=== PATIENT | male | born 1940 | race Caucasian/White ===

== ENCOUNTER 2019-09-19 11:30 | Inpatient (IN) ==
[2019-09-19] MEDS ORDERED: SODIUM CHLORIDE 0.9% 500 ML IV SCH (12:15)
[2019-09-19] MEDS ORDERED: KETOROLAC TROMETHAMINE 15 MG/ML VIAL IV ONE (12:15)
--- NOTE | 2019-09-19 12:21 | Emergency Department Note ---
History of Present Illness General Chief complaint: Leg Injury/Pain Stated complaint: R LEG PAIN-HARD TO WALK/SWELLING-BAD HEADACHE Time Seen by Provider: 09/19/19 11:57 Source: patient Mode of arrival: ambulatory Limitations: no limitations History of Present Illness Maximum Pain Intensity: 7 This is a 79-year-old male who presents to the ED with a chief complaint of generalized weakness as well as a frontal headache. The patient states that he has had progressive generalized weakness for at least a month. He also reports that he has no strength in his voice for at least 4 to 5 months. He states that he developed a headache that was sudden onset and constant in nature starting yesterday afternoon. The patient reports that is about an 8 out of 10. He states that overall he does not feel good. He has no energy. He was seen by his PCP for these symptoms and ultimately a blood pressure medication change was performed and he was taken off of Lipitor and placed on a different statin. The states that he has steadily been getting worse over the past months. Increasing weakness. He seems to be always cold, according to the . Yesterday he had some nausea no appetite but today he states that has resolved. He is currently on Augmentin for some phlegm in his throat. He started that on Friday. The states that the phlegm is not new. Home Medications Home Medications Medication Instructions Recorded Confirmed Type losartan 50 mg PO QAM 09/13/18 01/04/19 History omeprazole 20 mg PO BID 09/13/18 01/04/19 History tamsulosin 0.4 mg PO QAM 09/13/18 01/04/19 History trazodone 75 mg PO HS PRN 09/13/18 01/04/19 History Metamucil Smooth 1 dose PO BID 01/04/19 01/04/19 History aspirin [Ecotrin Low Strength] 81 mg PO DAILY 01/04/19 01/04/19 History atorvastatin 40 mg PO DAILY 01/04/19 01/04/19 History docusate sodium [Colace] 100 mg PO BID 01/04/19 01/04/19 History doxazosin 1 mg PO HS 01/04/19 01/04/19 History loratadine 10 mg PO DAILY 01/04/19 01/04/19 History ondansetron HCl [Zofran] 4 mg PO Q8H PRN 01/04/19 01/04/19 History sennosides [senna] 8.6 mg PO BID 01/04/19 01/04/19 History Allergies Allergy/AdvReac Type Severity Reaction Status Date / Time clarithromycin Allergy Mild rash Verified 01/04/19 23:34 metoclopramide AdvReac Intermediate NIGHTMARES Verified 01/04/19 23:34 prochlorperazine AdvReac Intermediate HYPER Verified 01/04/19 23:34 UNABLE TO TOLERATE SIDE EFFEDTS Past Med/Surg History Medical History Anxiety (Chronic) BPH (benign prostatic hyperplasia) (Chronic) CKD (chronic kidney disease), stage III (Chronic) Depression Diverticulitis GERD (gastroesophageal reflux disease) (Chronic) HTN (hypertension) (Chronic) IBS (irritable bowel syndrome) (Chronic) Prostate cancer (Chronic) "s/p radiation" Sinus bradycardia (Chronic) Vasovagal syncope (Chronic) Surgical History History of bowel resection History of partial colectomy (Chronic) Hx of tonsillectomy (Chronic) Family History Other Family history non-contributory Social History Preferred Language: Italian Feels Safe at Home: Yes Smoking Status: Former smoker Review of Systems A total of 10 systems reviewed and were otherwise negative Physical Exam Vital Signs Vital Signs - 24 hr 09/19/19 11:32 Temperature 36.5 C Temperature Source Oral Pulse Rate 72 Respiratory Rate 19 Blood Pressure 154/83 H Blood Pressure Mean 106 Pulse Oximetry 98 Sepsis Recent Fever Within 48 Hours No Sepsis Action Taken by Nursing No Action Required VITAL SIGNS: were reviewed as above. GENERAL:Non-toxic in appearance. SKIN: Warm dry and pink. HEAD: Normocephalic and atraumatic. OROPHARYNX: Is clear and moist NECK: Supple without lymphadenopathy or meningismus. LUNGS: Are clear. HEART: Regular rate and rhythm. ABDOMEN: Soft and nontender. EXTREMITIES: Warm and well perfused. NEUROLOGICALLY: Awake alert and oriented without focal deficit. Cranial nerves 2-12 are intact. There is no pronator drift. Cerebellar testing is within normal limits. There is no nystagmus. There is no facial droop. Speech is clear. Vision is grossly normal. MUSCULOSKELETAL: Good muscle tone. No evidence of trauma. Strength is symmetric. ALL NURSING NOTES WERE REVIEWED. Course Administered Medications Discontinued Medications Sodium Chloride (Nss) 500 mls @ 999 mls/hr IV .Q31M SELAM Stop: 09/19/19 12:45 Last Admin: 09/19/19 12:55 Dose: 999 mls/hr Documented by: [id number] Ketorolac Tromethamine (Toradol) 15 mg IV NOW ONE Stop: 09/19/19 12:16 Last Admin: 09/19/19 13:00 Dose: 15 mg Documented by: [id number] Medical Decision Making Differential Diagnosis Differential includes acute coronary syndrome, myocardial infarction, CVA, TIA, anemia, infection, pneumonia, UTI, pyelonephritis, poor nutrition, dehydration, electrolyte disturbance,hypoglycemia. Medical Records Attestation: I reviewed the patient's medical records. Home Medications Current Medication List: was personally reviewed by me Laboratory Data Attestation: I reviewed the patient's lab results. Result diagrams: 09/19/19 12:49 09/19/19 12:49 Lab Results 09/19/19 09/19/19 Range/Units 12:49 12:49 WBC 5.36 (4.8-10.8) K/uL RBC 4.87 (4.7-6.1) M/uL Hgb 15.3 (14.0-18.0) g/dL Hct 43.9 (42-52) % MCV 90.1 (80-100) fL MCH 31.4 (25-34) pg MCHC 34.9 (32-36) g/dL RDW Std Deviation 41.6 (36.4-46.3) fL RDW Coeff of Regine 12.7 (11.5-14.5) % Plt Count 142 (130-400) K/uL MPV 11.2 H (7.4-10.4) fL Immature Gran % (Auto) 0.2 % Neut % (Auto) 73.1 % Lymph % (Auto) 14.6 % Kingman % (Auto) 9.1 % Eos % (Auto) 2.6 % Baso % (Auto) 0.4 % Neut # (Auto) 3.92 (1.4-6.5) K/uL Lymph # (Auto) 0.78 L (1.2-3.4) K/uL Kingman # (Auto) 0.49 (0.11-0.59) K/uL Eos # (Auto) 0.14 (0-0.5) K/uL Baso # (Auto) 0.02 (0-0.2) K/uL Immature Gran # (Auto) 0.01 (0.00-0.02) K/uL Sodium 133 L (136-145) mmol/L Potassium 4.1 (3.5-5.1) mmol/L Chloride 95 L (98-107) mmol/L Carbon Dioxide 31 (21-32) mmol/L Anion Gap 7.0 (3-11) BUN 15 (7-18) mg/dl Creatinine 1.42 H (0.6-1.4) mg/dl Est Cr Clr Drug Dosing 39.4 ml/min Est GFR ( Amer) 54.1 Est GFR (Non-Af Amer) 46.6 BUN/Creatinine Ratio 10.3 (10-20) Glucose 119 H (70-99) mg/dl Calcium 8.8 (8.5-10.1) mg/dl Magnesium 2.3 (1.8-2.4) mg/dl Total Bilirubin 0.5 (0.2-1) mg/dl AST 33 (15-37) U/L ALT 31 (12-78) U/L Alkaline Phosphatase 94 (45-117) U/L Total Creatine Kinase 216 (39-308) U/L Troponin I < 0.015 (0-0.045) ng/ml Total Protein 7.2 (6.4-8.2) gm/dl Albumin 3.8 (3.4-5.0) gm/dl Globulin 3.4 (2.5-4.0) gm/dl Albumin/Globulin Ratio 1.1 (0.9-2) TSH 1.660 (0.300-4.500) uIu/ml Imaging Data Radiologist's Impression: XR chest 1V portable CLINICAL HISTORY: weakness COMPARISON STUDY: 11/24/2018 FINDINGS: The cardiac and mediastinal contours are normal. There is no evidence of focal pulmonary consolidation. There is no evidence of failure. No pleural effusions are visualized.[There are subsegmental atelectatic changes at the left lung base. IMPRESSION: Subsegmental atelectatic changes at the left lung base. Otherwise negative AP portable chest CT head/brain wo con CLINICAL HISTORY: frontal headache COMPARISON STUDY: 11/24/2018 TECHNIQUE: Axial CT of the brain is performed from the vertex to the skull base. IV contrast was not administered for this examination. A dose lowering technique was utilized adhering to the principles of ALARA. CT DOSE: 537.48 mGy.cm FINDINGS: There is a 3.5 cm hypodensity involving the left inferomedial cerebellar hemisphere suspicious for a subacute PICA infarct. There is no midline shift. There is no evidence of acute hemorrhage. There are extensive white matter hypodensities likely on a small vessel basis. There are scattered old lacunar infarcts. There is no evidence of pathologic ventricular dilatation. There is no evidence of acute sinusitis IMPRESSION: 1. Interval development of a 3.5 cm hypodensity involving the left cerebellar hemisphere suspicious for a subacute PICA infarct ECG Data Attestation: I personally reviewed and interpreted this ECG as follows: Indication: + weakness Rate (beats per minute): 65 Rhythm: + normal sinus ECG Intervals/blocks: + Normal QT-c ECG ST segments: no ST elevation ECG Findings: no PVCs Blood Pressure Blood Pressure Findings: Elevated blood pressure Blood Pressure Disposition: Referred to patients primary care provider MDM Narrative The patient presents with generalized weakness and a headache. Details listed above. The weakness seems to be more subacute/chronic in nature. The headache started yesterday. The patient's vital signs are unremarkable. Blood pressure was slightly elevated. Exam and neuro exam was unremarkable. A CT scan of the brain reveals a 3.5 cm left cerebellar hypodensity concerning for a subacute PICA infarct. CBC and chemistry panel was unremarkable. TSH is normal. Troponin is negative. Chest x-ray did not show acute disease. The patient was told the results. Because of the abnormality on CT scan and the patient's generalized weakness, he will be seen by the hospitalist for further inpatient evaluation and care. Impression & Plan Weakness, Acute CVA (cerebrovascular accident) Discharge Plan Visit Data Chief Complaint: Leg Injury/Pain Stated Complaint: R LEG PAIN-HARD TO WALK/SWELLING-BAD HEADACHE ED Provider: Hany Dunn Discharge Problem: Weakness, Acute CVA (cerebrovascular accident) Patient Disposition: Being Evaluated by Hospitalist Forms Stand Alone Forms: [facility] Prescriptions Prescriptions: No Action trazodone 50 mg Tablet 75 mg PO HS PRN (Reason: Sleep) RF: 0 tamsulosin 0.4 mg Capsule 0.4 mg PO QAM RF: 0 losartan 25 mg Tablet 50 mg PO QAM RF: 0 omeprazole 20 mg Capsule,Delayed Release(Dr/Ec) 20 mg PO BID RF: 0 atorvastatin 40 mg Tablet 40 mg PO DAILY RF: 0 docusate sodium [Colace] 100 mg Capsule 100 mg PO BID RF: 0 doxazosin 1 mg Tablet 1 mg PO HS RF: 0 aspirin [Ecotrin Low Strength] 81 mg Tablet,Delayed Release (Dr/Ec) 81 mg PO DAILY RF: 0 loratadine 10 mg Capsule 10 mg PO DAILY RF: 0 Metamucil Smooth 1 dose PO BID RF: 0 ondansetron HCl [Zofran] 4 mg Tablet 4 mg PO Q8H PRN (Reason: nausea/vomiting) RF: 0 sennosides [senna] 8.6 mg Tablet 8.6 mg PO BID RF: 0 Referrals Referrals: Jinny Johnson MD [Primary Care Provider] -
--- NOTE | 2019-09-19 12:43 | XRay Report ---
XR chest 1V portable CLINICAL HISTORY: weakness COMPARISON STUDY: 11/24/2018 FINDINGS: The cardiac and mediastinal contours are normal. There is no evidence of focal pulmonary co nsolidation. There is no evidence of failure. No pleural effusions are visualized.[There are subsegme ntal atelectatic changes at the left lung base. IMPRESSION: Subsegmental atelectatic changes at the left lung base. Otherwise negative AP portable ch est ACT 112: Negative or not required by law. Electronically signed by: Justin Arias M.D. 09/19/2019 12:41 PM
[2019-09-19 13:05] LABS: Basophils # (auto) 0.02 K/uL (0-0.2); Basophils % (auto) 0.4 %; Eosinophils # (auto) 0.14 K/uL (0-0.5); Eosinophils % (auto) 2.6 %; Hematocrit (blood only) 43.9 % (42-52); Hemoglobin 15.3 g/dL (14.0-18.0); Immature Granulocytes # (auto) 0.01 K/uL (0.00-0.02); Immature Granulocytes % (auto) 0.2 %; Lymphocytes # (auto) 0.78 K/uL (1.2-3.4); Lymphocytes % (auto) 14.6 %; Mean Corpuscular Hemoglobin 31.4 pg (25-34); Mean Corpuscular Hgb Conc 34.9 g/dL (32-36); Mean Corpuscular Volume 90.1 fL (80-100); Mean Platelet Volume 11.2 fL (7.4-10.4); Monocytes # (auto) 0.49 K/uL (0.11-0.59); Monocytes % (auto) 9.1 %; Neutrophils # (auto) 3.92 K/uL (1.4-6.5); Neutrophils % (auto) 73.1 %; Platelet Count 142 K/uL (130-400); RDW Coefficient of Variation 12.7 % (11.5-14.5); RDW Standard Deviation 41.6 fL (36.4-46.3); Red Blood Count 4.87 M/uL (4.7-6.1); White Blood Count 5.36 K/uL (4.8-10.8)
--- NOTE | 2019-09-19 13:23 | CT Scan Report ---
CT head/brain wo con CLINICAL HISTORY: frontal headache COMPARISON STUDY: 11/24/2018 TECHNIQUE: Axial CT of the brain is performed from the vertex to the skull base. IV contrast was not administered for this examination. A dose lowering technique was utilized adhering to the principles of ALARA. CT DOSE: 537.48 mGy.cm FINDINGS: There is a 3.5 cm hypodensity involving the left inferomedial cerebellar hemisphere suspicious for a subacute PICA infarct. There is no midline shift. There is no evidence of acute hemorrhage. There are extensive white matter hypodensities likely on a small vessel basis. There are scattered ol d lacunar infarcts. There is no evidence of pathologic ventricular dilatation. There is no evidence of acute sinusitis IMPRESSION: 1. Interval development of a 3.5 cm hypodensity involving the left cerebellar hemisphere suspicious f or a subacute PICA infarct ACT 112: Negative or not required by law. Electronically signed by: Justin Arias M.D. 09/19/2019 1:21 PM
[2019-09-19 13:24] LABS: Alanine Aminotransferase 31 U/L (12-78); Albumin Level 3.8 gm/dl (3.4-5.0); Aspartate Aminotransferase 33 U/L (15-37); BUN Creatinine Ratio 10.3 (10-20); Blood Urea Nitrogen 15 mg/dl (7-18); Calcium 8.8 mg/dl (8.5-10.1); Carbon Dioxide 31 mmol/L (21-32); Chloride 95 mmol/L (98-107); Creatinine Clr Calc Pharmacy 39.4 ml/min; Est GFR (African American) 54.1; Est GFR (Non-African American) 46.6; Glucose 119 mg/dl (70-99); Magnesium 2.3 mg/dl (1.8-2.4); Potassium 4.1 mmol/L (3.5-5.1); Sodium 133 mmol/L (136-145)
[2019-09-19 13:34] LABS: Albumin Globulin Ratio 1.1 (0.9-2); Alkaline Phosphatase 94 U/L (45-117); Bilirubin,Total 0.5 mg/dl (0.2-1); Creatine Kinase 216 U/L (39-308); Globulin 3.4 gm/dl (2.5-4.0); Total Protein 7.2 gm/dl (6.4-8.2); Troponin I < 0.015 ng/ml (0-0.045)
--- NOTE | 2019-09-19 14:59 | History & Physical Report ---
Date of Service September 19, 2019 Assessment & Plan (1) Acute CVA (cerebrovascular accident): (2) Weakness: Pt is 79 y/o M with PMH CVA with residual right sided weakness, HTN, CKD III, prostate CA s/p radiation presented to ER with c/o progressive bilateral lower extremity weakness over the past month with increased R leg weakness over past couple of days and frontal CHAMBERS x 2 days. Denies any falls. In ER pt afebrile, PA: 72, RR: 19, BP 154/83, 98% on room air. No significant electrolyte abnormality, normal troponin, no leukocytosis, no significant anemia CT HEAD: Interval development of a 3.5 cm hypodensity involving the left cerebellar hemisphere suspicious for a subacute PICA infarct -In ER was given Toradol 15 mg IV -Patient had aspirin this morning -Tele to monitor for arrhythmias --lipid panel and A1c in AM -MRI brain -U/S carotids -echo with bubble study -aspiration precautions -PT/OT consult -Patient previously intolerant to statin -Continue aspirin, will add Plavix per neurology recommendations -Neurology consult, discussed with Dr Whitten recommends starting Plavix (3) HTN (hypertension): -Continue losartan, chlorthalidone (4) CKD (chronic kidney disease), stage III: Cr: 1.4. Baseline 1.3 -Monitor renal functions -Avoid nephrotoxic agents when possible (5) GERD (gastroesophageal reflux disease): -Continue PPI (6) Depression: (7) Insomnia: -Patient no longer taking medications as well or not effective (8) Prostate cancer: History of prostate CA s/p radiation -Continue tamsulosin DVT Prophylaxis -Lovenox SQ Full Code as per discussion with pt Follows with Dr Gallagher for routine care Pt was seen and care coordinated with Dr Barrera. See addendum History of Present Illness Chief Complaint: Weakness Primary Care Provider: Jinny Johnson MD Pt is 79 y/o M with PMH CVA with residual right sided weakness, HTN, CKD III, prostate CA s/p radiation presented to ER with c/o progressive weakness. Reports has noticed increased bilateral leg weakness over the past month. States noticed increased R leg weakness past several days. Reports residual difficulty with writing with right hand and denies any increased upper extremity symptoms. Denies any falls. C/O dull frontal CHAMBERS x 2 days. Patient states 1 week ago noticed some swelling primarily to right lower leg that lasted a few days and self resolved was seen by PCP with no residual swelling. Denies any recurrent swelling, denies any erythema, skin discolorations or pain. Pt was previously on Lipitor then changed to Crestor due to leg cramps. Pt stopped taking due to reported leg cramps. 09/14/2019 atorvastatin re-prescribed and pt stopped taking a couple days ago secondary to leg cramps. Has chronic cough and chronic "phlegm in throat". PCPs office started patient on Augmentin on 09/14/2019 for 10-day course. Patient does not think any improvement in cough or phlegm symptoms. Denies fever/chills, diaphoresis, V/D/C, dizziness, syncope, vision changes, neck pain, CP, SOB, orthopnea, palpitations, hemoptysis, sore throat, choking, otalgia, rhinorrhea, abdominal pain, paresthesias, rashes, urinary symptoms. History MRI brain 11/24/18 - Acute infarction of the posterior limb of the left internal capsule. Chronic left thalamus lacunar infarct CTA Head and neck 11/2018 without significant stenosis. Today in ER work-up included CT head with results of Interval development of a 3.5 cm hypodensity involving the left cerebellar hemisphere suspicious for a subacute PICA infarct Patient being admitted to hospital for further work-up and evaluation Allergies Allergy/AdvReac Type Severity Reaction Status Date / Time clarithromycin Allergy Mild rash Verified 01/04/19 23:34 metoclopramide AdvReac Intermediate NIGHTMARES Verified 01/04/19 23:34 prochlorperazine AdvReac Intermediate HYPER Verified 01/04/19 23:34 UNABLE TO TOLERATE SIDE EFFEDTS Home Medications Home Medications Medication Instructions Recorded Confirmed Type omeprazole 20 mg PO QAM 09/13/18 09/19/19 History tamsulosin 0.4 mg PO QAM 09/13/18 09/19/19 History aspirin [Ecotrin Low Strength] 81 mg PO QAM 01/04/19 09/19/19 History acetaminophen [Tylenol Extra 500 mg PO Q6H PRN 09/19/19 09/19/19 History Strength] amoxicillin-pot clavulanate 1 tab PO Q12 09/19/19 09/19/19 History atorvastatin 40 mg PO QAM 09/19/19 09/19/19 History chlorthalidone 25 mg PO QAM 09/19/19 09/19/19 History fluticasone propionate 2 spray INTRANASAL QAM 09/19/19 09/19/19 History losartan 100 mg PO QAM 09/19/19 09/19/19 History montelukast [Singulair] 10 mg PO QAM 09/19/19 09/19/19 History psyllium husk [Metamucil] 1 tsp PO BID 09/19/19 09/19/19 History sertraline 50 mg PO QAM 09/19/19 09/19/19 History Past Med/Surg History Medical History Anxiety (Chronic) BPH (benign prostatic hyperplasia) (Chronic) CKD (chronic kidney disease), stage III (Chronic) Depression Diverticulitis GERD (gastroesophageal reflux disease) (Chronic) HTN (hypertension) (Chronic) IBS (irritable bowel syndrome) (Chronic) Insomnia Prostate cancer (Chronic) "s/p radiation" Sinus bradycardia (Chronic) Vasovagal syncope (Chronic) Surgical History History of bowel resection History of partial colectomy (Chronic) Hx of tonsillectomy (Chronic) Family History Brother Diabetes Daughter Asthma Social History Preferred Language: Emirati Feels Safe at Home: Yes Smoking Status: Former smoker Hx Alcohol Use: No Hx Substance Use: No Review of Systems Review of Systems: All systems reviewed & are unremarkable except as noted in HPI & below Physical Exam Physical Exam: General: no distress, WDWN Head: normocephalic, atraumatic Eyes: PERRL, EOM's intact, conjunctiva non-injected, anicteric ENT: Very hard of hearing, normal inspection external ears, nose, mucous membranes moist Neck: supple, trachea midline Lungs: clear, no respiratory distress, no wheezing/rhonchi/rales CV: RRR, no murmur, no pretibial edema Abd: normal BS, soft, non-tender Ext: no cyanosis, no calf tenderness Neuro: A&O x 3, normal affect; No nystagmus, Facial sensation is intact and symmetric, The face is strong and symmetric, no dysarthria, Shoulder shrug intact, Tongue is midline, normal movement, no fasciculations, strength upper and lower bilateral extremities appears equal and strong Skin: warm, dry Results & Data Results & Data ([facility]) Vital Signs (Past 12 Hours) Vital Signs Temp Pulse Resp BP Pulse Ox 09/19/19 14:00 59 L 18 157/74 H 97 09/19/19 13:30 57 L 18 153/80 H 97 09/19/19 13:01 61 21 147/95 H 96 09/19/19 12:30 63 17 176/100 H 95 09/19/19 12:00 66 20 148/85 H 96 09/19/19 11:52 66 21 146/81 H 96 09/19/19 11:32 36.5 C 72 19 154/83 H 98 Laboratory Results Short CBC 09/19/19 Range/Units 12:49 WBC 5.36 (4.8-10.8) K/uL Hgb 15.3 (14.0-18.0) g/dL Hct 43.9 (42-52) % Plt Count 142 (130-400) K/uL BMP 09/19/19 12:49 Sodium 133 L Potassium 4.1 Chloride 95 L Carbon Dioxide 31 BUN 15 Creatinine 1.42 H Glucose 119 H Calcium 8.8 Cardiac Enzymes 09/19/19 Range/Units 12:49 Total Creatine Kinase 216 (39-308) U/L Troponin I < 0.015 (0-0.045) ng/ml Liver Function 09/19/19 Range/Units 12:49 Total Bilirubin 0.5 (0.2-1) mg/dl AST 33 (15-37) U/L ALT 31 (12-78) U/L Alkaline Phosphatase 94 (45-117) U/L Albumin 3.8 (3.4-5.0) gm/dl Diagnostic Findings CXR: IMPRESSION: Subsegmental atelectatic changes at the left lung base. CT HEAD: IMPRESSION: 1. Interval development of a 3.5 cm hypodensity involving the left cerebellar hemisphere suspicious for a subacute PICA infarct Code Status & VTE Plan VTE Prophylaxis Plan VTE Prophylaxis will be ordered: Yes Supervising Physician Co-Signing Physician Notes Patient was seen and examined by me, care coordinated with Mita Mckeon PA-C. Please see her note above for further details. Mr. 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 Was then transferred to [place] for further care. He now presents with frontal headache for past 2 days, and progressive weakness for past 1 month. Patient was followed by neurology, via telemedicine in [place] (note from July 01, 2019 reviewed), and he was continued on aspirin and Lipitor. However due to myalgias Lipitor was changed to Crestor by his PCP. Patient was then seen by his PCP in July and at that time it seems like Crestor was stopped as well due to leg muscle cramps. Patient was seen again by PCP in September, and atorvastatin (Lipitor) 40 mg daily was re-prescribed, on September 13. Per patient's , who is present at the bedside, patient did quite well after his last stroke and after physical therapy, he was able to walk by himself. He does not have much of weakness in his right upper extremity. He is able to use utensils however has difficulty writing. However more recently he has been having more difficulty walking due to right leg weakness. He denies any dizziness or lightheadedness. He also denies any change in vision. He denies any difficulty speaking, slurred speech, or difficulty swallowing. He also denies any fevers, chills, chest pain, shortness of breath, palpitati ons, any recent sickness or sick contacts. Per neurology note, patient has been having ongoing right lower extremity weakness with some increased tone, and patient has not been active since completing physical therapy. He tried to walk using cane. It was recommended by neurology, to continue aspirin 81 mg daily, blood pressure medication adjustment for goal of less than 130/80, statin for goal LDL less than 70 and regular screening for diabetes. Patient was encouraged to have a low-fat, low carbohydrate and low sodium/Mediterranean or DASH diet, regular exercise routine. Seems as patient was started most recently on chlorthalidone for blood pressure control by PCP. Patient confirms taking it. Today in the emergency room, CT head shows interval development of a 3.5 cm hypodensity involving the left cerebellar hemisphere suspicious for a subacute PICA infarct. Cr mildly elevated at 1.45, baseline about 1.3. Patient is currently sitting up in bed, in no acute distress. His is present at the bedside and also provides history. Patient is alert and oriented and answers questions appropriately. He is somewhat difficult of hearing however his speech is fluent, there is no facial asymmetry, EOMI, PERRL, normocephalic, atraumatic. Lungs are clear to auscultation bilaterally, no wheezing, rhonchi or crackles noted. Heart sounds are regular, no obvious murmurs noted. Abdomen is soft, nontender, nondistended, positive bowel sounds. Patient is able to move his upper and lower extremities, and has good strength on both sides however subjectively states that his right lower extremity is more weak if he was trying to get up from bed and walk. I did not have patient stand up and walk during my exam, gait was not assessed. No sensory loss was noted. We will admit patient to telemetry, will continue aspirin, statin, and will discuss with neurology further recommendations. Will start Plavix. Patient will need PT OT evaluation prior to discharge. Neurology outpatient follow-up after discharge. Italia Barrera MD
[2019-09-19] MEDS ORDERED: PHARMACIST DISCHARGE MED REC CONSULT PRN (15:56)
[2019-09-19] MEDS ORDERED: POLYETHYLENE (MIRALAX) 17 GM PACK PO PRN (15:56)
--- NOTE | 2019-09-19 16:02 | Hospitalist Progress Note ---
Date of Service September 19, 2019 Assessment & Plan Admission and Anticipated Discharge Date Admission Date: September 19, 2019 Subjective Patient was seen and examined by me, care coordinated with Mita Mckeon PA-C. Please see her note above for further details. Mr. 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 Was then transferred to [place] for further care. He now presents with frontal headache for past 2 days, and progressive weakness for past 1 month. Patient was followed by neurology, via telemedicine in [place] (note from July 01, 2019 reviewed), and he was continued on aspirin and Lipitor. However due to myalgias Lipitor was changed to Crestor by his PCP. Patient was then seen by his PCP in July and at that time it seems like Crestor was stopped as well due to leg muscle cramps. Patient was seen again by PCP in September, and atorvastatin (Lipitor) 40 mg daily was re-prescribed, on September 13. Per patient's , who is present at the bedside, patient did quite well after his last stroke and after physical therapy, he was able to walk by himself. He does not have much of weakness in his right upper extremity. He is able to use utensils however has difficulty writing. However more recently he has been having more difficulty walking due to right leg weakness. He denies any dizziness or lightheadedness. He also denies any change in vision. He denies any difficulty speaking, slurred speech, or difficulty swallowing. He also denies any fevers, chills, chest pain, shortness of breath, palpitations, any recent sickness or sick contacts. Per neurology note, patient has been having ongoing right lower extremity weakness with some increased tone, and patient has not been active since completing physical therapy. He tried to walk using cane. It was recommended by neurology, to continue aspirin 81 mg daily, blood pressure medication adjustment for goal of less than 130/80, statin for goal LDL less than 70 and regular screening for diabetes. Patient was encouraged to have a low-fat, low carbohydrate and low sodium/Mediterranean or DASH diet, regular exercise routine. Seems as patient was started most recently on chlorthalidone for blood pressure control by PCP. Patient confirms taking it. Today in the emergency room, CT head shows interval development of a 3.5 cm hypodensity involving the left cerebellar hemisphere suspicious for a subacute PICA infarct. Cr mildly elevated at 1.45, baseline about 1.3. Patient is currently sitting up in bed, in no acute distress. His is present at the bedside and also provides history. Patient is alert and oriented and answers questions appropriately. He is somewhat difficult of hearing however his speech is fluent, there is no facial asymmetry, EOMI, PERRL, normocephalic, atraumatic. Lungs are clear to auscultation bilaterally, no wheezing, rhonchi or crackles noted. Heart sounds are regular, no obvious murmurs noted. Abdomen is soft, nontender, nondistended, positive bowel sounds. Patient is able to move his upper and lower extremities, and has good strength on both sides however subjectively states that his right lower extremity is more weak if he was trying to get up from bed and walk. I did not have patient stand up and walk during my exam, gait was not assessed. No sensory loss was noted. We will admit patient to telemetry, will continue aspirin, statin, and will discuss with neurology further recommendations. Will start Plavix. Patient will need PT OT evaluation prior to discharge. Neurology outpatient follow-up after discharge. Italia Barrera MD Results & Data Results & Data ([facility]) Vital Signs (Past 12 Hours) Vital Signs Temp Pulse Resp BP Pulse Ox 09/19/19 15:05 60 18 175/88 H 99 09/19/19 14:30 59 L 20 166/85 H 99 09/19/19 14:00 59 L 18 157/74 H 97 09/19/19 13:30 57 L 18 153/80 H 97 09/19/19 13:01 61 21 147/95 H 96 09/19/19 12:30 63 17 176/100 H 95 09/19/19 12:00 66 20 148/85 H 96 09/19/19 11:52 66 21 146/81 H 96 09/19/19 11:32 36.5 C 72 19 154/83 H 98
[2019-09-19] MEDS ORDERED: GADOBUTROL 65ML VIAL IV PRN (17:13)
[2019-09-19] MEDS: CLOPIDOGREL BISULFATE 75 MG TAB PO SCH (17:43)
[2019-09-19] MEDS: ENOXAPARIN INJ 30 MG/0.3 ML SYR SQ SCH (17:44)
--- NOTE | 2019-09-19 17:51 | Magnetic Resonance Report ---
MRI OF THE BRAIN WITHOUT AND WITH IV CONTRAST CLINICAL HISTORY: stroke like symptoms COMPARISON STUDY: CT scan dated 09/19/2019 TECHNIQUE: MRI of the brain was performed from the vertex to the skull base utilizing various T1 and T2 weighted sequences. Following the IV administration of 7.5 mL of Gadavist contrast, additional enh anced images were obtained. FINDINGS: Sagittal T1, axial diffusion, proton density and T2 weighted axial, coronal FLAIR, and pre and post a xial T1-weighted images were acquired. These were supplemented with post gadolinium coronal T1 weight ed images. No intra or extra-axial mass lesions are visualized. There is a 5 cm focus of restricted water diffusion within the left cerebellar hemisphere. This is co nsistent with a subacute infarct in the PICA distribution. There is no evidence of ventricular dilatation. Proton density T2-weighted and FLAIR images reveal bilateral extensive foci of increased T2 signal wi thin the white matter, likely on a small vessel basis. There is a focus of increased T2 and FLAIR sig nal within the left cerebellar hemisphere consistent with a subacute infarct. There are no abnormal flow voids. There is no evidence of pathologic enhancement. IMPRESSION: 1. Large subacute left cerebellar infarct in a PICA distribution. ACT 112: Negative or not required by law. Electronically signed by: Justin Arias M.D. 09/19/2019 5:49 PM
[2019-09-19] MEDS: AMOXICILLIN/CLAVULANATE 875 MG TAB PO SCH (20:47)
[2019-09-19 22:24] LABS: Appearance Urine Clear (Clear); Bilirubin Urine Negative (Negative); Blood Urine Negative (Negative); Color Urine Yellow; Glucose Urine UA Negative (Negative); Ketones Urine Negative (Negative); Leukocyte Esterase Urine Negative (Negative); Nitrite Urine Negative (Negative); Protein Urine Negative (Negative); Specific Gravity Urine 1.026 (1.000-1.030); Urobilinogen Urine Negative (Negative); pH Urine 7.5 (4.5-7.5)
[2019-09-20] MEDS: ACETAMINOPHEN 325 MG TAB PO PRN ×2 (01:15→08:50)
--- NOTE | 2019-09-20 07:15 | Ultrasound Report ---
BILATERAL CAROTID DOPPLER STUDY HISTORY: Left cerebellar infarct. COMPARISON: Neck CTA 11/24/2018. TECHNIQUE: Real-time, grayscale, and color Doppler sonography of the carotid arteries was performed. Imaging reviewed in the transverse and longitudinal planes. All measurements were calculated based on NASCET criteria. FINDINGS: Antegrade flow is seen in the bilateral vertebral arteries. The brachial pressures are hemodynamically similar. The peak systolic velocity within the right ICA is 127 cm/s distally. This may be due to the tortuous vessel. No stenosis identified on the provided images.. The right systolic ratio is 1.2. The peak systolic velocity within the left ICA is 100 cm/s. The left systolic ratio is 0.9. IMPRESSION: No hemodynamically significant stenosis seen within the carotid arteries. ACT 112: Negative or not required by law. Electronically signed by: Chidi Salguero M.D. 09/20/2019 7:14 AM
[2019-09-20 07:29] LABS: Basophils # (auto) 0.03 K/uL (0-0.2); Basophils % (auto) 0.5 %; Eosinophils # (auto) 0.29 K/uL (0-0.5); Eosinophils % (auto) 4.6 %; Hematocrit (blood only) 39.6 % (42-52); Hemoglobin 14.1 g/dL (14.0-18.0); Immature Granulocytes # (auto) 0.02 K/uL (0.00-0.02); Immature Granulocytes % (auto) 0.3 %; Lymphocytes % (auto) 23.8 %; Mean Corpuscular Hemoglobin 30.7 pg (25-34); Mean Corpuscular Hgb Conc 35.6 g/dL (32-36); Mean Corpuscular Volume 86.1 fL (80-100); Mean Platelet Volume 10.7 fL (7.4-10.4); Monocytes # (auto) 0.71 K/uL (0.11-0.59); Monocytes % (auto) 11.3 %; Neutrophils # (auto) 3.75 K/uL (1.4-6.5); Neutrophils % (auto) 59.5 %; Platelet Count 126 K/uL (130-400); RDW Coefficient of Variation 12.5 % (11.5-14.5); RDW Standard Deviation 39.5 fL (36.4-46.3)
[2019-09-20 08:02] LABS: Calcium 8.7 mg/dl (8.5-10.1); Creatinine Clr Calc Pharmacy 46.3 ml/min; Est GFR (African American) 65.6; Est GFR (Non-African American) 56.6
[2019-09-20] MEDS: FLUTICASONE PROPIONATE NA SPR 16 GM BTL NAE SCH (08:49)
[2019-09-20] MEDS: CLOPIDOGREL BISULFATE 75 MG TAB PO SCH (08:49)
[2019-09-20] MEDS: ASPIRIN 81 MG ECTAB PO SCH (08:49)
[2019-09-20] MEDS: MONTELUKAST SODIUM 10 MG TABLET PO SCH (08:50)
[2019-09-20] MEDS: AMOXICILLIN/CLAVULANATE 875 MG TAB PO SCH ×2 (08:50→20:34)
[2019-09-20] MEDS ORDERED: CHLORTHALIDONE 25 MG TAB PO SCH (09:00)
[2019-09-20] MEDS ORDERED: PANTOprazole 40 MG TAB PO SCH (09:00)
[2019-09-20] MEDS ORDERED: TAMSULOSIN HCL 0.4 MG CAP PO SCH (09:00)
[2019-09-20] MEDS ORDERED: LOSARTAN POTASSIUM 50 MG TAB PO SCH (09:00)
[2019-09-20 10:21] LABS: Estimated Average Glucose 111 mg/dl; Hemoglobin A1C 5.5 % (4.5-5.6)
[2019-09-20] MEDS ORDERED: OXYCODONE HCL IR 5 MG TAB (IMMEDIATE RELEASE) PO STA (11:38)
[2019-09-20] MEDS ORDERED: OPTIRAY 320 125ml IV PRN (12:41)
--- NOTE | 2019-09-20 12:55 | CT Scan Report ---
CT angio neck with con HISTORY: left PICA CVA, eval for left vertebral occlussion TECHNIQUE: Multiaxial CT angiography of the neck was performed IV contrast: 120 cc nonionic All rosalie urements were calculated based on NASCET criteria. Maximum intensity projection images were also obt ained. A dose lowering technique was utilized adhering to the principles of ALARA. COMPARISON STUDY: 11/24/2018 FINDINGS: The aortic arch and proximal great vessels are widely patent. There is no significant sten osis, occlusion, or dissection identified within the bilateral common carotid, internal carotid, or v ertebral arteries. 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 Small caliber right vertebral artery. IMPRESSION: 1. No significant stenosis of the carotid systems. 2. 30% stenosis of the basilar artery. 3. Small caliber right vertebral artery unchanged from the prior exam. ACT 112: Negative or not required by law. The above report was generated using voice recognition software. It may contain grammatical, syntax or spelling errors. Electronically signed by: Eliu Gore M.D. 09/20/2019 12:54 PM
--- NOTE | 2019-09-20 12:59 | CT Scan Report ---
CT angio head w con HISTORY: left PICA ischemic stroke TECHNIQUE: Multiaxial CT angiography of the head was performed IV contrast: None. Maximum intensit y projection images were also obtained. A dose lowering technique was utilized adhering to the [facility] [place]. COMPARISON: 11/24/2018 FINDINGS: There is no mass, hematoma, midline shift, or acute infarct. The bulk of the intracranial v asculature is unremarkable. There is minimal scattered atherosclerotic plaque formation throughout al l major arterial distributions. 60% stenosis basilar artery unchanged. High-grade stenosis left P1 segment also unchanged. No new or interval process. IMPRESSION: 1. 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 2. High-grade stenosis left P1 segment unchanged from the prior exam. 3. Mild scattered atherosclerotic change throughout the remaining intracranial vasculature with no ad ditional significant stenotic process. ACT 112: Negative or not required by law. The above report was generated using voice recognition software. It may contain grammatical, syntax or spelling errors. Electronically signed by: Eliu Gore M.D. 09/20/2019 12:57 PM
[2019-09-20] MEDS ORDERED: OXYCODONE HCL IR 5 MG TAB (IMMEDIATE RELEASE) PO PRN (13:42)
--- NOTE | 2019-09-20 14:11 | Electrocardiogram Report ---
Test Reason : Blood Pressure : / mmHG Vent. Rate : 065 BPM Atrial Rate : 065 BPM P-R Int : 200 ms QRS Dur : 084 ms QT Int : 414 ms P-R-T Axes : 046 -06 058 degrees QTc Int : 430 ms Normal sinus rhythm possible Inferior infarct , age undetermined Abnormal ECG When compared with ECG of 04-JAN-2019 22:11, No significant change was found Confirmed by Arie Fernandez ([id number]) on 09/20/2019 2:10:56 PM Referred By: REFERRED SELF Confirmed By:Tolu Fernandez
--- NOTE | 2019-09-20 16:31 | Hospitalist Progress Note ---
Date of Service September 20, 2019 Assessment & Plan (1) Acute CVA (cerebrovascular accident): CT HEAD: Interval development of a 3.5 cm hypodensity involving the left cerebellar hemisphere suspicious for a subacute PICA infarct MRI of brain confirms: 3.5 cm acute versus subacute left cerebellar stroke along the PICA distribution Carotid artery shows no significant carotid stenosis Echo shows no evidence of atrial septal defect, normal LV function normal LV structure CTA of head and neck shows: 1. 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 2. High-grade stenosis left P1 segment unchanged from the prior exam. 3. Mild scattered atherosclerotic change throughout the remaining intracranial vasculature with no additional significant stenotic process. Patient was started on dual antiplatelet aspirin and Plavix, Will be started on high intensity statin therapy Keep permissive hypertension to keep cerebral perfusion Neurology consulted (2) Weakness: Due to acute CVA Pt is 79 y/o M with PMH CVA with residual right sided weakness, HTN, CKD III, prostate CA s/p radiation presented to ER with c/o progressive bilateral lower extremity weakness over the past month with increased R leg weakness over past couple of days and frontal CHAMBERS x 2 days. Denies any falls. Ordered for PT OT (3) HTN (hypertension): -Hold losartan chlorthalidone for permissive hypertension (4) CKD (chronic kidney disease), stage III: Cr: 1.4. Baseline 1.3 -Monitor renal functions -Avoid nephrotoxic agents when possible (5) GERD (gastroesophageal reflux disease): -Continue PPI (6) Depression: (7) Insomnia: -Patient no longer taking medications as well or not effective (8) Prostate cancer: History of prostate CA s/p radiation -Continue tamsulosin DVT Prophylaxis -Lovenox SQ Full Code as per discussion with pt Follows with Dr Gallagher for routine care Admission and Anticipated Discharge Date Admission Date: September 19, 2019 Subjective Patient complains of frontal headache 10 out of 10, With radiation down to right neck, no fever chills, no neck stiffness No dysarthria or dysphasia, tolerating solid diet well Able to get out of bed, walk to the bathroom with minimum assistance No complaint of cough shortness of breath palpitation dizzy spell or dyspnea on exertion Review of Systems Review of Systems: All systems reviewed & are unremarkable except as noted in HPI & below Neurologic: + headache(s) Physical Exam Constitutional: WD/WN, vitals as above no acute distress Eyes: PERRL, conjunctivae normal, anicteric sclerae ENMT: external ear and nose normal, oropharynx normal Neck: trachea midline, no thyromegaly Respiratory: normal respiratory effort, lungs clear to auscultation Cardiovascular: RRR, no murmur, no edema Gastrointestinal (Abdomen): normal bowel sounds, soft, nontender, no hepatosplenomegaly Musculoskeletal: no cyanosis or clubbing, extremities motor strength 5/5 Skin: no rashes, warm and dry Neurologic: PERRL, EOMI, accommodation nl, no face palsy, no dysarthria Headache Psychiatric: A+Ox3, euthymic affect Results & Data Results & Data ([facility]) Vital Signs (Past 12 Hours) Vital Signs Temp Pulse Pulse Resp BP Pulse Ox 09/20/19 15:32 36.4 C L 67 18 131/79 95 09/20/19 15:00 73 09/20/19 11:37 36.4 C L 61 20 161/82 H 96 09/20/19 07:51 54 L 09/20/19 07:25 36.5 C 57 L 20 167/79 H 95
[2019-09-20] MEDS ORDERED: ATORVASTATIN 40 MG TAB PO ONE (17:04)
--- NOTE | 2019-09-20 17:08 | Hospitalist Progress Note ---
Date of Service September 20, 2019 Assessment & Plan Admission and Anticipated Discharge Date Admission Date: September 19, 2019 Subjective Hyponatremia Secondary to diuretics use Chlorthalidone discontinued Ordered for NSS at 100 mL/h 1 L only Follow BMP in a.m. Sylvia Pop MD Results & Data Results & Data ([facility]) Vital Signs (Past 12 Hours) Vital Signs Temp Pulse Pulse Resp BP Pulse Ox 09/20/19 15:32 36.4 C L 67 18 131/79 95 09/20/19 15:00 73 09/20/19 11:37 36.4 C L 61 20 161/82 H 96 09/20/19 07:51 54 L 09/20/19 07:25 36.5 C 57 L 20 167/79 H 95
--- NOTE | 2019-09-20 17:10 | Consultation Report ---
DATE OF CONSULTATION: 09/20/2019 Consultation was requested by Dr. Johnson and Dr. Pop. CHIEF COMPLAINT: Right leg weakness and gait difficulty. HISTORY OF PRESENT ILLNESS: This is a 79-year-old male who presented to the ED yesterday for complaint of leg weakness since Friday as well as some gait difficulty. He has a history of a prior cerebrovascular accident in 11/2018 with residual right leg weakness. He is on aspirin 81 mg daily. He does not smoke and he denies alcohol. Today, he reports feeling okay and hoping to go home soon. In regards to his symptoms, he states he started noticing symptoms on Friday or possibly Friday. Denies any speech changes. He denies any pain currently. He presented to the ED yesterday and had a CT head, noncontrast, which showed a hypodensity in the left cerebellum concerning for subacute to acute ischemic stroke and was admitted for further evaluation. Neurology was consulted upon admission for further recommendations. ALLERGIES: THE PATIENT IS ALLERGIC TO CLARITHROMYCIN DUE TO A RASH, METOCLOPRAMIDE FOR NIGHTMARES AND PROCHLORPERAZINE DUE TO AN UNSPECIFIED REACTION. HOME MEDICATIONS: He takes aspirin 81 mg daily. He takes atorvastatin 40 mg daily. He takes losartan 100 mg daily. He takes sertraline 50 mg daily. He takes chlorthalidone 25 mg daily. PAST MEDICAL HISTORY: History of cerebrovascular accident, chronic kidney disease, anxiety, hypertension. SURGICAL HISTORY: History of a bowel resection, history of partial colectomy, history of tonsillectomy. FAMILY HISTORY: His brother has diabetes and his daughter has asthma. SOCIAL HISTORY: He is a nonsmoker, although he was a former smoker. He denies alcohol. He has no polysubstance abuse history. REVIEW OF SYSTEMS: All 15-point review of systems was negative except as noted above in the HPI. PHYSICAL EXAMINATION: GENERAL APPEARANCE: He appears in no distress. He is resting comfortably in bed. He appears stated age. HEENT: Normocephalic, atraumatic. His eyes were midline. His conjunctiva appeared not injected. Ear, nose and throat exam the patient is grossly hard of hearing, had to speak loudly throughout the exam and had to often repeat myself. Otherwise, his external auditory canals appeared open. His mucous membranes were moist. NECK: Supple and his trachea was midline. LUNGS: He had no cough or wheeze. CARDIOVASCULAR SYSTEM: His pulses were intact. ABDOMEN: Nontender. EXTREMITIES: There was no edema in the lower extremities. NEUROLOGIC: He was awake, alert and oriented to person, place and time. He was oriented to month and year. His speech was clear. His eyes were midline. His extraocular muscles were intact. His face was symmetric. His tongue was midline. He was following commands. His comprehension was intact. Sensation was intact to light touch. He was grossly hard of hearing and I often had to speak very loudly or repetitively. He had no tremor. He had no ataxia with [id number] testing, although was bradykinetic at times. Muscle strength was 5/5 with no appreciable weakness in the upper or lower extremities. His toes were downgoing and there was no obvious ankle clonus. RESULTS OR DIAGNOSTIC TESTING: Transthoracic echocardiogram ejection fraction was 60%. There was no evidence of an atrial septal defect. No cardiac thrombus was identified. Mild left ventricular hypertrophy was noted. CTA of the head and neck, there was no significant stenosis of the carotid arteries. There was 60% stenosis of the mid basilar artery. With high-grade stenosis of the left P1 segment of the posterior cerebral artery. MRI brain with and without contrast showed a large subacute left cerebellar ischemic stroke in the distribution of the posterior inferior cerebellar artery. LABORATORY STUDIES: Hemoglobin was 14.1. His WBC was 6.3. His platelet count was 126. His INR was 1.1. His sodium was 129, his chloride was 96. His potassium was 4.0. His carbon dioxide was 25. His BUN was 17. His creatinine was 1.21. His hemoglobin A1c was 5.5. His magnesium was 2.3. LFTs were normal. LDL cholesterol was 39. His TSH was 1.66. Urinalysis was normal. ASSESSMENT AND PLAN: A 79-year-old male with a history of prior ischemic stroke, status post TPA in 11/2018 with residual right sided weakness, on aspirin 81 mg daily as well as a history of hypertension and chronic kidney disease admitted with a large subacute ischemic stroke in the left cerebellum in the distribution of the left posterior inferior cerebellar artery, likely secondary to chronic microvascular ischemic disease, which was noted on the CTA which showed basilar stenosis. The subacute large left cerebellar stroke likely contributing significantly to his gait difficulties. Recommend starting and continuing dual antiplatelet therapy with aspirin 81 mg daily and Plavix 75 mg daily. Would recommend increasing Lipitor to 80 mg daily. In regards to his blood pressure, recommend a systolic blood pressure less than 140 mmHg and the diastolic blood pressure less than [address] head noncontrast tomorrow morning, which I will order. Otherwise, recommend PT, OT for physical rehabilitation needs. Continue telemetry while the patient is admitted in the inpatient. Would recommend the patient have a cardiac event monitor as an outpatient to evaluate for paroxysmal atrial fibrillation. The patient will need a Neurology followup in 8 weeks post-discharge. I did provide my business card and contact information to the patient this afternoon. Thank you for the consultation.
[2019-09-20] MEDS ORDERED: SODIUM CHLORIDE 0.9% 1000ML 1,000 ML IV SCH (17:15)
[2019-09-20] MEDS: ENOXAPARIN INJ 30 MG/0.3 ML SYR SQ SCH (17:42)
[2019-09-21] MEDS: ACETAMINOPHEN 325 MG TAB PO PRN (04:14)
[2019-09-21 07:33] LABS: BUN Creatinine Ratio 13.9 (10-20); Calcium 8.4 mg/dl (8.5-10.1); Creatinine Clr Calc Pharmacy 45.9 ml/min
--- NOTE | 2019-09-21 08:09 | CT Scan Report ---
CT head/brain wo con CT DOSE: 1081.42 mGycm HISTORY: Stroke follow up left cerebellar ischemic stroke TECHNIQUE: Multiaxial CT images of the head were performed without the use of intravenous contrast. A dose lowering technique was utilized adhering to the principles of ALARA. Comparison: 09/20/2019 Findings: The paranasal sinuses and mastoid air cells are clear. Calvarium and skull base are unremar kable. Large left inferior cerebellar infarct. This is unchanged from the prior MRI study of 09/19/2019. No evidence for hemorrhagic conversion. Findings of age-related atrophy and chronic small vessel change persist and are unchanged. Impression: 1. Pre-existing left cerebellar infarct considered unchanged. 2. No evidence for hemorrhagic conversion. 3. No mass effect 4. Age-related atrophy and chronic small vessel change considered stable. ACT 112: Negative or not required by law. The above report was generated using voice recognition software. It may contain grammatical, syntax or spelling errors. Electronically signed by: Eliu Gore M.D. 09/21/2019 8:08 AM
[2019-09-21] MEDS: ASPIRIN 81 MG ECTAB PO SCH (08:57)
[2019-09-21] MEDS: AMOXICILLIN/CLAVULANATE 875 MG TAB PO SCH (08:57)
[2019-09-21] MEDS: CLOPIDOGREL BISULFATE 75 MG TAB PO SCH (08:57)
[2019-09-21] MEDS: MONTELUKAST SODIUM 10 MG TABLET PO SCH (08:57)
[2019-09-21] MEDS: FLUTICASONE PROPIONATE NA SPR 16 GM BTL NAE SCH (08:58)
[2019-09-21] MEDS ORDERED: ATORVASTATIN 40 MG TAB PO SCH (09:00)
[2019-09-21] MEDS ORDERED: LOSARTAN POTASSIUM 50 MG TAB PO ONE (12:43)
[2019-09-21] MEDS ORDERED: STROKE PATIENT DISCHARGE STA (12:54)
--- NOTE | 2019-09-21 13:08 | Hospitalist Progress Note ---
Date of Service September 21, 2019 Assessment & Plan (1) Acute CVA (cerebrovascular accident): Acute left PICA stroke CT HEAD: Interval development of a 3.5 cm hypodensity involving the left cerebellar hemisphere suspicious for a subacute PICA infarct MRI of brain confirms: 3.5 cm acute versus subacute left cerebellar stroke along the PICA distribution Carotid artery shows no significant carotid stenosis Echo shows no evidence of atrial septal defect, normal LV function normal LV structure CTA of head and neck shows: 1. 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 2. High-grade stenosis left P1 segment unchanged from the prior exam. 3. Mild scattered atherosclerotic change throughout the remaining intracranial vasculature with no additional significant stenotic process. Patient was started on dual antiplatelet aspirin and Plavix, On Lipitor 40 mg daily, LDL 39(appropriate level as goal LDL less than 70) Patient could not tolerate higher dose of Lipitor in the past secondary to significant myalgia Appreciate input from neurology Patient will continue with aspirin and Plavix Follow-up with neurology in 8 weeks, appointment already scheduled Will need outpatient cardiac monitoring/ZIO Patch to assess for cardiac arrhythmia Patient had acute stroke on 11/27/2018, required tPA, later life flighted to [facility] Acute bronchitis [facility]2019 for cough, sputum production Was prescribed Augmentin for 10 days, last day of therapy 09/24/2019 Patient does not have any cough, no shortness of breath, no sputum production no fever chills Augmentin continued during hospital stay Patient is instructed to antibiotic treatment till 09/14/2019 (2) Weakness: Due to acute CVA Pt is 79 y/o M with PMH CVA with residual right sided weakness, HTN, CKD III, prostate CA s/p radiation presented to ER with c/o progressive bilateral lower extremity weakness over the past month with increased R leg weakness over past couple of days and frontal CHAMBERS x 2 days. Denies any falls. Ordered for PT OT/patient input, patient's functional status to approximate baseline, stable to be discharged home (3) HTN (hypertension): Continue losartan We will DC chlorthalidone, for persistent hyponatremia Acute hyponatremia: Sodium 129 Possible secondary to diuretics/chlorthalidone vs possible SIADH given acute CVA Given IV fluid challenge, with no improvement of sodium level Discontinue chlorthalidone Outpatient BMP check with next hospital visit May need nephrology evaluation and fluid restriction if sodium level remains persistently low after diuretics discontinued (4) CKD (chronic kidney disease), stage III: No function at baseline (5) GERD (gastroesophageal reflux disease): Omeprazole discontinued for drug interaction with Plavix Patient can utilize H2 jose alfredo for acid reflux symptoms, follow-up with family physician for recommendation (6) Depression: On SSRI (7) Insomnia: -Patient no longer taking medications as well or not effective (8) Prostate cancer: History of prostate CA s/p radiation -Continue tamsulosin DVT Prophylaxis -Lovenox SQ Full Code Stable to be discharged home today Admission and Anticipated Discharge Date Admission Date: September 19, 2019 Subjective Patient seen at bedside, reports headache is much improved today, No visual complaint, able to get out of bed and walk independently No cough no shortness of breath no fever or chills Appreciate input from PT OT and speech therapy, patient is almost at to his baseline functional status Stable to be discharged home today present at bedside, discharge instruction explained to patient and in detail Review of Systems Review of Systems: All systems reviewed & are unremarkable except as noted in HPI & below Neurologic: no headache(s) Physical Exam Constitutional: WD/WN, vitals as above no acute distress Eyes: PERRL, conjunctivae normal, anicteric sclerae ENMT: external ear and nose normal, oropharynx normal Neck: trachea midline, no thyromegaly Respiratory: normal respiratory effort, lungs clear to auscultation Cardiovascular: RRR, no murmur, no edema Gastrointestinal (Abdomen): normal bowel sounds, soft, nontender, no hepatosplenomegaly Musculoskeletal: no cyanosis or clubbing, extremities motor strength 5/5 Skin: no rashes, warm and dry Neurologic: PERRL, EOMI, accommodation nl, no face palsy, no dysarthria Psychiatric: A+Ox3, euthymic affect Results & Data Results & Data ([facility]) Vital Signs (Past 12 Hours) Vital Signs Temp Pulse Pulse Resp BP Pulse Ox 09/21/19 11:13 36.5 C 59 L 18 152/80 H 97 09/21/19 07:32 64 09/21/19 07:31 36.5 C 57 L 18 152/77 H 96 09/21/19 04:29 36.5 C 60 18 173/70 H 94
--- NOTE | 2019-09-21 13:10 | Discharge Summary ---
Date of Service September 21, 2019 Admission HPI Per Admitting Provider Pt is 79 y/o M with PMH CVA with residual right sided weakness, HTN, CKD III, prostate CA s/p radiation presented to ER with c/o progressive weakness. Reports has noticed increased bilateral leg weakness over the past month. States noticed increased R leg weakness past several days. Reports residual difficulty with writing with right hand and denies any increased upper extremity symptoms. Denies any falls. C/O dull frontal CHAMBERS x 2 days. Patient states 1 week ago noticed some swelling primarily to right lower leg that lasted a few days and self resolved was seen by PCP with no residual swelling. Denies any recurrent swelling, denies any erythema, skin discolorations or pain. Pt was previously on Lipitor then changed to Crestor due to leg cramps. Pt stopped taking due to reported leg cramps. 09/14/2019 atorvastatin re-prescribed and pt stopped taking a couple days ago secondary to leg cramps. Has chronic cough and chronic "phlegm in throat". PCPs office started patient on Augmentin on 09/14/2019 for 10-day course. Patient does not think any improvement in cough or phlegm symptoms. Denies fever/chills, diaphoresis, V/D/C, dizziness, syncope, vision changes, neck pain, CP, SOB, orthopnea, palpitations, hemoptysis, sore throat, choking, otalgia, rhinorrhea, abdominal pain, paresthesias, rashes, urinary symptoms. History MRI brain 11/24/18 - Acute infarction of the posterior limb of the left internal capsule. Chronic left thalamus lacunar infarct CTA Head and neck 11/2018 without significant stenosis. Today in ER work-up included CT head with results of Interval development of a 3.5 cm hypodensity involving the left cerebellar hemisphere suspicious for a subacute PICA infarct Patient being admitted to hospital for further work-up and evaluation Principal Diagnosis ACUTE STROKE LOW SODIUM Discharge Exam Constitutional WD/WN, vitals as above no acute distress Eyes PERRL, conjunctivae normal, anicteric sclerae ENMT external ear and nose normal, oropharynx normal Neck trachea midline, no thyromegaly Respiratory normal respiratory effort, lungs clear to auscultation Cardiovascular RRR, no murmur, no edema Gastrointestinal (Abdomen) normal bowel sounds, soft, nontender, no hepatosplenomegaly Musculoskeletal no cyanosis or clubbing, extremities motor strength 5/5 Skin no rashes, warm and dry Neurologic PERRL, EOMI, accommodation nl, no face palsy, no dysarthria Psychiatric A+Ox3, euthymic affect Discharge Data Allergies Allergy/AdvReac Type Severity Reaction Status Date / Time clarithromycin Allergy Mild rash Verified 01/04/19 23:34 metoclopramide AdvReac Intermediate NIGHTMARES Verified 01/04/19 23:34 prochlorperazine AdvReac Intermediate HYPER Verified 01/04/19 23:34 UNABLE TO TOLERATE SIDE EFFEDTS Consultations 09/19/19 14:05 ED Decision to Admit Stat 09/19/19 15:56 Consult Case Management - Discharge Planning Routine Consult Neurology Routine Ordered Studies 09/19/19 12:13 CT head/brain wo con Stat 09/19/19 15:56 MR brain wo/w con Routine US carotid doppler BI Routine 09/20/19 12:40 CT angio head w con Routine CT angio neck with con Urgent 09/21/19 08:00 CT head/brain wo con Routine Hospital Course (1) Acute CVA (cerebrovascular accident): Acute left PICA stroke CT HEAD: Interval development of a 3.5 cm hypodensity involving the left cerebellar hemisphere suspicious for a subacute PICA infarct MRI of brain confirms: 3.5 cm acute versus subacute left cerebellar stroke along the PICA distribution Carotid artery shows no significant carotid stenosis Echo shows no evidence of atrial septal defect, normal LV function normal LV structure CTA of head and neck shows: 1. 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 2. High-grade stenosis left P1 segment unchanged from the prior exam. 3. Mild scattered atherosclerotic change throughout the remaining intracranial vasculature with no additional significant stenotic process. Patient was started on dual antiplatelet aspirin and Plavix, On Lipitor 40 mg daily, LDL 39(appropriate level as goal LDL less than 70) Patient could not tolerate higher dose of Lipitor in the past secondary to significant myalgia Appreciate input from neurology Patient will continue with aspirin and Plavix Follow-up with neurology in 8 weeks, appointment already scheduled Will need outpatient cardiac monitoring/ZIO Patch to assess for cardiac arrhythmia Patient had acute stroke on 11/27/2018, required tPA, later life flighted to [facility] Acute bronchitis [facility]2019 for cough, sputum production Was prescribed Augmentin for 10 days, last day of therapy 09/24/2019 Patient does not have any cough, no shortness of breath, no sputum production no fever chills Augmentin continued during hospital stay Patient is instructed to antibiotic treatment till 09/14/2019 (2) Weakness: Due to acute CVA Pt is 79 y/o M with PMH CVA with residual right sided weakness, HTN, CKD III, prostate CA s/p radiation presented to ER with c/o progressive bilateral lower extremity weakness over the past month with increased R leg weakness over past couple of days and frontal CHAMBERS x 2 days. Denies any falls. Ordered for PT OT/patient input, patient's functional status to approximate base line, stable to be discharged home (3) HTN (hypertension): Continue losartan We will DC chlorthalidone, for persistent hyponatremia Acute hyponatremia: Sodium 129 Possible secondary to diuretics/chlorthalidone vs possible SIADH given acute CVA Given IV fluid challenge, with no improvement of sodium level Discontinue chlorthalidone Outpatient BMP check with next hospital visit May need nephrology evaluation and fluid restriction if sodium level remains persistently low after diuretics discontinued (4) CKD (chronic kidney disease), stage III: No function at baseline (5) GERD (gastroesophageal reflux disease): Omeprazole discontinued for drug interaction with Plavix Patient can utilize H2 jose alfredo for acid reflux symptoms, follow-up with family physician for recommendation (6) Depression: On SSRI (7) Insomnia: -Patient no longer taking medications as well or not effective (8) Prostate cancer: History of prostate CA s/p radiation -Continue tamsulosin DVT Prophylaxis -Lovenox SQ Full Code Stable to be discharged home today Total Time Total Time Spent Total Time Spent (In Minutes): 40 mins Discharge Plan Discharge Items Patient Disposition: Home - Self-Care Reason For Visit: WEAKNESS Discharge Diagnosis: ACUTE STROKE LOW SODIUM Activity: Resume your previous activity Non-emergency contact: Primary Care Provider Call non-emergency contact if: you have any medication questions Follow-up/Referrals: Jose A Whitten DO [Physician] - 11/17/19 9:20 am Umer Gallagher MD [Outside Practitioners] - 09/24/19 11:20 am (09/24/2019 11:20 AM Provider Devora Gallagher MD Department Internal Medicine [facility] ) Diet: Heart Healthy Ambulatory Orders: Basic Metabolic Panel (Routine) Timeframe: [id number] Location: Determined by Patient Ordered By: Sylvia Cassidy Attending Provider Instructions: Will need cardiac monitoring/Zio patch(cardiac nurse practitioner) to assess cardiac arrhythmia which could be a possible reason for recurrent stroke Please coordinate with your family physician and [facility] cardiology to schedule appointment for cardiac nurse practitioner DO NOT TAKE CHLORTHALIDONE -LOW BLOOD SODIUM LEVEL DO NOT TAKE OMEPRAZOLE -INTERACTS WITH PLAVIX , INCREASES RISK OF FUTURE STROKE DISCUSS WITH YOU FAMILY PHYSICIAN OTHER MEDICATION : RANITIDINE OR FAMOTIDINE FOR ACID REFLUX ( DOES NOT INTERACT WITH PLAVIX ) Risk Factors for Stroke: You can reduce your chances of stroke by working with your medical provider to adopt a healthy lifestyle. Some specific ways to lower your chance of stroke are: * If you are a smoker, now is the time to stop smoking cigarettes * If you are diabetic, improve the control of your blood sugars * Avoid excessive amounts of alcohol * Control high blood pressure * Lose weight if you are overweight * Be sure to lead an active lifestyle * Eat a healthy diet low in salt, cholesterol and fat You should know about other risk factors for stroke that you are unable to control. These include: * Age 55 years or older * Male gender * Certain racial groups: , or / * Family History of Stroke, Mini stroke or Heart Attack * Sickle Cell Disease Follow Up: It is important for you to keep your follow up appointments with your medical provider. Who to Call and When: Medical Emergencies: Call 911 immediately if you experience any of the following warning signs and symptoms of Stroke: * Sudden numbness or weakness of the face, arm or leg, especially on one side of the body * Sudden confusion, trouble speaking or understanding * Sudden trouble seeing in one or both eyes * Sudden trouble walking, dizziness, loss of balance or coordination * Sudden severe headache with no cause Do not delay calling 911 if you experience any warning signs or symptoms of a stroke. Delay in seeking medical attention may affect what treatments can be given to you. . Pending Studies at Discharge: Yes Studies:: CARDIAC MONITORING /ZIO PATCH LAB : BASIC METABOLIC PANEL ON 09/24/19 Stand-Alone Forms: My [employer], Smoking Cessation Medications and DC Order Prescriptions: New clopidogrel 75 mg Tablet 75 mg PO QAM 30 Days Qty: 30 RF: 3 Continued tamsulosin 0.4 mg Capsule 0.4 mg PO QAM RF: 0 aspirin [Ecotrin Low Strength] 81 mg Tablet,Delayed Release (Dr/Ec) 81 mg PO QAM RF: 0 acetaminophen [Tylenol Extra Strength] 500 mg Tablet 500 mg PO Q6H PRN (Reason: Pain) RF: 0 montelukast [Singulair] 10 mg Tablet 10 mg PO QAM RF: 0 losartan 100 mg tablet 100 mg PO QAM RF: 0 fluticasone propionate 50 mcg/actuation spray,suspension 2 spray INTRANASAL QAM RF: 0 sertraline 50 mg tablet 50 mg PO QAM RF: 0 amoxicillin-pot clavulanate 875-125 mg tablet 1 tab PO Q12 RF: 0 Metamucil 3.4 gram/5.4 gram Powder 1 tsp PO BID RF: 0 atorvastatin 40 mg tablet 40 mg PO QAM Qty: 0 RF: 0 Discontinued omeprazole 20 mg Capsule,Delayed Release(Dr/Ec) 20 mg PO QAM RF: 0 chlorthalidone 25 mg tablet 25 mg PO QAM RF: 0 Discharge Orders: Discharge Order (Routine); Ordered 09/21/19 Ordered By: Sylvia Pop Admission Data Admit Date/Time: 09/19/19 14:33 Attending Provider: Sylvia Pop Admit Provider: Kolby Barrera Primary Care Provider: Jinny Johnson Other Providers: Sylvia Pop ; Jose A Whitten ; Kolby Barrera
--- NOTE | 2019-09-21 14:08 | Pharmacy Report ---
Pharmacist Stroke Counseling - Date of Service September 21, 2019 - Scope: Pharmacy has been consulted to provide medication discharge counseling for this patient admitted with ischemic stroke as per the Pharmacist Discharge Counseling for Stroke Patients Protocol. - Medications on Discharge: Home Medications Medication Instructions Recorded Confirmed tamsulosin 0.4 mg PO QAM 09/13/18 09/19/19 aspirin [Ecotrin Low Strength] 81 mg PO QAM 01/04/19 09/19/19 Metamucil 1 tsp PO BID 09/19/19 09/19/19 acetaminophen [Tylenol Extra 500 mg PO Q6H PRN 09/19/19 09/19/19 Strength] amoxicillin-pot clavulanate 1 tab PO Q12 09/19/19 09/19/19 fluticasone propionate 2 spray INTRANASAL QAM 09/19/19 09/19/19 losartan 100 mg PO QAM 09/19/19 09/19/19 montelukast [Singulair] 10 mg PO QAM 09/19/19 09/19/19 sertraline 50 mg PO QAM 09/19/19 09/19/19 New Rx's Medication Instructions Recorded atorvastatin 40 mg PO QAM #0 tab 09/21/19 clopidogrel 75 mg PO QAM 30 Days #30 tab 09/21/19 - Action: The above medications, specifically ones for stroke treatment/prophylaxis, have been reviewed in detail with the patient and/or patient territory account representative(s) prior to discharge. This includes indication, common adverse reactions, drug interactions, and medication administration. Medication counseling has been employed using the teach-back method to ensure understanding. - Outcome: The patient and/or patient territory account representative(s) have demonstrated understanding of the medications. Additional comments: Spoke over the phone with patient's today. Reviewed new medications to prevent stroke including Plavix and Atorvastatin. Discussed why they are being used and common side effects in great detail. Reviewed how to use the medicatio ns, what to do if doses are missed, common drug interactions, common side effects, what to watch out for while using the medications, and how to store the medications. Pt verbalized understanding and restated the arceo points of each medication. Pt has experienced muscle pain with atorvastatin in the past. Will discuss with PCP if muscle pain occurs again - could consider dose reduction vs changing to alternate statin. Outpatient me of Omeprazole is being stopped d/t interaction with clopidogrel. Patient's stated that he has terrible reflux and belching - would like another PPI to use for outpatient. D/W hospitalist - will start protonix. Lastly, discussed stopped medications of chlorthalidone and omeprazole. Thank you for allowing pharmacy to be involved in the care of this patient. Please call [phone] with any additional questions
== END 2019-09-21 14:05 | disposition home or self-care (01) | DRG 65 ==
LOC: ED 11:30 → 2N 14:33 → SUATTDRO 14:33 → 2N 15:24

== ENCOUNTER 2019-09-26 18:28 | Inpatient (IN) ==
[2019-09-26] MEDS ORDERED: SODIUM CHLORIDE 0.9% 500 ML IV SCH (19:00)
--- NOTE | 2019-09-26 19:01 | Emergency Department Note ---
Impression & Plan Acute hyponatremia, Vasovagal syncope, Weakness ED Provider Note NAME: TEJAS ARVIZU AGE: 79 SEX: M : 1940 ARRIVES VIA: Ambulance INFORMANT: Patient ED PROVIDER(S): Blayne Sheehan DO CHIEF COMPLAINT: Syncope HPI: Patient is a 79-year-old male who presents the ER for nausea. He notes that he has had nausea for the past 24 hours. He was recently admitted and discharged for a stroke. Patient notes that he had no belly pain. He became very nauseated and was going to the bathroom to throw up. At that time he became very weak and felt diaphoretic. He then passed out and fell onto his bottom. He did not hit his head. His was right there. She notes that this lasted for under a minute. He woke up he knew where he was and who she was. There was no shaking. He denied any chest pain or shortness of breath prior to or following this incident. Denies any other exacerbating or remitting factors. No focal weakness. ROS: See above HPI for pertinent positives & negatives. A total of 10 systems reviewed and were otherwise negative. PAST MEDICAL HISTORY:See Below PAST SURGICAL HISTORY:See Below FAMILY HISTORY:See Below SOCIAL HISTORY:See Below HOME MEDICATIONS:See Below ALLERGIES:See Below VITALS:See Below PHYSICAL EXAMINATION: GENERAL: Sitting up in bed, alert, well appearing, well nourished, no distress, non-toxic HEAD: NC/AT EYE EXAM: normal conjunctiva. PERRL and EOM's grossly intact. OROPHARYNX: no exudate, no erythema, lips, buccal mucosa, and tongue normal and mucous membranes are moist NECK: supple, no nuchal rigidity, no adenopathy, non-tender LUNGS: Clear to auscultation. Normal chest wall mechanics HEART: no murmurs, S1 normal and S2 normal ABDOMEN: abdomen soft, non-tender, normo-active bowel sounds, no masses, no rebound or guarding. BACK: Back is symmetrical on inspection and there is no deformity, no midline tenderness, no CVA tenderness. SKIN: no rashes and no bruising UPPER EXTREMITIES: upper extremities are grossly normal. LOWER EXTREMITIES: No pitting edema. NEURO EXAM: Normal sensorium, cranial nerves II-XII grossly intact, normal speech, no gross weakness of arms, no gross weakness of legs. MEDICAL DECISION MAKING: Patient is a 79-year-old male who presents the ER following a syncopal episode. He notes he became very nauseated and passed out. When he woke up he vomited. He did not hit his head when he fell. He is completely neurologically intact. IV was established blood work was obtained. Labs show no significant leukocytosis or anemia. INR was unremarkable. BMP with a sodium of 122 down from a baseline of about 130. Calcium was slightly low. LFTs bilirubin was unremarkable. Troponin was negative. EKG was nondiagnostic. CT head as well as CT abdomen pelvis showed no acute pathology. Chest x-ray was unremarkable. Patient was updated bedside. He was given IV fluids. Discussed with the hospitalist admitted for further work-up. Triage Nursing notes reviewed. Prior medical records reviewed Vital Signs: reviewed and remarkable for no significant abnormalities Differential diagnosis: Differential diagnosis includes etiologies such as sepsis, UTI, pneumonia, metabolic, electrolyte abnormalities, cardiac sources, intracerebral event, toxicologic, neurological, as well as others were entertained. ER treatment provided: See below Diagnostics interpreted by me: ECG: Sinus rhythm rate of 50 Left axis DWI in the high lateral leads No PVCs T wave flattening in the lateral leads Inferior Q waves Cardiac Monitoring: An order was placed for continuous cardiac monitoring. The monitor shows a rate of 61 with sinus rhythm. Laboratory studies: As stated above and show below. Imaging studies: CT abdomen pelvis shows nonobstructing 5 mm stone in the right interpolar kidney but otherwise negative study. CT head was unchanged in appearance of the large left cerebellar hemisphere infarct. Left basal ganglia and thalamic lacunar infarcts Consultation(s): D/w Hospitalist for admission ED COURSE: Procedures: none Critical Care: None Past Med/Surg History Social History Preferred Language: Kyrgyz Communication Ability: Effective Promotions Coordinator Required: No Beliefs That Will Affect Care: None Current Living Situation: Spouse Feels Safe at Home: Yes Smoking Status: Never smoker Hx Alcohol Use: No Hx Substance Use: No Allergies Allergies Allergy/AdvReac Type Severity Reaction Status Date / Time clarithromycin Allergy Mild rash Verified 09/26/19 20:45 metoclopramide AdvReac Intermediate NIGHTMARES Verified 09/26/19 20:45 prochlorperazine AdvReac Intermediate HYPER Verified 09/26/19 20:45 UNABLE TO TOLERATE SIDE EFFEDTS pantoprazole [From Protonix] AdvReac Mild GI upset Verified 09/26/19 21:58 Home Meds Home Medications Medication Instructions Recorded Confirmed tamsulosin 0.4 mg PO QAM 09/13/18 09/26/19 aspirin [Ecotrin Low Strength] 81 mg PO QAM 01/04/19 09/26/19 Metamucil 1 tsp PO BID 09/19/19 09/26/19 acetaminophen [Tylenol Extra 500 mg PO Q6H PRN 09/19/19 09/26/19 Strength] amoxicillin-pot clavulanate 1 tab PO Q12 09/19/19 09/26/19 fluticasone propionate 2 spray INTRANASAL QAM 09/19/19 09/26/19 losartan 100 mg PO QAM 09/19/19 09/26/19 montelukast [Singulair] 10 mg PO QAM 09/19/19 09/26/19 sertraline 50 mg PO QAM 09/19/19 09/26/19 Previous Rx's Medication Instructions Recorded atorvastatin 40 mg PO QAM #0 tab 09/21/19 clopidogrel 75 mg PO QAM 30 Days #30 tab 09/21/19 pantoprazole [Protonix] 40 mg PO DAILY 30 Days #30 tab 09/21/19 Results & Data (ED) Vital Signs Vital Signs - 24 hr 09/26/19 18:49 09/26/19 18:50 09/26/19 19:01 Temperature 36.4 C L Temperature Source Oral Pulse Rate - Lying Pulse Rate - Sitting Pulse Rate - Standing Pulse Rate 58 L 58 L 53 L Pulse Rate from SpO2 Sensor 52 L Respiratory Rate 20 20 17 Respiratory Effort / Characteristics Non-Labored Spontaneous Respiratory Depth Normal Respiratory Pattern Regular Blood Pressure - Lying Blood Pressure - Sitting Blood Pressure- Standing Blood Pressure 164/71 H 109/69 Blood Pressure Mean 102 84 Pulse Oximetry 96 96 94 Oxygen Delivery Method Room Air Room Air Room Air Sepsis Recent Fever Within 48 Hours No Sepsis New/Unexplained Change in Mental Status No Sepsis Action Taken by Nursing No Action Required 09/26/19 19:32 09/26/19 20:11 09/26/19 20:30 Temperature Temperature Source Pulse Rate - Lying 55 L Pulse Rate - Sitting 71 Pulse Rate - Standing 60 Pulse Rate 60 58 L Pulse Rate from SpO2 Sensor 60 57 L Respiratory Rate 16 20 Respiratory Effort / Characteristics Respiratory Depth Respiratory Pattern Blood Pressure - Lying 145/64 H Blood Pressure - Sitting 150/78 H Blood Pressure- Standing 149/70 H Blood Pressure 148/72 H 163/86 H Blood Pressure Mean 104 128 Pulse Oximetry 96 96 Oxygen Delivery Method Room Air Sepsis Recent Fever Within 48 Hours Sepsis New/Unexplained Change in Mental Status Sepsis Action Taken by Nursing 09/26/19 21:00 Temperature Temperature Source Pulse Rate - Lying Pulse Rate - Sitting Pulse Rate - Standing Pulse Rate 58 L Pulse Rate from SpO2 Sensor Respiratory Rate 19 Respiratory Effort / Characteristics Respiratory Depth Respiratory Pattern Blood Pressure - Lying Blood Pressure - Sitting Blood Pressure- Standing Blood Pressure 162/85 H Blood Pressure Mean 110 Pulse Oximetry Oxygen Delivery Method Sepsis Recent Fever Within 48 Hours Sepsis New/Unexplained Change in Mental Status Sepsis Action Taken by Nursing Laboratory Data Result diagrams: 09/26/19 19:14 09/26/19 19:14 Lab Results 09/26/19 09/26/19 09/26/19 Range/Units 19:14 19:14 19:14 WBC 5.34 (4.8-10.8) K/uL RBC 4.55 L (4.7-6.1) M/uL Hgb 14.1 (14.0-18.0) g/dL Hct 38.2 L (42-52) % MCV 84.0 (80-100) fL MCH 31.0 (25-34) pg MCHC 36.9 H (32-36) g/dL RDW Std Deviation 38.0 (36.4-46.3) fL RDW Coeff of Regine 12.4 (11.5-14.5) % Plt Count 151 (130-400) K/uL MPV 10.0 (7.4-10.4) fL Immature Gran % (Auto) 0.2 % Neut % (Auto) 78.0 % Lymph % (Auto) 12.9 % [place] % (Auto) 7.9 % Eos % (Auto) 0.6 % Baso % (Auto) 0.4 % Neut # (Auto) 4.17 (1.4-6.5) K/uL Lymph # (Auto) 0.69 L (1.2-3.4) K/uL [place] # (Auto) 0.42 (0.11-0.59) K/uL Eos # (Auto) 0.03 (0-0.5) K/uL Baso # (Auto) 0.02 (0-0.2) K/uL Immature Gran # (Auto) 0.01 (0.00-0.02) K/uL PT 11.1 (9.0-12.0) Seconds INR 1.1 (0.9-1.1) APTT 25.0 (21.0-31.0) Seconds PTT Ratio 0.9 Sodium 122 L (136-145) mmol/L Potassium 3.9 (3.5-5.1) mmol/L Chloride 86 L (98-107) mmol/L Carbon Dioxide 27 (21-32) mmol/L Anion Gap 9.0 (3-11) BUN 19 H (7-18) mg/dl Creatinine 1.32 (0.6-1.4) mg/dl Est Cr Clr Drug Dosing 43.9 ml/min Est GFR ( Amer) 59.0 Est GFR (Non-Af Amer) 50.9 BUN/Creatinine Ratio 14.8 (10-20) Glucose 137 H (70-99) mg/dl Osmolality (280-300) mOsm/kg Calcium 8.1 L (8.5-10.1) mg/dl Magnesium 1.9 (1.8-2.4) mg/dl Total Bilirubin 0.8 (0.2-1) mg/dl AST 55 H (15-37) U/L ALT 60 (12-78) U/L Alkaline Phosphatase 83 (45-117) U/L Troponin I < 0.015 (0-0.045) ng/ml Total Protein 6.8 (6.4-8.2) gm/dl Albumin 3.7 (3.4-5.0) gm/dl Globulin 3.1 (2.5-4.0) gm/dl Albumin/Globulin Ratio 1.2 (0.9-2) // Range/Units 19:16 WBC (4.8-10.8) K/uL RBC (4.7-6.1) M/uL Hgb (14.0-18.0) g/dL Hct (42-52) % MCV (80-100) fL MCH (25-34) pg MCHC (32-36) g/dL RDW Std Deviation (36.4-46.3) fL RDW Coeff of Regine (11.5-14.5) % Plt Count (130-400) K/uL MPV (7.4-10.4) fL Immature Gran % (Auto) % Neut % (Auto) % Lymph % (Auto) % [place] % (Auto) % Eos % (Auto) % Baso % (Auto) % Neut # (Auto) (1.4-6.5) K/uL Lymph # (Auto) (1.2-3.4) K/uL [place] # (Auto) (0.11-0.59) K/uL Eos # (Auto) (0-0.5) K/uL Baso # (Auto) (0-0.2) K/uL Immature Gran # (Auto) (0.00-0.02) K/uL PT (9.0-12.0) Seconds INR (0.9-1.1) APTT (21.0-31.0) Seconds PTT Ratio Sodium (136-145) mmol/L Potassium (3.5-5.1) mmol/L Chloride (98-107) mmol/L Carbon Dioxide (21-32) mmol/L Anion Gap (3-11) BUN (7-18) mg/dl Creatinine (0.6-1.4) mg/dl Est Cr Clr Drug Dosing ml/min Est GFR ( Amer) Est GFR (Non-Af Amer) BUN/Creatinine Ratio (10-20) Glucose (70-99) mg/dl Osmolality 253 L (280-300) mOsm/kg Calcium (8.5-10.1) mg/dl Magnesium (1.8-2.4) mg/dl Total Bilirubin (0.2-1) mg/dl AST (15-37) U/L ALT (12-78) U/L Alkaline Phosphatase (45-117) U/L Troponin I (0-0.045) ng/ml Total Protein (6.4-8.2) gm/dl Albumin (3.4-5.0) gm/dl Globulin (2.5-4.0) gm/dl Albumin/Globulin Ratio (0.9-2) Administered Medications Discontinued Medications Famotidine (Pepcid 20mg Iv Push) Confirm Administered Dose 20 mg IV .STK-MED ONE Stop: 09/26/19 22:05 Last Admin: 09/26/19 22:05 Dose: 20 mg Documented by: [id number] Sodium Chloride (Nss) 500 mls @ 999 mls/hr IV .Q31M SELAM Stop: 09/26/19 19:30 Last Infusion: 09/26/19 19:47 Dose: 0 mls/hr Documented by: [id number] Admin: 09/26/19 19:13 Dose: 999 mls/hr Documented by: [id number] Calcium Gluconate 1,000 mg/ (Sodium Chloride) 60 mls @ 240 mls/hr IV NOW ONE Stop: 09/26/19 20:59 Last Infusion: 09/26/19 22:01 Dose: 0 mls/hr Documented by: [id number] Admin: 09/26/19 21:14 Dose: 240 mls/hr Documented by: [id number] Famotidine 20 mg/ Syringe 5 mls @ 2.5 mls/min IV NOW STA Stop: 09/26/19 21:22 Last Admin: 09/26/19 22:06 Dose: Not Given Documented by: [id number] Discharge Plan Visit Data Chief Complaint: Syncope ED Provider: Blayne Sheehan Discharge Problem: Acute hyponatremia, Vasovagal syncope, Weakness Patient Disposition: Admitted As Inpatient Discharge Instructions Interventions: ED Discharge Assessment Last Done: 09/26/19 22:18
[2019-09-26 19:23] LABS: Basophils # (auto) 0.02 K/uL (0-0.2); Basophils % (auto) 0.4 %; Eosinophils # (auto) 0.03 K/uL (0-0.5); Eosinophils % (auto) 0.6 %; Hematocrit (blood only) 38.2 % (42-52); Hemoglobin 14.1 g/dL (14.0-18.0); Immature Granulocytes # (auto) 0.01 K/uL (0.00-0.02); Immature Granulocytes % (auto) 0.2 %; Lymphocytes # (auto) 0.69 K/uL (1.2-3.4); Lymphocytes % (auto) 12.9 %; Mean Corpuscular Hgb Conc 36.9 g/dL (32-36); Monocytes # (auto) 0.42 K/uL (0.11-0.59); Monocytes % (auto) 7.9 %; Neutrophils # (auto) 4.17 K/uL (1.4-6.5); Platelet Count 151 K/uL (130-400); RDW Coefficient of Variation 12.4 % (11.5-14.5); Red Blood Count 4.55 M/uL (4.7-6.1); White Blood Count 5.34 K/uL (4.8-10.8)
[2019-09-26 19:33] LABS: INR 1.1 (0.9-1.1); Partial Thromboplastin Ratio 0.9; Prothrombin Time 11.1 Seconds (9.0-12.0)
[2019-09-26 19:41] LABS: Alanine Aminotransferase 60 U/L (12-78); Albumin Level 3.7 gm/dl (3.4-5.0); Aspartate Aminotransferase 55 U/L (15-37); BUN Creatinine Ratio 14.8 (10-20); Blood Urea Nitrogen 19 mg/dl (7-18); Calcium 8.1 mg/dl (8.5-10.1); Carbon Dioxide 27 mmol/L (21-32); Chloride 86 mmol/L (98-107); Creatinine Clr Calc Pharmacy 43.9 ml/min; Est GFR (Non-African American) 50.9; Glucose 137 mg/dl (70-99); Potassium 3.9 mmol/L (3.5-5.1); Sodium 122 mmol/L (136-145)
[2019-09-26 19:46] LABS: Albumin Globulin Ratio 1.2 (0.9-2); Alkaline Phosphatase 83 U/L (45-117); Bilirubin,Total 0.8 mg/dl (0.2-1); Globulin 3.1 gm/dl (2.5-4.0); Total Protein 6.8 gm/dl (6.4-8.2); Troponin I < 0.015 ng/ml (0-0.045)
--- NOTE | 2019-09-26 19:50 | XRay Report ---
XR chest 1V portable HISTORY: syncope COMPARISON: Chest 09/19/2019. FINDINGS: The lungs are clear. Cardiac silhouette is normal in size. No pleural effusions. No pneumot horax. IMPRESSION: No acute process. ACT 112: Negative or not required by law. Electronically signed by: Chidi Salguero M.D. 09/26/2019 7:48 PM
[2019-09-26 20:40] LABS: Magnesium 1.9 mg/dl (1.8-2.4)
[2019-09-26] MEDS ORDERED: CALCIUM GLUCONATE 10% 1,000 MG in SODIUM CHLORIDE 0.9% 50 ML IV ONE (20:45)
--- NOTE | 2019-09-26 21:03 | History & Physical Report ---
Date of Service September 26, 2019 Assessment & Plan (1) Acute hyponatremia: Acute on chronic Poor p.o. intake secondary to acute gastroenteritis rule out C. difficile given recent confinement, ? Protonix intolerance, hx GERD Syncopal event secondary to poor p.o. intake, possible orthostasis Intermittent right leg jerking ? Focal seizure hx recurrent CVA hypertension, slightly elevated history of prostate cancer sp surgery/radiation chronic bradycardia past tobacco abuse Medical telemetry Careful correction of sodium Hold SSRI until serum sodium at baseline. Check stool for C. difficile Add Protonix to ADR list for now Pharmacy recommends Prevacid trial. If Prevacid not tolerated patient may revert to prior Prilosec OTC Rx. Check orthostatic vitals EEG, Neurology consult RE involuntary RLE jerking motion Continue losartan, initiate Amlodipine if still uncontrolled DVT prophylaxis per Lovenox subcu Full code Patient's requesting updates for providers. Ms. Ember Henao thru [phone]. Text document was generated using [facility] voice recognition software. It may contain grammatical or spelling errors. Kindly contact undersigned for clarification of any documentation item in question. History of Present Illness Chief Complaint: Syncope, fall Primary Care Provider: Jinny Johnson MD History obtained from patient, family, and records. History from patient somewhat limited secondary to hearing impairment. Medical history significant for recurrent CVA, hypertension, history of prostate cancer sp surgery, radiation, chronic bradycardia, chronic hyponatremia, past tobacco abuse Recent confinement last week for acute CVA. Patient presented with increased R leg weakness and headache symptoms. Brain MRI showed a large subacute left cerebellar infarct in a PICA distribution. TTE showed LVH, normal LV systolic function EF 60%. Diastolic dysfunction. Aortic valve sclerosis. Mild aortic regurgitation. No atrial septal defect. Plavix added to patient's aspirin for secondary stroke prevention. During confinement, patient experienced uncontrolled reflux/GI upset from Protonix substitute to home Prilosec as per account. Protonix prescription given in place of patient's Prilosec on discharge given potential interaction between Plavix and Prilosec as per Pharmacy recommendations. Last few days, patient noted GI upset with diarrhea symptoms nonbloody. No fever, no chills. No chest pain, no S OB. Achy right headache symptoms similar to admission. noted increased jerking on the right lower extremity which they claim patient has had since late last year after stroke episode. No back pain complaints. Poor appetite. Patient unhappy with Protonix medication as per . Patient felt sweaty when he got up from the toilet this afternoon. Passed out for few seconds. found patient and laid him on the floor. Patient subsequently woke up and had an emesis episode. Patient brought to the ER for evaluation. MEDICAL HISTORY: As above. SURGERIES: He has had urologic procedures. colon resection and appendectomy, appendectomy, tonsillectomy FAMILY HISTORY: Diabetes. PERSONAL SOCIAL HISTORY: Remote tobacco use. No chronic intake of alcoholic beverages. Retired automobile business. Allergies Allergy/AdvReac Type Severity Reaction Status Date / Time clarithromycin Allergy Mild rash Verified 09/26/19 20:45 metoclopramide AdvReac Intermediate NIGHTMARES Verified 09/26/19 20:45 prochlorperazine AdvReac Intermediate HYPER Verified 09/26/19 20:45 UNABLE TO TOLERATE SIDE EFFEDTS pantoprazole [From Protonix] AdvReac Mild GI upset Verified 09/26/19 21:58 Home Medications Home Medications Medication Instructions Recorded Confirmed Type tamsulosin 0.4 mg PO QAM 09/13/18 09/26/19 History aspirin [Ecotrin Low Strength] 81 mg PO QAM 01/04/19 09/26/19 History Metamucil 1 tsp PO BID 09/19/19 09/26/19 History acetaminophen [Tylenol Extra 500 mg PO Q6H PRN 09/19/19 09/26/19 History Strength] amoxicillin-pot clavulanate 1 tab PO Q12 09/19/19 09/26/19 History fluticasone propionate 2 spray INTRANASAL QAM 09/19/19 09/26/19 History losartan 100 mg PO QAM 09/19/19 09/26/19 History montelukast [Singulair] 10 mg PO QAM 09/19/19 09/26/19 History sertraline 50 mg PO QAM 09/19/19 09/26/19 History atorvastatin 40 mg PO QAM #0 tab 09/21/19 09/26/19 Rx clopidogrel 75 mg PO QAM 30 Days #30 tab 09/21/19 09/26/19 Rx pantoprazole [Protonix] 40 mg PO DAILY 30 Days #30 tab 09/21/19 09/26/19 Rx Past Med/Surg History Social History Preferred Language: Grenadian Communication Ability: Effective Information Security Systems Instructor Required: No Beliefs That Will Affect Care: None Current Living Situation: Spouse Feels Safe at Home: Yes Safety Concerns: Feels Safe At This Time Smoking Status: Former smoker Hx Alcohol Use: No Hx Substance Use: No Review of Systems Review of Systems: As per HPI, all 10 systems reviewed, all other ROS negative Physical Exam Physical Exam: GENERAL: Slightly uncomfortable, slightly anxious, slightly hard of hearing, no respiratory distress SKIN: Normal color, warm HEENT: [place] palpebral conjunctivae, no ptosis, dry buccal mucosa NECK : Supple, no tenderness CHEST : CTA, no tenderness HEART : Bradycardic , no obvious murmurs ABDOMEN: Some distention, nontender EXTREMITIES : No LE swelling/tenderness, no other conspicuous deformities noted NEUROLOGIC : Coherent, no facial asymmetry, slightly hard of hearing, MMTS BUE, BLE 4/5, gait and stance not assessed Results & Data Results & Data ([facility]) Vital Signs (Past 12 Hours) Vital Signs Temp Pulse Resp BP Pulse Ox 09/26/19 20:11 60 16 148/72 H 96 09/26/19 19:01 53 L 17 109/69 94 09/26/19 18:50 36.4 C L 58 L 20 164/71 H 96 09/26/19 18:49 58 L 20 96 Laboratory Results Laboratory Results WBC 5.34 K/uL (4.8-10.8) 09/26/19 19:14 RBC 4.55 M/uL (4.7-6.1) L 09/26/19 19:14 Hgb 14.1 g/dL (14.0-18.0) 09/26/19 19:14 Hct 38.2 % (42-52) L 09/26/19 19:14 MCV 84.0 fL (80-100) 09/26/19 19:14 MCH 31.0 pg (25-34) 09/26/19 19:14 MCHC 36.9 g/dL (32-36) H 09/26/19 19:14 RDW Std Deviation 38.0 fL (36.4-46.3) 09/26/19 19:14 RDW Coeff of Regine 12.4 % (11.5-14.5) 09/26/19 19:14 Plt Count 151 K/uL (130-400) 09/26/19 19:14 MPV 10.0 fL (7.4-10.4) 09/26/19 19:14 Immature Gran % (Auto) 0.2 % 09/26/19 19:14 Neut % (Auto) 78.0 % 09/26/19 19:14 Lymph % (Auto) 12.9 % 09/26/19 19:14 [place] % (Auto) 7.9 % 09/26/19 19:14 Eos % (Auto) 0.6 % 09/26/19 19:14 Baso % (Auto) 0.4 % 09/26/19 19:14 Neut # (Auto) 4.17 K/uL (1.4-6.5) 09/26/19 19:14 Lymph # (Auto) 0.69 K/uL (1.2-3.4) L 09/26/19 19:14 [place] # (Auto) 0.42 K/uL (0.11-0.59) 09/26/19 19:14 Eos # (Auto) 0.03 K/uL (0-0.5) 09/26/19 19:14 Baso # (Auto) 0.02 K/uL (0-0.2) 09/26/19 19:14 Immature Gran # (Auto) 0.01 K/uL (0.00-0.02) 09/26/19 19:14 PT 11.1 Seconds (9.0-12.0) 09/26/19 19:14 INR 1.1 (0.9-1.1) 09/26/19 19:14 APTT 25.0 Seconds (21.0-31.0) 09/26/19 19:14 PTT Ratio 0.9 09/26/19 19:14 Sodium 122 mmol/L (136-145) L 09/26/19 19:14 Potassium 3.9 mmol/L (3.5-5.1) 09/26/19 19:14 Chloride 86 mmol/L (98-107) L 09/26/19 19:14 Carbon Dioxide 27 mmol/L (21-32) 09/26/19 19:14 Anion Gap 9.0 (3-11) 09/26/19 19:14 BUN 19 mg/dl (7-18) H 09/26/19 19:14 Creatinine 1.32 mg/dl (0.6-1.4) 09/26/19 19:14 Est Cr Clr Drug Dosing 43.9 ml/min 09/26/19 19:14 Est GFR ( Amer) 59.0 09/26/19 19:14 Est GFR (Non-Af Amer) 50.9 09/26/19 19:14 BUN/Creatinine Ratio 14.8 (10-20) 09/26/19 19:14 Glucose 137 mg/dl (70-99) H 09/26/19 19:14 Osmolality 253 mOsm/kg (280-300) L 09/26/19 19:16 Calcium 8.1 mg/dl (8.5-10.1) L 09/26/19 19:14 Magnesium 1.9 mg/dl (1.8-2.4) 09/26/19 19:14 Total Bilirubin 0.8 mg/dl (0.2-1) 09/26/19 19:14 AST 55 U/L (15-37) H 09/26/19 19:14 ALT 60 U/L (12-78) 09/26/19 19:14 Alkaline Phosphatase 83 U/L (45-117) 09/26/19 19:14 Troponin I < 0.015 ng/ml (0-0.045) 09/26/19 19:14 Total Protein 6.8 gm/dl (6.4-8.2) 09/26/19 19:14 Albumin 3.7 gm/dl (3.4-5.0) 09/26/19 19:14 Globulin 3.1 gm/dl (2.5-4.0) 09/26/19 19:14 Albumin/Globulin Ratio 1.2 (0.9-2) 09/26/19 19:[address] head initial read: Unchanged appearance of large left cerebellar hemisphere infarct. Chronic small vessel ischemic changes. Left basal ganglia and left thalamic lacunar infarct. CT abdomen pelvis initial read: Nonobstructing 5 to 6 mm stone right interpolar kidney. Colonic diverticulosis. Small hiatal hernia. Postsurgical changes sigmoid colon. Degenerative changes L5-S1. Chest x-ray : No acute process. EKG as per my interpretation : Rate 50, sinus bradycardia, 1 AVB, LAD, LAFB, T wave abnormalities lateral leads, inferior infarct, low voltage
[2019-09-26] MEDS ORDERED: FAMOTIDINE 20 MG in SYRINGE 3 ML IV STA (21:21)
[2019-09-26] MEDS ORDERED: FAMOTIDINE 20MG/5ML IV PUSH IV ONE (22:04)
[2019-09-26] MEDS ORDERED: ACETAMINOPHEN 325 MG TAB PO PRN (22:32)
[2019-09-26] MEDS ORDERED: ONDANSETRON INJ 2 MG/ML 2 ML VIAL IV PRN (22:32)
[2019-09-26] MEDS ORDERED: AMLODIPINE BESYLATE 5 MG TAB PO ONE (22:56)
[2019-09-26] MEDS ORDERED: LORazepam 0.5 MG TAB PO STA (22:57)
[2019-09-26 23:02] LABS: Appearance Urine Clear (Clear); Bilirubin Urine Negative (Negative); Blood Urine Negative (Negative); Color Urine Yellow; Glucose Urine UA Negative (Negative); Ketones Urine Negative (Negative); Leukocyte Esterase Urine Negative (Negative); Nitrite Urine Negative (Negative); Protein Urine Negative (Negative); Specific Gravity Urine 1.023 (1.000-1.030); Urobilinogen Urine Negative (Negative); pH Urine 6.5 (4.5-7.5)
[2019-09-27] MEDS: LOSARTAN POTASSIUM 50 MG TAB PO SCH (05:33)
[2019-09-27 05:51] LABS: Basophils # (auto) 0.02 K/uL (0-0.2); Basophils % (auto) 0.2 %; Eosinophils # (auto) 0.06 K/uL (0-0.5); Eosinophils % (auto) 0.6 %; Hematocrit (blood only) 37.4 % (42-52); Hemoglobin 13.7 g/dL (14.0-18.0); Immature Granulocytes # (auto) 0.02 K/uL (0.00-0.02); Immature Granulocytes % (auto) 0.2 %; Lymphocytes # (auto) 1.42 K/uL (1.2-3.4); Lymphocytes % (auto) 14.7 %; Mean Corpuscular Hemoglobin 30.6 pg (25-34); Mean Corpuscular Hgb Conc 36.6 g/dL (32-36); Mean Corpuscular Volume 83.7 fL (80-100); Mean Platelet Volume 10.1 fL (7.4-10.4); Monocytes # (auto) 1.07 K/uL (0.11-0.59); Monocytes % (auto) 11.1 %; Neutrophils # (auto) 7.04 K/uL (1.4-6.5); Neutrophils % (auto) 73.2 %; Platelet Count 160 K/uL (130-400); RDW Coefficient of Variation 12.4 % (11.5-14.5); RDW Standard Deviation 37.8 fL (36.4-46.3); Red Blood Count 4.47 M/uL (4.7-6.1); White Blood Count 9.63 K/uL (4.8-10.8)
[2019-09-27 06:23] LABS: BUN Creatinine Ratio 12.8 (10-20); Calcium 8.4 mg/dl (8.5-10.1); Creatinine Clr Calc Pharmacy 49.1 ml/min; Est GFR (African American) 67.6; Est GFR (Non-African American) 58.3; Potassium 4.2 mmol/L (3.5-5.1)
[2019-09-27] MEDS ORDERED: SODIUM CHLORIDE 0.9% 500 ML IV ONE (06:26)
--- NOTE | 2019-09-27 07:49 | CT Scan Report ---
CT OF THE HEAD WITHOUT CONTRAST CLINICAL HISTORY: syncope COMPARISON STUDY: Head CT September 21, 2019. CT DOSE: 638.56 mGycm TECHNIQUE: Helical axial images of the head were obtained without IV contrast. Automated exposure con trol was utilized for the study. A dose lowering technique was utilized adhering to the principles o f ALARA. FINDINGS: No acute intracranial hemorrhage, midline shift or mass effect is present. Ventricular syst em is stable. Basilar cisterns are patent. There are no extra axial collections. White matter hypoden sity suggests small vessel disease. These are unchanged. A 4.8 cm infarct within the inferior left ce rebellar hemisphere within the PICA distribution is unchanged since prior examination. A few addition al lacunar infarcts are noted. There are no findings to suggest acute dural sinus thrombosis or acute territorial infarct. There is no calvarial fracture. Small air-fluid level within the left sphenoid sinus is noted. IMPRESSION: 1. No acute intracranial findings. 2. No change in appearance of a subacute infarct within the left cerebellar hemisphere. ACT 112: Negative or not required by law. Electronically signed by: Jake Anderson M.D. 09/27/2019 7:48 AM
[2019-09-27] MEDS: FLUTICASONE PROPIONATE NA SPR 16 GM BTL SCH (08:11)
[2019-09-27] MEDS: MONTELUKAST SODIUM 10 MG TABLET PO SCH (08:11)
[2019-09-27] MEDS: TAMSULOSIN HCL 0.4 MG CAP PO SCH (08:11)
[2019-09-27] MEDS: LANSOPRAZOLE 15 MG SOLTAB PO SCH (08:11)
[2019-09-27] MEDS: CLOPIDOGREL BISULFATE 75 MG TAB PO SCH (08:12)
[2019-09-27] MEDS: ATORVASTATIN 40 MG TAB PO SCH (08:13)
[2019-09-27] MEDS: ASPIRIN 81 MG ECTAB PO SCH (08:13)
--- NOTE | 2019-09-27 08:28 | CT Scan Report ---
ABDOMEN AND PELVIS CT WITH IV CONTRAST CT DOSE: 885.29 mGycm HISTORY: Acute nausea with syncope nausea and syncope TECHNIQUE: Multiaxial CT images of the abdomen and pelvis were performed following the IV administrat ion of 93 cc of Optiray 320, A dose lowering technique was utilized adhering to the principles of AL VIVEK. COMPARISON STUDY: CT abdomen and pelvis 01/04/2019 FINDINGS: Minimal linear subsegmental bibasilar atelectasis. No pneumatosis or pneumoperitoneum. The imaged inf erior cardiac chambers are unremarkable. The spleen, pancreas, adrenal glands and gallbladder are unr emarkable. The liver is also within normal limits. Patency of the hepatic and portal veins. Cortical scarring and parenchymal thinning involves the inferior pole left kidney. Renal cysts the le ft measure up to 10 mm. 6 mm nonobstructing calculus of the interpolar right kidney. No ureteral calc kaushal or obstructive uropathy. 11 mm diverticulum involves the anterior urinary bladder. Brachytherapy seeds are noted within the prostate. Small fat filled left inguinal hernia. Moderate mixed plaque of the abdominal aorta without aneurysm. No adenopathy. Probable nonenlarged lymph node measuring 6 mm i s noted anterior to the duodenum on image 182 series 3. Nonspecific mild distal esophageal wall thickening. Nonspecific trace free pelvic fluid. There is pro minence with increased enhancement of the rugal folds of the stomach. No bowel obstruction. Postopera tive changes are suggestive of prior partial small bowel resection. Prior partial sigmoidectomy with colocolonic anastomosis. Colonic diverticulosis without acute diverticulitis. Scattered large and sma ll bowel air-fluid levels. The appendix appears surgically absent. Bones appear intact. Degenerative changes of the spine, pelvis and hips. IMPRESSION: 1. No bowel obstruction or bowel wall thickening. 2. Prominence of the rugal folds of the stomach may reflect gastritis in the appropriate clinical set ting. 3. Colonic diverticulosis without acute diverticulitis. 4. Mild nonspecific distal esophageal wall thickening. 5. Trace free pelvic fluid. 6. Nonobstructing right nephrolithiasis. 7. Chronic findings as above. ACT 112: Negative or not required by law. The above report was generated using voice recognition software. It may contain grammatical, syntax o r spelling errors. Electronically signed by: Sushil Andrade M.D. 09/27/2019 8:27 AM
--- NOTE | 2019-09-27 08:29 | Hospitalist Progress Note ---
Date of Service September 27, 2019 Assessment & Plan (1) Acute hyponatremia: Acute on chronic Poor p.o. intake secondary to acute gastroenteritis rule out C. difficile given recent confinement, ? Protonix intolerance, hx GERD Careful correction of sodium Hold SSRI until serum sodium at baseline. Check stool for C. difficile Add Protonix to ADR list for now Pharmacy recommends Prevacid trial. If Prevacid not tolerated patient may revert to prior Prilosec OTC Rx. Syncopal event secondary to poor p.o. intake, possible orthostasis Check orthostatic vitals chronic bradycardia Medical telemetry Intermittent right leg jerking ? Focal seizure hx recurrent CVA EEG, Neurology consult RE involuntary RLE jerking motion hypertension, slightly elevated Continue losartan, initiate Amlodipine if still uncontrolled history of prostate cancer sp surgery/radiation past tobacco abuse DVT prophylaxis per Lovenox subcu Full code Patient's Ms. Ember Henao, can be contacted at . Admission and Anticipated Discharge Date Admission Date: September 26, 2019 Subjective Patient is lying in bed, in no acute distress. Patient's at the bedside. Denies any fevers, chills, chest pain, shortness of breath, no pain, nausea vomiting. Denies any headache. Currently no jerking movements however reports that he has tremendous jerking in his lower extremities. This is since his stroke in November. EEG results pending. Neurology consulted. Review of Systems Review of Systems: All systems reviewed & are unremarkable except as noted in HPI & below Constitutional: no fever and no chills Respiratory: no cough and no dyspnea Cardiovascular: no chest pain and no palpitations Gastrointestinal: no abdominal pain, no nausea and no vomiting Physical Exam Physical Exam: GENERAL: Elderly male, lying in bed, slightly hard of hearing, no respiratory distress SKIN: Normal color, warm HEENT: [place] palpebral conjunctivae, no ptosis NECK : Supple, no tenderness CHEST : CTA, no tenderness HEART : Bradycardic , no obvious murmurs ABDOMEN: Normal bowel sounds, soft, some distention, nontender EXTREMITIES : No LE swelling/tenderness, moves extremities spontaneously NEUROLOGIC : Alert and oriented x3,, no facial asymmetry, slightly hard of hearing, speech fluent, MMTS BUE, BLE 4/5, gait and stance not assessed Results & Data Results & Data ([facility]) Vital Signs (Past 12 Hours) Vital Signs Temp Pulse Pulse Resp BP BP BP 09/27/19 07:16 36.6 C 59 L 18 128/66 09/27/19 07:03 57 L 09/27/19 05:32 68 156/78 H 09/27/19 03:00 36.4 C L 62 18 160/71 H 09/27/19 02:02 61 09/26/19 23:30 37 C 56 L 18 158/74 H 09/26/19 22:33 36.8 C 59 L 16 207/84 H 09/26/19 22:08 61 19 172/83 H 09/26/19 21:00 58 L 19 162/85 H 09/26/19 20:30 58 L 20 163/86 H Pulse Ox 09/27/19 07:16 97 09/27/19 07:03 09/27/19 05:32 09/27/19 03:00 97 09/27/19 02:02 09/26/19 23:30 96 09/26/19 22:33 99 09/26/19 22:08 96 09/26/19 21:00 09/26/19 20:30 96 Laboratory Results 09/27/19 09/27/19 09/27/19 Range/Units 05:24 05:24 01:00 WBC 9.63 (4.8-10.8) K/uL RBC 4.47 L (4.7-6.1) M/uL Hgb 13.7 L (14.0-18.0) g/dL Hct 37.4 L (42-52) % MCV 83.7 (80-100) fL MCH 30.6 (25-34) pg MCHC 36.6 H (32-36) g/dL RDW Std Deviation 37.8 (36.4-46.3) fL RDW Coeff of Regine 12.4 (11.5-14.5) % Plt Count 160 (130-400) K/uL MPV 10.1 (7.4-10.4) fL Immature Gran % (Auto) 0.2 % Neut % (Auto) 73.2 % Lymph % (Auto) 14.7 % Murray % (Auto) 11.1 % Eos % (Auto) 0.6 % Baso % (Auto) 0.2 % Neut # (Auto) 7.04 H (1.4-6.5) K/uL Lymph # (Auto) 1.42 (1.2-3.4) K/uL Murray # (Auto) 1.07 H (0.11-0.59) K/uL Eos # (Auto) 0.06 (0-0.5) K/uL Baso # (Auto) 0.02 (0-0.2) K/uL Immature Gran # (Auto) 0.02 (0.00-0.02) K/uL PT (9.0-12.0) Seconds INR (0.9-1.1) APTT (21.0-31.0) Seconds PTT Ratio Sodium 125 L (136-145) mmol/L Potassium 4.2 (3.5-5.1) mmol/L Chloride 89 L (98-107) mmol/L Carbon Dioxide 30 (21-32) mmol/L Anion Gap 6.0 (3-11) BUN 15 (7-18) mg/dl Creatinine 1.18 (0.6-1.4) mg/dl Est Cr Clr Drug Dosing 49.1 ml/min Est GFR ( Amer) 67.6 Est GFR (Non-Af Amer) 58.3 BUN/Creatinine Ratio 12.8 (10-20) Glucose 92 (70-99) mg/dl Osmolality (280-300) mOsm/kg Calcium 8.4 L (8.5-10.1) mg/dl Magnesium (1.8-2.4) mg/dl Total Bilirubin (0.2-1) mg/dl AST (15-37) U/L ALT (12-78) U/L Alkaline Phosphatase (45-117) U/L Troponin I (0-0.045) ng/ml Total Protein (6.4-8.2) gm/dl Albumin (3.4-5.0) gm/dl Globulin (2.5-4.0) gm/dl Albumin/Globulin Ratio (0.9-2) Urine Color Urine Appearance (Clear) Urine pH (4.5-7.5) Ur Specific [place] (1.000-1.030) Urine Protein (Negative) Urine Glucose (UA) (Negative) Urine Ketones (Negative) Urine Blood (Negative) Urine Nitrite (Negative) Urine Bilirubin (Negative) Urine Urobilinogen (Negative) Ur Leukocyte Esterase (Negative) Urine Osmolality 193 L (500-800) mOsm/kg 09/27/19 09/26/19 09/26/19 Range/Units 00:20 22:45 19:16 WBC (4.8-10.8) K/uL RBC (4.7-6.1) M/uL Hgb (14.0-18.0) g/dL Hct (42-52) % MCV (80-100) fL MCH (25-34) pg MCHC (32-36) g/dL RDW Std Deviation (36.4-46.3) fL RDW Coeff of Regine (11.5-14.5) % Plt Count (130-400) K/uL MPV (7.4-10.4) fL Immature Gran % (Auto) % Neut % (Auto) % Lymph % (Auto) % Murray % (Auto) % Eos % (Auto) % Baso % (Auto) % Neut # (Auto) (1.4-6.5) K/uL Lymph # (Auto) (1.2-3.4) K/uL [place] # (Auto) (0.11-0.59) K/uL Eos # (Auto) (0-0.5) K/uL Baso # (Auto) (0-0.2) K/uL Immature Gran # (Auto) (0.00-0.02) K/uL PT (9.0-12.0) Seconds INR (0.9-1.1) APTT (21.0-31.0) Seconds PTT Ratio Sodium 124 L (136-145) mmol/L Potassium (3.5-5.1) mmol/L Chloride (98-107) mmol/L Carbon Dioxide (21-32) mmol/L Anion Gap (3-11) BUN (7-18) mg/dl Creatinine (0.6-1.4) mg/dl Est Cr Clr Drug Dosing ml/min Est GFR ( Amer) Est GFR (Non-Af Amer) BUN/Creatinine Ratio (10-20) Glucose (70-99) mg/dl Osmolality 253 L (280-300) mOsm/kg Calcium (8.5-10.1) mg/dl Magnesium (1.8-2.4) mg/dl Total Bilirubin (0.2-1) mg/dl AST (15-37) U/L ALT (12-78) U/L Alkaline Phosphatase (45-117) U/L Troponin I (0-0.045) ng/ml Total Protein (6.4-8.2) gm/dl Albumin (3.4-5.0) gm/dl Globulin (2.5-4.0) gm/dl Albumin/Globulin Ratio (0.9-2) Urine Color Yellow Urine Appearance Clear (Clear) Urine pH 6.5 (4.5-7.5) Ur Specific [place] 1.023 (1.000-1.030) Urine Protein Negative (Negative) Urine Glucose (UA) Negative (Negative) Urine Ketones Negative (Negative) Urine Blood Negative (Negative) Urine Nitrite Negative (Negative) Urine Bilirubin Negative (Negative) Urine Urobilinogen Negative (Negative) Ur Leukocyte Esterase Negative (Negative) Urine Osmolality (500-800) mOsm/kg 09/26/19 09/26/19 09/26/19 Range/Units 19:14 19:14 19:14 WBC 5.34 (4.8-10.8) K/uL RBC 4.55 L (4.7-6.1) M/uL Hgb 14.1 (14.0-18.0) g/dL Hct 38.2 L (42-52) % MCV 84.0 (80-100) fL MCH 31.0 (25-34) pg MCHC 36.9 H (32-36) g/dL RDW Std Deviation 38.0 (36.4-46.3) fL RDW Coeff of Regine 12.4 (11.5-14.5) % Plt Count 151 (130-400) K/uL MPV 10.0 (7.4-10.4) fL Immature Gran % (Auto) 0.2 % Neut % (Auto) 78.0 % Lymph % (Auto) 12.9 % Murray % (Auto) 7.9 % Eos % (Auto) 0.6 % Baso % (Auto) 0.4 % Neut # (Auto) 4.17 (1.4-6.5) K/uL Lymph # (Auto) 0.69 L (1.2-3.4) K/uL Murray # (Auto) 0.42 (0.11-0.59) K/uL Eos # (Auto) 0.03 (0-0.5) K/uL Baso # (Auto) 0.02 (0-0.2) K/uL Immature Gran # (Auto) 0.01 (0.00-0.02) K/uL PT 11.1 (9.0-12.0) Seconds INR 1.1 (0.9-1.1) APTT 25.0 (21.0-31.0) Seconds PTT Ratio 0.9 Sodium 122 L (136-145) mmol/L Potassium 3.9 (3.5-5.1) mmol/L Chloride 86 L (98-107) mmol/L Carbon Dioxide 27 (21-32) mmol/L Anion Gap 9.0 (3-11) BUN 19 H (7-18) mg/dl Creatinine 1.32 (0.6-1.4) mg/dl Est Cr Clr Drug Dosing 43.9 ml/min Est GFR ( Amer) 59.0 Est GFR (Non-Af Amer) 50.9 BUN/Creatinine Ratio 14.8 (10-20) Glucose 137 H (70-99) mg/dl Osmolality (280-300) mOsm/kg Calcium 8.1 L (8.5-10.1) mg/dl Magnesium 1.9 (1.8-2.4) mg/dl Total Bilirubin 0.8 (0.2-1) mg/dl AST 55 H (15-37) U/L ALT 60 (12-78) U/L Alkaline Phosphatase 83 (45-117) U/L Troponin I < 0.015 (0-0.045) ng/ml Total Protein 6.8 (6.4-8.2) gm/dl Albumin 3.7 (3.4-5.0) gm/dl Globulin 3.1 (2.5-4.0) gm/dl Albumin/Globulin Ratio 1.2 (0.9-2) Urine Color Urine Appearance (Clear) Urine pH (4.5-7.5) Ur Specific [place] (1.000-1.030) Urine Protein (Negative) Urine Glucose (UA) (Negative) Urine Ketones (Negative) Urine Blood (Negative) Urine Nitrite (Negative) Urine Bilirubin (Negative) Urine Urobilinogen (Negative) Ur Leukocyte Esterase (Negative) Urine Osmolality (500-800) mOsm/kg Medications Administered Current Inpatient Medications Acetaminophen (Tylenol) 650 mg PO Q4H PRN PRN Reason: Pain or Fever Stop: 10/26/19 22:31 Amlodipine Besylate (Norvasc) 2.5 mg PO [facility] Stop: 10/27/19 20:59 Aspirin (Ecotrin Ectab) 81 mg PO [facility] Stop: 10/27/19 08:59 Last Admin: 09/27/19 08:13 Dose: 81 mg Documented by: Atorvastatin Calcium (Lipitor) 40 mg PO [facility] Stop: 10/27/19 08:59 Last Admin: 09/27/19 08:13 Dose: 40 mg Documented by: Clopidogrel Bisulfate (Plavix) 75 mg PO [facility] Stop: 10/27/19 08:59 Last Admin: 09/27/19 08:12 Dose: 75 mg Documented by: Enoxaparin Sodium (Lovenox) 30 mg SQ [facility] Stop: 10/27/19 08:59 Last Admin: 09/27/19 08:11 Dose: 30 mg Documented by: Fluticasone Propionate (Flonase) 2 sprays NA [facility] Stop: 10/27/19 08:59 Last Admin: 09/27/19 08:11 Dose: 2 sprays Documented by: Sodium Chloride (Nss) 500 mls @ 50 mls/hr IV .Q10H ONE Stop: 09/27/19 16:25 Last Admin: 09/27/19 08:11 Dose: 50 mls/hr Documented by: Lansoprazole (Prevacid) 15 mg PO [facility] Stop: 10/27/19 08:59 Last Admin: 09/27/19 08:11 Dose: 15 mg Documented by: Losartan Potassium (Cozaar) 100 mg PO [facility] Stop: 10/27/19 04:59 Last Admin: 09/27/19 05:33 Dose: 100 mg Documented by: Montelukast Sodium (Singulair) 10 mg PO [facility] Stop: 10/27/19 08:59 Last Admin: 09/27/19 08:11 Dose: 10 mg Documented by: Ondansetron HCl (Zofran) 4 mg IV Q6H PRN PRN Reason: nv Stop: 10/26/19 22:31 Tamsulosin HCl (Flomax) 0.4 mg PO [facility] Stop: 10/27/19 08:59 Last Admin: 09/27/19 08:11 Dose: 0.4 mg Documented by:
[2019-09-27] MEDS ORDERED: LOSARTAN POTASSIUM 50 MG TAB PO SCH (09:00)
[2019-09-27] MEDS ORDERED: ENOXAPARIN INJ 30 MG/0.3 ML SYR SQ SCH (09:00)
--- NOTE | 2019-09-27 12:45 | Electroencephalogram ---
EEG Procedure Note Date of Service September 27, 2019 Start / End Times Start Time: 09:59 End Time: 10:[address] Koby Pepper History A 79-year-old male admitted with encephalopathy. He has a known history of a recent subacute left cerebellar ischemic stroke. EEG performed for evaluation of epileptiform activity. Home Medication List Home Medications Medication Instructions Recorded Confirmed Type tamsulosin 0.4 mg PO QAM 09/13/18 09/26/19 History aspirin [Ecotrin Low Strength] 81 mg PO QAM 01/04/19 09/26/19 History Metamucil 1 tsp PO BID 09/19/19 09/26/19 History acetaminophen [Tylenol Extra 500 mg PO Q6H PRN 09/19/19 09/26/19 History Strength] amoxicillin-pot clavulanate 1 tab PO Q12 09/19/19 09/26/19 History fluticasone propionate 2 spray INTRANASAL QAM 09/19/19 09/26/19 History losartan 100 mg PO QAM 09/19/19 09/26/19 History montelukast [Singulair] 10 mg PO QAM 09/19/19 09/26/19 History sertraline 50 mg PO QAM 09/19/19 09/26/19 History atorvastatin 40 mg PO QAM #0 tab 09/21/19 09/26/19 Rx clopidogrel 75 mg PO QAM 30 Days #30 tab 09/21/19 09/26/19 Rx pantoprazole [Protonix] 40 mg PO DAILY 30 Days #30 tab 09/21/19 09/26/19 Rx Inpatient Medication List Aspirin (Ecotrin Ectab) 81 mg PO QAM [facility] Stop: 10/27/19 08:59 Last Admin: 09/27/19 08:13 Dose: 81 mg Documented by: [id number] Atorvastatin Calcium (Lipitor) 40 mg PO QAM [facility] Stop: 10/27/19 08:59 Last Admin: 09/27/19 08:13 Dose: 40 mg Documented by: [id number] Clopidogrel Bisulfate (Plavix) 75 mg PO QAM [facility] Stop: 10/27/19 08:59 Last Admin: 09/27/19 08:12 Dose: 75 mg Documented by: [id number] Enoxaparin Sodium (Lovenox) 30 mg SQ QAM [facility] Stop: 10/27/19 08:59 Last Admin: 09/27/19 08:11 Dose: 30 mg Documented by: [id number] Fluticasone Propionate (Flonase) 2 sprays NA [facility] Stop: 10/27/19 08:59 Last Admin: 09/27/19 08:11 Dose: 2 sprays Documented by: [id number] Sodium Chloride (Nss) 500 mls @ 50 mls/hr IV .Q10H ONE Stop: 09/27/19 16:25 Last Admin: 09/27/19 08:11 Dose: 50 mls/hr Documented by: [id number] Lansoprazole (Prevacid) 15 mg PO [facility] Stop: 10/27/19 08:59 Last Admin: 09/27/19 08:11 Dose: 15 mg Documented by: [id number] Losartan Potassium (Cozaar) 100 mg PO [facility] Stop: 10/27/19 04:59 Last Admin: 09/27/19 05:33 Dose: 100 mg Documented by: [id number] Montelukast Sodium (Singulair) 10 mg PO [facility] Stop: 10/27/19 08:59 Last Admin: 09/27/19 08:11 Dose: 10 mg Documented by: [id number] Tamsulosin HCl (Flomax) 0.4 mg PO [facility] Stop: 10/27/19 08:59 Last Admin: 09/27/19 08:11 Dose: 0.4 mg Documented by: [id number] Discontinued Medications Amlodipine Besylate (Norvasc) 2.5 mg PO NOW ONE Stop: 09/26/19 22:57 Last Admin: 09/26/19 23:35 Dose: 2.5 mg Documented by: [id number] Famotidine (Pepcid 20mg Iv Push) Confirm Administered Dose 20 mg IV .STK-MED ONE Stop: 09/26/19 22:05 Last Admin: 09/26/19 22:05 Dose: 20 mg Documented by: [id number] Sodium Chloride (Nss) 500 mls @ 999 mls/hr IV .Q31M [facility] Stop: 09/26/19 19:30 Last Infusion: 09/26/19 19:47 Dose: 0 mls/hr Documented by: [id number] Admin: 09/26/19 19:13 Dose: 999 mls/hr Documented by: [id number] Calcium Gluconate 1,000 mg/ (Sodium Chloride) 60 mls @ 240 mls/hr IV NOW ONE Stop: 09/26/19 20:59 Last Infusion: 09/26/19 22:01 Dose: 0 mls/hr Documented by: [id number] Admin: 09/26/19 21:14 Dose: 240 mls/hr Documented by: [id number] Famotidine 20 mg/ Syringe 5 mls @ 2.5 mls/min IV NOW STA Stop: 09/26/19 21:22 Last Admin: 09/26/19 22:06 Dose: Not Given Documented by: [id number] Lorazepam (Ativan) 0.25 mg PO NOW STA Stop: 09/26/19 22:58 Last Admin: 09/26/19 23:33 Dose: 0.25 mg Documented by: [id number] Description This is a 21 electrode EEG with a single channel dedicated to limited EKG. The electrodes were placed in accordance with the International 10-20 system. REPORT: At the onset of the EEG the patient is in altered mental state. The background is symmetric. The posterior dominant rhythm is not well seen in this recording. The background predominantly consisted of 3-5 Hz theta delta activity with superimposed beta activity which is likely artifactual or myogenic. There is some intermittent myogenic artifact associated with the patient head turning. Photic stimulation does not induce any additional abnormalities. No stage 2 sleep transients were recorded. IMPRESSION: This is an abnormal routine EEG in a patient with altered mentation due to [id number] generalized slowing suggestive of a nonspecific encephalopathy. No electrographic seizures or epileptiform discharges are recorded.
[2019-09-27] MEDS: SODIUM CHLORIDE 0.9% 1000ML 1,000 ML IV SCH (14:45)
--- NOTE | 2019-09-27 15:02 | Electrocardiogram Report ---
Test Reason : Blood Pressure : / mmHG Vent. Rate : 050 BPM Atrial Rate : 050 BPM P-R Int : 214 ms QRS Dur : 094 ms QT Int : 464 ms P-R-T Axes : 000 -23 137 degrees QTc Int : 423 ms Sinus bradycardia with 1st degree A-V block Low voltage QRS T wave abnormality, consider lateral ischemia Abnormal ECG When compared with ECG of 19-SEP-2019 11:50, Inverted T waves have replaced nonspecific T wave abnormality in Lateral leads Confirmed by James Moreland ([id number]) on 09/27/2019 3:01:59 PM Referred By: REFERRED SELF Confirmed By:James Moreland
--- NOTE | 2019-09-27 19:11 | Consultation Report ---
DATE: 09/27/2019 HISTORY OF PRESENT ILLNESS: I am seeing the patient for evaluation of jerking of the right lower extremity. The patient was admitted for nausea, vomiting and a syncopal episode. He was in our facility last week for a large left cerebellar infarction in a PICA distribution. His workup at that time showed no atrial septal defect. Plavix was added to aspirin for secondary stroke prevention. The patient had had GI upset with diarrhea for several days prior to admission. The patient has had jerking in his right lower extremity since a stroke which he indicated was in 11/2018. The jerking occurs primarily while lying down. There may be a restless feeling in both legs. The jerking will last a few seconds, but can repeat for up to an hour. It is unclear if standing will improve this. The patient indicates he was previously on gabapentin and perhaps that was somewhat helpful. The patient was brought in because he became sweaty after getting up from going to the toilet, had a brief loss of consciousness without any seizure activity, no tongue biting. The patient woke up and had an emesis, brought to the ER. He indicates he had had a headache last week, but it has resolved. PAST MEDICAL HISTORY: Notable for recurrent stroke, hypertension, prostate cancer status post surgery and radiation, chronic bradycardia, hyponatremia, past tobacco abuse. PAST SURGICAL HISTORY: Urologic procedures, colon resection, appendectomy, tonsillectomy. FAMILY HISTORY: Diabetes, unknown if restless legs. SOCIAL HISTORY: Remote tobacco use. No alcoholic beverages. ALLERGIES: CLARITHROMYCIN, REGLAN, PROCHLORPERAZINE, PANTOPRAZOLE. HOME MEDICATIONS: Tamsulosin, aspirin, Metamucil, Tylenol, Augmentin, fluticasone, losartan, Singulair, sertraline, atorvastatin, Plavix, REVIEW OF SYSTEMS: Per primary hospitalist all 10 systems reviewed and negative. White count 5.34, H and H 14/38, platelet count 151. Sodium was 122 on admission and last week was 129, chloride 86, BUN and creatinine 19/137. Osmolarity 253, calcium 8.1, AST 55. Urinalysis negative. Urine osmolarity 193. Head CT, no acute intracranial findings. No change in appearance of subacute infarction within the left cerebellar hemisphere. There is no hydrocephalus. PHYSICAL EXAMINATION: GENERAL: The patient is awake and alert. His mentation is slow. He is oriented to person and place. NECK: There are no carotid bruits. HEART: No heart murmurs. VITAL SIGNS: 106/63, 62. Respirations 19, 36.7, O2 sat 97%. NEUROLOGIC: Pupils are equal, round and reactive to light. There is normal motility. No nystagmus. No ptosis is noted. There is a flattening of the left nasolabial fold. Motor examination, there may be marginal weakness in the right upper extremity; however there is no drift and there were normal rapid alternating movements. Lower extremity strength appeared full. Tone was difficult to assess as the patient had difficulty with relaxing possibly increased on the right. Reflexes are mildly diffusely brisk. No clonus. Toes are downgoing. No sensory loss to light touch. Nauqyq-[id number] and cncw-ob-nsvo actually looked normal bilaterally. No abnormality of movement is noted. No myoclonus or tremor. IMPRESSION: The patient reports jerking of the right lower extremity since a stroke in November. He reports this is primarily while lying down. His current EEG is normal. Differential includes spasm and spasticity related to upper motor neuron lesion. Restless legs worse from the side of the stroke or seizure. EEG being normal argues against this, I would recommend starting a low dose gabapentin 100 mg at bedtime and increasing gradually to see if it is effective. Consider checking a ferritin level if that has not recently been checked. I see no signs of increased intracranial pressure. We will follow with you. MTDD
[2019-09-27] MEDS: AMLODIPINE BESYLATE 5 MG TAB PO SCH (22:03)
[2019-09-28 00:46] LABS: BUN Creatinine Ratio 12.7 (10-20); Calcium 7.7 mg/dl (8.5-10.1); Creatinine Clr Calc Pharmacy 51.7 ml/min; Est GFR (Non-African American) 62.1; Potassium 3.9 mmol/L (3.5-5.1)
[2019-09-28] MEDS: SODIUM CHLORIDE 0.9% 1000ML 1,000 ML IV SCH ×2 (01:36→12:43)
[2019-09-28 08:07] LABS: BUN Creatinine Ratio 12.1 (10-20); Calcium 7.9 mg/dl (8.5-10.1); Creatinine Clr Calc Pharmacy 55.7 ml/min; Est GFR (African American) 78.8; Potassium 3.8 mmol/L (3.5-5.1)
[2019-09-28] MEDS: LOSARTAN POTASSIUM 50 MG TAB PO SCH (08:35)
[2019-09-28] MEDS: FLUTICASONE PROPIONATE NA SPR 16 GM BTL SCH (08:35)
[2019-09-28] MEDS: ENOXAPARIN INJ 40 MG/0.4 ML SYR SQ SCH (08:35)
[2019-09-28] MEDS: ASPIRIN 81 MG ECTAB PO SCH (08:35)
[2019-09-28] MEDS: TAMSULOSIN HCL 0.4 MG CAP PO SCH (08:35)
[2019-09-28] MEDS: ATORVASTATIN 40 MG TAB PO SCH (08:36)
[2019-09-28] MEDS: CLOPIDOGREL BISULFATE 75 MG TAB PO SCH (08:36)
[2019-09-28] MEDS: MONTELUKAST SODIUM 10 MG TABLET PO SCH (08:36)
[2019-09-28] MEDS: LANSOPRAZOLE 15 MG SOLTAB PO SCH (08:36)
--- NOTE | 2019-09-28 17:09 | Progress Notes ---
DATE: 09/28/2019 SUBJECTIVE: I am seeing the patient in followup of movement of the right lower extremity which occurred at the time of a stroke by report in 11/2018. The patient has not had any recurrent movement. His EEG is normal. The patient has no current complaints, no headache. No new weakness, numbness. PHYSICAL EXAMINATION: GENERAL: He is awake and alert. NEUROLOGIC: He is mildly bradyphrenic. Speech is marginally dysarthric. There is a minor flattening of the left nasolabial fold. Motor in the uppers was symmetric. There was no drift and equal rapid alternating movements. [id number] and kwmq-[id number] are normal. No abnormality of movement is noted. There may be mildly increased tone in the right lower. 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 He speaks of some minor restlessness of his legs. This could represent restless legs. Additionally, it could represent spasticity. The EEG being normal argues against it being seizure. If it recurs, I would try some gabapentin in the evening, increasing gradually as previously described. If movement persisted and etiology was unclear then ambulatory EEG might be reasonable. The patient is status post a left PICA infarction. I see no concerning signs of increased intracranial pressure at present. We will sign off. Please have the patient see Dr. Whitten in followup. GUSTAVO
[2019-09-28] MEDS: GABAPENTIN 100 MG CAP PO SCH (21:15)
[2019-09-28] MEDS: AMLODIPINE BESYLATE 5 MG TAB PO SCH (21:16)
[2019-09-29 08:04] LABS: BUN Creatinine Ratio 9.8 (10-20); Calcium 8.2 mg/dl (8.5-10.1); Creatinine Clr Calc Pharmacy 56.8 ml/min; Est GFR (African American) 80.6; Est GFR (Non-African American) 69.6; Potassium 4.2 mmol/L (3.5-5.1)
[2019-09-29 08:08] LABS: Ferritin 207.9 ng/ml (8-388); Phosphorus 3.1 mg/dl (2.5-4.9)
[2019-09-29] MEDS: LOSARTAN POTASSIUM 50 MG TAB PO SCH (08:17)
[2019-09-29] MEDS: LANSOPRAZOLE 15 MG SOLTAB PO SCH (08:18)
[2019-09-29] MEDS: FLUTICASONE PROPIONATE NA SPR 16 GM BTL SCH (08:18)
[2019-09-29] MEDS: CLOPIDOGREL BISULFATE 75 MG TAB PO SCH (08:18)
[2019-09-29] MEDS: ATORVASTATIN 40 MG TAB PO SCH (08:18)
[2019-09-29] MEDS: TAMSULOSIN HCL 0.4 MG CAP PO SCH (08:18)
[2019-09-29] MEDS: ASPIRIN 81 MG ECTAB PO SCH (08:18)
[2019-09-29] MEDS: MONTELUKAST SODIUM 10 MG TABLET PO SCH (08:18)
[2019-09-29] MEDS: ENOXAPARIN INJ 40 MG/0.4 ML SYR SQ SCH (08:18)
--- NOTE | 2019-09-29 09:38 | Hospitalist Progress Note ---
Date of Service September 28, 2019 Assessment & Plan (1) Acute hyponatremia: Acute on chronic Poor p.o. intake secondary to acute gastroenteritis rule out C. difficile given recent confinement, ? Protonix intolerance, hx GERD vs cerebral salt wasting syndrome (given recent CVA) Careful correction of sodium Pt receiving IV NS, check sodium q6 hrs Hold SSRI until serum sodium at baseline. Check stool for C. difficile Add Protonix to ADR list for now Pharmacy recommends Prevacid trial. If Prevacid not tolerated patient may revert to prior Prilosec OTC Rx. Syncopal event secondary to poor p.o. intake, possible orthostasis Check orthostatic vitals chronic bradycardia Medical telemetry Intermittent right leg jerking ? Focal seizure hx recurrent CVA EEG - negative, Neurology consult RE involuntary RLE jerking motion Recommend to start gabapentin and eval for RLS, order ferritin hypertension, slightly elevated Continue losartan, initiate Amlodipine if still uncontrolled history of prostate cancer sp surgery/radiation past tobacco abuse DVT prophylaxis per Lovenox subcu Full code Patient's Ms. Ember Henao, can be contacted at . Admission and Anticipated Discharge Date Admission Date: September 26, 2019 Subjective Patient is lying in bed, in no acute distress. Denies any fevers, chills, chest pain, shortness of breath, no pain, nausea vomiting. Denies any headache. Currently no jerking movements however reports that he has had tremendous jerking in his lower extremities since November/ since his stroke. EEG - negative. Pt's updated over the phone. Neurology recommends to start gabapentin and check ferritin to eval RLS. Review of Systems Review of Systems: All systems reviewed & are unremarkable except as noted in HPI & below Physical Exam Physical Exam: GENERAL: Elderly male, lying in bed, slightly hard of hearing, no respiratory distress SKIN: Normal color, warm HEENT: [place] palpebral conjunctivae, no ptosis NECK : Supple, no tenderness CHEST : CTA, no tenderness HEART : Bradycardic , no obvious murmurs ABDOMEN: Normal bowel sounds, soft, some distention, nontender EXTREMITIES : No LE swelling/tenderness, moves extremities spontaneously NEUROLOGIC : Alert and oriented x3,, no facial asymmetry, slightly hard of hearing, speech fluent, MMTS BUE, BLE 4/5, gait and stance not assessed Results & Data Results & Data ([facility]) Vital Signs (Past 12 Hours) Vital Signs Temp Pulse Pulse Resp BP BP Pulse Ox 09/29/19 07:11 55 L 09/29/19 07:05 36.9 C 70 16 162/70 H 96 09/29/19 04:38 36.8 C 58 L 18 153/77 H 96 09/29/19 00:02 61 09/28/19 23:57 37.0 C 56 L 18 164/76 H 98
--- NOTE | 2019-09-29 14:53 | Hospitalist Progress Note ---
Date of Service September 29, 2019 Assessment & Plan (1) Acute hyponatremia: Acute on chronic Poor p.o. intake secondary to acute gastroenteritis rule out C. difficile given recent confinement, ? Protonix intolerance, hx GERD vs cerebral salt wasting syndrome (given recent CVA) Careful correction of sodium Initially received intravenous normal saline Hold SSRI until serum sodium at baseline. Check stool for C. difficile-never checked Sodium level is 128 today-seems reasonable and stable We will advise a little more salt in diet Recheck sodium and if an improvement site, will be discharged Has been on Prevacid and tolerating well Syncopal event secondary to poor p.o. intake, possible orthostasis Check orthostatic vitals-unremarkable chronic bradycardia Medical telemetry-heart rate remains around 60 Intermittent right leg jerking ? Focal seizure hx recurrent CVA-without any focal localizing signs EEG - negative, Neurology consult RE involuntary RLE jerking motion Ferritin level is normal Gabapentin has been started in the evening Hypertension, slightly elevated Continue losartan, initiate Amlodipine if still uncontrolled Blood pressure is controlled now History of prostate cancer sp surgery/radiation Past tobacco abuse DVT prophylaxis per Lovenox subcu Full code Patient's Ms. Ember Henao, can be contacted at . Admission and Anticipated Discharge Date Admission Date: September 26, 2019 Subjective 09/29/2019 The patient was seen and examined in medical telemetry unit He has been feeling a lot better today and wants to go home Complains to have generalized weakness but does not have any focal neurological deficit Review of Systems Review of Systems: All systems reviewed and are unremarkable except as noted below Musculoskeletal: No acute arthritis Neurologic: + generalized weakness Physical Exam Physical Exam: Lying in bed comfortably Constitutional: well developed and well nourished; no acute distress and not ill appearing Eyes: PERRL, conjunctivae normal, anicteric sclerae ENMT: external ear and nose normal, oropharynx normal Neck: trachea midline, no thyromegaly Respiratory: normal respiratory effort; no respiratory distress Auscultation: lungs clear to auscultation bilaterally Cardiovascular: Rate/Rhythm: regular rate and regular rhythm Heart Sounds: no murmur Gastrointestinal (Abdomen): Inspection/Auscultation: abdomen normal to inspection and normal bowel sounds Percussion/Palpation: abdomen soft; abdomen nontender Musculoskeletal: No acute arthritis involving any joints Neurologic: moves all extremities; no focal motor deficits Generally weak but otherwise alert, awake and oriented x3 Results & Data Results & Data ([facility]) Vital Signs (Past 12 Hours) Vital Signs Temp Pulse Pulse Resp BP BP Pulse Ox 09/29/19 11:15 36.7 C 60 16 134/71 94 09/29/19 07:11 55 L 09/29/19 07:05 36.9 C 70 16 162/70 H 96 09/29/19 04:38 36.8 C 58 L 18 153/77 H 96 Laboratory Results BMP 09/28/19 09/29/19 19:24 07:01 Sodium 128 L 128 L Potassium 4.2 Chloride 97 L Carbon Dioxide 26 BUN 10 Creatinine 1.02 Glucose 87 Calcium 8.2 L Medications Administered Current Inpatient Medications Acetaminophen (Tylenol) 650 mg PO Q4H PRN PRN Reason: Pain or Fever Stop: 10/26/19 22:31 Amlodipine Besylate (Norvasc) 2.5 mg PO [facility] Stop: 10/27/19 20:59 Last Admin: 09/28/19 21:16 Dose: 2.5 mg Documented by: Aspirin (Ecotrin Ectab) 81 mg PO [facility] Stop: 10/27/19 08:59 Last Admin: 09/29/19 08:18 Dose: 81 mg Documented by: Atorvastatin Calcium (Lipitor) 40 mg PO [facility] Stop: 10/27/19 08:59 Last Admin: 09/29/19 08:18 Dose: 40 mg Documented by: Clopidogrel Bisulfate (Plavix) 75 mg PO [facility] Stop: 10/27/19 08:59 Last Admin: 09/29/19 08:18 Dose: 75 mg Documented by: Enoxaparin Sodium (Lovenox) 40 mg SQ [facility] Stop: 10/28/19 08:59 Last Admin: 09/29/19 08:18 Dose: 40 mg Documented by: Fluticasone Propionate (Flonase) 2 sprays NA [facility] Stop: 10/27/19 08:59 Last Admin: 09/29/19 08:18 Dose: 2 sprays Documented by: Gabapentin (Neurontin) 100 mg PO [facility] Stop: 10/28/19 20:59 Last Admin: 09/28/19 21:15 Dose: 100 mg Documented by: Sodium Chloride (Nss 1000ml) 1,000 mls @ 125 mls/hr IV .Q8H [facility] Stop: 10/27/19 14:44 Last Infusion: 09/28/19 16:13 Dose: Infused Documented by: Lansoprazole (Prevacid) 15 mg PO QAM [facility] Stop: 10/27/19 08:59 Last Admin: 09/29/19 08:18 Dose: 15 mg Documented by: Losartan [facility]) [facility]: 10/27/19 04:59 Last Admin: 09/29/19 08:17 Dose: 100 mg Documented by: Montelukast Sodium (Singulair) [facility] Stop: 10/27/19 08:59 Last Admin: 09/29/19 08:18 Dose: 10 mg Documented by: Ondansetron HCl (Zofran) 4 mg IV Q6H PRN PRN Reason: nv Stop: 10/26/19 22:31 Psyllium Hydrophilic Mucilloid (Metamucil) 1 pkt PO [facility] Stop: 10/29/19 20:59 Sennosides (Senokot) 8.6 mg PO HS [facility] Stop: 10/29/19 20:59 Sodium Chloride (Sodium Chloride) 1 gm PO BID [facility] Stop: 10/29/19 20:59 Tamsulosin HCl (Flomax) [facility] Stop: 10/27/19 08:59 Last Admin: 09/29/19 08:18 Dose: 0.4 mg Documented by:
[2019-09-29] MEDS: SODIUM CHLORIDE 1 GM TABLET PO SCH (20:24)
[2019-09-29] MEDS: AMLODIPINE BESYLATE 5 MG TAB PO SCH (20:24)
[2019-09-29] MEDS: GABAPENTIN 100 MG CAP PO SCH (20:25)
[2019-09-29] MEDS ORDERED: SENNA 8.6 MG TAB PO SCH (21:00)
[2019-09-29] MEDS ORDERED: PSYLLIUM 58.6% POWDER PACKET PO SCH (21:00)
[2019-09-30] MEDS ORDERED: HydrALAZINE HCL 20 MG/ML VIAL IV ONE (04:34)
[2019-09-30] MEDS: SODIUM CHLORIDE 1 GM TABLET PO SCH (08:27)
[2019-09-30] MEDS: ATORVASTATIN 40 MG TAB PO SCH (08:27)
[2019-09-30] MEDS: LOSARTAN POTASSIUM 50 MG TAB PO SCH (08:27)
[2019-09-30] MEDS: CLOPIDOGREL BISULFATE 75 MG TAB PO SCH (08:28)
[2019-09-30] MEDS: ASPIRIN 81 MG ECTAB PO SCH (08:28)
[2019-09-30] MEDS: TAMSULOSIN HCL 0.4 MG CAP PO SCH (08:28)
[2019-09-30] MEDS: LANSOPRAZOLE 15 MG SOLTAB PO SCH (08:28)
[2019-09-30] MEDS: ENOXAPARIN INJ 40 MG/0.4 ML SYR SQ SCH (08:29)
[2019-09-30] MEDS: FLUTICASONE PROPIONATE NA SPR 16 GM BTL SCH (08:30)
[2019-09-30] MEDS: MONTELUKAST SODIUM 10 MG TABLET PO SCH (08:31)
[2019-09-30 08:48] LABS: BUN Creatinine Ratio 10.7 (10-20); Calcium 8.8 mg/dl (8.5-10.1); Est GFR (African American) 82.6; Est GFR (Non-African American) 71.3; Potassium 3.9 mmol/L (3.5-5.1)
[2019-09-30] MEDS ORDERED: bisacodyL 10 MG SUPP PR STA (10:30)
--- NOTE | 2019-09-30 11:54 | Hospitalist Progress Note ---
Date of Service September 30, 2019 Assessment & Plan (1) Acute hyponatremia: Acute on chronic Poor p.o. intake secondary to acute gastroenteritis rule out C. difficile given recent confinement, ? Protonix intolerance, hx GERD vs cerebral salt wasting syndrome (given recent CVA) Careful correction of sodium Initially received intravenous normal saline Hold SSRI until serum sodium at baseline. Check stool for C. difficile-never checked Sodium level is 128 today-seems reasonable and stable We will advise a little more salt in diet Recheck sodium and if an improvement site, will be discharged Has been on Prevacid and tolerating well Sodium level is 129 as of 09/30/2019 He was advised to have extra salt in diet and reduced fluid intake to 1200 mL's a day Syncopal event secondary to poor p.o. intake, possible orthostasis Check orthostatic vitals-unremarkable chronic bradycardia Medical telemetry-heart rate remains around 60 Has been ambulating without any difficulties Intermittent right leg jerking ? Focal seizure hx recurrent CVA-without any focal localizing signs EEG - negative, Neurology consult RE involuntary RLE jerking motion Ferritin level is normal Gabapentin has been started in the evening Denies any more leg jerking Hypertension, slightly elevated Continue losartan, initiate Amlodipine if still uncontrolled Blood pressure is controlled now History of prostate cancer sp surgery/radiation Past tobacco abuse DVT prophylaxis per Lovenox subcu Full code Patient's Ms. Ember Henao, can be contacted at . Admission and Anticipated Discharge Date Admission Date: September 26, 2019 Subjective 09/29/2019 The patient was seen and examined in medical telemetry unit He has been feeling a lot better today and wants to go home Complains to have generalized weakness but does not have any focal neurological deficit 09/30/2019 The patient was seen and examined in medical telemetry unit He has been doing much better and he denies any symptoms He has not moved his bowel since yesterday but denies any abdominal pain and/or distention He wants to be discharged Review of Systems Review of Systems: All systems reviewed and are unremarkable except as noted below Musculoskeletal: No acute arthritis Neurologic: + generalized weakness Physical Exam Physical Exam: Lying in bed comfortably Constitutional: well developed and well nourished; no acute distress and not ill appearing Eyes: PERRL, conjunctivae normal, anicteric sclerae ENMT: external ear and nose normal, oropharynx normal Neck: trachea midline, no thyromegaly Respiratory: normal respiratory effort; no respiratory distress Auscultation: lungs clear to auscultation bilaterally Cardiovascular: Rate/Rhythm: regular rate and regular rhythm Heart Sounds: no murmur Gastrointestinal (Abdomen): Inspection/Auscultation: abdomen normal to inspection and normal bowel sounds; abdomen not distended Percussion/Palpation: abdomen soft; abdomen nontender Musculoskeletal: No acute arthritis involving any joints Neurologic: moves all extremities; no focal motor deficits Generally weak but no focal neuro deficit. Psychiatric: Affect: + anxious affect Insight: good insight Results & Data Results & Data ([facility]) Vital Signs (Past 12 Hours) Vital Signs Temp Pulse Pulse Resp BP BP Pulse Ox 09/30/19 07:40 59 L 09/30/19 07:05 36.6 C 60 18 148/79 H 98 09/30/19 05:48 163/76 H 09/30/19 04:08 36.7 C 63 20 183/90 H 94 Laboratory Results [facility] 09/30/19 07:56 Sodium 129 L Potassium 3.9 Chloride 98 Carbon Dioxide 23 BUN 11 Creatinine 1.00 Glucose 94 Calcium 8.8 Medications Administered Current Inpatient Medications Acetaminophen (Tylenol) 650 mg PO Q4H PRN PRN Reason: Pain or Fever Stop: 10/26/19 22:31 Amlodipine Besylate (Norvasc) 2.5 mg PO [facility] Stop: 10/27/19 20:59 Last Admin: 09/29/19 20:24 Dose: 2.5 mg Documented by: Aspirin (Ecotrin Ectab) 81 mg PO [facility] Stop: 10/27/19 08:59 Last Admin: 09/30/19 08:28 Dose: 81 mg Documented by: Atorvastatin Calcium (Lipitor) 40 mg PO [facility] Stop: 10/27/19 08:59 Last Admin: 09/30/19 08:27 Dose: 40 mg Documented by: Clopidogrel Bisulfate (Plavix) 75 mg PO [facility] Stop: 10/27/19 08:59 Last Admin: 09/30/19 08:28 Dose: 75 mg Documented by: Enoxaparin Sodium (Lovenox) 40 mg SQ [facility] Stop: 10/28/19 08:59 Last Admin: 09/30/19 08:29 Dose: 40 mg Documented by: Fluticasone Propionate (Flonase) 2 sprays NA [facility] Stop: 10/27/19 08:59 Last Admin: 09/30/19 08:30 Dose: 2 sprays Documented by: Gabapentin (Neurontin) 100 mg PO [facility] Stop: 10/28/19 20:59 Last Admin: 09/29/19 20:25 Dose: 100 mg Documented by: Sodium Chloride (Nss 1000ml) 1,000 mls @ 125 mls/hr IV .Q8H [facility] Stop: 10/27/19 14:44 Last Infusion: 09/28/19 16:13 Dose: Infused Documented by: Lansoprazole (Prevacid) 15 mg PO [facility] Stop: 10/27/19 08:59 Last Admin: 09/30/19 08:28 Dose: 15 mg Documented by: Losartan Potassium (Cozaar) 100 mg PO [facility] Stop: 10/27/19 04:59 Last Admin: 09/30/19 08:27 Dose: 100 mg Documented by: Montelukast Sodium (Singulair) 10 mg PO [facility] Stop: 10/27/19 08:59 Last Admin: 09/30/19 08:31 Dose: Not Given Documented by: Ondansetron HCl (Zofran) 4 mg IV Q6H PRN PRN Reason: nv Stop: 10/26/19 22:31 Psyllium Hydrophilic Mucilloid (Metamucil) 1 pkt PO [facility] Stop: 10/29/19 20:59 Last Admin: 09/29/19 20:24 Dose: 1 pkt Documented by: Sennosides (Senokot) 8.6 mg PO [facility] Stop: 10/29/19 20:59 Last Admin: 09/29/19 20:25 Dose: 8.6 mg Documented by: Sodium Chloride (Sodium Chloride) 1 gm PO BID [facility] Stop: 10/29/19 20:59 Last Admin: 09/30/19 08:27 Dose: 1 gm Documented by: Tamsulosin HCl (Flomax) 0.4 mg PO [facility] Stop: 10/27/19 08:59 Last Admin: 09/30/19 08:28 Dose: 0.4 mg Documented by:
--- NOTE | 2019-10-01 07:44 | Discharge Summary ---
Date of Service October 01, 2019 Admission HPI Per Admitting Provider History obtained from patient, family, and records. History from patient somewhat limited secondary to hearing impairment. Medical history significant for recurrent CVA, hypertension, history of prostate cancer sp surgery, radiation, chronic bradycardia, chronic hyponatremia, past tobacco abuse Recent confinement last week for acute CVA. Patient presented with increased R leg weakness and headache symptoms. Brain MRI showed a large subacute left cerebellar infarct in a PICA distribution. TTE showed LVH, normal LV systolic function EF 60%. Diastolic dysfunction. Aortic valve sclerosis. Mild aortic regurgitation. No atrial septal defect. Plavix added to patient's aspirin for secondary stroke prevention. During confinement, patient experienced uncontrolled reflux/GI upset from Protonix substitute to home Prilosec as per account. Protonix prescription given in place of patient's Prilosec on discharge given potential interaction between Plavix and Prilosec as per Pharmacy recommendations. Last few days, patient noted GI upset with diarrhea symptoms nonbloody. No fever, no chills. No chest pain, no S OB. Achy right headache symptoms similar to admission. noted increased jerking on the right lower extremity which they claim patient has had since late last year after stroke episode. No back pain complaints. Poor appetite. Patient unhappy with Protonix medication as per . Patient felt sweaty when he got up from the toilet this afternoon. Passed out for few seconds. found patient and laid him on the floor. Patient subsequently woke up and had an emesis episode. Patient brought to the ER for evaluation. MEDICAL HISTORY: As above. SURGERIES: He has had urologic procedures. colon resection and appendectomy, appendectomy, tonsillectomy FAMILY HISTORY: Diabetes. PERSONAL SOCIAL HISTORY: Remote tobacco use. No chronic intake of alcoholic beverages. Retired automobile business. Admission Exam Per Admitting Provider Physical Exam: GENERAL: Slightly uncomfortable, slightly anxious, slightly hard of hearing, no respiratory distress SKIN: Normal color, warm HEENT: [place] palpebral conjunctivae, no ptosis, dry buccal mucosa NECK : Supple, no tenderness CHEST : CTA, no tenderness HEART : Bradycardic , no obvious murmurs ABDOMEN: Some distention, nontender EXTREMITIES : No LE swelling/tenderness, no other conspicuous deformities noted NEUROLOGIC : Coherent, no facial asymmetry, slightly hard of hearing, MMTS BUE, BLE 4/5, gait and stance not assessed Principal Diagnosis Acute on chronic hyponatremia, syncopal episode, recurrent CVA without any focal localizing signs, hypertension, history of prostate cancer Discharge Exam Constitutional well developed and well nourished; no acute distress and not ill appearing Eyes PERRL, conjunctivae normal, anicteric sclerae ENMT external ear and nose normal, oropharynx normal Neck trachea midline, no thyromegaly Respiratory normal respiratory effort; no respiratory distress Auscultation: lungs clear to auscultation bilaterally Cardiovascular Rate/Rhythm: regular rate and regular rhythm Heart Sounds: no murmur Gastrointestinal (Abdomen) Inspection/Auscultation: abdomen normal to inspection and normal bowel sounds; abdomen not distended Percussion/Palpation: abdomen soft; abdomen nontender Neurologic moves all extremities; no focal motor deficits Psychiatric Affect: + anxious affect Insight: good insight Discharge Data Allergies Allergy/AdvReac Type Severity Reaction Status Date / Time clarithromycin Allergy Mild rash Verified 09/26/19 20:45 metoclopramide AdvReac Intermediate NIGHTMARES Verified 09/26/19 20:45 prochlorperazine AdvReac Intermediate HYPER Verified 09/26/19 20:45 UNABLE TO TOLERATE SIDE EFFEDTS pantoprazole [From Protonix] AdvReac Mild GI upset Verified 09/26/19 21:58 Consultations 09/26/19 20:20 ED Decision to Admit Stat 09/26/19 22:32 Consult Neurology Routine Ordered Studies 09/26/19 18:46 CT head/brain wo con Stat 09/26/19 19:01 CT abd pelvis IV con only Stat Hospital Course (1) Acute hyponatremia: Acute on chronic Poor p.o. intake secondary to acute gastroenteritis rule out C. difficile given recent confinement, ? Protonix intolerance, hx GERD vs cerebral salt wasting syndrome (given recent CVA) Careful correction of sodium Initially received intravenous normal saline Hold SSRI until serum sodium at baseline. Check stool for C. difficile-never checked Sodium level is 128 today-seems reasonable and stable We will advise a little more salt in diet Recheck sodium and if an improvement site, will be discharged Has been on Prevacid and tolerating well Sodium level is 129 as of 09/30/2019 He was advised to have extra salt in diet and reduced fluid intake to 1200 mL's a day Syncopal event secondary to poor p.o. intake, possible orthostasis Check orthostatic vitals-unremarkable chronic bradycardia Medical telemetry-heart rate remains around 60 Has been ambulating without any difficulties Intermittent right leg jerking ? Focal seizure hx recurrent CVA-without any focal localizing signs EEG - negative, Neurology consult RE involuntary RLE jerking motion Ferritin level is normal Gabapentin has been started in the evening Denies any more leg jerking Hypertension, slightly elevated Continue losartan, initiate Amlodipine if still uncontrolled Blood pressure is controlled now History of prostate cancer sp surgery/radiation Past tobacco abuse DVT prophylaxis per Lovenox subcu Full code Patient's Ms. Ember Henao, can be contacted at . Total Time Total Time Spent Total Time Spent (In Minutes): 35 minutes Total Time Includes: Examination of the Patient, Discharge Planning, Medication Reconciliation and Communication With Other Providers Discharge Plan Discharge Items Patient Disposition: Home - Home Health Services Reason For Visit: HYPONATREMIA Discharge Diagnosis: Acute on chronic hyponatremia, syncopal episode, recurrent CVA without any focal localizing signs, hypertension, history of prostate cancer Condition on Discharge: Fair Activity: Resume your previous activity Non-emergency contact: Primary Care Provider Call non-emergency contact if: you have any medication questions and your symptoms worsen Follow-up/Referrals: Jinny Johnson MD [Primary Care Provider] - 10/04/19 11:20 am (Your appointment is with Dr. Gallagher.) Diet: Heart Healthy and Lactose Intolerant Fluids: 1200ml (5 cups) Addtl Attending Provider Instructions: Please take precaution to avoid falls Try a little bit extra salt in diet Pending Studies at Discharge: No Stand-Alone Forms: My [facility] [employer], Smoking Cessation Medications and DC Order Prescriptions: New sennosides [Senokot] 8.6 mg Tablet 8.6 mg PO HS 30 Days Qty: 30 RF: 0 amlodipine [Norvasc] 5 mg Tablet 2.5 mg PO HS 30 Days Qty: 15 RF: 0 gabapentin 100 mg Capsule 100 mg PO HS 30 Days Qty: 30 RF: 0 lansoprazole [Prevacid SoluTab] 15 mg Tablet,Disintegrat, Delay Rel 15 mg PO QAM 30 Days Qty: 30 RF: 0 Continued tamsulosin 0.4 mg Capsule 0.4 mg PO QAM RF: 0 aspirin [Ecotrin Low Strength] 81 mg Tablet,Delayed Release (Dr/Ec) 81 mg PO QAM RF: 0 acetaminophen [Tylenol Extra Strength] 500 mg Tablet 500 mg PO Q6H PRN (Reason: Pain) RF: 0 montelukast [Singulair] 10 mg Tablet 10 mg PO QAM RF: 0 losartan 100 mg tablet 100 mg PO QAM RF: 0 fluticasone propionate 50 mcg/actuation spray,suspension 2 spray INTRANASAL QAM RF: 0 Metamucil 3.4 gram/5.4 gram Powder 1 tsp PO BID RF: 0 clopidogrel 75 mg Tablet 75 mg PO QAM 30 Days Qty: 30 RF: 3 atorvastatin 40 mg tablet 40 mg PO QAM Qty: 0 RF: 0 Discontinued sertraline 50 mg tablet 50 mg PO QAM RF: 0 amoxicillin-pot clavulanate 875-125 mg tablet 1 tab PO Q12 RF: 0 pantoprazole [Protonix] 40 mg tablet,delayed release (DR/EC) 40 mg PO DAILY 30 Days Qty: 30 RF: 3 Discharge Orders: Discharge Order (Routine); Ordered 09/30/19 Ordered By: Jaime Clark Admission Data Admit Date/Time: 09/26/19 21:05 Attending Provider: Jaime Clark Admit Provider: Koby Pepper Primary Care Provider: Jinny Johnson Other Providers: Koby Pepper ; Ana Mc ; Olivier Rolon ; Ana Llanos ; Jose A Whitten ; [facility] ; Kolby Barrera Other Interventions: Discharge Summary Assessment (RN) Last Done: 09/30/19 14:24 DC Date/Time DO NOT enter until pt leaves facility: 09/30/19 14:45
== END 2019-09-30 14:45 | disposition home health service (06) | DRG 641 ==
LOC: ED 18:28 → SUATTDRO 21:05 → 2N 21:05

== ENCOUNTER 2021-05-24 16:42 | Inpatient (IN) ==
--- NOTE | 2021-05-24 17:06 | Emergency Department Note ---
Impression & Plan Acute leg pain, Weakness, Hyponatremia ED Provider Note NAME: TEJAS ARVIZU AGE: 81 SEX: M : 1940 ARRIVES VIA: Walk-In INFORMANT: [Patient][, ] ED PROVIDER(S): [Case Lovett MD] Chief Complaint: Weakness, fall, right hip pain HPI: Patient was seen recently due to concern for contusion of his hip with associated muscle spasm. The patient was having some right hip pain. Patient was recently discharged earlier today and this returned realizing that he thought he would benefit from rehab. Patient did have blood work completed along with a CT of the abdomen pelvis. The patient had no acute findings. The patient does not have any evidence of fracture based on his CT of the right hip and femur. There was some stranding thought to be secondary to the pre-existing contusion. Patient did not have any evidence of DVT. Patient did have blood work completed patient had blood work earlier today which showed a normal white count H&H and platelet count. The patient's kidney function is unremarkable. The patient does have some chronic hyponatremia with a sodium of 128. Urinalysis without obvious infection. Patient has complaint of worsening fatigue and weakness. Patient denies any known Lyme's or tick bites. ROS: See HPI for pertinent positives and negatives. A total of 10 systems were reviewed and otherwise negative. Past medical history: See below Surgical history: See below Social history: See below Physical Exam: GENERAL: [Well appearing, well nourished,] NAD, [wearing glasses,][wearing a mask,] non-toxic. EYE EXAM: Normal conjunctiva. PERRL, no anisocoria and EOM's grossly intact w/o pain. [OROPHARYNX: Moist mucus membranes. Grossly normal dentition. [No exudate, posterior pharynx is clear, no tonsillar/uvular deviation or swelling. No cervical adenopathy, no submental, submandibular, or sublingual swelling.]] NECK: Supple, no nuchal rigidity, no adenopathy, non-tender. No signs of meningismus. [FROM of the neck with good chin to chest and neck extension. No stridor.] LUNGS: Clear to auscultation. Normal chest wall mechanics. HEART: NSR, no MRG. ABDOMEN: Abdomen soft, non-tender, normo-active bowel sounds, no masses, no rebound or guarding. BACK: No CVA TTP. SKIN: Bruising over the right hip and thigh. UPPER EXTREMITIES: Upper extremities are grossly normal. LOWER EXTREMITIES: Grossly normal, no edema. NEURO EXAM: A&O x3, cranial nerves II-XII grossly intact, normal speech, moves all 4 extremities on command w/o issue. Differential diagnoses: Infection, dehydration, metabolic abnormality, hypo/hyperglycemia, electrolyte disturbance, anemia, hypoxia, cardiac sources, intracerebral event, toxicologic, neurologic, as well as other pathologies. Course: Patient was seen and evaluated the bedside. Full history physical exam was performed. Imaging Studies: See Below [Cardiac monitoring: An order was placed for continuous cardiac monitoring. The monitor shows a rate of 82 with sinus rhythm.] MDM: Patient was seen due to concern for persistent right leg pain and was seen earlier today with reassuring blood work and imaging also including CT of the abdomen pelvis, right femur CT as well as negative DVT ultrasound. I did Si[place] the on-call hospitalist Ela Dave PA-C and the patient was admitted by Dr. Cabrera. Patient did have a repeat Covid test completed and the patient's blood work earlier today was fairly unremarkable. Past Med/Surg History Medical History (Updated 05/24/21 @ 23:56 by Case Lovett MD) Anxiety BPH (benign prostatic hyperplasia) CKD (chronic kidney disease), stage III Depression Diverticulitis GERD (gastroesophageal reflux disease) HTN (hypertension) IBS (irritable bowel syndrome) Insomnia Prostate cancer "s/p radiation" Sinus bradycardia Vasovagal syncope Surgical History History of bowel resection History of partial colectomy Hx of tonsillectomy Family History Brother Diabetes Daughter Asthma Social History Smoking Status: Former smoker Tobacco Type: Smokeless Tobacco (Dip or Chew) Second Hand Exposure: No; Do You Dip or Chew Tobacco: Yes; Hx Alcohol Use: No Hx Substance Use: No Preferred Language: Pashto Communication Ability: Effective Communication Ability Comment: [facility] Operations Officer Required: No Beliefs That Will Affect Care: None marital status: Current Living Situation: Spouse Other Information That Helps Us Care for You: No Feels Safe at Home: Yes Safety Concerns: Feels Safe At This Time Assistive Devices: Cane, Denture - Upper, Denture - Lower, Glasses, Hearing Aid - Bilateral and Walker Allergies Allergies Allergy/AdvReac Type Severity Reaction Status Date / Time clarithromycin Allergy Intermediate rash Verified 05/24/21 17:54 lisinopril Allergy Unknown Unknown Verified 05/24/21 17:54 metoclopramide AdvReac Intermediate NIGHTMARES Verified 05/24/21 17:54 pantoprazole [From Protonix] AdvReac Intermediate GI upset Verified 05/24/21 17:54 prochlorperazine AdvReac Intermediate HYPER Verified 05/24/21 17:54 UNABLE TO TOLERATE SIDE EFFEDTS Home Meds Home Medications Medication Instructions Recorded Confirmed tamsulosin 0.4 mg capsule (Flomax) 0.4 mg PO QAM 09/13/18 05/24/21 aspirin 81 mg tablet,delayed 81 mg PO QAM 01/04/19 05/24/21 release (Ecotrin Low Strength) fluticasone propionate 50 2 spray INTRANASAL QAM 09/19/19 05/24/21 mcg/actuation nasal spray,suspension (Flonase Allergy Relief) losartan 100 mg tablet (Cozaar) 100 mg PO QAM 09/19/19 05/24/21 omeprazole 20 mg capsule,delayed 20 mg PO BID 08/06/20 05/24/21 release rosuvastatin 20 mg tablet (Crestor) 20 mg PO DAILY 08/06/20 05/24/21 metoprolol succinate 25 mg 12.5 mg PO QAM 08/19/20 05/24/21 tablet,extended release 24 hr (Toprol XL) clopidogrel 75 mg tablet (Plavix) 75 mg PO QAM 10/20/20 05/24/21 ondansetron HCl 4 mg tablet 8 mg PO Q8 PRN 01/26/21 05/24/21 furosemide 20 mg tablet 20 mg PO DAILY PRN 02/06/21 05/24/21 pantoprazole 40 mg tablet,delayed 40 mg PO DAILYBB 02/06/21 05/24/21 release sennosides 8.6 mg tablet (senna) 8.6 mg PO BID 02/06/21 05/24/21 psyllium 1 tbsp PO DAILY 03/30/21 05/24/21 trazodone 50 mg tablet 50 mg PO HS 03/30/21 05/24/21 escitalopram oxalate 20 mg tablet 20 mg PO QAM 05/17/21 05/24/21 hydroxyzine HCl 50 mg tablet 50 mg PO TID PRN 05/17/21 05/24/21 Previous Rx's Medication Instructions Recorded oxycodone-acetaminophen 5 mg-325 1 tab PO Q8H PRN #14 tab 05/24/21 mg tablet (Percocet) Results & Data (ED) Vital Signs Vital Signs - 24 hr 05/24/21 16:49 05/24/21 17:47 Temperature 36.6 C Temperature Source Temporal Artery Scan Pulse Rate 85 89 Respiratory Rate 16 21 Blood Pressure 160/90 H Blood Pressure Mean 113 Blood Pressure Position Sitting Pulse Oximetry 92 98 Oxygen Delivery Method Room Air Room Air Sepsis Recent Fever Within 48 Hours No Sepsis New/Unexplained Change in Mental Status No Sepsis Action Taken by Nursing No Action Required Home Medications Current Medication List: was personally reviewed by me Laboratory Data Attestation: I reviewed the patient's lab results. The patient's blood work from earlier today showed a white count of 8 with a hemoglobin of 15 and normal platelet count of 170. The patient does have some acute on chronic hyponatremia 128. Kidney function unremarkable with a creatinine 1.2 and BUN of 20. Urinalysis did not show any evidence of obvious infection. There was blood in the urine. No bacteria. Administered Medications Acetaminophen (Acetaminophen 500 Mg Tab) 1,000 mg PO Q8H SELAM Stop: 06/23/21 18:44 Last Admin: 05/24/21 23:33 Dose: 1,000 mg Documented by: [id number] Admin: 05/24/21 18:51 Dose: 1,000 mg Documented by: [id number] Sodium Chloride (Nss) 500 mls @ 80 mls/hr IV .Q6H15M SELAM Stop: 05/25/21 01:14 Last Admin: 05/24/21 19:25 Dose: 80 mls/hr Documented by: [id number] Pantoprazole Sodium (Pantoprazole 40 Mg Tab) 40 mg PO BID SELAM Stop: 06/23/21 22:34 Last Admin: 05/24/21 23:16 Dose: Not Given Documented by: [id number] Sennosides (Senna 8.6 Mg Tab) 8.6 mg PO BID SELAM Stop: 06/23/21 22:34 Last Admin: 05/24/21 23:16 Dose: 8.6 mg Documented by: [id number] Trazodone HCl (Trazodone Hcl 50 Mg Tab) 50 mg PO HS SELAM Stop: 06/23/21 22:34 Last Admin: 05/24/21 23:16 Dose: 50 mg Documented by: [id number] Discontinued Medications Clonidine HCl (Clonidine Hcl 0.1 Mg Tab) 0.1 mg PO NOW ONE Stop: 05/24/21 23:07 Last Admin: 05/24/21 23:30 Dose: 0.1 mg Documented by: [id number] Morphine Sulfate (Morphine Sulfate 2 Mg/Ml Carp) 2 mg IV NOW STA Stop: 05/24/21 17:48 Last Admin: 05/24/21 22:00 Dose: Not Given Documented by: [id number] Discharge Plan Visit Data Chief Complaint: Weakness Stated Complaint: NEEDS MEDICAL CLEARANCE FOR REHAB ED Provider: Case Lovett Discharge Problem: Acute leg pain, Weakness, Hyponatremia Patient Disposition: Admitted As Inpatient Discharge Instructions Interventions: ED Discharge Assessment Last Done: 05/24/21 22:00
--- NOTE | 2021-05-24 17:41 | History & Physical Report ---
Date of Service May 24, 2021 Assessment & Plan (1) Fall: (2) Contusion of hip: Plan: - Admit to med surg - PT/OT consults - Imaging reviewed - CT of the hip: No evidence of acute fracture or dislocation. Mild lateral right hip stranding may represent posttraumatic stranding, however no discrete hematoma is seen. - Abd/pelvis reviewed from today which did not show any acute abnormalities. - CM to assist with discharge planning to rehab versus SNF - Fall precautions - Use tylenol 1000 mg Q8H for pain control, oxycodone for breakthrough pain. Had been using percocet at home - possible this could have potentiated falls in the past week? - Bowel regimen ordered (3) Hyponatremia: Plan: - Sodium to be 128 upon labs done earlier this morning, will place on NSS at 80 mL/h for gentle hydration, appears that Nov 2020 his range was 138-140 - Possibly dehydration but will check urine studies to r/o SIADH prior to administration of fluids - Lexapro can cause hyponatremia and was recently started as outpatient by pcp, may need to adjust antidepressant if this is the cause. - Trend with a.m. labs - UA appears negative - Hold Lasix, takes as needed for swelling but hasn't needed it recently (4) HTN (hypertension): Plan: -Continue metoprolol succinate 25 mg daily, losartan 100 mg daily (5) GERD (gastroesophageal reflux disease): Plan: -Continue pantoprazole (6) BPH (benign prostatic hyperplasia): Plan: -History of prostate radiation seeds in place, continue Flomax (7) Anxiety: (8) Depression: Plan: -Continue Lexapro, and trazodone for sleep - Lexapro can cause hyponatremia as a side effect - recently was started on 05/07 by PCP - may need to alter the (9) History of CVA (cerebrovascular accident): Plan: -May continue Plavix, rosuvastatin, baby aspirin - Hx of 4 separate CVAs, most recent was a little over 1 year ago. Pt reports r esidual R sided leg weakness since then which is contributing to falls. DVT PPx: - teds, scds, lovenox subq CODE: Full code Dispo: From home, likely to remain in the hospital x 1-2 days, dc anticipated to inpatient rehab facility History of Present Illness Chief Complaint: weakness Primary Care Provider: NO PCP This is an 81 yo M with PMhx of HTN, hx of CVA, GERD, BPH, CKD II who presents with worsening weakness. Patient was seen in the ER earlier today and due to his preference and family preference they insisted upon taking him home versus going to rehab. Within the few hours that he was home, he fell getting out of the car again, and wasn't able to get in the house. He returned to the ER with wishes to pursue PT/OT at an inpatient facility. Issues with weakness and balance started approximately a week ago whenever he sustained a fall. He reports falling 3 times within the past week. Denies any loss of consciousness, passing out, lightheadedness or dizziness preceding these events. He states that his mechanical and that he feels weak in his right leg, which gives out on him, after having a stroke approximately 1 year ago. He uses a walker or cane at baseline. He lives at home with his in a single-story home. There are 3 steps to get up into his house which he struggles with despite the railing. Has taken all his morning medications as indicated. Patient has been using Percocets at home to alleviate the pain in the past week which work well. He reports his pain is currently a 2/10 and is agreeable to taking Tylenol [id number]. He has had some issues with constipation and uses Metamucil at home, last BM was last night. Allergies Allergy/AdvReac Type Severity Reaction Status Date / Time clarithromycin Allergy Intermediate rash Verified 05/24/21 17:54 lisinopril Allergy Unknown Unknown Verified 05/24/21 17:54 metoclopramide AdvReac Intermediate NIGHTMARES Verified 05/24/21 17:54 pantoprazole [From Protonix] AdvReac Intermediate GI upset Verified 05/24/21 17:54 prochlorperazine AdvReac Intermediate HYPER Verified 05/24/21 17:54 UNABLE TO TOLERATE SIDE EFFEDTS Home Medications Medication Instructions Recorded Confirmed Type tamsulosin 0.4 mg capsule (Flomax) 0.4 mg PO QAM 09/13/18 05/24/21 History aspirin 81 mg tablet,delayed 81 mg PO QAM 01/04/19 05/24/21 History release (Ecotrin Low Strength) fluticasone propionate 50 2 spray INTRANASAL QAM 09/19/19 05/24/21 History mcg/actuation nasal spray,suspension (Flonase Allergy Relief) losartan 100 mg tablet (Cozaar) 100 mg PO QAM 09/19/19 05/24/21 History omeprazole 20 mg capsule,delayed 20 mg PO BID 08/06/20 05/24/21 History release rosuvastatin 20 mg tablet (Crestor) 20 mg PO DAILY 08/06/20 05/24/21 History metoprolol succinate 25 mg 12.5 mg PO QAM 08/19/20 05/24/21 History tablet,extended release 24 hr (Toprol XL) clopidogrel 75 mg tablet (Plavix) 75 mg PO QAM 10/20/20 05/24/21 History ondansetron HCl 4 mg tablet 8 mg PO Q8 PRN 01/26/21 05/24/21 History furosemide 20 mg tablet 20 mg PO DAILY PRN 02/06/21 05/24/21 History pantoprazole 40 mg tablet,delayed 40 mg PO DAILYBB 02/06/21 05/24/21 History release sennosides 8.6 mg tablet (senna) 8.6 mg PO BID 02/06/21 05/24/21 History psyllium 1 tbsp PO DAILY 03/30/21 05/24/21 History trazodone 50 mg tablet 50 mg PO HS 03/30/21 05/24/21 History escitalopram oxalate 20 mg tablet 20 mg PO QAM 05/17/21 05/24/21 History hydroxyzine HCl 50 mg tablet 50 mg PO TID PRN 05/17/21 05/24/21 History oxycodone-acetaminophen 5 mg-325 1 tab PO Q8H PRN #14 tab 05/24/21 05/24/21 Rx mg tablet (Percocet) Past Med/Surg History Medical History (Updated 05/24/21 @ 17:53 by Gayla Dave PA-C) Anxiety BPH (benign prostatic hyperplasia) CKD (chronic kidney disease), stage III Depression Diverticulitis GERD (gastroesophageal reflux disease) HTN (hypertension) IBS (irritable bowel syndrome) Insomnia Prostate cancer "s/p radiation" Sinus bradycardia Vasovagal syncope Surgical History History of bowel resection History of partial colectomy Hx of tonsillectomy Family History Brother Diabetes Daughter Asthma Social History Smoking Status: Former smoker Tobacco Type: Smokeless Tobacco (Dip or Chew) Second Hand Exposure: No; Do You Dip or Chew Tobacco: Yes; Hx Alcohol Use: No Hx Substance Use: No Preferred Language: Sami Communication Ability: Effective Communication Ability Comment: [facility] Switchboard Clerk Required: No Beliefs That Will Affect Care: None marital status: Current Living Situation: Spouse Other Information That Helps Us Care for You: No Feels Safe at Home: Yes Safety Concerns: Feels Safe At This Time Assistive Devices: Cane, Denture - Upper, Denture - Lower, Glasses, Hearing Aid - Bilateral and Walker Review of Systems Review of Systems: Constitutional: No fever, sweats or chills Eyes: No diplopia, no worsening or blurred vision ENT: normal hearing, no trouble swallowing Respiratory: No cough, sputum, dyspnea at rest or on exertion Cardiovascular: No chest pain, tightness or palpitations Abdomen: No pain, nausea, vomiting, diarrhea or constipation Musculoskeletal: No joint pain, calf pain, swelling Neurologic: + right leg weakness, no numbness/tingling, + balance problems with walker and cane Psychiatric: +anxiety and depression on medication Skin: No rash or itch Physical Exam Physical Exam: General: awake, alert, no apparent distress Head: Normocephalic, atraumatic ENT: PERRL, EOMI, no pharyngeal exudate, mucous membranes moist, + hard of hearing Chest: Clear to auscultation, on room air, no adventitious breath sounds Cardiac: Regular rate and rhythm, no murmur, no JVD, normal peripheral pulses, good capillary refill Abdominal: NABS x 4 quadrants, soft, nondistended, nontender to palpation, no rebound or guarding Extremities: Normal inspection, + Right sided leg weakness with straight leg raise and displays weakness with resistance techniques in keeping R leg in the air. Left leg with 5/5 strength. No peripheral edema or erythema, calfs nontender to palpation Psych: Normal mood and affect Neuro: AAO x 3, strength intact bilaterally in upper extremities and rated 5/5, R leg weakness compared to left as aformentioned. No motor deficits, speech is clear, no peripheral sensory deficits Results & Data Results & Data ([facility]) Vital Signs (Past 12 Hours) Vital Signs Temp Pulse Resp BP Pulse Ox 05/24/21 16:49 36.6 C 85 16 160/90 H 92 Laboratory Results 05/24/21 18:15 SARS-CoV-2, RNA, NAAT NEGATIVE Diagnostic Findings Imaging of CT femur from ER visit earlier today reviewed personally, no acute findings other than contusion. Code Status & VTE Plan Code Status Full code - discussed with the patient at bedside Supervising Physician Co-Signing Physician Notes I have seen and examined the patient and have discussed the case with the provider above. I agree with the assessment and plan as stated. 81 yo M with worsening weakness and self-reported inability to walk. Recently with multiple falls at home and has a large area of ecchymosis on his right hip. His reports of falls include no dizziness or lightheadedness and he was moving from sitting to standing per his report in one instance. Also, he was moving around in the dark after turning off the light in his bedroom with another fall. He does not ably have a decreasing sodium over the last couple of months, now 128. Lexapro may be contributing to this. No overt diarrhea (actually reports constipation) or poor PO intake reported. He is on Lasix as needed which may be contributing. Patient states that he was recently put on Lexapro to help him sleep at night. He also takes trazodone regularly and recently reports use of ropinorole for RLS and percocet which was given to him on recent ER discharges. He has recently declined SNF placement per medical recommendations. On physical exam he is mentating clearly and is hemodynamically stable and afebrile. He is an average historian, not going into great detail, but appears to be accurate and is answering questions appropriately. His cardiac exam reveals S1/2 heard without m/g/r and he has no peripheral edema. Lungs are clear to auscultation throughout. Abdomen is soft, NTND. He has a large area of ecchymosis on his right lateral hip that does not extend to his buttock. He is able to move his legs actively and has 5/5 strength. Sensation appears to be intact. He is able to sit up with minimal assistance but does appear to be generally weak. No gross focal neurologic deficits are evident. CBC is normal, BMP reveals evidence of CKD with a creatinine of 1.23, which is his baseline. Sodium 128 as noted above. Normal sodium noted two months ago. LFTs normal and lipase is normal. UA normal and covid screening is negative. REcent imaging performed includes a negative venous doppler of the lower extremities, a right femur CT showing no fracture or dislocation, no hematoma. An abd/pelvis CT revealed no acute abnormalities. Also, a hip CT on 05/17 revealed no fracture or dislocation at that time. He was started on scheduled Tylenol with breakthrough oxycodone for his pain and agree with plan above for PT/OT to assess. Agree with holding diuretic in setting of hyponatremia and would also hold new lexapro. Gentle IVF were started. Although the patient may have some component of SIADH as a cause for acute hyponatremia, would favor dehydration per clinical assessment. Follow BMP in am. DO Rick (1) Fall Encounter type: initial encounter Qualified Code(s): W19.XXXA - Unspecified fall, initial encounter
[2021-05-24] MEDS ORDERED: MoRPHine SULFATE 2 MG/ML CARP IV STA (17:47)
[2021-05-24] MEDS ORDERED: ACETAMINOPHEN 325 MG TAB PO PRN (18:38)
[2021-05-24] MEDS: ACETAMINOPHEN 500 MG TAB PO SCH ×2 (18:51→23:33)
[2021-05-24] MEDS ORDERED: SODIUM CHLORIDE 0.9% 500 ML IV SCH (19:00)
[2021-05-24] MEDS ORDERED: oxyCODONE/ACETAMINOPHEN 5mg/325mg TAB PO PRN ×2 (22:35)
[2021-05-24] MEDS ORDERED: ONDANSETRON INJ 2 MG/ML 2 ML VIAL IV PRN (22:35)
[2021-05-24] MEDS ORDERED: hydrOXYzine HCl 25 MG TAB PO PRN (22:35)
[2021-05-24] MEDS ORDERED: cloNIDine HCL 0.1 MG TAB PO ONE (23:06)
[2021-05-24] MEDS: SENNA 8.6 MG TAB PO SCH (23:16)
[2021-05-24] MEDS: PANTOprazole 40 MG TAB PO SCH (23:16)
[2021-05-24] MEDS: traZODone HCL 50 MG TAB PO SCH (23:16)
[2021-05-25 01:42] LABS: Creatinine Urine Random 69.2 mg/dl
[2021-05-25 07:40] LABS: Hemoglobin 13.1 g/dL (14.0-18.0); Mean Corpuscular Hgb Conc 34.5 g/dL (32-36); Mean Corpuscular Volume 89.8 fL (80-100); Mean Platelet Volume 9.5 fL (7.4-10.4); Platelet Count 145 K/uL (130-400); RDW Coefficient of Variation 12.4 % (11.5-14.5); RDW Standard Deviation 40.6 fL (36.4-46.3); Red Blood Count 4.23 M/uL (4.7-6.1)
[2021-05-25 08:03] LABS: Albumin Globulin Ratio 1.9 (0.9-2); Albumin Level 3.7 gm/dl (3.4-5.0); BUN Creatinine Ratio 16.1 (10-20); Bilirubin,Total 0.5 mg/dl (0.2-1.0); Calcium 8.5 mg/dl (8.5-10.1); Creatinine Clr Calc Pharmacy 44.5 ml/min; Est GFR (Non-African American) 61.3 ml/min; Globulin 1.9 gm/dl (2.5-4.0); Potassium 4.2 mmol/L (3.5-5.1); Total Protein 5.6 gm/dl (6.0-8.3)
[2021-05-25] MEDS: ACETAMINOPHEN 500 MG TAB PO SCH ×3 (08:06→23:45)
[2021-05-25] MEDS ORDERED: ESCITALOPRAM OXALATE 20 MG TAB PO SCH (09:00)
[2021-05-25] MEDS: ASPIRIN 81 MG ECTAB PO SCH (10:24)
[2021-05-25] MEDS: CLOPIDOGREL BISULFATE 75 MG TAB PO SCH (10:24)
[2021-05-25] MEDS: FLUTICASONE PROPIONATE NA SPR 16 GM BTL SCH (10:25)
[2021-05-25] MEDS: LOSARTAN POTASSIUM 50 MG TAB PO SCH (10:26)
[2021-05-25] MEDS: METOPROLOL SUCC 25MG EXT REL TAB PO SCH (10:26)
[2021-05-25] MEDS: PANTOprazole 40 MG TAB PO SCH ×2 (10:27→20:46)
[2021-05-25] MEDS: POLYETHYLENE (MIRALAX) 17 GM PACK PO SCH (10:28)
[2021-05-25] MEDS: TAMSULOSIN HCL 0.4 MG CAP PO SCH (10:30)
[2021-05-25] MEDS: SENNA 8.6 MG TAB PO SCH ×2 (10:30→20:46)
[2021-05-25] MEDS: ROSUVASTATIN CALCIUM 20 MG TAB PO SCH (10:30)
[2021-05-25] MEDS: ENOXAPARIN INJ 40 MG/0.4 ML SYR SQ SCH (10:31)
[2021-05-25] MEDS: PSYLLIUM 58.6% POWDER PACKET PO SCH (10:35)
[2021-05-25] MEDS: oxyCODONE HCL IR 5 MG TAB (IMMEDIATE RELEASE) PO PRN (11:26)
--- NOTE | 2021-05-25 17:20 | Hospitalist Progress Note ---
Date of Service May 25, 2021 Assessment & Plan (1) Fall: (2) Contusion of hip: Plan: - Admit to med surg - PT/OT consults - Imaging reviewed - CT of the hip: No evidence of acute fracture or dislocation. Mild lateral right hip stranding may represent posttraumatic stranding, however no discrete hematoma is seen. - Abd/pelvis reviewed from today which did not show any acute abnormalities. - CM to assist with discharge planning to rehab versus SNF - Fall precautions - Use tylenol 1000 mg Q8H for pain control, oxycodone for breakthrough pain. Had been using percocet at home - possible this could have potentiated falls in the past week? - Bowel regimen ordered (3) Hyponatremia: Plan: - Sodium to be 128 upon labs done earlier this morning, will place on NSS at 80 mL/h for gentle hydration, appears that Nov 2020 his range was 138-140 - Possibly dehydration but will check urine studies to r/o SIADH prior to administration of fluids - Lexapro can cause hyponatremia and was recently started as outpatient by pcp, may need to adjust antidepressant if this is the cause. - Trend with a.m. labs - UA appears negative - Hold Lasix, takes as needed for swelling but hasn't needed it recently (4) HTN (hypertension): Plan: -Continue metoprolol succinate 25 mg daily, losartan 100 mg daily (5) GERD (gastroesophageal reflux disease): Plan: -Continue pantoprazole (6) BPH (benign prostatic hyperplasia): Plan: -History of prostate radiation seeds in place, continue Flomax (7) Anxiety: (8) Depression: Plan: -Continue Lexapro, and trazodone for sleep - Lexapro can cause hyponatremia as a side effect - recently was started on 05/07 by PCP - may need to alter the (9) History of CVA (cerebrovascular accident): Plan: -May continue Plavix, rosuvastatin, baby aspirin - Hx of 4 separate CVAs, most recent was a little over 1 year ago. Pt reports r esidual R sided leg weakness since then which is contributing to falls. DVT PPx: - teds, scds, lovenox subq CODE: Full code Dispo: From home, likely to remain in the hospital x 1-2 days, dc anticipated to inpatient rehab facility Plan: 81 yo male with h/o CVA, GERD, BPH, HTN who presented to ED 05/24 with progressive weakness and falls. Hyponatremia- unclearly etiology, slightly improved now at 129. On NSS. Recheck in am. LAsix on hold. will hold lexapro. Generalized weakness/ fall with right thigh ecchymosis - CT A/p, CT right femur with no acute abnormality, RLE Doppler negative for DVT. PT/OT eval. Will need rehab Essential HTN- stable, on toprol, losartan Anxiety/depression- on lexapro and trazodone. H/o CVA with residual right sided weakness- on DAPT and statin GERD- continue PPI. BPH- has prostate radiation seeds in place. on flomax DVT prophylaxis- sc lovenox Dispo- Needs placement. PT/OT recommended inpatient rehab. CM following Admission and Anticipated Discharge Date Admission Date: May 24, 2021 Subjective Feels okay. Has some pain in right thigh at site of ecchymosis. Denies any lightheadedness, dizziness, nausea, vomiting, fever, chills. Physical Exam Physical Exam: General: Sitting comfortably in bed, not in distress, on room air HEENT: EOMI, AMALIA, MMM Chest: Clear breath sounds bilaterally, no wheezes or crackles CVS: Regular rate and rhythm, normal heart sounds, no murmur Abdomen: Soft, non tender, not distended, normal bowel sounds Neuro: Awake, alert, oriented, conversing well, non focal Extremities: Right thigh ecchymosis from recent fall, no edema. Results & Data Results & Data ([facility]) Vital Signs (Past 12 Hours) Vital Signs Temp Pulse Resp BP BP Pulse Ox 05/25/21 15:36 36.6 C 72 16 152/78 H 95 05/25/21 07:53 36.8 C 64 16 182/82 H 95 Laboratory Results Short CBC 05/25/21 Range/Units 06:39 WBC 6.00 (4.8-10.8) K/uL Hgb 13.1 L (14.0-18.0) g/dL Hct 38.0 L (42-52) % Plt Count 145 (130-400) K/uL BMP 05/25/21 06:39 Sodium 129 L Potassium 4.2 Chloride 96 L Carbon Dioxide 29 BUN 18 Creatinine 1.12 Glucose 91 Calcium 8.5 Liver Function 05/25/21 Range/Units 06:39 Total Bilirubin 0.5 (0.2-1.0) mg/dl AST 19 (13-39) U/L ALT 16 (7-52) U/L Alkaline Phosphatase 47 (34-104) U/L Albumin 3.7 (3.4-5.0) gm/dl Medications Administered Current Inpatient Medications Acetaminophen (Acetaminophen 500 Mg Tab) 1,000 mg PO Q8H [facility] Stop: 06/23/21 18:44 Last Admin: 05/25/21 08:06 Dose: 1,000 mg Documented by: Aspirin (Aspirin 81 Mg Ectab) 81 mg PO [facility] Stop: 06/24/21 08:59 Last Admin: 05/25/21 10:24 Dose: 81 mg Documented by: Clopidogrel Bisulfate (Clopidogrel Bisulfate 75 Mg Tab) 75 mg PO [facility] Stop: 06/24/21 08:59 Last Admin: 05/25/21 10:24 Dose: 75 mg Documented by: Enoxaparin Sodium (Enoxaparin Inj 40 Mg/0.4 Ml Syr) 40 mg SQ [facility] Stop: 06/24/21 08:59 Last Admin: 05/25/21 10:31 Dose: 40 mg Documented by: Escitalopram Oxalate (Escitalopram Oxalate 20 Mg Tab) 20 mg PO [facility] Stop: 06/24/21 08:59 Last Admin: 05/25/21 10:25 Dose: 20 mg Documented by: Fluticasone Propionate (Fluticasone Propionate Na Spr 16 Gm Btl) 2 sprays NA [facility] Stop: 06/24/21 08:59 Last Admin: 05/25/21 10:25 Dose: 2 sprays Documented by: Hydroxyzine HCl (Hydroxyzine Hcl 25 Mg Tab) 50 mg PO TID PRN PRN Reason: Anxiety Stop: 06/23/21 22:34 Losartan Potassium (Losartan Potassium 50 Mg Tab) 100 mg PO [facility] Stop: 06/24/21 08:59 Last Admin: 05/25/21 10:26 Dose: 100 mg Documented by: Metoprolol Succinate (Metoprolol Succ 25mg Ext Rel Tab) 12.5 mg PO [facility] Stop: 06/24/21 08:59 Last Admin: 05/25/21 10:26 Dose: 12.5 mg Documented by: Ondansetron HCl (Ondansetron Inj 2 Mg/Ml 2 Ml Vial) 4 mg IV Q4H PRN PRN Reason: Nausea And Vomiting Stop: 06/23/21 22:34 Ondansetron HCl (Ondansetron 4 Mg Od Tab) 8 mg PO Q8 PRN PRN Reason: Nausea Oxycodone HCl (Oxycodone Hcl Ir 5 Mg Tab (Immediate Release)) 5 mg PO Q6H PRN PRN Reason: Pain Stop: 06/07/21 18:39 Last Admin: 05/25/21 11:26 Dose: 5 mg Documented by: Pantoprazole Sodium (Pantoprazole 40 Mg Tab) 40 mg PO BID [facility] Stop: 06/23/21 22:34 Last Admin: 05/25/21 10:27 Dose: 40 mg Documented by: Polyethylene Glycol (Polyethylene (Miralax) 17 Gm Pack) 17 gm PO DAILY [facility] Stop: 06/24/21 08:59 Last Admin: 05/25/21 10:28 Dose: 17 gm Documented by: Psyllium Hydrophilic Mucilloid (Psyllium 58.6% Powder Packet) 1 pkt PO DAILY [facility] Stop: 06/24/21 08:59 Last Admin: 05/25/21 10:35 Dose: Not Given Documented by: Rosuvastatin Calcium (Rosuvastatin Calcium 20 Mg Tab) 20 mg PO DAILY [facility] Stop: 06/24/21 08:59 Last Admin: 05/25/21 10:30 Dose: 20 mg Documented by: Sennosides (Senna 8.6 Mg Tab) 8.6 mg PO BID [facility] Stop: 06/23/21 22:34 Last Admin: 05/25/21 10:30 Dose: 8.6 mg Documented by: Tamsulosin HCl (Tamsulosin Hcl 0.4 Mg Cap) 0.4 mg PO QAM [facility] Stop: 06/24/21 08:59 Last Admin: 05/25/21 10:30 Dose: 0.4 mg Documented by: Trazodone HCl (Trazodone Hcl 50 Mg Tab) 50 mg PO HS [facility] Stop: 06/23/21 22:34 Last Admin: 05/24/21 23:16 Dose: 50 mg Documented by: (1) Fall Encounter type: initial encounter Qualified Code(s): W19.XXXA - Unspecified fall, initial encounter
[2021-05-25] MEDS: traZODone HCL 50 MG TAB PO SCH (20:46)
[2021-05-26] MEDS: oxyCODONE HCL IR 5 MG TAB (IMMEDIATE RELEASE) PO PRN ×3 (02:48→20:33)
[2021-05-26 08:41] LABS: Basophils # (auto) 0.02 K/uL (0-0.2); Basophils % (auto) 0.3 %; Eosinophils # (auto) 0.31 K/uL (0-0.5); Eosinophils % (auto) 5.4 %; Hematocrit (blood only) 40.7 % (42-52); Hemoglobin 14.2 g/dL (14.0-18.0); Immature Granulocytes # (auto) 0.01 K/uL (0.00-0.02); Immature Granulocytes % (auto) 0.2 %; Lymphocytes # (auto) 1.28 K/uL (1.2-3.4); Lymphocytes % (auto) 22.3 %; Mean Corpuscular Hemoglobin 31.3 pg (25-34); Mean Corpuscular Hgb Conc 34.9 g/dL (32-36); Mean Corpuscular Volume 89.6 fL (80-100); Mean Platelet Volume 9.6 fL (7.4-10.4); Monocytes # (auto) 0.65 K/uL (0.11-0.59); Monocytes % (auto) 11.3 %; Neutrophils # (auto) 3.46 K/uL (1.4-6.5); Neutrophils % (auto) 60.5 %; Platelet Count 150 K/uL (130-400); RDW Coefficient of Variation 12.4 % (11.5-14.5); RDW Standard Deviation 40.6 fL (36.4-46.3); Red Blood Count 4.54 M/uL (4.7-6.1); White Blood Count 5.73 K/uL (4.8-10.8)
[2021-05-26] MEDS: ACETAMINOPHEN 500 MG TAB PO SCH ×2 (08:46→16:22)
[2021-05-26] MEDS: SENNA 8.6 MG TAB PO SCH ×2 (08:47→20:36)
[2021-05-26] MEDS: PANTOprazole 40 MG TAB PO SCH ×2 (08:47→20:36)
[2021-05-26] MEDS: ROSUVASTATIN CALCIUM 20 MG TAB PO SCH (08:47)
[2021-05-26] MEDS: TAMSULOSIN HCL 0.4 MG CAP PO SCH (08:47)
[2021-05-26] MEDS: METOPROLOL SUCC 25MG EXT REL TAB PO SCH (08:48)
[2021-05-26] MEDS: CLOPIDOGREL BISULFATE 75 MG TAB PO SCH (08:49)
[2021-05-26] MEDS: LOSARTAN POTASSIUM 50 MG TAB PO SCH (08:49)
[2021-05-26] MEDS: ASPIRIN 81 MG ECTAB PO SCH (08:49)
[2021-05-26] MEDS: FLUTICASONE PROPIONATE NA SPR 16 GM BTL SCH (08:52)
[2021-05-26] MEDS: PSYLLIUM 58.6% POWDER PACKET PO SCH (08:52)
[2021-05-26] MEDS: POLYETHYLENE (MIRALAX) 17 GM PACK PO SCH (08:52)
[2021-05-26] MEDS: ENOXAPARIN INJ 40 MG/0.4 ML SYR SQ SCH (08:53)
[2021-05-26 09:10] LABS: BUN Creatinine Ratio 15.3 (10-20); Calcium 8.7 mg/dl (8.5-10.1); Creatinine Clr Calc Pharmacy 42.2 ml/min; Est GFR (African American) 66.7 ml/min; Est GFR (Non-African American) 57.5 ml/min; Phosphorus 4.1 mg/dl (2.5-4.9)
--- NOTE | 2021-05-26 14:53 | Hospitalist Progress Note ---
Date of Service May 26, 2021 Assessment & Plan (1) Fall: (2) Contusion of hip: (3) Hyponatremia: (4) HTN (hypertension): (5) GERD (gastroesophageal reflux disease): (6) BPH (benign prostatic hyperplasia): (7) Anxiety: (8) Depression: (9) History of CVA (cerebrovascular accident): Plan: 81 yo male with h/o CVA, GERD, BPH, HTN who presented to ED 05/24 with progressive weakness and falls. Hyponatremia- unclearly etiology, possible SIADH. stable at 128. Lasix on hold. will hold lexapro. Recheck in am. Will consider fluid restriction and salt tabs if worsens. Generalized weakness/ fall with right thigh ecchymosis - CT A/p, CT right femur with no acute abnormality, RLE Doppler negative for DVT. PT/OT eval recommended inpatient rehab Essential HTN- stable, on toprol, losartan Anxiety/depression- on lexapro and trazodone. H/o CVA with residual right sided weakness- on DAPT and statin GERD- continue PPI. BPH- has prostate radiation seeds in place. on flomax DVT prophylaxis- sc lovenox Dispo- Discharge likely Friday. Needs placement. PT/OT recommended inpatient rehab. CM following Update- updated at bedside Admission and Anticipated Discharge Date Admission Date: May 24, 2021 Subjective No new issues. States he had bad leg pain last night which is currently much better. Normal appetite. States he is eating everything. States his weakness is improving. Asking when he can go home. When told, he needs to go to rehab, he is asking for how long he will be there and he would like to go one in [place]. Physical Exam Physical Exam: General: Sitting comfortably in bed, not in distress, on room air HEENT: EOMI, AMALIA, MMM Chest: Clear breath sounds bilaterally, no wheezes or crackles CVS: Regular rate and rhythm, normal heart sounds, no murmur Abdomen: Soft, non tender, not distended, normal bowel sounds Neuro: Awake, alert, oriented, conversing well, non focal Extremities: Right thigh ecchymosis from recent fall, no edema. Results & Data Results & Data ([facility]) Vital Signs (Past 12 Hours) Vital Signs Temp Pulse Resp BP Pulse Ox 05/26/21 07:34 36.6 C 61 17 160/97 H 94 Laboratory Results Short CBC 05/25/21 05/26/21 05/26/21 Range/Units 06:39 08:11 08:11 WBC 5.73 (4.8-10.8) K/uL Hgb 14.2 (14.0-18.0) g/dL Hct 40.7 L (42-52) % Plt Count 150 (130-400) K/uL Sodium 129 L 128 L (136-145) mmol/L BMP 05/26/21 08:11 Sodium 128 L Potassium 4.0 Chloride 93 L Carbon Dioxide 30 BUN 18 Creatinine 1.18 Glucose 84 Calcium 8.7 Medications Administered Current Inpatient Medications Acetaminophen (Acetaminophen 500 Mg Tab) 1,000 mg PO Q8H [facility] Stop: 06/23/21 18:44 Last Admin: 05/26/21 08:46 Dose: 1,000 mg Documented by: Aspirin (Aspirin 81 Mg Ectab) [address] [facility] Stop: 06/24/21 08:59 Last Admin: 05/26/21 08:49 Dose: 81 mg Documented by: Clopidogrel Bisulfate (Clopidogrel Bisulfate 75 Mg Tab) [address] [facility] Stop: 06/24/21 08:59 Last Admin: 05/26/21 08:49 Dose: 75 mg Documented by: Enoxaparin Sodium (Enoxaparin Inj 40 Mg/0.4 Ml Syr) [address] [facility] Stop: 06/24/21 08:59 Last Admin: 05/26/21 08:53 Dose: 40 mg Documented by: Escitalopram Oxalate (Escitalopram Oxalate 20 Mg Tab) [address] [facility] Stop: 06/24/21 08:59 Last Admin: 05/25/21 10:25 Dose: 20 mg Documented by: Fluticasone Propionate (Fluticasone Propionate Na Spr 16 Gm Btl) [address] [facility] Stop: 06/24/21 08:59 Last Admin: 05/26/21 08:52 Dose: 2 sprays Documented by: Hydroxyzine HCl (Hydroxyzine Hcl 25 Mg Tab) 50 mg PO TID PRN PRN Reason: Anxiety Stop: 06/23/21 22:34 Losartan Potassium (Losartan Potassium 50 Mg Tab) [address] [facility] Stop: 06/24/21 08:59 Last Admin: 05/26/21 08:49 Dose: 100 mg Documented by: Metoprolol Succinate (Metoprolol Succ 25mg Ext Rel Tab) 12.5 mg PO QAM [facility] Stop: 06/24/21 08:59 Last Admin: 05/26/21 08:48 Dose: 12.5 mg Documented by: Ondansetron HCl (Ondansetron Inj 2 Mg/Ml 2 Ml Vial) 4 mg IV Q4H PRN PRN Reason: Nausea And Vomiting Stop: 06/23/21 22:34 Ondansetron HCl (Ondansetron 4 Mg Od Tab) 8 mg PO Q8 PRN PRN Reason: Nausea Oxycodone HCl (Oxycodone Hcl Ir 5 Mg Tab (Immediate Release)) 5 mg PO Q6H PRN PRN Reason: Pain Stop: 06/07/21 18:39 Last Admin: 05/26/21 08:46 Dose: 5 mg Documented by: Pantoprazole Sodium (Pantoprazole 40 Mg Tab) 40 mg PO BID [facility] Stop: 06/23/21 22:34 Last Admin: 05/26/21 08:47 Dose: Not Given Documented by: Polyethylene Glycol (Polyethylene (Miralax) 17 Gm Pack) 17 gm PO DAILY [facility] Stop: 06/24/21 08:59 Last Admin: 05/26/21 08:52 Dose: 17 gm Documented by: Psyllium Hydrophilic Mucilloid (Psyllium 58.6% Powder Packet) 1 pkt PO DAILY [facility] Stop: 06/24/21 08:59 Last Admin: 05/26/21 08:52 Dose: 1 pkt Documented by: Rosuvastatin Calcium (Rosuvastatin Calcium 20 Mg Tab) 20 mg PO DAILY [facility] Stop: 06/24/21 08:59 Last Admin: 05/26/21 08:47 Dose: 20 mg Documented by: Sennosides (Senna 8.6 Mg Tab) 8.6 mg PO BID [facility] Stop: 06/23/21 22:34 Last Admin: 05/26/21 08:47 Dose: 8.6 mg Documented by: Tamsulosin HCl (Tamsulosin Hcl 0.4 Mg Cap) 0.4 mg PO QAM [facility] Stop: 06/24/21 08:59 Last Admin: 05/26/21 08:47 Dose: 0.4 mg Documented by: Trazodone HCl (Trazodone Hcl 50 Mg Tab) 50 mg PO HS [facility] Stop: 06/23/21 22:34 Last Admin: 05/25/21 20:46 Dose: 50 mg Documented by: (1) Fall Encounter type: initial encounter Qualified Code(s): W19.XXXA - Unspecified fall, initial encounter
[2021-05-26] MEDS: traZODone HCL 50 MG TAB PO SCH (20:34)
[2021-05-27] MEDS: ACETAMINOPHEN 500 MG TAB PO SCH ×4 (00:01→23:06)
[2021-05-27] MEDS: oxyCODONE HCL IR 5 MG TAB (IMMEDIATE RELEASE) PO PRN ×2 (06:16→10:32)
[2021-05-27 06:31] LABS: BUN Creatinine Ratio 15.2 (10-20); Calcium 8.8 mg/dl (8.5-10.1); Creatinine Clr Calc Pharmacy 44.5 ml/min; Est GFR (Non-African American) 61.3 ml/min; Potassium 4.3 mmol/L (3.5-5.1)
[2021-05-27] MEDS: SENNA 8.6 MG TAB PO SCH ×2 (08:28→19:51)
[2021-05-27] MEDS: ROSUVASTATIN CALCIUM 20 MG TAB PO SCH (08:28)
[2021-05-27] MEDS: TAMSULOSIN HCL 0.4 MG CAP PO SCH (08:28)
[2021-05-27] MEDS: METOPROLOL SUCC 25MG EXT REL TAB PO SCH (08:28)
[2021-05-27] MEDS: ASPIRIN 81 MG ECTAB PO SCH (08:29)
[2021-05-27] MEDS: POLYETHYLENE (MIRALAX) 17 GM PACK PO SCH (08:29)
[2021-05-27] MEDS: ENOXAPARIN INJ 40 MG/0.4 ML SYR SQ SCH (08:29)
[2021-05-27] MEDS: CLOPIDOGREL BISULFATE 75 MG TAB PO SCH (08:29)
[2021-05-27] MEDS: PSYLLIUM 58.6% POWDER PACKET PO SCH (08:29)
[2021-05-27] MEDS: FLUTICASONE PROPIONATE NA SPR 16 GM BTL SCH (08:29)
[2021-05-27] MEDS: LOSARTAN POTASSIUM 50 MG TAB PO SCH (08:29)
[2021-05-27] MEDS: PANTOprazole 40 MG TAB PO SCH ×2 (08:30→19:51)
[2021-05-27] MEDS: LIDOCAINE 5% 1 PATCH TD SCH (10:33)
--- NOTE | 2021-05-27 15:18 | Hospitalist Progress Note ---
Date of Service May 27, 2021 Assessment & Plan (1) Fall: (2) Contusion of hip: (3) Hyponatremia: (4) HTN (hypertension): (5) GERD (gastroesophageal reflux disease): (6) BPH (benign prostatic hyperplasia): (7) Anxiety: (8) Depression: (9) History of CVA (cerebrovascular accident): Plan: 81 yo male with h/o CVA, GERD, BPH, HTN who presented to ED 05/24 with progressive weakness and falls. 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 Similar presentation in past, sodium relatively stable. Will have fluid restriction, if doesn't improve salt tabs. Lasix and lexapro on hold. Recheck in am. Generalized weakness/ fall with right thigh ecchymosis - CT A/P, CT right femur with no acute abnormality, RLE Doppler negative for DVT. PT/OT eval recommended inpatient rehab Essential HTN- stable, on toprol, losartan Anxiety/depression- on trazodone. lexapro on hold. H/o CVA with residual right sided weakness- on DAPT and statin GERD- continue PPI. BPH- has prostate radiation seeds in place. on flomax DVT prophylaxis- sc lovenox Dispo- Discharge likely Friday. Needs placement. PT/OT recommended inpatient rehab. CM following Admission and Anticipated Discharge Date Admission Date: May 24, 2021 Subjective Complaining of right thigh pain. No other issues. Normal appetite and oral intake. No fever or chills. Physical Exam Physical Exam: General: Sitting comfortably in bed, not in distress, on room air HEENT: EOMI, AMALIA, MMM Chest: Clear breath sounds bilaterally, no wheezes or crackles CVS: Regular rate and rhythm, normal heart sounds, no murmur Abdomen: Soft, non tender, not distended, normal bowel sounds Neuro: Awake, alert, oriented, conversing well, non focal Extremities: Right thigh ecchymosis from recent fall, no edema. Results & Data Results & Data ([facility]) Vital Signs (Past 12 Hours) Vital Signs Temp Pulse Resp BP BP Pulse Ox 05/27/21 13:59 36.5 C 70 16 175/82 H 93 05/27/21 07:34 36.6 C 60 18 172/80 H 94 Laboratory Results Short CBC 05/27/21 Range/Units 05:16 Hgb 14.0 (14.0-18.0) g/dL Hct 40.0 L (42-52) % BMP 05/27/21 05:16 Sodium 129 L Potassium 4.3 Chloride 96 L Carbon Dioxide 28 BUN 17 Creatinine 1.12 Glucose 89 Calcium 8.8 Medications Administered Current Inpatient Medications Acetaminophen (Acetaminophen 500 Mg Tab) 1,000 mg PO Q8H [facility] Stop: 06/23/21 18:44 Last Admin: 05/27/21 08:01 Dose: 1,000 mg Documented by: Aspirin (Aspirin 81 Mg Ectab) 81 mg PO [facility] Stop: 06/24/21 08:59 Last Admin: 05/27/21 08:29 Dose: 81 mg Documented by: Clopidogrel Bisulfate (Clopidogrel Bisulfate 75 Mg Tab) 75 mg PO [facility] Stop: 06/24/21 08:59 Last Admin: 05/27/21 08:29 Dose: 75 mg Documented by: Enoxaparin Sodium (Enoxaparin Inj 40 Mg/0.4 Ml Syr) 40 mg SQ [facility] Stop: 06/24/21 08:59 Last Admin: 05/27/21 08:29 Dose: 40 mg Documented by: Escitalopram Oxalate (Escitalopram Oxalate 20 Mg Tab) 20 mg PO [facility] Stop: 06/24/21 08:59 Last Admin: 05/25/21 10:25 Dose: 20 mg Documented by: Fluticasone Propionate (Fluticasone Propionate Na Spr 16 Gm Btl) 2 sprays NA [facility] Stop: 06/24/21 08:59 Last Admin: 05/27/21 08:29 Dose: 2 sprays Documented by: Hydroxyzine HCl (Hydroxyzine Hcl 25 Mg Tab) 50 mg PO TID PRN PRN Reason: Anxiety Stop: 06/23/21 22:34 Lidocaine (Lidocaine 5% 1 Patch) 1 patch TD [facility] Stop: 06/26/21 10:14 Last Admin: 05/27/21 10:33 Dose: 1 patch Documented by: Losartan Potassium (Losartan Potassium 50 Mg Tab) 100 mg PO [facility] Stop: 06/24/21 08:59 Last Admin: 05/27/21 08:29 Dose: 100 mg Documented by: Metoprolol Succinate (Metoprolol Succ 25mg Ext Rel Tab) 12.5 mg PO [facility] Stop: 06/24/21 08:59 Last Admin: 05/27/21 08:28 Dose: 12.5 mg Documented by: Miscellaneous (Remove Lidoderm Patch) 1 ea N/A DAILY@2100 [facility] Stop: 06/26/21 20:59 Ondansetron HCl (Ondansetron Inj 2 Mg/Ml 2 Ml Vial) 4 mg IV Q4H PRN PRN Reason: Nausea And Vomiting Stop: 06/23/21 22:34 Ondansetron HCl (Ondansetron 4 Mg Od Tab) 8 mg PO Q8 PRN PRN Reason: Nausea Oxycodone HCl (Oxycodone Hcl Ir 5 Mg Tab (Immediate Release)) 5 mg PO Q4 PRN PRN Reason: Pain Stop: 06/07/21 18:39 Last Admin: 05/27/21 10:32 Dose: 5 mg Documented by: Pantoprazole Sodium (Pantoprazole 40 Mg Tab) 40 mg PO BID [facility] Stop: 06/23/21 22:34 Last Admin: 05/27/21 08:30 Dose: Not Given Documented by: Polyethylene Glycol (Polyethylene (Miralax) 17 Gm Pack) 17 gm PO DAILY [facility] Stop: 06/24/21 08:59 Last Admin: 05/27/21 08:29 Dose: 17 gm Documented by: Psyllium Hydrophilic Mucilloid (Psyllium 58.6% Powder Packet) 1 pkt PO DAILY [facility] Stop: 06/24/21 08:59 Last Admin: 05/27/21 08:29 Dose: 1 pkt Documented by: Rosuvastatin Calcium (Rosuvastatin Calcium 20 Mg Tab) 20 mg PO DAILY [facility] Stop: 06/24/21 08:59 Last Admin: 05/27/21 08:28 Dose: 20 mg Documented by: Sennosides (Senna 8.6 Mg Tab) 8.6 mg PO BID [facility] Stop: 06/23/21 22:34 Last Admin: 05/27/21 08:28 Dose: 8.6 mg Documented by: Tamsulosin HCl (Tamsulosin Hcl 0.4 Mg Cap) 0.4 mg PO QAM [facility] Stop: 06/24/21 08:59 Last Admin: 05/27/21 08:28 Dose: 0.4 mg Documented by: Trazodone HCl (Trazodone Hcl 50 Mg Tab) 50 mg PO HS [facility] Stop: 06/23/21 22:34 Last Admin: 05/26/21 20:34 Dose: 50 mg Documented by: (1) Fall Encounter type: initial encounter Qualified Code(s): W19.XXXA - Unspecified fall, initial encounter
[2021-05-27] MEDS: ONDANSETRON 4 MG OD TAB PO PRN (19:50)
[2021-05-27] MEDS: traZODone HCL 50 MG TAB PO SCH (19:51)
[2021-05-28] MEDS ORDERED: LORazepam 0.5 MG TAB PO STA (01:04)
[2021-05-28 07:49] LABS: BUN Creatinine Ratio 16.9 (10-20); Calcium 8.9 mg/dl (8.5-10.1); Creatinine Clr Calc Pharmacy 42.2 ml/min; Est GFR (African American) 66.7 ml/min; Est GFR (Non-African American) 57.5 ml/min; Potassium 4.1 mmol/L (3.5-5.1)
[2021-05-28] MEDS: PANTOprazole 40 MG TAB PO SCH (08:17)
[2021-05-28] MEDS: ACETAMINOPHEN 500 MG TAB PO SCH ×3 (08:43→23:00)
[2021-05-28] MEDS: SODIUM CHLORIDE 1 GM TABLET PO SCH ×3 (08:43→20:25)
[2021-05-28] MEDS: ROSUVASTATIN CALCIUM 20 MG TAB PO SCH (08:44)
[2021-05-28] MEDS: TAMSULOSIN HCL 0.4 MG CAP PO SCH (08:44)
[2021-05-28] MEDS: METOPROLOL SUCC 25MG EXT REL TAB PO SCH (08:44)
[2021-05-28] MEDS: SENNA 8.6 MG TAB PO SCH ×2 (08:44→20:25)
[2021-05-28] MEDS: LOSARTAN POTASSIUM 50 MG TAB PO SCH (08:45)
[2021-05-28] MEDS: ENOXAPARIN INJ 40 MG/0.4 ML SYR SQ SCH (08:45)
[2021-05-28] MEDS: CLOPIDOGREL BISULFATE 75 MG TAB PO SCH (08:46)
[2021-05-28] MEDS: POLYETHYLENE (MIRALAX) 17 GM PACK PO SCH (08:46)
[2021-05-28] MEDS: PSYLLIUM 58.6% POWDER PACKET PO SCH (08:46)
[2021-05-28] MEDS: ASPIRIN 81 MG ECTAB PO SCH (08:46)
[2021-05-28] MEDS: FLUTICASONE PROPIONATE NA SPR 16 GM BTL SCH (08:47)
[2021-05-28] MEDS: LIDOCAINE 5% 1 PATCH TD SCH (08:53)
[2021-05-28] MEDS: ONDANSETRON 4 MG OD TAB PO PRN (13:14)
--- NOTE | 2021-05-28 15:34 | Hospitalist Progress Note ---
Date of Service May 28, 2021 Assessment & Plan (1) Fall: (2) Contusion of hip: (3) Hyponatremia: (4) HTN (hypertension): (5) GERD (gastroesophageal reflux disease): (6) BPH (benign prostatic hyperplasia): (7) Anxiety: (8) Depression: (9) History of CVA (cerebrovascular accident): Plan: 81 yo male with h/o CVA, GERD, BPH, HTN who presented to ED 05/24 with progressive weakness and falls. 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 Similar presentation in past, sodium down to 127 today. Will add salt tabs, continue fluid restriction. Lasix and lexapro on hold. Recheck in am. Generalized weakness/ fall with right thigh ecchymosis - CT A/P, CT right femur with no acute abnormality, RLE Doppler negative for DVT. PT/OT eval recommended inpatient rehab Essential HTN- stable, on toprol, losartan Anxiety/depression- on trazodone. lexapro on hold. H/o CVA with residual right sided weakness- on DAPT and statin GERD- continue PPI. BPH- has prostate radiation seeds in place. on flomax DVT prophylaxis- sc lovenox Dispo- Pending improvement in hyponatremia, possible discharge tomorrow if improving. Needs inpatient rehab. CM following Admission and Anticipated Discharge Date Admission Date: May 24, 2021 Subjective Pain is better today. Asking when he will be discharged. No new issues. Normal appetite. Normal oral intake. No chest pain, shortness of breath. Physical Exam Physical Exam: General: Lying comfortably in bed, not in distress, on room air HEENT: EOMI, AMALIA, MMM Chest: Clear breath sounds bilaterally, no wheezes or crackles CVS: Regular rate and rhythm, normal heart sounds, no murmur Abdomen: Soft, non tender, not distended, normal bowel sounds Neuro: Awake, alert, oriented, conversing well, non focal Extremities: Right thigh ecchymosis from recent fall, no edema. Results & Data Results & Data ([facility]) Vital Signs (Past 12 Hours) Vital Signs Temp Pulse Resp BP Pulse Ox 05/28/21 14:59 37.1 C 85 17 162/85 H 94 05/28/21 07:14 37.0 C 59 L 16 171/85 H 94 Laboratory Results [facility] 05/28/21 05:58 Sodium 127 L Potassium 4.1 Chloride 93 L Carbon Dioxide 28 BUN 20 Creatinine 1.18 Glucose 78 Calcium 8.9 (1) Fall Encounter type: initial encounter Qualified Code(s): W19.XXXA - Unspecified fall, initial encounter
[2021-05-28] MEDS ORDERED: Nursing to Pharmacy Communication SCH (17:15)
[2021-05-28] MEDS: traZODone HCL 50 MG TAB PO SCH (20:25)
[2021-05-29] MEDS: oxyCODONE HCL IR 5 MG TAB (IMMEDIATE RELEASE) PO PRN (05:46)
[2021-05-29] MEDS: POLYETHYLENE (MIRALAX) 17 GM PACK PO SCH (08:18)
[2021-05-29] MEDS: CLOPIDOGREL BISULFATE 75 MG TAB PO SCH (08:18)
[2021-05-29] MEDS: LIDOCAINE 5% 1 PATCH TD SCH (08:18)
[2021-05-29] MEDS: FLUTICASONE PROPIONATE NA SPR 16 GM BTL SCH (08:18)
[2021-05-29] MEDS: ROSUVASTATIN CALCIUM 20 MG TAB PO SCH (08:19)
[2021-05-29] MEDS: SODIUM CHLORIDE 1 GM TABLET PO SCH ×2 (08:19→13:05)
[2021-05-29] MEDS: PSYLLIUM 58.6% POWDER PACKET PO SCH (08:19)
[2021-05-29] MEDS: TAMSULOSIN HCL 0.4 MG CAP PO SCH (08:19)
[2021-05-29] MEDS: SENNA 8.6 MG TAB PO SCH (08:19)
[2021-05-29] MEDS: LOSARTAN POTASSIUM 50 MG TAB PO SCH (08:19)
[2021-05-29] MEDS: METOPROLOL SUCC 25MG EXT REL TAB PO SCH (08:19)
[2021-05-29 08:20] LABS: BUN Creatinine Ratio 17.9 (10-20); Creatinine Clr Calc Pharmacy 44.5 ml/min; Est GFR (Non-African American) 61.3 ml/min; Potassium 4.5 mmol/L (3.5-5.1)
[2021-05-29] MEDS: ASPIRIN 81 MG ECTAB PO SCH (08:20)
[2021-05-29] MEDS: ENOXAPARIN INJ 40 MG/0.4 ML SYR SQ SCH (08:20)
[2021-05-29] MEDS: ACETAMINOPHEN 500 MG TAB PO SCH (08:24)
--- NOTE | 2021-05-29 13:31 | Discharge Summary ---
Date of Service May 29, 2021 Admission HPI Per Admitting Provider This is an 81 yo M with PMhx of HTN, hx of CVA, GERD, BPH, CKD II who presents with worsening weakness. Patient was seen in the ER earlier today and due to his preference and family preference they insisted upon taking him home versus going to rehab. Within the few hours that he was home, he fell getting out of the car again, and wasn't able to get in the house. He returned to the ER with wishes to pursue PT/OT at an inpatient facility. Issues with weakness and balance started approximately a week ago whenever he sustained a fall. He reports falling 3 times within the past week. Denies any loss of consciousness, passing out, lightheadedness or dizziness preceding these events. He states that his mechanical and that he feels weak in his right leg, which gives out on him, after having a stroke approximately 1 year ago. He uses a walker or cane at baseline. He lives at home with his in a single-story home. There are 3 steps to get up into his house which he struggles with despite the railing. Has taken all his morning medications as indicated. Patient has been using Percocets at home to alleviate the pain in the past week which work well. He reports his pain is currently a 2/10 and is agreeable to taking Tylenol [id number]. He has had some issues with constipation and uses Metamucil at home, last BM was last night. Admission Exam Per Admitting Provider General: awake, alert, no apparent distress Head: Normocephalic, atraumatic ENT: PERRL, EOMI, no pharyngeal exudate, mucous membranes moist, + hard of hearing Chest: Clear to auscultation, on room air, no adventitious breath sounds Cardiac: Regular rate and rhythm, no murmur, no JVD, normal peripheral pulses, good capillary refill Abdominal: NABS x 4 quadrants, soft, nondistended, nontender to palpation, no rebound or guarding Extremities: Normal inspection, + Right sided leg weakness with straight leg raise and displays weakness with resistance techniques in keeping R leg in the air. Left leg with 5/5 strength. No peripheral edema or erythema, calfs nontender to palpation Psych: Normal mood and affect Neuro: AAO x 3, strength intact bilaterally in upper extremities and rated 5/5, R leg weakness compared to left as aformentioned. No motor deficits, speech is clear, no peripheral sensory deficits Principal Diagnosis Weakness, hyponatremia Discharge Exam General: Lying comfortably in bed, not in acute distress, on room air HEENT: EOMI, AMALIA, MMM Chest: Clear breath sounds bilaterally, no wheezes or crackles CVS: Regular rate and rhythm, normal heart sounds, no murmur Abdomen: Soft, non tender, not distended, normal bowel sounds Neuro: Awake, alert, oriented, conversing well, non focal Extremities: Right thigh ecchymoses improving, minimally tender. No edema Discharge Data Allergies Allergy/AdvReac Type Severity Reaction Status Date / Time clarithromycin Allergy Intermediate rash Verified 05/24/21 17:54 lisinopril Allergy Unknown Unknown Verified 05/24/21 17:54 metoclopramide AdvReac Intermediate NIGHTMARES Verified 05/24/21 17:54 pantoprazole [From Protonix] AdvReac Intermediate GI upset Verified 05/24/21 17:54 prochlorperazine AdvReac Intermediate HYPER Verified 05/24/21 17:54 UNABLE TO TOLERATE SIDE EFFEDTS Consultations 05/24/21 17:46 ED Decision to Admit Stat Hospital Course (1) Fall: (2) Contusion of hip: (3) Hyponatremia: (4) HTN (hypertension): (5) GERD (gastroesophageal reflux disease): (6) BPH (benign prostatic hyperplasia): (7) Anxiety: (8) Depression: (9) History of CVA (cerebrovascular accident): 81 yo male with h/o CVA, GERD, BPH, HTN who presented to ED 05/24 with progressive weakness and falls. 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 Similar presentation in past. Improved with salt tab and fluid restriction which will be continued at discharge. Continue to hold lasix and lexapro at discharge. Recommend repeat BMP in next 3-4 days. Generalized weakness/ fall with right thigh ecchymosis - CT A/P, CT right femur with no acute abnormality, RLE Doppler negative for DVT. PT/OT eval recommended inpatient rehab. continue pain meds as needed for pain. Essential HTN- stable, on toprol, losartan Anxiety/depression- on trazodone. lexapro on hold. H/o CVA with residual right sided weakness- on DAPT and statin GERD- continue PPI. BPH- has prostate radiation seeds in place. on flomax Patient is stable to go to the rehab today. Updated his Ember over the phone and answered all her questions. Total Time Total Time Spent Total Time Spent (In Minutes): 38 Discharge Plan Discharge Items Patient Disposition: Transfer Retirement Fac Reason For Visit: WEAKNESS, HYPONATREMIA Discharge Diagnosis: Weakness, hyponatremia Activity: Resume your previous activity Non-emergency contact: Primary Care Provider Call non-emergency contact if: you have any medication questions, your symptoms worsen, your pain is not controlled and your pain is concerning for you Follow-up/Referrals: PCP,NO [Primary Care Provider] - Diet: Regular Fluids: 1200ml (5 cups) Addtl Attending Provider Instructions: You were here for weakness and fall. You are going to rehab. Your sodium is coming up. We recommend fluid restriction to 1200 cc/day and continue sodium tablets with recommendation to repeat blood work in the next 3-4 days. Recommend holding your lexapro as it might be the cause of your low sodium. Follow up with your family doctor to discuss further. Pending Studies at Discharge: No Stand-Alone Forms: My [facility] Skilled Items Patient informed of condition?: Yes DNR: No Discharge Level of Care: Skilled Communicable Disease: No Discharge Prognosis: Stable Lines: None Urinary Catheter: No Medications and DC Order Prescriptions: New sodium chloride 1 gram Tablet 1 g PO TID Qty: 30 RF: 0 lidocaine 5 % Adhesive Patch,Medicated 1 patch transdermal QAM Qty: 30 RF: 0 Continued tamsulosin [Flomax] 0.4 mg Capsule 0.4 mg PO QAM RF: 0 aspirin [Ecotrin Low Strength] 81 mg Tablet,Delayed Release (Dr/Ec) 81 mg PO QAM RF: 0 losartan [Cozaar] 100 mg tablet 100 mg PO QAM RF: 0 fluticasone propionate [Flonase Allergy Relief] 50 mcg/actuation spray,suspension 2 spray INTRANASAL QAM RF: 0 clopidogrel [Plavix] 75 mg tablet 75 mg PO QAM RF: 0 hydroxyzine HCl 50 mg tablet 50 mg PO TID PRN (Reason: Anxiety) RF: 0 omeprazole 20 mg capsule,delayed release(DR/EC) 20 mg PO BID RF: 0 rosuvastatin [Crestor] 20 mg tablet 20 mg PO DAILY RF: 0 metoprolol succinate [Toprol XL] 25 mg tablet extended release 24 hr 12.5 mg PO QAM RF: 0 ondansetron HCl 4 mg tablet 8 mg PO Q8 PRN (Reason: Nausea) RF: 0 sennosides [senna] 8.6 mg Tablet 8.6 mg PO BID RF: 0 pantoprazole 40 mg Tablet,Delayed Release (Dr/Ec) 40 mg PO DAILYBB RF: 0 furosemide 20 mg Tablet 20 mg PO DAILY PRN (Reason: Edema) RF: 0 trazodone 50 mg tablet 50 mg PO HS RF: 0 psyllium Powder 1 tbsp PO DAILY RF: 0 oxycodone-acetaminophen [Percocet] 5-325 mg tablet 1 tab PO Q8H PRN (Reason: pain) Qty: 14 RF: 0 Discontinued escitalopram oxalate 20 mg tablet 20 mg PO QAM RF: 0 Discharge Orders: Discharge Order (Routine); Ordered 05/29/21 Ordered By: Cali Lowery Admission Data Admit Date/Time: 05/24/21 17:59 Attending Provider: Cali Lowery Admit Provider: Adia Cabrera Primary Care Provider: PCP,NO Other Providers: Adia Cabrera ; [facility] Other Interventions: Discharge Summary Assessment (RN) Last Done: 05/29/21 13:16
== END 2021-05-29 14:03 | DRG 644 ==
LOC: ED 16:42 → 3W 17:59 → SUATTDRO 17:59 → 3W 22:00

== ENCOUNTER 2021-08-15 11:17 | Inpatient (IN) ==
--- NOTE | 2021-08-15 11:36 | Emergency Department Note ---
History of Present Illness General Chief complaint: Weakness Stated complaint: R LEG WEAKNESS & NUMBNESS Time Seen by Provider: 08/15/21 11:20 Source: patient and family () Mode of arrival: EMS History of Present Illness Provider complaint: Right leg weakness Onset (ago): day(s) 2 Location: lower extremity and right Pain Consistency: + constant Quality: + other (Weakness to the point of inability to walk today) Relieved By: + none Associated symptoms: + other (Diarrhea); no chest pain, no cough, no f ever/chills, no headaches, no nausea/vomiting or no shortness of breath This is an 81-year-old male with a prior history of CVA presenting with strokelike symptoms starting 2 days ago. He had some minor weakness to his right leg 2 days ago which got much worse yesterday and then to the point where he could not walk this morning. He denies any numbness to the leg. He denies any numbness or weakness to his other extremities. He does have a history of stroke and has been taking Plavix and aspirin. He states this morning he had a little bit of diarrhea and abdominal discomfort. He denies any significant back pain, or fecal or urinary incontinence or saddle anesthesia. He did soil himself when he had diarrhea but he and his state this is because he could not get up and get to the bathroom in time. The diarrhea was watery and loose. His abdominal pain is improved. He denies any headache, fever, cough or cold symptoms, chest pain, shortness of breath or vomiting. He states he did not come in earlier because he said his symptoms are not that bad and he was hoping they would go away. Home Medications Medication Instructions Recorded Confirmed Type tamsulosin 0.4 mg capsule (Flomax) 0.4 mg PO QAM 09/13/18 08/15/21 History aspirin 81 mg tablet,delayed 81 mg PO QAM 01/04/19 08/15/21 History release (Ecotrin Low Strength) losartan 100 mg tablet (Cozaar) 100 mg PO QAM 09/19/19 08/15/21 History rosuvastatin 20 mg tablet (Crestor) 20 mg PO QAM 08/06/20 08/15/21 History metoprolol succinate 25 mg 12.5 mg PO QAM 08/19/20 08/15/21 History tablet,extended release 24 hr (Toprol XL) clopidogrel 75 mg tablet (Plavix) 75 mg PO QAM 10/20/20 08/15/21 History ondansetron HCl 4 mg tablet 8 mg PO Q8 PRN 01/26/21 08/15/21 History sennosides 8.6 mg tablet (senna) 8.6 mg PO BID 02/06/21 08/15/21 History sodium chloride 1 gram tablet 1 g PO TID #30 tab 05/29/21 08/15/21 Rx cetirizine 10 mg tablet (Zyrtec) 10 mg PO HS 08/15/21 08/15/21 History gabapentin 300 mg capsule 300 mg PO HS 08/15/21 08/15/21 History hydroxyzine HCl 50 mg tablet 50 mg PO HS 08/15/21 08/15/21 History omeprazole 40 mg capsule,delayed 40 mg PO DAILY 08/15/21 08/15/21 History release ropinirole 0.5 mg tablet 0.5 mg PO HS 08/15/21 08/15/21 History trazodone 100 mg tablet 100 mg PO HS 08/15/21 08/15/21 History Allergies Allergy/AdvReac Type Severity Reaction Status Date / Time clarithromycin Allergy Intermediate rash Verified 08/15/21 11:50 lisinopril Allergy Unknown Unknown Verified 08/15/21 11:50 metoclopramide AdvReac Intermediate NIGHTMARES Verified 08/15/21 11:50 pantoprazole [From Protonix] AdvReac Intermediate GI upset Verified 08/15/21 11:50 prochlorperazine AdvReac Intermediate HYPER Verified 08/15/21 11:50 UNABLE TO TOLERATE SIDE EFFEDTS Past Med/Surg History Medical History (Updated 08/15/21 @ 14:25 by Yaya Paris MD) Anxiety BPH (benign prostatic hyperplasia) CKD (chronic kidney disease), stage III Depression Diverticulitis GERD (gastroesophageal reflux disease) HTN (hypertension) IBS (irritable bowel syndrome) Insomnia Prostate cancer "s/p radiation" Sinus bradycardia Vasovagal syncope Surgical History History of bowel resection History of partial colectomy Hx of tonsillectomy Family History Brother Diabetes Daughter Asthma Social History Smoking Status: Never smoker Tobacco Type: Smokeless Tobacco (Dip or Chew) Second Hand Exposure: No; Hx Alcohol Use: No Hx Substance Use: No Preferred Language: Macedonian Communication Ability: Effective Carrier Driver Required: No Beliefs That Will Affect Care: None marital status: Current Living Situation: Spouse How many Children do You have: 2 Feels Safe at Home: Yes Assistive Devices: Hearing Aid - Bilateral and Walker Review of Systems See HPI for pertinent positives & negatives. and A total of 10 systems reviewed and were otherwise negative Physical Exam Vital Signs Vital Signs - 24 hr 08/15/21 11:21 08/15/21 11:22 08/15/21 12:06 Temperature 36.7 C Temperature Source Oral Pulse Rate 65 Pulse Rate [Apical] 62 Respiratory Rate 18 18 Respiratory Effort / Characteristics Non-Labored Spontaneous Respiratory Depth Normal Respiratory Pattern Regular Blood Pressure 179/109 H Blood Pressure [Left Arm] 174/83 H Blood Pressure Mean 132 Blood Pressure Mean [Left Arm] 113 Blood Pressure Position Sitting Blood Pressure Position [Left Arm] Pulse Oximetry 95 97 Oxygen Delivery Method Room Air Room Air Room Air Sepsis Recent Fever Within 48 Hours No Sepsis New/Unexplained Change in Mental Status N/A Sepsis Action Taken by Nursing No Action Required 08/15/21 14:00 08/15/21 16:00 Temperature Temperature Source Pulse Rate Pulse Rate [Apical] 62 64 Respiratory Rate 18 18 Respiratory Effort / Characteristics Non-Labored Spontaneous Non-Labored Spontaneous Respiratory Depth Normal Normal Respiratory Pattern Regular Regular Blood Pressure Blood Pressure [Left Arm] 149/86 H 170/101 H Blood Pressure Mean Blood Pressure Mean [Left Arm] 107 124 Blood Pressure Position Blood Pressure Position [Left Arm] Sitting Pulse Oximetry 97 97 Oxygen Delivery Method Room Air Room Air Sepsis Recent Fever Within 48 Hours Sepsis New/Unexplained Change in Mental Status Sepsis Action Taken by Nursing Constitutional: Vital signs reviewed. Eyes: Pupils are equal round reactive to light. Conjunctiva are noninjected. ENT: Pharynx is clear without erythema or exudate. Mucous membranes are moist. Neck supple without meningeal signs. Respiratory: Clear to auscultation bilaterally. Breath sounds are equal bilaterally. Cardiovascular: Regular rate and rhythm. No rubs or gallops. GI: Soft, nondistended and nontender. Bowel sounds are present. Musculoskeletal: No peripheral edema. No lower extremity tenderness. Integumentary: No cyanosis. or jaundice. Neurologic: The patient is awake and alert. Cranial nerves II-XII are intact, although hard of hearing Motor is 5 out of 5 all extremities, except the right lower extremity which is 2 out of 5 in strength. Sensation is intact to light touch all extremities. Normal speech. No pronator drift. Right lower extremity limb ataxia Psychiatric: Normal affect. Not anxious appearing. Course Administered Medications Discontinued Medications Ioversol (Optiray 320 125ml) 120 ml IV ONCE ONE Stop: 08/15/21 13:09 Last Admin: 08/15/21 13:09 Dose: 120 ml Documented by: [id number] Metoprolol Succinate (Metoprolol Succ 25mg Ext Rel Tab) 12.5 mg PO NOW ONE Stop: 08/15/21 15:37 Last Admin: 08/15/21 16:59 Dose: 12.5 mg Documented by: [id number] Medical Decision Making Differential Diagnosis CVA, TIA, intracranial mass, intracranial hemorrhage, metabolic derangement Medical Records Attestation: I reviewed the patient's medical records. I did perform a limited focused review of portions of the patient's old chart on the electronic medical record. The patient was admitted in May for hyponatremia and right hip contusion. He had a stroke in November 2018 involving the left MCA with right-sided weakness. Home Medications Current Medication List: was personally reviewed by me Laboratory Data Attestation: I reviewed the patient's lab results. Result diagrams: 08/15/21 12:01 08/15/21 12:01 Lab Results 08/15/21 08/15/21 08/15/21 Range/Units 11:53 12:01 12:01 WBC 6.61 (4.8-10.8) K/uL RBC 4.94 (4.7-6.1) M/uL Hgb 15.1 (14.0-18.0) g/dL Hct 43.6 (42-52) % MCV 88.3 (80-100) fL MCH 30.6 (25-34) pg MCHC 34.6 (32-36) g/dL RDW Std Deviation 41.3 (36.4-46.3) fL RDW Coeff of Regine 12.8 (11.5-14.5) % Plt Count 154 (130-400) K/uL MPV 9.6 (7.4-10.4) fL Immature Gran % (Auto) 0.2 % Neut % (Auto) 74.6 % Lymph % (Auto) 12.4 % [place] % (Auto) 8.8 % Eos % (Auto) 3.5 % Baso % (Auto) 0.5 % Neut # (Auto) 4.94 (1.4-6.5) K/uL Lymph # (Auto) 0.82 L (1.2-3.4) K/uL [place] # (Auto) 0.58 (0.11-0.59) K/uL Eos # (Auto) 0.23 (0-0.5) K/uL Baso # (Auto) 0.03 (0-0.2) K/uL Immature Gran # (Auto) 0.01 (0.00-0.02) K/uL PT 11.0 (9.0-12.0) Seconds INR 1.0 (0.9-1.1) APTT 27.3 (21.0-31.0) Seconds PTT Ratio 1.0 Sodium (136-145) mmol/L Potassium (3.5-5.1) mmol/L Chloride (98-107) mmol/L Carbon Dioxide (21-32) mmol/L Anion Gap (3-11) BUN (6-23) mg/dl Creatinine (0.6-1.4) mg/dl Est Cr Clr Drug Dosing ml/min Est GFR ( Amer) ml/min Est GFR (Non-Af Amer) ml/min BUN/Creatinine Ratio (10-20) Glucose (70-99(Fasting)) mg/dl Calcium (8.5-10.1) mg/dl Magnesium (1.7-2.4) mg/dl Total Bilirubin (0.2-1.0) mg/dl AST (13-39) U/L ALT (7-52) U/L Alkaline Phosphatase (34-104) U/L Troponin I High Sens (0-20) pg/ml Total Protein (6.0-8.3) gm/dl Albumin (3.4-5.0) gm/dl Globulin (2.5-4.0) gm/dl Albumin/Globulin Ratio (0.9-2) SARS-CoV-2, RNA, NAAT NEGATIVE (NEGATIVE) 08/15/21 Range/Units 12:01 WBC (4.8-10.8) K/uL RBC (4.7-6.1) M/uL Hgb (14.0-18.0) g/dL Hct (42-52) % MCV (80-100) fL MCH (25-34) pg MCHC (32-36) g/dL RDW Std Deviation (36.4-46.3) fL RDW Coeff of Regine (11.5-14.5) % Plt Count (130-400) K/uL MPV (7.4-10.4) fL Immature Gran % (Auto) % Neut % (Auto) % Lymph % (Auto) % [place] % (Auto) % Eos % (Auto) % Baso % (Auto) % Neut # (Auto) (1.4-6.5) K/uL Lymph # (Auto) (1.2-3.4) K/uL [place] # (Auto) (0.11-0.59) K/uL Eos # (Auto) (0-0.5) K/uL Baso # (Auto) (0-0.2) K/uL Immature Gran # (Auto) (0.00-0.02) K/uL PT (9.0-12.0) Seconds INR (0.9-1.1) APTT (21.0-31.0) Seconds PTT Ratio Sodium 128 L (136-145) mmol/L Potassium 4.4 (3.5-5.1) mmol/L Chloride 96 L (98-107) mmol/L Carbon Dioxide 25 (21-32) mmol/L Anion Gap 7 (3-11) BUN 11 (6-23) mg/dl Creatinine 1.03 (0.6-1.4) mg/dl Est Cr Clr Drug Dosing 54.4 ml/min Est GFR ( Amer) 78.6 ml/min Est GFR (Non-Af Amer) 67.8 ml/min BUN/Creatinine Ratio 10.7 (10-20) Glucose 100 H (70-99(Fasting)) mg/dl Calcium 8.9 (8.5-10.1) mg/dl Magnesium 1.8 (1.7-2.4) mg/dl Total Bilirubin 0.8 (0.2-1.0) mg/dl AST 19 (13-39) U/L ALT 16 (7-52) U/L Alkaline Phosphatase 59 (34-104) U/L Troponin I High Sens 5.1 (0-20) pg/ml Total Protein 6.7 (6.0-8.3) gm/dl Albumin 4.3 (3.4-5.0) gm/dl Globulin 2.4 L (2.5-4.0) gm/dl Albumin/Globulin Ratio 1.8 (0.9-2) SARS-CoV-2, RNA, NAAT (NEGATIVE) Imaging Data Radiologist's Impression: Head CT 08/15/21 11:[address] OF THE BRAIN; CT ANGIOGRAM OF THE BRAIN; CT ANGIOGRAM OF THE NECK CLINICAL HISTORY: Strokelike symptoms. Left leg weakness. COMPARISON STUDY: CT of the brain dated 03/30/2021. CT angiogram of the head and neck dated 09/20/2019. TECHNIQUE: Unenhanced axial CT scan of the brain is performed. Subsequently, following the IV administration of 112 of Optiray 320, CT angiogram of the head and neck was performed from the aortic arch to the vertex. Images are reviewed in the axial, sagittal, and coronal planes. 3-D MIPS images are created and assessed. IV contrast was administered without complication. All measurements were calculated based on NASCET criteria. A dose lowering technique was utilized adhering to the principles of ALARA. The examinations are degraded by motion artifact. CT DOSE: 1421.31 mGycm (accession [id number]), 1122.18 mGycm (accession [id number]) FINDINGS: Brain parenchyma: There is age-related involutional change noting advanced confluent subcortical and periventricular microangiopathic disease. Chronic lacunar infarcts are noted in the basal ganglia and the left thalamus. There is also a chronic infarct in the left cerebellar hemisphere. There is no hemorrhage, mass effect, or evidence of acute territorial ischemia by CT criteria. There is no evidence of enhancing mass lesion on the angiogram phase images. The ventricles, sulci, and cisterns are prominent secondary to involutional change. Kelley-white matter differentiation is preserved. No extra- axial fluid collection is seen. Thoracic aorta: There is atherosclerotic calcification of the thoracic aorta. Visualized portions of the thoracic aorta are normal in caliber. The aortic arch demonstrates standard 3-vessel anatomy. Right carotid arterial system: The right common carotid artery is widely patent, as are the right internal and external carotid arteries. Left carotid arterial system: The left common carotid artery is widely patent, as are the left internal and external carotid arteries. Vertebral arteries: The vertebral arteries are widely patent bilaterally and codominant. Subclavian arteries: Widely patent bilaterally. Intracranial vasculature: There is atherosclerotic calcification of the cav ernous carotid and vertebral arteries. The internal carotid arteries are patent at the skull base, as are the anterior and middle cerebral arteries bilaterally. The vertebrobasilar system and posterior cerebral arteries are patent. The vertebral arteries are codominant. 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 There is origin of the left posterior cerebral artery. No aneurysm or focal vessel cut off seen throughout the intracranial circulation. Jugular veins: Patent bilaterally. Dural sinuses: Patent. Upper chest: A pacemaker is present in the left chest wall. Partially visualized upper lobe lung parenchyma appears clear. Soft tissues: The visualized pharyngeal soft tissues are normal in appearance noting angiographic phase technique. The oropharyngeal airway appears widely patent. The salivary and thyroid glands are normal in appearance. No cervical lymphadenopathy is seen. Skeletal structures: The skeletal structures are osteopenic. The calvarium appears intact. The cervical spine is maintained noting multilevel spondylosis. No lytic or blastic lesion is seen. Orbits: The bony orbits are intact. Orbital contents are normal as visualized. Sinuses and mastoids: Mild mucosal thickening is noted in the maxillary antra. Secretions are noted in the left sphenoid sinus. The remaining paranasal sinuses are clear. There is a small right mastoid effusion. The left mastoid air cells are well pneumatized. IMPRESSION: 1. There is no hemorrhage, mass effect, or evidence of acute territorial ischemia by CT criteria. 2. Unremarkable CT angiogram of the neck. 3. 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 This has increased from 09/20/2019. 4. The remaining intracranial vessels appear patent. ACT 112: Negative or not required by law. Electronically signed by: Ray Lee M.D. 08/15/2021 1:29 PM Head CTA 08/15/21 11:[address] OF THE BRAIN; CT ANGIOGRAM OF THE BRAIN; CT ANGIOGRAM OF THE NECK CLINICAL HISTORY: Strokelike symptoms. Left leg weakness. COMPARISON STUDY: CT of the brain dated 03/30/2021. CT angiogram of the head and neck dated 09/20/2019. TECHNIQUE: Unenhanced axial CT scan of the brain is performed. Subsequently, following the IV administration of 112 of Optiray 320, CT angiogram of the head and neck was performed from the aortic arch to the vertex. Images are reviewed in the axial, sagittal, and coronal planes. 3-D MIPS images are created and assessed. IV contrast was administered without complication. All measurements were calculated based on NASCET criteria. A dose lowering technique was utilized adhering to the principles of ALARA. The examinations are degraded by motion artifact. CT DOSE: 1421.31 mGycm (accession [id number]), 1122.18 mGycm (accession [id number]) FINDINGS: Brain parenchyma: There is age-related involutional change noting advanced confluent subcortical and periventricular microangiopathic disease. Chronic lacunar infarcts are noted in the basal ganglia and the left thalamus. There is also a chronic infarct in the left cerebellar hemisphere. There is no hemorrhage, mass effect, or evidence of acute territorial ischemia by CT criteria. There is no evidence of enhancing mass lesion on the angiogram phase images. The ventricles, sulci, and cisterns are prominent secondary to involutional change. Kelley-white matter differentiation is preserved. No extra- axial fluid collection is seen. Thoracic aorta: There is atherosclerotic calcification of the thoracic aorta. Visualized portions of the thoracic aorta are normal in caliber. The aortic arch demonstrates standard 3-vessel anatomy. Right carotid arterial system: The right common carotid artery is widely patent, as are the right internal and external carotid arteries. Left carotid arterial system: The left common carotid artery is widely patent, as are the left internal and external carotid arteries. Vertebral arteries: The vertebral arteries are widely patent bilaterally and codominant. Subclavian arteries: Widely patent bilaterally. Intracranial vasculature: There is atherosclerotic calcification of the cavernous carotid and vertebral arteries. The internal carotid arteries are patent at the skull base, as are the anterior and middle cerebral arteries bilaterally. The vertebrobasilar system and posterior cerebral arteries are patent. The vertebral arteries are codominant. 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 There is origin of the left posterior cerebral artery. No aneurysm or focal vessel cut off seen throughout the intracranial circulation. Jugular veins: Patent bilaterally. Dural sinuses: Patent. Upper chest: A pacemaker is present in the left chest wall. Partially visualized upper lobe lung parenchyma appears clear. Soft tissues: The visualized pharyngeal soft tissues are normal in appearance noting angiographic phase technique. The oropharyngeal airway appears widely patent. The salivary and thyroid glands are normal in appearance. No cervical lymphadenopathy is seen. Skeletal structures: The skeletal structures are osteopenic. The calvarium appears intact. The cervical spine is maintained noting multilevel spondylosis. No lytic or blastic lesion is seen. Orbits: The bony orbits are intact. Orbital contents are normal as visualized. Sinuses and mastoids: Mild mucosal thickening is noted in the maxillary antra. Secretions are noted in the left sphenoid sinus. The remaining paranasal sinuses are clear. There is a small right mastoid effusion. The left mastoid air cells are well pneumatized. IMPRESSION: 1. There is no hemorrhage, mass effect, or evidence of acute territorial ische jono by CT criteria. 2. Unremarkable CT angiogram of the neck. 3. 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 This has increased from 09/20/2019. 4. The remaining intracranial vessels appear patent. ACT 112: Negative or not required by law. Electronically signed by: Ray Lee M.D. 08/15/2021 1:29 PM Neck CTA 08/15/21 11:[address] OF THE BRAIN; CT ANGIOGRAM OF THE BRAIN; CT ANGIOGRAM OF THE NECK CLINICAL HISTORY: Strokelike symptoms. Left leg weakness. COMPARISON STUDY: CT of the brain dated 03/30/2021. CT angiogram of the head and neck dated 09/20/2019. TECHNIQUE: Unenhanced axial CT scan of the brain is performed. Subsequently, following the IV administration of 112 of Optiray 320, CT angiogram of the head and neck was performed from the aortic arch to the vertex. Images are reviewed in the axial, sagittal, and coronal planes. 3-D MIPS images are created and assessed. IV contrast was administered without complication. All measurements were calculated based on NASCET criteria. A dose lowering technique was utilized adhering to the principles of ALARA. The examinations are degraded by motion artifact. CT DOSE: 1421.31 mGycm (accession [id number]), 1122.18 [facility] (accession [id number]) FINDINGS: Brain parenchyma: There is age-related involutional change noting advanced confluent subcortical and periventricular microangiopathic disease. Chronic lacunar infarcts are noted in the basal ganglia and the left thalamus. There is also a chronic infarct in the left cerebellar hemisphere. There is no hemorrhage, mass effect, or evidence of acute territorial ischemia by CT criteria. There is no evidence of enhancing mass lesion on the angiogram phase images. The ventricles, sulci, and cisterns are prominent secondary to involutional change. Kelley-white matter differentiation is preserved. No extra- axial fluid collection is seen. Thoracic aorta: There is atherosclerotic calcification of the thoracic aorta. Visualized portions of the thoracic aorta are normal in caliber. The aortic arch demonstrates standard 3-vessel anatomy. Right carotid arterial system: The right common carotid artery is widely patent, as are the right internal and external carotid arteries. Left carotid arterial system: The left common carotid artery is widely patent, as are the left internal and external carotid arteries. Vertebral arteries: The vertebral arteries are widely patent bilaterally and codominant. Subclavian arteries: Widely patent bilaterally. Intracranial vasculature: There is atherosclerotic calcification of the cavernous carotid and vertebral arteries. The internal carotid arteries are patent at the skull base, as are the anterior and middle cerebral arteries bilaterally. The vertebrobasilar system and posterior cerebral arteries are patent. The vertebral arteries are codominant. 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 There is origin of the left posterior cerebral artery. No aneurysm or focal vessel cut off seen throughout the intracranial circulation. Jugular veins: Patent bilaterally. Dural sinuses: Patent. Upper chest: A pacemaker is present in the left chest wall. Partially visualized upper lobe lung parenchyma appears clear. Soft tissues: The visualized pharyngeal soft tissues are normal in appearance noting angiographic phase technique. The oropharyngeal airway appears widely patent. The salivary and thyroid glands are normal in appearance. No cervical lymphadenopathy is seen. Skeletal structures: The skeletal structures are osteopenic. The calvarium appears intact. The cervical spine is maintained noting multilevel spondylosis. No lytic or blastic lesion is seen. Orbits: The bony orbits are intact. Orbital contents are normal as visualized. Sinuses and mastoids: Mild mucosal thickening is noted in the maxillary antra. Secretions are noted in the left sphenoid sinus. The remaining paranasal sinuses are clear. There is a small right mastoid effusion. The left mastoid air cells are well pneumatized. IMPRESSION: 1. There is no hemorrhage, mass effect, or evidence of acute territorial ischemia by CT criteria. 2. Unremarkable CT angiogram of the neck. 3. 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 This has increased from 09/20/2019. 4. The remaining intracranial vessels appear patent. ACT 112: Negative or not required by law. Electronically signed by: Ray Lee M.D. 08/15/2021 1:29 PM Chest X-Ray 08/15/21 15:38 XR chest 1V portable CLINICAL HISTORY: cough. COMPARISON STUDY: 03/30/2021 TECHNIQUE: 1 view of the chest FINDINGS: Single frontal view of the chest demonstrates the cardiomediastinal silhouette to be within normal limits. Permanent cardiac pacer is in place. The lungs are clear of alveolar opacities. There is no evidence for pleural effusion. There is no evidence for vascular congestion. There is no acute osseous pathology. IMPRESSION: 1. No acute cardiopulmonary disease. ACT 112: Negative or not required by law. Electronically signed by: Rico Geller M.D. 08/15/2021 3:57 PM Hip/Pelvis X-Ray 08/15/21 15:40 XR hip MARY 2v w pelvis HISTORY: 81 years-old Male mary hip pain, no injury acute bilateral hand pain without reported injury COMPARISON: CT abdomen and pelvis 05/24/2021 TECHNIQUE: AP view of the pelvis with 2 views of the hips FINDINGS: Contrast within the urinary bladder lumen. Brachytherapy seeds of the prostate. 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 No acute fracture, dislocation or avascular necrosis. Unremarkable soft tissues. IMPRESSION: No acute fracture or dislocation. ACT 112: Negative or not required by law. The above report was generated using voice recognition software. It may contain grammatical, syntax or spelling errors. Electronically signed by: Jose Manuel Andrade M.D. 08/15/2021 3:57 PM ECG Data Attestation: I personally reviewed and interpreted this ECG as follows: Indication: + other (Stroke symptoms) Rate (beats per minute): 64 Rhythm: + normal sinus ECG ST segments: no ST elevation ECG Findings: + Q waves (Inferior); no PVCs Comparison ECG Date: from (March 30, 2021) Change: the following changes noted (Previously atrial paced rhythm) MDM Narrative I did evaluate the patient as noted above. The patient is presenting with strokelike symptoms. He started having symptoms 2 days ago and so is not an IV tPA candidate. He states his symptoms got worse yesterday and he had difficulty walking today which prompted him to come in. He is on Plavix and aspirin for stroke prevention. He states he is compliant with this medication. IV access was established. I did place an order for continuous cardiac monitoring. The monitor showed normal sinus rhythm at a rate of 62 bpm. I did order and personally review the patient's 12-lead EKG as described above. There is no dysrhythmia or acute ischemia. I did order and review the patient's blood work as noted in the electronic medical record. CBC is unremarkable without leukocytosis or anemia. CMP demonstrates a chronic hyponatremia with a sodium of 128. Chloride is 96. Screening for COVID-19 is negative. I did order a CT of the head and CT angiogram of the head and neck. I did review the images myself as well as the radiology report as described above. There is no acute intracranial abnormality. 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 I did reassess the patient. His blood pressure did improve spontaneously. I did discuss the test results with him and his . I did recommend hospitalization for further care and evaluation and MRI. I did discuss case with Dr. Chapin of [place] stroke neurology and she recommended hospitalization for MRI and permissive hypertension. I did discuss case with the hospitalist and case assistant. Impression & Plan Right leg weakness, Chronic hyponatremia Discharge Plan Visit Data Chief Complaint: Weakness Stated Complaint: R LEG WEAKNESS & NUMBNESS ED Provider: Yaya Paris Discharge Problem: Right leg weakness, Chronic hyponatremia Patient Disposition: Being Evaluated by Hospitalist Forms Stand Alone Forms: My [facility] Prescriptions Prescriptions: No Action tamsulosin [Flomax] 0.4 mg Capsule 0.4 mg PO QAM RF: 0 aspirin [Ecotrin Low Strength] 81 mg Tablet,Delayed Release (Dr/Ec) 81 mg PO QAM RF: 0 losartan [Cozaar] 100 mg tablet 100 mg PO QAM RF: 0 clopidogrel [Plavix] 75 mg tablet 75 mg PO QAM RF: 0 sodium chloride 1 gram Tablet 1 g PO TID Qty: 30 RF: 0 cetirizine [Zyrtec] 10 mg Tablet 10 mg PO HS RF: 0 hydroxyzine HCl 50 mg tablet 50 mg PO HS RF: 0 omeprazole 40 mg capsule,delayed release(DR/EC) 40 mg PO DAILY RF: 0 trazodone 100 mg tablet 100 mg PO HS RF: 0 ropinirole 0.5 mg tablet 0.5 mg PO HS RF: 0 gabapentin 300 mg Capsule 300 mg PO HS RF: 0 rosuvastatin [Crestor] 20 mg tablet 20 mg PO QAM RF: 0 metoprolol succinate [Toprol XL] 25 mg tablet extended release 24 hr 12.5 mg PO QAM RF: 0 ondansetron HCl 4 mg tablet 8 mg PO Q8 PRN (Reason: Nausea) RF: 0 sennosides [senna] 8.6 mg Tablet 8.6 mg PO BID RF: 0 Referrals Referrals: PCP,NO [Physician] -
[2021-08-15 12:21] LABS: Basophils # (auto) 0.03 K/uL (0-0.2); Basophils % (auto) 0.5 %; Eosinophils # (auto) 0.23 K/uL (0-0.5); Eosinophils % (auto) 3.5 %; Hematocrit (blood only) 43.6 % (42-52); Hemoglobin 15.1 g/dL (14.0-18.0); Immature Granulocytes # (auto) 0.01 K/uL (0.00-0.02); Immature Granulocytes % (auto) 0.2 %; Lymphocytes # (auto) 0.82 K/uL (1.2-3.4); Lymphocytes % (auto) 12.4 %; Mean Corpuscular Hemoglobin 30.6 pg (25-34); Mean Corpuscular Hgb Conc 34.6 g/dL (32-36); Mean Corpuscular Volume 88.3 fL (80-100); Mean Platelet Volume 9.6 fL (7.4-10.4); Monocytes # (auto) 0.58 K/uL (0.11-0.59); Monocytes % (auto) 8.8 %; Neutrophils # (auto) 4.94 K/uL (1.4-6.5); Neutrophils % (auto) 74.6 %; Platelet Count 154 K/uL (130-400); RDW Coefficient of Variation 12.8 % (11.5-14.5); RDW Standard Deviation 41.3 fL (36.4-46.3); Red Blood Count 4.94 M/uL (4.7-6.1); White Blood Count 6.61 K/uL (4.8-10.8)
[2021-08-15 12:34] LABS: Partial Thromboplastin Time 27.3 Seconds (21.0-31.0)
[2021-08-15 12:44] LABS: BUN Creatinine Ratio 10.7 (10-20); Bilirubin,Total 0.8 mg/dl (0.2-1.0); Calcium 8.9 mg/dl (8.5-10.1); Creatinine Clr Calc Pharmacy 54.4 ml/min; Est GFR (African American) 78.6 ml/min; Est GFR (Non-African American) 67.8 ml/min; Magnesium 1.8 mg/dl (1.7-2.4); Potassium 4.4 mmol/L (3.5-5.1); Total Protein 6.7 gm/dl (6.0-8.3)
[2021-08-15 12:45] LABS: Albumin Globulin Ratio 1.8 (0.9-2); Albumin Level 4.3 gm/dl (3.4-5.0); Globulin 2.4 gm/dl (2.5-4.0)
[2021-08-15 12:47] LABS: Troponin I High Sensitivity 5.1 pg/ml (0-20)
[2021-08-15] MEDS ORDERED: OPTIRAY 320 125ml IV ONE (13:08)
--- NOTE | 2021-08-15 13:30 | CT Scan Report ---
UNENHANCED CT OF THE BRAIN; CT ANGIOGRAM OF THE BRAIN; CT ANGIOGRAM OF THE NECK CLINICAL HISTORY: Strokelike symptoms. Left leg weakness. COMPARISON STUDY: CT of the brain dated 03/30/2021. CT angiogram of the head and neck dated 09/20/2019 . TECHNIQUE: Unenhanced axial CT scan of the brain is performed. Subsequently, following the IV adminis tration of 112 of [employer] [address], CT angiogram of the head and neck was performed from the aortic arch t o the vertex. Images are reviewed in the axial, sagittal, and coronal planes. 3-D MIPS images are cre ated and assessed. IV contrast was administered without complication. All measurements were calculate d based on NASCET criteria. A dose lowering technique was utilized adhering to the principles of ALA RA. The examinations are degraded by motion artifact. CT DOSE: 1421.31 mGycm (accession [id number]), 1122.18 mGycm (accession [id number]) FINDINGS: Brain parenchyma: There is age-related involutional change noting advanced confluent subcortical and periventricular microangiopathic disease. Chronic lacunar infarcts are noted in the basal ganglia and the left thalamus. There is also a chronic infarct in the left cerebellar hemisphere. There is no he morrhage, mass effect, or evidence of acute territorial ischemia by CT criteria. There is no evidence of enhancing mass lesion on the angiogram phase images. The ventricles, sulci, and cisterns are prom inent secondary to involutional change. Kelley-white matter differentiation is preserved. No extra-axia l fluid collection is seen. Thoracic aorta: There is atherosclerotic calcification of the thoracic aorta. Visualized portions of the thoracic aorta are normal in caliber. The aortic arch demonstrates standard 3-vessel anatomy. Right carotid arterial system: The right common carotid artery is widely patent, as are the right int ernal and external carotid arteries. Left carotid arterial system: The left common carotid artery is widely patent, as are the left international sales manager al and external carotid arteries. Vertebral arteries: The vertebral arteries are widely patent bilaterally and codominant. Subclavian arteries: Widely patent bilaterally. Intracranial vasculature: There is atherosclerotic calcification of the cavernous carotid and vertebr al arteries. The internal carotid arteries are patent at the skull base, as are the anterior and midd le cerebral arteries bilaterally. The vertebrobasilar system and posterior cerebral arteries are lang nt. The vertebral arteries are codominant. 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 There is origin of the left posterior cerebral artery. No aneurysm or focal vessel c ut off seen throughout the intracranial circulation. Jugular veins: Patent bilaterally. Dural sinuses: Patent. Upper chest: A pacemaker is present in the left chest wall. Partially visualized upper lobe lung pare nchyma appears clear. Soft tissues: The visualized pharyngeal soft tissues are normal in appearance noting angiographic pha se technique. The oropharyngeal airway appears widely patent. The salivary and thyroid glands are nor mal in appearance. No cervical lymphadenopathy is seen. Skeletal structures: The skeletal structures are osteopenic. The calvarium appears intact. The cervic al spine is maintained noting multilevel spondylosis. No lytic or blastic lesion is seen. Orbits: The bony orbits are intact. Orbital contents are normal as visualized. Sinuses and mastoids: Mild mucosal thickening is noted in the maxillary antra. Secretions are noted i n the left sphenoid sinus. The remaining paranasal sinuses are clear. There is a small right mastoid effusion. The left mastoid air cells are well pneumatized. IMPRESSION: 1. There is no hemorrhage, mass effect, or evidence of acute territorial ischemia by CT criteria. 2. Unremarkable CT angiogram of the neck. 3. 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 This has increased from 09/20/2019. 4. The remaining intracranial vessels appear patent. ACT 112: Negative or not required by law. Electronically signed by: Ray Lee M.D. 08/15/2021 1:29 PM
--- NOTE | 2021-08-15 15:35 | History & Physical Report ---
Date of Service August 15, 2021 Assessment & Plan (1) Right leg weakness: Plan: Patient is 81 y/o M with PMH HTN, CKD III, history of pacemaker, chronic hyponatremia, CVA with h/o residual RLE weakness, anxiety, depression, Hx of prostate cancer, BPH, GERD, RLS presented to ER with complaint of right leg weakness x 2 days. Noted increased RLE weakness past 2 days and today unable to ambulate with walker. CT Head unremarkable. CTA Head and neck: No acute ischemia, no hemorrhage no mass. Focal high-grade stenosis of basilar artery which has increased from imaging 09/20/2019 ER Physician spoke to [facility] [place] who had recommended permissive hypertension and MRI if able. Tele to monitor for arrhythmias Lipid panel, A1c in am Pt with pacemaker. Will need to see if compatible with MRI Echo with bubble study aspiration precautions Continue aspirin, Plavix, rosuvastatin PT/OT consult allow permissive HTN neurology consult (2) Chronic hyponatremia: Plan: Na: 128. Baseline 128-131 Continue sodium tabs, fluid restriction (3) Bilateral hip pain: Plan: Reported bilateral hip pain since fall in 05/2021. No fractures noted on CT imaging of pelvis then Today pelvis/hip x-ray: No acute fracture (4) HTN (hypertension): Plan: Continue losartan, metoprolol succinate (5) CKD (chronic kidney disease), stage III: Plan: Cr: 1.0. Baseline 1.1-1.2 Monitor renal function, avoid nephrotoxic agent possible (6) Pacemaker: Plan: Pacemaker interrogation (7) Prostate cancer: (8) BPH (benign prostatic hyperplasia): Plan: Status post seed placement Continue tamsulosin (9) RLS (restless legs syndrome): Plan: Continue home meds History of Present Illness Chief Complaint: Right leg weakness Primary Care Provider: Devora Gallagher MD Patient is 81 y/o M with PMH HTN, CKD III, history of pacemaker, chronic hyponatremia, CVA, anxiety, depression, Hx of prostate cancer, BPH, GERD, RLS presented to ER with complaint of right leg weakness. History is obtained from patient and patient's . Outpatient chart reviewed. Patient reports chronic right leg weakness reported since last CVA. Uses cane to ambulate. Patient states past 2 days with increased right leg weakness and trouble ambulating. Today upon awakening he was unable to ambulate secondary to right leg weakness. H/O fall in 05/2021 resulting in hospitalization without fracture and discharged to rehab. Since home ambulating with cane and no recurrent falls since. Patient states since fall has been having bilateral hip pain, some days left hip is worse than right, other days right hip is worse than left. Denies any current right hip pain. States having some left hip pain when trying to ambulate. Denies back pain. States chronic intermittent cough and post nasal drip, denies any increased cough. Denies fever/chills, diaphoresis, N/V/D/C, CHAMBERS, dizziness, syncope, vision changes, neck pain, CP, SOB, orthopnea, palpitations, sore throat, choking, otalgia, rhinorrhea, abdominal pain, paresthesias, extremity edema, rashes, urinary symptoms. In ER CT Head unremarkable. CTA Head and neck: No acute ischemia, no hemorrhage no mass. Focal high-grade stenosis of basilar artery which has increased from imaging 09/20/2019 ER Physician spoke to [facility] [place] who had recommended permissive hypertension and MRI if able. Allergies Allergy/AdvReac Type Severity Reaction Status Date / Time clarithromycin Allergy Intermediate rash Verified 08/15/21 11:50 lisinopril Allergy Unknown Unknown Verified 08/15/21 11:50 metoclopramide AdvReac Intermediate NIGHTMARES Verified 08/15/21 11:50 pantoprazole [From Protonix] AdvReac Intermediate GI upset Verified 08/15/21 11:50 prochlorperazine AdvReac Intermediate HYPER Verified 08/15/21 11:50 UNABLE TO TOLERATE SIDE EFFEDTS Home Medications Medication Instructions Recorded Confirmed Type tamsulosin 0.4 mg capsule (Flomax) 0.4 mg PO QAM 09/13/18 08/15/21 History aspirin 81 mg tablet,delayed 81 mg PO QAM 01/04/19 08/15/21 History release (Ecotrin Low Strength) losartan 100 mg tablet (Cozaar) 100 mg PO QAM 09/19/19 08/15/21 History rosuvastatin 20 mg tablet (Crestor) 20 mg PO QAM 08/06/20 08/15/21 History metoprolol succinate 25 mg 12.5 mg PO QAM 08/19/20 08/15/21 History tablet,extended release 24 hr (Toprol XL) clopidogrel 75 mg tablet (Plavix) 75 mg PO QAM 10/20/20 08/15/21 History ondansetron HCl 4 mg tablet 8 mg PO Q8 PRN 01/26/21 08/15/21 History sennosides 8.6 mg tablet (senna) 8.6 mg PO BID 02/06/21 08/15/21 History sodium chloride 1 gram tablet 1 g PO TID #30 tab 05/29/21 08/15/21 Rx cetirizine 10 mg tablet (Zyrtec) 10 mg PO HS 08/15/21 08/15/21 History gabapentin 300 mg capsule 300 mg PO HS 08/15/21 08/15/21 History hydroxyzine HCl 50 mg tablet 50 mg PO HS 08/15/21 08/15/21 History omeprazole 40 mg capsule,delayed 40 mg PO DAILY 08/15/21 08/15/21 History release ropinirole 0.5 mg tablet 0.5 mg PO HS 08/15/21 08/15/21 History trazodone 100 mg tablet 100 mg PO HS 08/15/21 08/15/21 History Past Med/Surg History Medical History (Updated 08/15/21 @ 20:53 by Mita Mckeon PA-C) Anxiety BPH (benign prostatic hyperplasia) CKD (chronic kidney disease), stage III Depression Diverticulitis GERD (gastroesophageal reflux disease) HTN (hypertension) IBS (irritable bowel syndrome) Insomnia Pacemaker Prostate cancer "s/p radiation" RLS (restless legs syndrome) Sinus bradycardia Vasovagal syncope Surgical History History of bowel resection History of partial colectomy Hx of tonsillectomy Family History Brother Diabetes Daughter Asthma Social History Smoking Status: Never smoker Tobacco Type: Smokeless Tobacco (Dip or Chew) Second Hand Exposure: No; Hx Alcohol Use: No Hx Substance Use: No Preferred Language: Turkmen Communication Ability: Effective Chimney Builder Required: No Beliefs That Will Affect Care: None marital status: Current Living Situation: Spouse How many Children do You have: 2 Feels Safe at Home: Yes Assistive Devices: Hearing Aid - Bilateral and Walker Review of Systems Review of Systems: All systems reviewed & are unremarkable except as noted in HPI & below Physical Exam Physical Exam: General: no distress, WDWN Head: normocephalic, atraumatic Eyes: PERRL, EOM's intact, conjunctiva non-injected, anicteric ENT: hard of hearing, normal inspection external ears, nose, mucous membranes moist Neck: supple, trachea midline Lungs: clear, no respiratory distress, no wheezing/rhonchi/rales CV: RRR, no murmur, no pretibial edema Abd: normal BS, soft, non-tender Ext: no cyanosis, no calf tenderness Neuro: A&O x 3, normal affect, Visual maria intact, facial sensation is intact and symmetric, face is strong and symmetric, soft palate elevates symmetrically, no dysarthria, shoulder shrug intact, tongue is midline, normal movement, no fasciculations. RLE 4/5 strength, LLE 5/5 strength. BLE 5/5 strength Skin: warm, dry Results & Data Results & Data ([facility]) Vital Signs (Past 12 Hours) Vital Signs Temp Pulse Pulse Resp BP BP Pulse Ox 08/15/21 14:00 62 18 149/86 H 97 08/15/21 12:06 62 18 174/83 H 97 08/15/21 11:22 36.7 C 65 18 179/109 H 95 Laboratory Results Short CBC 08/15/21 Range/Units 12:01 WBC 6.61 (4.8-10.8) K/uL Hgb 15.1 (14.0-18.0) g/dL Hct 43.6 (42-52) % Plt Count 154 (130-400) K/uL BMP 08/15/21 12:01 Sodium 128 L Potassium 4.4 Chloride 96 L Carbon Dioxide 25 BUN 11 Creatinine 1.03 Glucose 100 H Calcium 8.9 Liver Function 08/15/21 Range/Units 12:01 Total Bilirubin 0.8 (0.2-1.0) mg/dl AST 19 (13-39) U/L ALT 16 (7-52) U/L Alkaline Phosphatase 59 (34-104) U/L Albumin 4.3 (3.4-5.0) gm/dl Diagnostic Findings Head CT 08/15/21 11:[address] OF THE BRAIN; CT ANGIOGRAM OF THE BRAIN; CT ANGIOGRAM OF THE NECK CLINICAL HISTORY: Strokelike symptoms. Left leg weakness. COMPARISON STUDY: CT of the brain dated 03/30/2021. CT angiogram of the head and neck dated 09/20/2019. TECHNIQUE: Unenhanced axial CT scan of the brain is performed. Subsequently, following the IV administration of 112 of Optiray 320, CT angiogram of the head and neck was performed from the aortic arch to the vertex. Images are reviewed in the axial, sagittal, and coronal planes. 3-D MIPS images are created and assessed. IV contrast was administered without complication. All measurements were calculated based on NASCET criteria. A dose lowering technique was utilized adhering to the principles of ALARA. The examinations are degraded by motion artifact. CT DOSE: 1421.31 mGycm (accession [id number]), 1122.18 mGycm (accession [id number]) FINDINGS: Brain parenchyma: There is age-related involutional change noting advanced confluent subcortical and periventricular microangiopathic disease. Chronic lacunar infarcts are noted in the basal ganglia and the left thalamus. There is also a chronic infarct in the left cerebellar hemisphere. There is no hemorrhage, mass effect, or evidence of acute territorial ischemia by CT criteria. There is no evidence of enhancing mass lesion on the angiogram phase images. The ventricles, sulci, and cisterns are prominent secondary to involutional change. Kelley-white matter differentiation is preserved. No extra- axial fluid collection is seen. Thoracic aorta: There is atherosclerotic calcification of the thoracic aorta. Visualized portions of the thoracic aorta are normal in caliber. The aortic arch demonstrates standard 3-vessel anatomy. Right carotid arterial system: The right common carotid artery is widely patent, as are the right internal and external carotid arteries. Left carotid arterial system: The left common carotid artery is widely patent, as are the left internal and external carotid arteries. Vertebral arteries: The vertebral arteries are widely patent bilaterally and codominant. Subclavian arteries: Widely patent bilaterally. Intracranial vasculature: There is atherosclerotic calcification of the cavernous carotid and vertebral arteries. The internal carotid arteries are patent at the skull base, as are the anterior and middle cerebral arteries bilaterally. The vertebrobasilar system and posterior cerebral arteries are patent. The vertebral arteries are codominant. 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 There is origin of the left posterior cerebral artery. No aneurysm or focal vessel cut off seen throughout the intracranial circulation. Jugular veins: Patent bilaterally. Dural sinuses: Patent. Upper chest: A pacemaker is present in the left chest wall. Partially visualized upper lobe lung parenchyma appears clear. Soft tissues: The visualized pharyngeal soft tissues are normal in appearance noting angiographic phase technique. The oropharyngeal airway appears widely patent. The salivary and thyroid glands are normal in appearance. No cervical lymphadenopathy is seen. Skeletal structures: The skeletal structures are osteopenic. The calvarium appears intact. The cervical spine is maintained noting multilevel spondylosis. No lytic or blastic lesion is seen. Orbits: The bony orbits are intact. Orbital contents are normal as visualized. Sinuses and mastoids: Mild mucosal thickening is noted in the maxillary antra. Secretions are noted in the left sphenoid sinus. The remaining paranasal sinuses are clear. There is a small right mastoid effusion. The left mastoid air cells are well pneumatized. IMPRESSION: 1. There is no hemorrhage, mass effect, or evidence of acute territorial ischemia by CT criteria. 2. Unremarkable CT angiogram of the neck. 3. 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 This has increased from 09/20/2019. 4. The remaining intracranial vessels appear patent. ACT 112: Negative or not required by law. Electronically signed by: Ray Lee M.D. 08/15/2021 1:29 PM Head CTA 08/15/21 11:[address] OF THE BRAIN; CT ANGIOGRAM OF THE BRAIN; CT ANGIOGRAM OF THE NECK CLINICAL HISTORY: Strokelike symptoms. Left leg weakness. COMPARISON STUDY: CT of the brain dated 03/30/2021. CT angiogram of the head and neck dated 09/20/2019. TECHNIQUE: Unenhanced axial CT scan of the brain is performed. Subsequently, following the IV administration of 112 of Optiray 320, CT angiogram of the head and neck was performed from the aortic arch to the vertex. Images are reviewed in the axial, sagittal, and coronal planes. 3-D MIPS images are created and ass essed. IV contrast was administered without complication. All measurements were calculated based on NASCET criteria. A dose lowering technique was utilized adhering to the principles of ALARA. The examinations are degraded by motion artifact. CT DOSE: 1421.31 mGycm (accession [id number]), 1122.18 mGycm (accession [id number]) FINDINGS: Brain parenchyma: There is age-related involutional change noting advanced confluent subcortical and periventricular microangiopathic disease. Chronic lacunar infarcts are noted in the basal ganglia and the left thalamus. There is also a chronic infarct in the left cerebellar hemisphere. There is no hemorrhage, mass effect, or evidence of acute territorial ischemia by CT criteria. There is no evidence of enhancing mass lesion on the angiogram phase i mages. The ventricles, sulci, and cisterns are prominent secondary to involutional change. Kelley-white matter differentiation is preserved. No extra- axial fluid collection is seen. Thoracic aorta: There is atherosclerotic calcification of the thoracic aorta. Visualized portions of the thoracic aorta are normal in caliber. The aortic arch demonstrates standard 3-vessel anatomy. Right carotid arterial system: The right common carotid artery is widely patent, as are the right internal and external carotid arteries. Left carotid arterial system: The left common carotid artery is widely patent, as are the left internal and external carotid arteries. Vertebral arteries: The vertebral arteries are widely patent bilaterally and codominant. Subclavian arteries: Widely patent bilaterally. Intracranial vasculature: There is atherosclerotic calcification of the cavernous carotid and vertebral arteries. The internal carotid arteries are patent at the skull base, as are the anterior and middle cerebral arteries bilaterally. The vertebrobasilar system and posterior cerebral arteries are patent. The vertebral arteries are codominant. 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 There is origin of the left posterior cerebral artery. No aneurysm or focal vessel cut off seen throughout the intracranial circulation. Jugular veins: Patent bilaterally. Dural sinuses: Patent. Upper chest: A pacemaker is present in the left chest wall. Partially visualized upper lobe lung parenchyma appears clear. Soft tissues: The visualized pharyngeal soft tissues are normal in appearance noting angiographic phase technique. The oropharyngeal airway appears widely patent. The salivary and thyroid glands are normal in appearance. No cervical lymphadenopathy is seen. Skeletal structures: The skeletal structures are osteopenic. The calvarium appears intact. The cervical spine is maintained noting multilevel spondylosis. No lytic or blastic lesion is seen. Orbits: The bony orbits are intact. Orbital contents are normal as visualized. Sinuses and mastoids: Mild mucosal thickening is noted in the maxillary antra. Secretions are noted in the left sphenoid sinus. The remaining paranasal sinuses are clear. There is a small right mastoid effusion. The left mastoid air cells are well pneumatized. IMPRESSION: 1. There is no hemorrhage, mass effect, or evidence of acute territorial ischemia by CT criteria. 2. Unremarkable CT angiogram of the neck. 3. 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 This has increased from 09/20/2019. 4. The remaining intracranial vessels appear patent. ACT 112: Negative or not required by law. Electronically signed by: Ray Lee M.D. 08/15/2021 1:29 PM Neck CTA 08/15/21 11:[address] OF THE BRAIN; CT ANGIOGRAM OF THE BRAIN; CT ANGIOGRAM OF THE NECK CLINICAL HISTORY: Strokelike symptoms. Left leg weakness. COMPARISON STUDY: CT of the brain dated 03/30/2021. CT angiogram of the head and neck dated 09/20/2019. TECHNIQUE: Unenhanced axial CT scan of the brain is performed. Subsequently, following the IV administration of 112 of Optiray 320, CT angiogram of the head and neck was performed from the aortic arch to the vertex. Images are reviewed in the axial, sagittal, and coronal planes. 3-D MIPS images are created and assessed. IV contrast was administered without complication. All measurements were calculated based on NASCET criteria. A dose lowering technique was utilized adhering to the principles of ALARA. The examinations are degraded by motion artifact. CT DOSE: 1421.31 mGycm (accession [id number]), 1122.18 mGycm (accession [id number]) FINDINGS: Brain parenchyma: There is age-related involutional change noting advanced confluent subcortical and periventricular microangiopathic disease. Chronic lacunar infarcts are noted in the basal ganglia and the left thalamus. There is also a chronic infarct in the left cerebellar hemisphere. There is no hemorrhage, mass effect, or evidence of acute territorial ischemia by CT criteria. There is no evidence of enhancing mass lesion on the angiogram phase images. The ventricles, sulci, and cisterns are prominent secondary to involutional change. Kelley-white matter differentiation is preserved. No extra- axial fluid collection is seen. Thoracic aorta: There is atherosclerotic calcification of the thoracic aorta. Visualized portions of the thoracic aorta are normal in caliber. The aortic arch demonstrates standard 3-vessel anatomy. Right carotid arterial system: The right common carotid artery is widely patent, as are the right internal and external carotid arteries. Left carotid arterial system: The left common carotid artery is widely patent, as are the left internal and external carotid arteries. Vertebral arteries: The vertebral arteries are widely patent bilaterally and codominant. Subclavian arteries: Widely patent bilaterally. Intracranial vasculature: There is atherosclerotic calcification of the cavernous carotid and vertebral arteries. The internal carotid arteries are patent at the skull base, as are the anterior and middle cerebral arteries bilaterally. The vertebrobasilar system and posterior cerebral arteries are patent. The vertebral arteries are codominant. 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 There is origin of the left posterior cerebral artery. No aneurysm or focal vessel cut off seen throughout the intracranial circulation. Jugular veins: Patent bilaterally. Dural sinuses: Patent. Upper chest: A pacemaker is present in the left chest wall. Partially visualized upper lobe lung parenchyma appears clear. Soft tissues: The visualized pharyngeal soft tissues are normal in appearance noting angiographic phase technique. The oropharyngeal airway appears widely patent. The salivary and thyroid glands are normal in appearance. No cervical lymphadenopathy is seen. Skeletal structures: The skeletal structures are osteopenic. The calvarium appears intact. The cervical spine is maintained noting multilevel spondylosis. No lytic or blastic lesion is seen. Orbits: The bony orbits are intact. Orbital contents are normal as visualized. Sinuses and mastoids: Mild mucosal thickening is noted in the maxillary antra. Secretions are noted in the left sphenoid sinus. The remaining paranasal sinuses are clear. There is a small right mastoid effusion. The left mastoid air cells are well pneumatized. IMPRESSION: 1. There is no hemorrhage, mass effect, or evidence of acute territorial ischemia by CT criteria. 2. Unremarkable CT angiogram of the neck. 3. 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 This has increased from 09/20/2019. 4. The remaining intracranial vessels appear patent. ACT 112: Negative or not required by law. Electronically signed by: Ray Lee M.D. 08/15/2021 1:29 PM Chest X-Ray 08/15/21 15:38 XR chest 1V portable CLINICAL HISTORY: cough. COMPARISON STUDY: 03/30/2021 TECHNIQUE: 1 view of the chest FINDINGS: Single frontal view of the chest demonstrates the cardiomediastinal silhouette to be within normal limits. Permanent cardiac pacer is in place. The lungs are clear of alveolar opacities. There is no evidence for pleural effusion. There is no evidence for vascular congestion. There is no acute osseous pathology. IMPRESSION: 1. No acute cardiopulmonary disease. ACT 112: Negative or not required by law. Electronically signed by: Rico Geller M.D. 08/15/2021 3:57 PM Hip/Pelvis X-Ray 08/15/21 15:40 XR hip MARY 2v w pelvis HISTORY: 81 years-old Male mary hip pain, no injury acute bilateral hand pain without reported injury COMPARISON: CT abdomen and pelvis 05/24/2021 TECHNIQUE: AP view of the pelvis with 2 views of the hips FINDINGS: Contrast within the urinary bladder lumen. Brachytherapy seeds of the prostate. 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 No acute fracture, dislocation or avascular necrosis. Unremarkable soft tissues. IMPRESSION: No acute fracture or dislocation. ACT 112: Negative or not required by law. The above report was generated using voice recognition software. It may contain grammatical, syntax or spelling errors. Electronically signed by: Jose Manuel Andrade M.D. 08/15/2021 3:57 PM Code Status & VTE Plan VTE Prophylaxis Plan VTE Prophylaxis will be ordered: Yes Supervising Physician Co-Signing Physician Notes 81 y/o M with PMH of HTN, CKD III, history of pacemaker, chronic hyponatremia, CVA with h/o residual RLE weakness, anxiety, depression, Hx of prostate cancer, BPH, GERD, RLS presented to ER 08/15 with complaint of right leg weakness x 2 days. Noted increased RLE weakness past 2 days and today unable to ambulate with walker. Admitting CT head unremarkable, CTA head and neck with focal high-grade stenosis of basilar artery which is increased from 09/20/2019. ER physician spoke with [facility] [place] who had recommended permissive hypertension and MRI if able. Continue with telemetry monitoring, lipid panel in a.m., A1c in a.m., neurology consult, MRI in a.m. [check for pacemaker compatibility], echo with bubble study, aspiration precautions, permissive hypertension. Patient with chronic hyponatremia, continue with home sodium tabs and fluid restriction. PT/OT/Speech eval. Upon examination: GENERAL: Alert and oriented x3. NAD, on RA. [place] HEENT: No pallor, no icterus. Pupils equal, round and reactive to light. Oral mucosa moist. NECK: No JVD, no neck masses. HEART: S1 and S2 heard. Regular rate and rhythm. No murmur, no gallop. RESPIRATORY SYSTEM: Normal AP diameter. No accessory muscle use. No wheezing, no crackles. ABDOMEN: Soft, bowel sounds present, nontender, no distention. CENTRAL NERVOUS SYSTEM: No facial droop. Speech is clear. Obeys simple commands. Moves extremities. RLE 4/5; LLE 5/5. BUE 5/5 EXTREMITIES: No edema, no erythema seen. I have seen and examined the patient and have discussed the case with the provider above. I agree with the assessment and plan as stated.
[2021-08-15] MEDS ORDERED: METOPROLOL SUCC 25MG EXT REL TAB PO ONE (15:36)
--- NOTE | 2021-08-15 15:58 | XRay Report ---
XR chest 1V portable CLINICAL HISTORY: cough. COMPARISON STUDY: 03/30/2021 TECHNIQUE: 1 view of the chest FINDINGS: Single frontal view of the chest demonstrates the cardiomediastinal silhouette to be within normal li mits. Permanent cardiac pacer is in place. The lungs are clear of alveolar opacities. There is no marin dence for pleural effusion. There is no evidence for vascular congestion. There is no acute osseous p athology. IMPRESSION: 1. No acute cardiopulmonary disease. ACT 112: Negative or not required by law. Electronically signed by: Rico Geller M.D. 08/15/2021 3:57 PM
--- NOTE | 2021-08-15 15:59 | XRay Report ---
XR hip MARY 2v w pelvis HISTORY: 81 years-old Male mary hip pain, no injury acute bilateral hand pain without reported injury COMPARISON: CT abdomen and pelvis 05/24/2021 TECHNIQUE: AP view of the pelvis with 2 views of the hips FINDINGS: Contrast within the urinary bladder lumen. Brachytherapy seeds of the prostate. 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 No acute fracture, dislocation or avascular necrosis. Unremarkable soft tissues. IMPRESSION: No acute fracture or dislocation. ACT 112: Negative or not required by law. The above report was generated using voice recognition software. It may contain grammatical, syntax o r spelling errors. Electronically signed by: Jose Manuel Andrade M.D. 08/15/2021 3:57 PM
[2021-08-15] MEDS ORDERED: POLYETHYLENE (MIRALAX) 17 GM PACK PO PRN (20:59)
[2021-08-15] MEDS ORDERED: ACETAMINOPHEN 325 MG TAB PO PRN (20:59)
[2021-08-15] MEDS ORDERED: PHARMACIST DISCHARGE MED REC CONSULT PRN (20:59)
[2021-08-15] MEDS ORDERED: ASPIRIN 81 MG CHEW PO ONE (20:59)
[2021-08-15] MEDS: HEPARIN SOD 5,000 UNIT/0.5 ML VIAL SQ SCH (22:06)
[2021-08-15] MEDS: SODIUM CHLORIDE 1 GM TABLET PO SCH (22:07)
[2021-08-15] MEDS: SENNA 8.6 MG TAB PO SCH (22:08)
[2021-08-15] MEDS: CLOPIDOGREL BISULFATE 75 MG TAB PO SCH (22:09)
[2021-08-15] MEDS: hydrOXYzine HCl 25 MG TAB PO SCH (22:10)
[2021-08-15] MEDS: CETIRIZINE HCL 10 MG TABLET PO SCH (22:10)
[2021-08-15] MEDS: rOPINIRole HCL 0.25 MG TABLET PO SCH (22:11)
[2021-08-15] MEDS: traZODone HCL 100 MG TAB PO SCH (22:11)
[2021-08-15] MEDS: GABAPENTIN 300 MG CAP PO SCH (22:12)
[2021-08-16] MEDS ORDERED: SODIUM CHLORIDE 0.65% NA SOLN 45 ML (OCEAN) PRN (05:04)
[2021-08-16 07:51] LABS: Basophils # (auto) 0.05 K/uL (0-0.2); Basophils % (auto) 0.7 %; Eosinophils # (auto) 0.36 K/uL (0-0.5); Eosinophils % (auto) 5.2 %; Hematocrit (blood only) 41.1 % (42-52); Hemoglobin 14.2 g/dL (14.0-18.0); Immature Granulocytes # (auto) 0.01 K/uL (0.00-0.02); Immature Granulocytes % (auto) 0.1 %; Lymphocytes # (auto) 1.42 K/uL (1.2-3.4); Lymphocytes % (auto) 20.6 %; Mean Corpuscular Hemoglobin 30.7 pg (25-34); Mean Corpuscular Hgb Conc 34.5 g/dL (32-36); Monocytes # (auto) 0.68 K/uL (0.11-0.59); Monocytes % (auto) 9.9 %; Neutrophils # (auto) 4.37 K/uL (1.4-6.5); Neutrophils % (auto) 63.5 %; Platelet Count 141 K/uL (130-400); RDW Coefficient of Variation 12.9 % (11.5-14.5); RDW Standard Deviation 41.8 fL (36.4-46.3); Red Blood Count 4.62 M/uL (4.7-6.1); White Blood Count 6.89 K/uL (4.8-10.8)
[2021-08-16 08:05] LABS: Estimated Average Glucose 108 mg/dl; Hemoglobin A1C 5.4 % (4.5-5.6)
--- NOTE | 2021-08-16 08:16 | Neurology Consultation ---
Date of Consultation August 16, 2021 Assessment & Plan (1) Right leg weakness: 1. continue aspirin 81 mg and plavix 75 mg daily 2. MRI brain with and without if able to tolerate 3. r/o infectious issues 4. optimize HLD, DM LDL <70 consider patients age. may need to allow high normal BP due to increased basilar stenosis 5. vascular input may be helpful 6. PT OT for discharge needs once medically stable ok to discharge. (2) History of CVA (cerebrovascular accident): Supervising Physician Co-Signing Physician Notes Patient was seen and examined this afternoon. at bedside. Discussed and agree ml Palma PA-C. A 81 year old mlae s/p pacemaker on ASa and Plavix with known basilar stenosis admitted with intermittent right leg weakness. Symptoms improved. History of similar symptoms in the past. Sensation is intact. No edema. No rash. Ankle dorsiflexion is 5/5. Hip flexion is normal. No ataxia with right leg. Recommend to continue home ASa and Plavix. unclear etiology of right leg difficulty. Symptms were brief. Recommend to continue outpatient PT and follow up ml Neuro in 8 weeks. History of Present Illness Reason for Consultation: RLE weakness Requesting Physician: Adia Cabrera DO Attending Physician: Adia Cabrera DO History of Present Illness Ferny is an 81 year old male with PMH-HTN, CKD III, history of pacemaker, chronic hyponatremia, CVA, anxiety, depression, Hx of prostate cancer, BPH, GERD, RLS presented to [facility] 08/15/21 with complaint of right leg weakness.He has chronic right leg weakness since last CVA. Uses cane to ambulate. 2 days prio to presentation he had increased right leg weakness and trouble ambulating. Getting out of bed in the am he was unable to ambulate. He had a fall in 05/2021 resulting in hospitalization without fracture and discharged to rehab. Since home ambulating with cane and no recurrent falls since.Since the fall he has been having bilateral hip pain, some days left hip is worse than right, other days right hip is worse than left. He is still having some left hip pain when trying to ambulate.He has had a chronic intermittent cough and post nasal drip He is having intermittant weakness at home and thinks he is now back to baseline. they have home physical therapy. He has been up to the bathroom since here with walker. denies CP, SOB ,abdominal pain, N, V vision changes. Allergies Allergy/AdvReac Type Severity Reaction Status Date / Time clarithromycin Allergy Intermediate rash Verified 08/15/21 11:50 lisinopril Allergy Unknown Unknown Verified 08/15/21 11:50 metoclopramide AdvReac Intermediate NIGHTMARES Verified 08/15/21 11:50 pantoprazole [From Protonix] AdvReac Intermediate GI upset Verified 08/15/21 11:50 prochlorperazine AdvReac Intermediate HYPER Verified 08/15/21 11:50 UNABLE TO TOLERATE SIDE EFFEDTS Home Medications Medication Instructions Recorded Confirmed Type tamsulosin 0.4 mg capsule (Flomax) 0.4 mg PO QAM 09/13/18 08/15/21 History aspirin 81 mg tablet,delayed 81 mg PO QAM 01/04/19 08/15/21 History release (Ecotrin Low Strength) losartan 100 mg tablet (Cozaar) 100 mg PO QAM 09/19/19 08/15/21 History rosuvastatin 20 mg tablet (Crestor) 20 mg PO QAM 08/06/20 08/15/21 History metoprolol succinate 25 mg 12.5 mg PO QAM 08/19/20 08/15/21 History tablet,extended release 24 hr (Toprol XL) clopidogrel 75 mg tablet (Plavix) 75 mg PO QAM 10/20/20 08/15/21 History ondansetron HCl 4 mg tablet 8 mg PO Q8 PRN 01/26/21 08/15/21 History sennosides 8.6 mg tablet (senna) 8.6 mg PO BID 02/06/21 08/15/21 History sodium chloride 1 gram tablet 1 g PO TID #30 tab 05/29/21 08/15/21 Rx cetirizine 10 mg tablet (Zyrtec) 10 mg PO HS 08/15/21 08/15/21 History gabapentin 300 mg capsule 300 mg PO HS 08/15/21 08/15/21 History hydroxyzine HCl 50 mg tablet 50 mg PO HS 08/15/21 08/15/21 History omeprazole 40 mg capsule,delayed 40 mg PO DAILY 08/15/21 08/15/21 History release ropinirole 0.5 mg tablet 0.5 mg PO HS 08/15/21 08/15/21 History trazodone 100 mg tablet 100 mg PO HS 08/15/21 08/15/21 History Patient History Medical History (Updated 08/15/21 @ 20:53 by Mita Mckeon PA-C) Anxiety BPH (benign prostatic hyperplasia) CKD (chronic kidney disease), stage III Depression Diverticulitis GERD (gastroesophageal reflux disease) HTN (hypertension) IBS (irritable bowel syndrome) Insomnia Pacemaker Prostate cancer "s/p radiation" RLS (restless legs syndrome) Sinus bradycardia Vasovagal syncope Surgical History History of bowel resection History of partial colectomy Hx of tonsillectomy Family History Brother Diabetes Daughter Asthma Social History Smoking Status: Former smoker Tobacco Type: Smokeless Tobacco (Dip or Chew) Second Hand Exposure: No; Do You Dip or Chew Tobacco: No; Tobacco Cessation Education Requested by Patient: No Hx Alcohol Use: No Hx Substance Use: No Preferred Language: Gibraltarian Communication Ability: Effective [place] Required: No Beliefs That Will Affect Care: None marital status: Current Living Situation: Spouse How many Children do You have: 2 Other Information That Helps Us Care for You: No Feels Safe at Home: Yes Safety Concerns: Feels Safe At This Time Assistive Devices: None Review of Systems Review of Systems: All systems reviewed & are unremarkable except as noted in HPI & below Physical Exam Physical Exam: Physical Exam: Constitutional:appearance nourished, healthy and normal, [place] Ears, Nose, Mouth and Throat: mucous membranes moist, no injection and skin normal, eyes normal Cardiovascular: normal S-1 and S-2 and regular rate and rhythm, pacemaker rhythemic Respiratory: clear to auscultation (CTA) and no rales, ronchi or wheeze Musculoskeletal: no peripheral edema Skin: no stigmata of neurocutaneous disease noted and normal and intact Eyes: extraocular muscles intact (EOMI) and pupils equal, round and reactive to light (PERRL) NEUROLOGIC EXAMINATION: Mental status: Alert and interactive Oriented to person Speech fluent with no evidence of aphasia Cranial Nerves smile eye brow raise symmetric Sensory: intact to light touch and cool, GT proprioception absent Coordination: finger to nose Gait/Stance: Posture normal. Gait normal: slow tandem gait Motor: no pronator drift Strength: hand stock control supervisor biceps triceps bilaterally 5/5, hip flex plantar flex ext 5/5 Results & Data ([facility]) Vital Signs (Past 12 Hours) Vital Signs Temp Pulse Pulse Pulse Resp BP Pulse Ox 08/16/21 07:08 64 08/16/21 06:41 37.0 C 64 18 128/72 94 08/16/21 02:55 37.1 C 66 18 114/62 96 08/16/21 00:00 71 08/15/21 20:59 36.8 C 65 16 191/82 H 96 08/15/21 20:55 69 Laboratory Results Abnormal lab results 08/15/21 08/15/21 08/16/21 Range/Units 12:01 12:01 07:31 RBC 4.62 L (4.7-6.1) M/uL Hct 41.1 L (42-52) % Lymph # (Auto) 0.82 L (1.2-3.4) K/uL Nelson # (Auto) 0.68 H (0.11-0.59) K/uL Sodium 128 L (136-145) mmol/L Chloride 96 L (98-107) mmol/L Glucose 100 H (70-99(Fasting)) mg/dl Globulin 2.4 L (2.5-4.0) gm/dl 08/16/21 Range/Units 07:31 RBC (4.7-6.1) M/uL Hct (42-52) % Lymph # (Auto) (1.2-3.4) K/uL Nelson # (Auto) (0.11-0.59) K/uL Sodium 129 L (136-145) mmol/L Chloride 96 L (98-107) mmol/L Glucose (70-99(Fasting)) mg/dl Globulin (2.5-4.0) gm/dl Diagnostic Findings CT head, CTA head, CTA neck- There is no hemorrhage, mass effect, or evidence of acute territorial ischemia by CT criteria. Unremarkable CT angiogram of the neck. 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 This has increased from 09/20/2019. The remaining intracranial vessels appear patent.
[2021-08-16 08:18] LABS: BUN Creatinine Ratio 12.2 (10-20); Calcium 8.9 mg/dl (8.5-10.1); Chol HDL Ratio 2.3 (0-5); Creatinine Clr Calc Pharmacy 48.7 ml/min; Est GFR (African American) 68.8 ml/min; Est GFR (Non-African American) 59.4 ml/min; Potassium 4.3 mmol/L (3.5-5.1)
[2021-08-16] MEDS: ASPIRIN 81 MG ECTAB PO SCH (08:27)
[2021-08-16] MEDS: SENNA 8.6 MG TAB PO SCH ×2 (08:28→20:15)
[2021-08-16] MEDS: LOSARTAN POTASSIUM 50 MG TAB PO SCH (08:28)
[2021-08-16] MEDS: ROSUVASTATIN CALCIUM 20 MG TAB PO SCH (08:28)
[2021-08-16] MEDS: FAMOTIDINE 20 MG TAB PO SCH ×2 (08:28→20:16)
[2021-08-16] MEDS: HEPARIN SOD 5,000 UNIT/0.5 ML VIAL SQ SCH ×2 (08:29→20:17)
[2021-08-16] MEDS: METOPROLOL SUCC 25MG EXT REL TAB PO SCH (08:29)
[2021-08-16] MEDS: SODIUM CHLORIDE 1 GM TABLET PO SCH ×3 (08:29→20:14)
[2021-08-16] MEDS: TAMSULOSIN HCL 0.4 MG CAP PO SCH (08:29)
[2021-08-16] MEDS: CLOPIDOGREL BISULFATE 75 MG TAB PO SCH (13:00)
--- NOTE | 2021-08-16 17:32 | Hospitalist Progress Note ---
Date of Service August 16, 2021 Assessment & Plan (1) Right leg weakness: Plan: This has resolved and per neurology, this was not a TIA or stroke. No change in antiplatelet therapy at this time. Cannot obtain MRI because of pacemaker presence. CTA with Focal high-grade stenosis of basilar artery which has increased from imaging 09/20/2019. This area is too high risk for any neurosurgical intervention. Cont medical management. Normal echo. Although workup is negative for stroke and RLE weakness has resolved, patient reports feeling not quite back to his baseline. Therefore, will continue to look into hyponatremia as a possible contribution to this episode of weakness and ensure PT and OT see him tomorrow, which was unable to happen today. (2) Abdominal pain: Plan: palpable pain in RLQ. He is eating and reports some loose stool that is "chronic". Trend exam in am and ensure improved otherwise will consider imaging. Wanted to avoid contrast enhanced imaging today given the CTA head and neck just yesterday. (3) Chronic hyponatremia: Plan: Na: 128. Baseline 128-131 but recently was 136 in June as outpatient. Sodium tabs were stopped two weeks ago and he has felt worse since this time. Sodium tabs were restarted on admission and will consult nephrology for assistance with thoughts here. Urine studies and [facility] serum osm to be checked in am. (4) Bilateral hip pain: Plan: Reported bilateral hip pain since fall in 05/2021. No fractures noted on CT imaging of pelvis then Today pelvis/hip x-ray: No acute fracture, no further workup at this time. (5) HTN (hypertension): Plan: chronic, stable. Continue losartan, metoprolol succinate (6) CKD (chronic kidney disease), stage III: Plan: chronic, stable and at baseline creatinine. Monitor renal function, avoid nephrotoxic agent possible (7) Prostate cancer: (8) BPH (benign prostatic hyperplasia): Plan: chronic, stable. Continue tamsulosin per home regimen. (9) RLS (restless legs syndrome): Plan: chronic, stable. Cont home meds. (10) DVT prophylaxis: Plan: Heparin Full Code Dispo-to home in am pending PT/OT and nephro recommendations. was at bedside and was updated real time. Adia Cabrera DO [facility] Hospitalist Admission and Anticipated Discharge Date Admission Date: August 15, 2021 Subjective 81 yo M presents with acute RLE weakness that has now resolved He reports feeling fine and wants to go home RLE weakness improved, but patient hasn't seen PT or OT yet When asked if he is walking at baseline he says no Also reports some RLQ pain during abdominal exam Reports some loose stools recently, once at home prior to arrival and twice today Oriented to person place and time presetn and feels him stopping sodium tabs caused this States reported to her "I think I had another stroke" a couple of days ago Patent is unable to elaborate on why he felt this way Patient feels worse since stopping Na tabs. Last outpatient Na was 136 on 06/27/21. Currently, 129. Review of Systems Review of Systems: All systems were reviewed and negative except as indicated on subjective above. Physical Exam Physical Exam: CONSTITUTIONAL: WNWD, vitals as above, generally well- appearing, NAD EYES: EOMI bilaterally, pupils are round and equal bilaterally, normal conjunctivae, no scleral icterus ENT: external ear and nose normal, MMM NECK: trachea midline, RESPIRATORY: clear to auscultation bilaterally, no crackles, rales or wheezes, normal respiratory effort CARDIOVASCULAR: regular rate and rhythm, S1 and 2 heard without murmurs, gallops or rubs, no JVD, no peripheral edema, CHEST: +pacemaker GASTROINTESTINAL: soft, TTP in RLQ, ND, no guarding MUSCULOSKELETAL: strength 5/5 throughout, head is normocephalic and atraumatic, gait not assessed. SKIN: warm and dry NEUROLOGIC: could not elicit patellar or Achilles DTR as patient was tensing. No facial palsy, no dysarthria. Touch, pain and proprioception normal. CN 2-12 grossly intact, no sensory deficit, normal cognition, normal speech, no tremor. No gross focal deficit. PSYCHIATRIC: alert cooperative and oriented to person, place and time. Slow to respond but accurate in his answers. Results & Data Results & Data ([facility]) Vital Signs (Past 12 Hours) Vital Signs Temp Pulse Pulse Resp BP Pulse Ox 08/16/21 15:04 37.1 C 65 20 143/75 H 95 08/16/21 11:28 36.7 C 63 20 155/73 H 94 08/16/21 07:08 64 08/16/21 06:41 37.0 C 64 18 128/72 94 Laboratory Results Short CBC 08/15/21 08/15/21 08/15/21 Range/Units 11:53 12:01 12:01 WBC (4.8-10.8) K/uL RBC 4.94 (4.7-6.1) M/uL Hgb (14.0-18.0) g/dL Hct (42-52) % MCV 88.3 (80-100) fL MCH 30.6 (25-34) pg MCHC 34.6 (32-36) g/dL RDW Std Deviation 41.3 (36.4-46.3) fL RDW Coeff of Regine 12.8 (11.5-14.5) % Plt Count (130-400) K/uL MPV 9.6 (7.4-10.4) fL Immature Gran % (Auto) 0.2 % Neut % (Auto) 74.6 % Lymph % (Auto) 12.4 % Stanton % (Auto) 8.8 % Eos % (Auto) 3.5 % Baso % (Auto) 0.5 % Neut # (Auto) 4.94 (1.4-6.5) K/uL Lymph # (Auto) 0.82 L (1.2-3.4) K/uL Stanton # (Auto) 0.58 (0.11-0.59) K/uL Eos # (Auto) 0.23 (0-0.5) K/uL Baso # (Auto) 0.03 (0-0.2) K/uL Immature Gran # (Auto) 0.01 (0.00-0.02) K/uL PT 11.0 (9.0-12.0) Seconds INR 1.0 (0.9-1.1) APTT 27.3 (21.0-31.0) Seconds PTT Ratio 1.0 Sodium (136-145) mmol/L Potassium (3.5-5.1) mmol/L Chloride (98-107) mmol/L Carbon Dioxide (21-32) mmol/L Anion Gap (3-11) BUN (6-23) mg/dl Creatinine (0.6-1.4) mg/dl Est Cr Clr Drug Dosing ml/min Est GFR ( Amer) ml/min Est GFR (Non-Af Amer) ml/min BUN/Creatinine Ratio (10-20) Glucose (70-99(Fasting)) mg/dl Estimat Average Glucose mg/dl Hemoglobin A1c (4.5-5.6) % Calcium (8.5-10.1) mg/dl Magnesium (1.7-2.4) mg/dl Total Bilirubin (0.2-1.0) mg/dl AST (13-39) U/L ALT (7-52) U/L Alkaline Phosphatase (34-104) U/L Troponin I High Sens (0-20) pg/ml Total Protein (6.0-8.3) gm/dl Albumin (3.4-5.0) gm/dl Globulin (2.5-4.0) gm/dl Albumin/Globulin Ratio (0.9-2) Triglycerides (0-150) mg/dl Cholesterol (0-200) mg/dl LDL Cholesterol, Calc mg/dl VLDL Cholesterol, Calc (0-30) mg/dl HDL Cholesterol mg/dl Cholesterol/HDL Ratio (0-5) SARS-CoV-2, RNA, NAAT NEGATIVE (NEGATIVE) 08/15/21 08/16/21 08/16/21 Range/Units 12:01 07:31 07:31 WBC 6.89 (4.8-10.8) K/uL RBC 4.62 L (4.7-6.1) M/uL Hgb 14.2 (14.0-18.0) g/dL Hct 41.1 L (42-52) % MCV 89.0 (80-100) fL MCH 30.7 (25-34) pg MCHC 34.5 (32-36) g/dL RDW Std Deviation 41.8 (36.4-46.3) fL RDW Coeff of Regine 12.9 (11.5-14.5) % Plt Count 141 (130-400) K/uL MPV 10.0 (7.4-10.4) fL Immature Gran % (Auto) 0.1 % Neut % (Auto) 63.5 % Lymph % (Auto) 20.6 % Stanton % (Auto) 9.9 % Eos % (Auto) 5.2 % Baso % (Auto) 0.7 % Neut # (Auto) 4.37 (1.4-6.5) K/uL Lymph # (Auto) 1.42 (1.2-3.4) K/uL Stanton # (Auto) 0.68 H (0.11-0.59) K/uL Eos # (Auto) 0.36 (0-0.5) K/uL Baso # (Auto) 0.05 (0-0.2) K/uL Immature Gran # (Auto) 0.01 (0.00-0.02) K/uL PT (9.0-12.0) Seconds INR (0.9-1.1) APTT (21.0-31.0) Seconds PTT Ratio Sodium 128 L 129 L (136-145) mmol/L Potassium 4.4 4.3 (3.5-5.1) mmol/L Chloride 96 L 96 L (98-107) mmol/L Carbon Dioxide 25 26 (21-32) mmol/L Anion Gap 7 7 (3-11) BUN 11 14 (6-23) mg/dl Creatinine 1.03 1.15 (0.6-1.4) mg/dl Est Cr Clr Drug Dosing 54.4 48.7 ml/min Est GFR ( Amer) 78.6 68.8 ml/min Est GFR (Non-Af Amer) 67.8 59.4 ml/min BUN/Creatinine Ratio 10.7 12.2 (10-20) Glucose 100 H 76 (70-99(Fasting)) mg/dl Estimat Average Glucose mg/dl Hemoglobin A1c (4.5-5.6) % Calcium 8.9 8.9 (8.5-10.1) mg/dl Magnesium 1.8 (1.7-2.4) mg/dl Total Bilirubin 0.8 (0.2-1.0) mg/dl AST 19 (13-39) U/L ALT 16 (7-52) U/L Alkaline Phosphatase 59 (34-104) U/L Troponin I High Sens 5.1 (0-20) pg/ml Total Protein 6.7 (6.0-8.3) gm/dl Albumin 4.3 (3.4-5.0) gm/dl Globulin 2.4 L (2.5-4.0) gm/dl Albumin/Globulin Ratio 1.8 (0.9-2) Triglycerides 80 (0-150) mg/dl Cholesterol 75 (0-200) mg/dl LDL Cholesterol, Calc 27 mg/dl VLDL Cholesterol, Calc 16 (0-30) mg/dl HDL Cholesterol 32 mg/dl Cholesterol/HDL Ratio 2.3 (0-5) SARS-CoV-2, RNA, NAAT (NEGATIVE) 08/16/21 Range/Units 07:31 WBC (4.8-10.8) K/uL RBC (4.7-6.1) M/uL Hgb (14.0-18.0) g/dL Hct (42-52) % MCV (80-100) fL MCH (25-34) pg MCHC (32-36) g/dL RDW Std Deviation (36.4-46.3) fL RDW Coeff of Regine (11.5-14.5) % Plt Count (130-400) K/uL MPV (7.4-10.4) fL Immature Gran % (Auto) % Neut % (Auto) % Lymph % (Auto) % Stanton % (Auto) % Eos % (Auto) % Baso % (Auto) % Neut # (Auto) (1.4-6.5) K/uL Lymph # (Auto) (1.2-3.4) K/uL Stanton # (Auto) (0.11-0.59) K/uL Eos # (Auto) (0-0.5) K/uL Baso # (Auto) (0-0.2) K/uL Immature Gran # (Auto) (0.00-0.02) K/uL PT (9.0-12.0) Seconds INR (0.9-1.1) APTT (21.0-31.0) Seconds PTT Ratio Sodium (136-145) mmol/L Potassium (3.5-5.1) mmol/L Chloride (98-107) mmol/L Carbon Dioxide (21-32) mmol/L Anion Gap (3-11) BUN (6-23) mg/dl Creatinine (0.6-1.4) mg/dl Est Cr Clr Drug Dosing ml/min Est GFR ( Amer) ml/min Est GFR (Non-Af Amer) ml/min BUN/Creatinine Ratio (10-20) Glucose (70-99(Fasting)) mg/dl Estimat Average Glucose 108 mg/dl Hemoglobin A1c 5.4 (4.5-5.6) % Calcium (8.5-10.1) mg/dl Magnesium (1.7-2.4) mg/dl Total Bilirubin (0.2-1.0) mg/dl AST (13-39) U/L ALT (7-52) U/L Alkaline Phosphatase (34-104) U/L Troponin I High Sens (0-20) pg/ml Total Protein (6.0-8.3) gm/dl Albumin (3.4-5.0) gm/dl Globulin (2.5-4.0) gm/dl Albumin/Globulin Ratio (0.9-2) Triglycerides (0-150) mg/dl Cholesterol (0-200) mg/dl LDL Cholesterol, Calc mg/dl VLDL Cholesterol, Calc (0-30) mg/dl HDL Cholesterol mg/dl Cholesterol/HDL Ratio (0-5) SARS-CoV-2, RNA, NAAT (NEGATIVE) BMP 08/16/21 07:31 Sodium 129 L Potassium 4.3 Chloride 96 L Carbon Dioxide 26 BUN 14 Creatinine 1.15 Glucose 76 Calcium 8.9 Medications Administered Current Inpatient Medications Acetaminophen (Acetaminophen 325 Mg Tab) 650 mg PO Q4H PRN PRN Reason: Pain or Fever Stop: 09/14/21 20:58 Aspirin (Aspirin 81 Mg Ectab) [address] [facility] Stop: 09/15/21 08:59 Last Admin: 08/16/21 08:27 Dose: 81 mg Documented by: Cetirizine HCl (Cetirizine Hcl 10 Mg Tablet) 10 mg PO [facility] Stop: 09/14/21 20:59 Last Admin: 08/15/21 22:10 Dose: 10 mg Documented by: Clopidogrel Bisulfate (Clopidogrel Bisulfate 75 Mg Tab) [address] [facility] Stop: 09/14/21 21:44 Last Admin: 08/16/21 13:00 Dose: 75 mg Documented by: Famotidine (Famotidine 20 Mg Tab) 20 mg PO BID [facility] Stop: 09/15/21 08:59 Last Admin: 08/16/21 08:28 Dose: 20 mg Documented by: Gabapentin (Gabapentin 300 Mg Cap) 300 mg PO [facility] Stop: 09/14/21 20:59 Last Admin: 08/15/21 22:12 Dose: 300 mg Documented by: Heparin Sodium (Porcine) (Heparin Sod 5,000 Unit/0.5 Ml Vial) 5,000 units SQ Q12 [facility] Stop: 09/14/21 20:59 Last Admin: 08/16/21 08:29 Dose: 5,000 units Documented by: Hydroxyzine HCl (Hydroxyzine Hcl 25 Mg Tab) 50 mg PO [facility] Stop: 09/14/21 20:59 Last Admin: 08/15/21 22:10 Dose: 50 mg Documented by: Losartan Potassium (Losartan Potassium 50 Mg Tab) [facility] Stop: 09/15/21 08:59 Last Admin: 08/16/21 08:28 Dose: 100 mg Documented by: Metoprolol Succinate (Metoprolol Succ 25mg Ext Rel Tab) 12.[facility] Stop: 09/15/21 08:59 Last Admin: 08/16/21 08:29 Dose: 12.5 mg Documented by: Miscellaneous Information (Pharmacist Discharge Med Rec Consult) 1 ea N/A UD PRN PRN Reason: Consult Stop: 09/14/21 20:58 Polyethylene Glycol (Polyethylene (Miralax) 17 Gm Pack) 17 gm PO DAILY PRN PRN Reason: Constipation Stop: 09/14/21 20:58 Ropinirole HCl (Ropinirole Hcl 0.25 Mg Tablet) 0.5 mg PO [facility] Stop: 09/14/21 20:59 Last Admin: 08/15/21 22:11 Dose: 0.5 mg Documented by: Rosuvastatin Calcium (Rosuvastatin Calcium 20 Mg Tab) 20 mg PO QAM [facility] Stop: 09/15/21 08:59 Last Admin: 08/16/21 08:28 Dose: 20 mg Documented by: Sennosides (Senna 8.6 Mg Tab) 8.6 mg PO BID [facility] Stop: 09/14/21 20:59 Last Admin: 08/16/21 08:28 Dose: 8.6 mg Documented by: Sodium Chloride (Sodium Chloride 1 Gm Tablet) 1 gm PO TID [facility] Stop: 09/14/21 20:59 Last Admin: 08/16/21 15:26 Dose: 1 gm Documented by: Sodium Chloride (Sodium Chloride 0.65% Na Soln 45 Ml ([place])) 2 sprays NA BID PRN PRN Reason: Nasal Congestion Stop: 09/15/21 05:03 Last Admin: 08/16/21 06:45 Dose: 2 sprays Documented by: Tamsulosin HCl (Tamsulosin Hcl 0.4 Mg Cap) 0.4 mg PO QAM [facility] Stop: 09/15/21 08:59 Last Admin: 08/16/21 08:29 Dose: 0.4 mg Documented by: Trazodone HCl (Trazodone Hcl 100 Mg Tab) 100 mg PO [facility] Stop: 09/14/21 20:59 Last Admin: 08/15/21 22:11 Dose: 100 mg Documented by:
[2021-08-16] MEDS: traZODone HCL 100 MG TAB PO SCH (20:14)
[2021-08-16] MEDS: hydrOXYzine HCl 25 MG TAB PO SCH (20:14)
[2021-08-16] MEDS: rOPINIRole HCL 0.25 MG TABLET PO SCH (20:15)
[2021-08-16] MEDS: GABAPENTIN 300 MG CAP PO SCH (20:16)
[2021-08-16] MEDS: CETIRIZINE HCL 10 MG TABLET PO SCH (20:17)
[2021-08-16 21:15] LABS: Creatinine Urine Random 82.4 mg/dl
--- NOTE | 2021-08-16 22:51 | Electrocardiogram Report ---
Test Reason : Blood Pressure : / mmHG Vent. Rate : 064 BPM Atrial Rate : 064 BPM P-R Int : 200 ms QRS Dur : 086 ms QT Int : 422 ms P-R-T Axes : 034 -06 053 degrees QTc Int : 435 ms Normal sinus rhythm Inferior infarct , age undetermined Possible Anterior infarct , age undetermined Abnormal ECG When compared with ECG of 30-MAR-2021 06:37, Sinus rhythm has replaced Electronic atrial pacemaker Inferior infarct is now Present Confirmed by Justin Etienne ([id number]) on 08/16/2021 10:50:34 PM Referred By: REFERRED SELF Confirmed By:Justin Etienne
[2021-08-17 06:38] LABS: BUN Creatinine Ratio 12.8 (10-20); Calcium 8.8 mg/dl (8.5-10.1); Creatinine Clr Calc Pharmacy 47.9 ml/min; Est GFR (African American) 67.4 ml/min; Est GFR (Non-African American) 58.1 ml/min; Potassium 4.2 mmol/L (3.5-5.1)
[2021-08-17] MEDS: FAMOTIDINE 20 MG TAB PO SCH (08:35)
[2021-08-17] MEDS: LOSARTAN POTASSIUM 50 MG TAB PO SCH (08:36)
[2021-08-17] MEDS: METOPROLOL SUCC 25MG EXT REL TAB PO SCH (08:36)
[2021-08-17] MEDS: ROSUVASTATIN CALCIUM 20 MG TAB PO SCH (08:36)
[2021-08-17] MEDS: ASPIRIN 81 MG ECTAB PO SCH (08:36)
[2021-08-17] MEDS: SENNA 8.6 MG TAB PO SCH (08:36)
[2021-08-17] MEDS: SODIUM CHLORIDE 1 GM TABLET PO SCH ×2 (08:36→14:57)
[2021-08-17] MEDS: TAMSULOSIN HCL 0.4 MG CAP PO SCH (08:36)
[2021-08-17] MEDS: HEPARIN SOD 5,000 UNIT/0.5 ML VIAL SQ SCH (08:40)
[2021-08-17] MEDS: CLOPIDOGREL BISULFATE 75 MG TAB PO SCH (10:34)
[2021-08-17] MEDS: rOPINIRole HCL 0.25 MG TABLET PO SCH (15:00)
--- NOTE | 2021-08-17 16:29 | Discharge Summary ---
Date of Service August 17, 2021 Admission HPI Per Admitting Provider Patient is 81 y/o M with PMH HTN, CKD III, history of pacemaker, chronic hyponatremia, CVA, anxiety, depression, Hx of prostate cancer, BPH, GERD, RLS presented to ER with complaint of right leg weakness. History is obtained from patient and patient's . Outpatient chart reviewed. Patient reports chronic right leg weakness reported since last CVA. Uses cane to ambulate. Patient states past 2 days with increased right leg weakness and trouble ambulating. Today upon awakening he was unable to ambulate secondary to right leg weakness. H/O fall in 05/2021 resulting in hospitalization without fracture and discharged to rehab. Since home ambulating with cane and no recurrent falls since. Patient states since fall has been having bilateral hip pain, some days left hip is worse than right, other days right hip is worse than left. Denies any current right hip pain. States having some left hip pain when trying to ambulate. Denies back pain. States chronic intermittent cough and post nasal drip, denies any increased cough. Denies fever/chills, diaphoresis, N/V/D/C, CHAMBERS, dizziness, syncope, vision changes, neck pain, CP, SOB, orthopnea, palpitations, sore throat, choking, otalgia, rhinorrhea, abdominal pain, paresthesias, extremity edema, rashes, urinary symptoms. In ER CT Head unremarkable. CTA Head and neck: No acute ischemia, no hemorrhage no mass. Focal high-grade stenosis of basilar artery which has increased from imaging 09/20/2019 ER Physician spoke to [facility] neurology who had recommended permissive hypertension and MRI if able. Discharge Exam CONSTITUTIONAL: WNWD, vitals as above, generally well-appearing, NAD EYES: EOMI bilaterally, pupils are round and equal bilaterally, normal conjunctivae, no scleral icterus ENT: external ear and nose normal, MMM NECK: trachea midline, RESPIRATORY: clear to auscultation bilaterally, no crackles, rales or wheezes, normal respiratory effort CARDIOVASCULAR: regular rate and rhythm, S1 and 2 heard without murmurs, gallops or rubs, no JVD, no peripheral edema, CHEST: +pacemaker GASTROINTESTINAL: soft, TTP in RLQ, ND, no guarding MUSCULOSKELETAL: strength 5/5 throughout, head is normocephalic and atraumatic, gait not assessed. SKIN: warm and dry NEUROLOGIC: could not elicit patellar or Achilles DTR as patient was tensing. No facial palsy, no dysarthria. Touch, pain and proprioception normal. CN 2-12 grossly intact, no sensory deficit, normal cognition, normal speech, no tremor. No gross focal deficit. PSYCHIATRIC: alert cooperative and oriented to person, place and time. Slow to respond but accurate in his answers. Discharge Data Allergies Allergy/AdvReac Type Severity Reaction Status Date / Time clarithromycin Allergy Intermediate rash Verified 08/15/21 11:50 lisinopril Allergy Unknown Unknown Verified 08/15/21 11:50 metoclopramide AdvReac Intermediate NIGHTMARES Verified 08/15/21 11:50 pantoprazole [From Protonix] AdvReac Intermediate GI upset Verified 08/15/21 11:50 prochlorperazine AdvReac Intermediate HYPER Verified 08/15/21 11:50 UNABLE TO TOLERATE SIDE EFFEDTS Consultations 08/15/21 14:22 ED Decision to Admit Stat 08/15/21 20:59 Consult Neurology Routine 08/16/21 17:21 Consult Nephrology Routine Ordered Studies 08/15/21 11:28 CT angio head w con Stat CT angio neck with con Stat CT head/brain wo con Stat Hospital Course (1) Right leg weakness: This has resolved and per neurology, this was not a TIA or stroke. No ch joy in antiplatelet therapy at this time. Cannot obtain MRI because of pacemaker presence. CTA with Focal high-grade stenosis of basilar artery which has increased from imaging 09/20/2019. This area is too high risk for any neurosurgical intervention. Cont medical management. Normal echo. Although workup is negative for stroke and RLE weakness has resolved, patient reports feeling not quite back to his baseline. Therefore, will continue to look into hyponatremia as a possible contribution to this episode of weakness and ensure PT and OT see him tomorrow, which was unable to happen today. (2) Abdominal pain: palpable pain in RLQ. He is eating and reports some loose stool that is "chronic". Trend exam in am and ensure improved otherwise will consider imaging. Wanted to avoid contrast enhanced imaging today given the CTA head and neck just yesterday. (3) Chronic hyponatremia: Na: 128. Baseline 128-131 but recently was 136 in June as outpatient. Sodium tabs were stopped two weeks ago and he has felt worse since this time. Sodium tabs were restarted on admission and will consult nephrology for assistance with thoughts here. Urine studies and [facility] serum osm to be checked in am. (4) Bilateral hip pain: Reported bilateral hip pain since fall in 05/2021. No fractures noted on CT imaging of pelvis then Today pelvis/hip x-ray: No acute fracture, no further workup at this time. (5) HTN (hypertension): chronic, stable. Continue losartan, metoprolol succinate (6) CKD (chronic kidney disease), stage III: chronic, stable and at baseline creatinine. Monitor renal function, avoid nephrotoxic agent possible (7) Prostate cancer: (8) BPH (benign prostatic hyperplasia): chronic, stable. Continue tamsulosin per home regimen. (9) RLS (restless legs syndrome): chronic, stable. Cont home meds. (10) DVT prophylaxis: Heparin Full Code Dispo-to home in am pending PT/OT and nephro recommendations. was at bedside and was updated real time. Adia Cabrera DO [facility] Hospitalist (11) SIADH (syndrome of inappropriate ADH production): Discharge Plan Discharge Items Patient Disposition: Home - Self-Care Reason For Visit: RLE WEAKNESS Discharge Diagnosis: RLE weakness chronic hyponatremia Condition on Discharge: Good Activity: Resume your previous activity Non-emergency contact: Primary Care Provider Call non-emergency contact if: you have any medication questions, your symptoms worsen, your pain is not controlled, your pain is worsening, your pain is unusual for you and your pain is concerning for you Follow-up/Referrals: Devora Gallagher MD [Primary Care Provider] - Diet: Heart Healthy Addtl Attending Provider Instructions: Please take all medications as instructed on discharge list below. Please continue salt tabs but lower to twice daily. Please consider followup [facility] Nephrology as outpatient while weaning off the salt tablets. It is recommended to follow-up with your primary care provider within one week of discharge from the hospital. Repeat blood work may be considered at this time and this will be to monitor your recovery progress since returning home. Also it will be important to evaluate if your lower abdominal discomfort has resolved. The CT scan on day of discharge did not reveal evidence of a cause for this. It was a pleasure taking care of you! Please call if you have any questions or problems. You can reach a [facility] hospitalist on duty at [facility] 24 hours a day by calling [phone]. Take care of yourself. Adia Cabrera DO [facility] Hospitalist Pending Studies at Discharge: No Stand-Alone Forms: [facility] Medications and DC Order Prescriptions: New sodium chloride 1 gram Tablet 1 g PO BID Qty: 60 RF: 0 Continued tamsulosin [Flomax] 0.4 mg Capsule 0.4 mg PO QAM RF: 0 aspirin [Ecotrin Low Strength] 81 mg Tablet,Delayed Release (Dr/Ec) 81 mg PO QAM RF: 0 losartan [Cozaar] 100 mg tablet 100 mg PO QAM RF: 0 clopidogrel [Plavix] 75 mg tablet 75 mg PO QAM RF: 0 cetirizine [Zyrtec] 10 mg Tablet 10 mg PO HS RF: 0 hydroxyzine HCl 50 mg tablet 50 mg PO HS RF: 0 omeprazole 40 mg capsule,delayed release(DR/EC) 40 mg PO DAILY RF: 0 trazodone 100 mg tablet 100 mg PO HS RF: 0 ropinirole 0.5 mg tablet 0.5 mg PO HS RF: 0 gabapentin 300 mg Capsule 300 mg PO HS RF: 0 rosuvastatin [Crestor] 20 mg tablet 20 mg PO QAM RF: 0 metoprolol succinate [Toprol XL] 25 mg tablet extended release 24 hr 12.5 mg PO QAM RF: 0 ondansetron HCl 4 mg tablet 8 mg PO Q8 PRN (Reason: Nausea) RF: 0 sennosides [senna] 8.6 mg Tablet 8.6 mg PO BID RF: 0 Discontinued sodium chloride 1 gram Tablet 1 g PO TID Qty: 30 RF: 0 Discharge Orders: Discharge Order (Routine); Ordered 08/17/21 Ordered By: Adia Cabrera Admission Data Admit Date/Time: 08/15/21 15:09 Attending Provider: Adia Cabrera Admit Provider: Nini Lennon Primary Care Provider: Devora Gallagher Other Providers: Nini Lennon ; Zuhair Chatterjee [facility] ; Olivier Rolon Roshan Other Interventions: Discharge Summary Assessment (RN) Last Done: 08/17/21 16:30
[2021-08-17] MEDS ORDERED: OPTIRAY 320 100ml IV ONE (17:29)
--- NOTE | 2021-08-17 18:09 | Consultation Report ---
NEPHROLOGY CONSULTATION NOTE DATE OF CONSULT: 08/17/2021 REASON FOR CONSULTATION: Hyponatremia. HISTORY OF PRESENT ILLNESS: The patient is an 81-year-old male who has known history of SIADH with c hronic hyponatremia of mild type, for at least the last 6 months. His serum sodium is usually in the 128-130 range. Previously on salt tablet which was stopped few weeks ago as an outpatient. The lj brock came to the hospital 2 days ago because of weakness predominantly on the right side. He has alr west been seen by Neurology and has been cleared for discharge. He was not having any nausea, vomiti ng, chest pain, shortness of breath, fever, chills, rigors, diarrhea or really any other symptoms ilda or to hospitalization. Serum sodium on admission was 128 and it is still 128, but that has been his baseline for a long time now. ALLERGIES: List was reviewed and is as per the H and P. MEDICATIONS: Home medication list was reviewed in detail and is as per the H and P. Of special inte rest, he was on sodium chloride tablet 1 g t.i.d. up until a few weeks ago. PAST MEDICAL AND SURGICAL HISTORY: Includes anxiety, BPH, chronic kidney disease stage II to stage I II, depression, diverticulitis, GERD, hypertension, chronic hyponatremia secondary to SIADH, status p ost pacemaker, status post radiation for prostate cancer, bowel resection, partial colectomy, tonsill ectomy. FAMILY HISTORY: Negative for renal disease or dialysis. SOCIAL HISTORY: The patient is and lives with his . He uses hearing aid and has to use walker for ambulation. He does not smoke at this time, but does use smokeless tobacco. No alcohol. REVIEW OF SYSTEMS: As detailed in HPI; unless stated, otherwise 12 systems reviewed and negative. PHYSICAL EXAMINATION: GENERAL: Elderly white male who is not in any overt respiratory distress. He is awake, alert, orien zoey x3. HEENT: Mucous membrane is moist. NECK: Supple. No jugular venous distention. CHEST: Bilaterally clear to auscultation. Decreased inspiratory effort. CARDIOVASCULAR: S1 and S2, regular. ABDOMEN: Soft, nontender. EXTREMITIES: Show no edema. VITAL SIGNS: Shows a blood pressure 130/62, pulse rate 65, temperature 36.9, 96% on room air. LABORATORY TEST: Serum sodium 128, potassium 4.2, chloride 96, BUN 15, creatinine 1.17. Serum osmol ality 270, calcium 8.8. Urine osmolality 549. Urine sodium 138. Chest x-ray, no CHF. ASSESSMENT AND PLAN: An 81-year-old male with chronic mild hyponatremia secondary to syndrome of naresh ppropriate secretion of antidiuretic hormone. He was admitted 2 days ago because of generalized weak ness, but predominantly on the right side. I have been consulted for hyponatremia. Hyponatremia: This is ongoing chronic problem. His serum sodium is usually in the 128-130 range. H owever, recent blood work done as an outpatient was right around normal range after which sodium chlo ride tablet was stopped. The patient does not drink much liquid, I did a detailed fluid interview an d it only comes around 50 ounces per day, which is reasonable. We do not need to lower the fluid int rené more than that. I would restart the sodium chloride tablet, but at a lower dose of 1 gram twice daily. His echocardiogram is very normal and does not have any issues with very high blood pressure or edema, so I believe we can continue with the salt tablet for the time being. Depending on his out patient blood work, we can consider tapering down the dose, but most likely he will need to be on james e dose of salt tablet. I did explain to the patient and his that the most important management of this is fluid restriction, which they are doing good anyway. Based on the urine osmolality of 549 , his syndrome of inappropriate secretion of antidiuretic hormone is quite significant. Thank you very much for the consult. Job ID: [id number]
--- NOTE | 2021-08-17 18:14 | CT Scan Report ---
CT abd pelvis IV con only CLINICAL HISTORY: RLQ pain COMPARISON STUDY: 05/24/2021 CT DOSE: 302.49 mGy.cm TECHNIQUE: Standard CT of the Abdomen and Pelvis was performed with IV contrast. A dose lowering jamal hnique was utilized adhering to the principles of ALARA. Contrast Volume: Optiray 320, 95 ml. The patient did not receive oral contrast. FINDINGS: Lung base: The lung bases are clear. Abdominal cavity: There is no evidence for abdominal mass, adenopathy or ascites. There is again a le ft inguinal hernia containing fluid. No bowel loop herniation is seen. Liver: There is homogeneous attenuation of the liver parenchyma. There is no evidence for enhancing m ass lesion. Spleen: There is homogeneous attenuation of the splenic parenchyma. There is no enhancing mass lesion . Pancreas: There is homogeneous attenuation of the pancreatic parenchyma. There is no evidence for mas s lesion or peripancreatic fluid collection. Gall Bladder: The gallbladder is well distended with no evidence for intraluminal calculi, wall thick ening or pericholecystic edema. Adrenal glands: The adrenal glands are normal in size and attenuation. There is no evidence for enhan cing mass lesion. Kidneys: There is homogeneous attenuation of the renal parenchyma bilaterally. There is again a nonob structing right renal calculus measuring approximately 6 mm. No other renal calculi or hydronephrosis are seen bilaterally. There is no evidence for enhancing mass. Bowel: The stomach is distended with liquid and food stuff. The bowel loops are normally placed withi n the abdomen and pelvis without evidence for dilatation or obstruction. There is no evidence for mas s lesion. There are no inflammatory changes present. There is no evidence for free air. Bladder: The bladder is within normal limits with no evidence for focal mass, calculus or diverticulu m. : There is no evidence for pelvic mass or adenopathy. There is no evidence for pelvic ascites. Radi otherapy seeds are seen in the prostate bed. Vasculature: There is no evidence for aneurysmal dilatation of the abdominal aorta. Atherosclerotic c alcification is present. Osseous structures: There is no acute osseous pathology. Degenerative changes are seen within the spi ne. IMPRESSION: 1. Stable nonobstructing right renal calculus. 2. Otherwise, no other acute intra-abdominal or pelvic abnormality. 3. Additional nonacute findings are delineated above. ACT 112: Negative or not required by law. Electronically signed by: Rico Geller M.D. 08/17/2021 6:12 PM
[2021-08-17] MEDS ORDERED: SODIUM CHLORIDE 1 GM TABLET PO SCH (21:00)
== END 2021-08-17 19:30 | disposition home health service (06) | DRG 645 ==
LOC: ED 11:17 → SUATTDRO 15:09 → 2N 15:09

== ENCOUNTER 2021-12-23 20:23 | Inpatient (IN) ==
--- NOTE | 2021-12-23 20:34 | Emergency Department Note ---
Impression & Plan Anxiety, Weakness, Hyponatremia, Hypertension ED Provider Note Provider: Davion Felipe MD DATE OF SERVICE: 12/23/2021 CHIEF COMPLAINT: Decreased urine output, intermittent abdominal pain, anxious, hypertension HISTORY OF PRESENT ILLNESS: Patient is a 81-year-old gentleman history of CVA, S IADH with hyponatremia, diverticulitis, GERD, IBS, anxiety presenting here today via ambulance from his home. Evidently states has had 3 to 4 hours of no urine output is concerned about this. Initially called EMS for this. Then states he is been having some intermittent abdominal pain particular last night although this resolved at the time of arrival. Patient denies any chest pain palpitation s. No sick contacts or URI symptoms reported. Patient states he feels quite anxious. Has some chronic weakness of his right leg which family states is baseline. Patient evidently has been having a bit of night sweats. Was recently at the doctor's office. Did recently started on a bit of lorazepam to help with anxiety. Family reports patient's had abdominal issues for years. REVIEW OF SYSTEMS: A total of 10 review of systems was obtained and negative except as stated above in the HPI. PAST MEDICAL HISTORY: As noted above MEDICATIONS: Reviewed home medications at bedside SOCIAL HISTORY: Lives at home with PHYSICAL EXAM: GENERAL: alert and oriented in no acute distress on stretcher although appears a bit anxious Head: normocephalic and atraumatic EYES: No injection, discharge or icterus. NECK: Trachea midline. ENT: Mucous membranes pink and moist. LUNGS: Airway patent. No retractions. Breath sounds clear with good air entry bilaterally. HEART: Regular rate and rhythm. No chest wall tenderness ABDOMEN: Soft and non-tender, without guarding or rebound. SKIN: Acyanotic, warm, dry, without rashes EXTREMITIES: Without swelling, tenderness or deformity NEUROLOGICAL: Hard of hearing. No obvious slurred speech. Some diminished strength of the right lower extremity. Moving hands freely without deficit here. No obvious aphasia. EK bpm atrially paced rhythm mildly prolonged AV conduction. No acute ST segment elevation or depression without PVC. QTc 443. CONTINUOUS CARDIAC MONITORING: was ordered and showed a heart rate of 60s-70s bpm in atrially paced rhythm Patient's laboratory studies and imaging reviewed. Differential includes Infection, dehydration, metabolic abnormality, hypo/hyperglycemia, electrolyte disturbance, anemia, hypoxia, cardiac sources, intracerebral event, toxicologic, neurologic, as well as other pathologies. IMPRESSION/MEDICAL DECISION MAKING: Nursing performed bladder scan without significant of retained urine. Has only been a small amount of time. Some anxiety and weakness although according to daughter this may be a bit more of a chronic issue. Some abdominal pain earlier but not significant at this time. Given his history and age and comorbidities we will do blood work and a CT scan to evaluate for occult intra-abdominal process or possible retention. Blood work here without leukocytosis or anemia. Stable renal function. No evidence of hepatitis or pancreatitis. No troponin elevation. Negative COVID. Sodium low at 128 and they state he has been taking his home sodium tablets. Patient is noted to be somewhat hypertensive here. Given dose of Ativan to see if this may improve his blood pressure as he is anxious. Sodium is in comparison to previous outpatient labs where is normal and 130s acutely low. This may be contributed why he is feeling off. Also blood pressure certainly elevated likely again to anxiety. Did urinate here. No Caban was inserted. CT of the abdomen pelvis without significant pathology. Given the sodium issue and anxiety with hypertension and his age and comorb idities concern for decline and will bring into the hospital for further optimization. DIAGNOSIS: Hyponatremia, anxiety, hypertension, weakness DISPOSITION: Hospitalist will evaluate Patient was agreeable with this plan. Preliminary Findings Only See Final Report For Complete Findings CT ABDOMEN & PELVIS Without Contrast: Comparison to August 17, 2021. There is a nonobstructive 6 mm calculus in the mid right kidney. The kidneys are otherwise unremarkable. No hydronephrosis or ureterolithiasis is seen. The urinary bladder is partially distended and unremarkable. The appendix is upper visible. Bowel loops are nondilated. There is diverticulosis of the left and sigmoid colon without signs of acute diverticulitis. No acute inflammatory changes are seen involving the bowel. The liver, gallbladder, pancreas, spleen, and adrenal glands are unremarkable. The aorta is mildly calcified but nondilated. There are brachytherapy seeds in the prostate gland. Mild degenerative changes in the spine. No acute fracture or subluxation is seen. Radiologist: Davion Miller MD Study ready at 21:32 and initial results transmitted at 21:48 Past Med/Surg History Medical History (Updated 12/24/21 @ 00:19 by Davion T Destinee, M.D.) Anxiety BPH (benign prostatic hyperplasia) Chronic hyponatremia CKD (chronic kidney disease), stage III Depression Diverticulitis GERD (gastroesophageal reflux disease) HTN (hypertension) IBS (irritable bowel syndrome) Insomnia Prostate cancer "s/p radiation" Right leg weakness Sinus bradycardia Vasovagal syncope Surgical History History of bowel resection History of partial colectomy Hx of tonsillectomy Family History Brother Diabetes Daughter Asthma Social History Smoking Status: Former smoker Tobacco Type: Cigarettes Second Hand Exposure: No; Hx Alcohol Use: No Hx Substance Use: No Preferred Language: Spanish Communication Ability: Effective Family Living Educator Required: No Beliefs That Will Affect Care: None marital status: Current Living Situation: Spouse How many Children do You have: 2 Feels Safe at Home: Yes Assistive Devices: None Allergies Allergies Allergy/AdvReac Type Severity Reaction Status Date / Time clarithromycin Allergy Intermediate rash Verified 12/23/21 23:02 lisinopril Allergy Unknown Unknown Verified 12/23/21 23:02 metoclopramide AdvReac Intermediate NIGHTMARES Verified 12/23/21 23:02 pantoprazole [From Protonix] AdvReac Intermediate GI upset Verified 12/23/21 23:02 prochlorperazine AdvReac Intermediate HYPER Verified 12/23/21 23:02 UNABLE TO TOLERATE SIDE EFFEDTS Home Meds Home Medications Medication Instructions Recorded Confirmed aspirin 81 mg tablet,delayed 81 mg PO QAM 01/04/19 12/23/21 release (Ecotrin Low Strength) losartan 100 mg tablet (Cozaar) 100 mg PO QAM 09/19/19 12/23/21 rosuvastatin 20 mg tablet (Crestor) 20 mg PO QAM 08/06/20 12/23/21 metoprolol succinate 25 mg 12.5 mg PO QAM 08/19/20 12/23/21 tablet,extended release 24 hr (Toprol XL) clopidogrel 75 mg tablet (Plavix) 75 mg PO QAM 10/20/20 12/23/21 ondansetron HCl 4 mg tablet 8 mg PO Q8 PRN Nausea 01/26/21 12/23/21 sennosides 8.6 mg tablet (senna) 8.6 mg PO BID 02/06/21 12/23/21 cetirizine 10 mg tablet (Zyrtec) 10 mg PO HS 08/15/21 12/23/21 omeprazole 40 mg capsule,delayed 40 mg PO QAM 08/15/21 12/23/21 release ropinirole 0.5 mg tablet 0.5 mg PO HS 08/15/21 12/23/21 trazodone 100 mg tablet 100 mg PO HS 08/15/21 12/23/21 famotidine 20 mg tablet 20 mg PO HS 12/23/21 12/23/21 lorazepam 0.5 mg tablet 0.5 mg PO .Q2D/UD PRN Insomnia 12/23/21 12/23/21 sodium chloride 1 gram tablet 1 g PO QAM 12/23/21 12/23/21 tamsulosin 0.4 mg capsule 0.4 mg PO DAILY 12/24/21 12/24/21 Results & Data (ED) Vital Signs Vital Signs - 24 hr 12/23/21 20:33 12/23/21 20:31 12/23/21 20:31 Temperature 36.4 C L 36.4 C L Temperature Source Oral Oral Pulse Rate 67 Pulse Rate [Apical] 64 Pulse Rhythm [Apical] Pulse Strength [Apical] Respiratory Rate 14 20 Respiratory Effort / Characteristics Non-Labored Spontaneous Non-Labored Spontaneous Respiratory Depth Normal Normal Respiratory Pattern Regular Regular Blood Pressure 216/115 H Blood Pressure [Left Arm] 190/109 H Blood Pressure Mean 148 Blood Pressure Mean [Left Arm] 136 Blood Pressure Position [Left Arm] Pulse Oximetry 95 94 94 Oxygen Delivery Method Room Air Room Air Room Air Sepsis Recent Fever Within 48 Hours No Sepsis New/Unexplained Change in Mental Status No Sepsis Action Taken by Nursing No Action Required 12/23/21 21:31 12/23/21 22:56 12/23/21 23:11 Temperature Temperature Source Pulse Rate Pulse Rate [Apical] 62 61 61 Pulse Rhythm [Apical] Regular Pulse Strength [Apical] Normal Respiratory Rate 22 20 Respiratory Effort / Characteristics Non-Labored Spontaneous Non-Labored Spontaneous Respiratory Depth Normal Normal Respiratory Pattern Regular Regular Blood Pressure Blood Pressure [Left Arm] 209/95 H 203/105 H 192/84 H Blood Pressure Mean Blood Pressure Mean [Left Arm] 133 137 120 Blood Pressure Position [Left Arm] Sitting Pulse Oximetry 96 95 Oxygen Delivery Method Room Air Room Air Sepsis Recent Fever Within 48 Hours Sepsis New/Unexplained Change in Mental Status Sepsis Action Taken by Nursing Laboratory Data Result diagrams: 12/23/21 20:56 12/23/21 20:56 Lab Results 12/23/21 12/23/21 12/23/21 Range/Units 20:43 20:56 20:56 WBC 6.94 (4.8-10.8) K/ul RBC 5.21 (4.63-6.08) M/uL Hgb 16.2 (14.0-18.0) g/dl Hct 45.1 (40.1-51.0) % MCV 86.6 (80.0-100.0) fL MCH 31.1 (25.0-34.0) pg MCHC 35.9 (32.0-36.0) g/dL RDW Std Deviation 38.3 (36.4-46.3) fL RDW Coeff of Regine 12.0 (11.5-14.5) % Plt Count 134 (130-400) K/uL MPV 10.2 (9.4-12.4) fL Immature Gran % (Auto) 0.1 % Neut % (Auto) 70.3 % Lymph % (Auto) 17.6 % [place] % (Auto) 9.8 % Eos % (Auto) 1.6 % Baso % (Auto) 0.6 % Neut # (Auto) 4.88 (1.4-6.5) K/uL Lymph # (Auto) 1.22 (1.2-3.4) K/uL [place] # (Auto) 0.68 (0.24-0.82) K/uL Eos # (Auto) 0.11 (0-0.50) K/uL Baso # (Auto) 0.04 (0-0.2) K/uL Immature Gran # (Auto) 0.01 (0.00-0.02) K/uL Echinocytes 1+ Sodium 128 L (136-145) mmol/L Potassium 3.8 (3.5-5.1) mmol/L Chloride 95 L (98-107) mmol/L Carbon Dioxide 26 (21-32) mmol/L Anion Gap 7 (3-11) BUN 15 (6-23) mg/dl Creatinine 1.05 (0.6-1.4) mg/dl Est Cr Clr Drug Dosing 57.9 ml/min Est GFR ( Amer) 76.8 ml/min Est GFR (Non-Af Amer) 66.3 ml/min BUN/Creatinine Ratio 14.3 (10-20) Glucose 120 H (70-99(Fasting)) mg/dl Osmolality (280-300) mOsm/kg Calcium 9.4 (8.5-10.1) mg/dl Magnesium 1.8 (1.7-2.4) mg/dl Total Bilirubin 0.9 (0.2-1.0) mg/dl AST 22 (13-39) U/L ALT 23 (7-52) U/L Alkaline Phosphatase 58 (34-104) U/L Troponin I High Sens 6.1 (0-20) pg/ml Total Protein 7.2 (6.0-8.3) gm/dl Albumin 4.6 (3.4-5.0) gm/dl Globulin 2.6 (2.5-4.0) gm/dl Albumin/Globulin Ratio 1.8 (0.9-2) TSH (0.300-4.500) uIu/ml Urine Color Urine Appearance (Clear) Urine pH (4.5-7.5) Ur Specific [place] (1.000-1.030) Urine Protein (Negative) Urine Glucose (UA) (Negative) Urine Ketones (Negative) Urine Blood (Negative) Urine Nitrite (Negative) Urine Bilirubin (Negative) Urine Urobilinogen (Negative) Ur Leukocyte Esterase (Negative) Urine WBC (Auto) (0-5) /hpf Urine RBC (Auto) (0-4) /hpf U Hyaline Cast (Auto) (0-5) /lpf U Epithel Cells (Auto) (0-5) /lpf Urine Bacteria (Auto) (Negative) Urine Osmolality (500-800) mOsm/kg SARS-CoV-2, RNA, NAAT NEGATIVE (NEGATIVE) 12/23/21 12/23/21 12/23/21 Range/Units 20:56 21:59 21:59 WBC (4.8-10.8) K/ul RBC (4.63-6.08) M/uL Hgb (14.0-18.0) g/dl Hct (40.1-51.0) % MCV (80.0-100.0) fL MCH (25.0-34.0) pg MCHC (32.0-36.0) g/dL RDW Std Deviation (36.4-46.3) fL RDW Coeff of Regine (11.5-14.5) % Plt Count (130-400) K/uL MPV (9.4-12.4) fL Immature Gran % (Auto) % Neut % (Auto) % Lymph % (Auto) % [place] % (Auto) % Eos % (Auto) % Baso % (Auto) % Neut # (Auto) (1.4-6.5) K/uL Lymph # (Auto) (1.2-3.4) K/uL [place] # (Auto) (0.24-0.82) K/uL Eos # (Auto) (0-0.50) K/uL Baso # (Auto) (0-0.2) K/uL Immature Gran # (Auto) (0.00-0.02) K/uL Echinocytes Sodium (136-145) mmol/L Potassium (3.5-5.1) mmol/L Chloride (98-107) mmol/L Carbon Dioxide (21-32) mmol/L Anion Gap (3-11) BUN (6-23) mg/dl Creatinine (0.6-1.4) mg/dl Est Cr Clr Drug Dosing ml/min Est GFR ( Amer) ml/min Est GFR (Non-Af Amer) ml/min BUN/Creatinine Ratio (10-20) Glucose (70-99(Fasting)) mg/dl Osmolality (280-300) mOsm/kg Calcium (8.5-10.1) mg/dl Magnesium (1.7-2.4) mg/dl Total Bilirubin (0.2-1.0) mg/dl AST (13-39) U/L ALT (7-52) U/L Alkaline Phosphatase (34-104) U/L Troponin I High Sens (0-20) pg/ml Total Protein (6.0-8.3) gm/dl Albumin (3.4-5.0) gm/dl Globulin (2.5-4.0) gm/dl Albumin/Globulin Ratio (0.9-2) TSH 2.876 (0.300-4.500) uIu/ml Urine Color Yellow Urine Appearance Clear (Clear) Urine pH 6.5 (4.5-7.5) Ur Specific [place] 1.018 (1.000-1.030) Urine Protein 1+ H (Negative) Urine Glucose (UA) Negative (Negative) Urine Ketones Negative (Negative) Urine Blood Trace H (Negative) Urine Nitrite Negative (Negative) Urine Bilirubin Negative (Negative) Urine Urobilinogen Negative (Negative) Ur Leukocyte Esterase Negative (Negative) Urine WBC (Auto) 1-5 (0-5) /hpf Urine RBC (Auto) 5-10 H (0-4) /hpf U Hyaline Cast (Auto) 0 (0-5) /lpf U Epithel Cells (Auto) 0-5 (0-5) /lpf Urine Bacteria (Auto) Negative (Negative) Urine Osmolality 504 (500-800) mOsm/kg SARS-CoV-2, RNA, NAAT (NEGATIVE) 12/23/21 Range/Units 22:40 WBC (4.8-10.8) K/ul RBC (4.63-6.08) M/uL Hgb (14.0-18.0) g/dl Hct (40.1-51.0) % MCV (80.0-100.0) fL MCH (25.0-34.0) pg MCHC (32.0-36.0) g/dL RDW Std Deviation (36.4-46.3) fL RDW Coeff of Regine (11.5-14.5) % Plt Count (130-400) K/uL MPV (9.4-12.4) fL Immature Gran % (Auto) % Neut % (Auto) % Lymph % (Auto) % [place] % (Auto) % Eos % (Auto) % Baso % (Auto) % Neut # (Auto) (1.4-6.5) K/uL Lymph # (Auto) (1.2-3.4) K/uL [place] # (Auto) (0.24-0.82) K/uL Eos # (Auto) (0-0.50) K/uL Baso # (Auto) (0-0.2) K/uL Immature Gran # (Auto) (0.00-0.02) K/uL Echinocytes Sodium (136-145) mmol/L Potassium (3.5-5.1) mmol/L Chloride (98-107) mmol/L Carbon Dioxide (21-32) mmol/L Anion Gap (3-11) BUN (6-23) mg/dl Creatinine (0.6-1.4) mg/dl Est Cr Clr Drug Dosing ml/min Est GFR ( Amer) ml/min Est GFR (Non-Af Amer) ml/min BUN/Creatinine Ratio (10-20) Glucose (70-99(Fasting)) mg/dl Osmolality 269 L (280-300) mOsm/kg Calcium (8.5-10.1) mg/dl Magnesium (1.7-2.4) mg/dl Total Bilirubin (0.2-1.0) mg/dl AST (13-39) U/L ALT (7-52) U/L Alkaline Phosphatase (34-104) U/L Troponin I High Sens (0-20) pg/ml Total Protein (6.0-8.3) gm/dl Albumin (3.4-5.0) gm/dl Globulin (2.5-4.0) gm/dl Albumin/Globulin Ratio (0.9-2) TSH (0.300-4.500) uIu/ml Urine Color Urine Appearance (Clear) Urine pH (4.5-7.5) Ur Specific [place] (1.000-1.030) Urine Protein (Negative) Urine Glucose (UA) (Negative) Urine Ketones (Negative) Urine Blood (Negative) Urine Nitrite (Negative) Urine Bilirubin (Negative) Urine Urobilinogen (Negative) Ur Leukocyte Esterase (Negative) Urine WBC (Auto) (0-5) /hpf Urine RBC (Auto) (0-4) /hpf U Hyaline Cast (Auto) (0-5) /lpf U Epithel Cells (Auto) (0-5) /lpf Urine Bacteria (Auto) (Negative) Urine Osmolality (500-800) mOsm/kg SARS-CoV-2, RNA, NAAT (NEGATIVE) Administered Medications Discontinued Medications Lorazepam (Lorazepam 0.5 Mg Tab) 0.5 mg PO NOW STA Stop: 12/23/21 22:33 Last Admin: 12/23/21 22:41 Dose: 0.5 mg Documented By: MED Discharge Plan Visit Data Chief Complaint: Weakness Stated Complaint: UNABLE TO URINATE/WEAKNESS ED Provider: Davion Felipe Discharge Problem: Anxiety, Weakness, Hyponatremia, Hypertension Patient Disposition: Admitted As Inpatient Forms Stand Alone Forms: My [facility] Prescriptions Prescriptions: No Action aspirin [Ecotrin Low Strength] 81 mg Tablet,Delayed Release (Dr/Ec) 81 mg PO QAM losartan [Cozaar] 100 mg tablet 100 mg PO QAM clopidogrel [Plavix] 75 mg tablet 75 mg PO QAM cetirizine [Zyrtec] 10 mg Tablet 10 mg PO HS omeprazole 40 mg capsule,delayed release(DR/EC) 40 mg PO QAM Rx Instructions: MUST BE NAME BRAND trazodone 100 mg tablet 100 mg PO HS ropinirole 0.5 mg tablet 0.5 mg PO HS rosuvastatin [Crestor] 20 mg tablet 20 mg PO QAM metoprolol succinate [Toprol XL] 25 mg tablet extended release 24 hr 12.5 mg PO QAM ondansetron HCl 4 mg tablet 8 mg PO Q8 PRN (Reason: Nausea) sennosides [senna] 8.6 mg Tablet 8.6 mg PO BID famotidine 20 mg tablet 20 mg PO HS lorazepam 0.5 mg tablet 0.5 mg PO .Q2D/UD PRN (Reason: Insomnia) Rx Instructions: take one tablet every other day at hs sodium chloride 1 gram tablet 1 g PO QAM tamsulosin 0.4 mg capsule 0.4 mg PO DAILY Referrals Referrals: Devora Gallagher MD [Primary Care Provider] -
[2021-12-23 21:19] LABS: Hematocrit (blood only) 45.1 % (40.1-51.0); Hemoglobin 16.2 g/dl (14.0-18.0); Mean Corpuscular Hemoglobin 31.1 pg (25.0-34.0); Mean Corpuscular Hgb Conc 35.9 g/dL (32.0-36.0); Mean Corpuscular Volume 86.6 fL (80.0-100.0); Mean Platelet Volume 10.2 fL (9.4-12.4); Platelet Count 134 K/uL (130-400); RDW Standard Deviation 38.3 fL (36.4-46.3); Red Blood Count 5.21 M/uL (4.63-6.08); White Blood Count 6.94 K/ul (4.8-10.8)
[2021-12-23 21:32] LABS: Troponin I High Sensitivity 6.1 pg/ml (0-20)
[2021-12-23 21:33] LABS: Basophils # (auto) 0.04 K/uL (0-0.2); Basophils % (auto) 0.6 %; Echinocytes 1+; Eosinophils # (auto) 0.11 K/uL (0-0.50); Eosinophils % (auto) 1.6 %; Immature Granulocytes # (auto) 0.01 K/uL (0.00-0.02); Immature Granulocytes % (auto) 0.1 %; Lymphocytes # (auto) 1.22 K/uL (1.2-3.4); Lymphocytes % (auto) 17.6 %; Monocytes # (auto) 0.68 K/uL (0.24-0.82); Monocytes % (auto) 9.8 %; Neutrophils # (auto) 4.88 K/uL (1.4-6.5); Neutrophils % (auto) 70.3 %
[2021-12-23 21:36] LABS: Albumin Globulin Ratio 1.8 (0.9-2); Albumin Level 4.6 gm/dl (3.4-5.0); BUN Creatinine Ratio 14.3 (10-20); Bilirubin,Total 0.9 mg/dl (0.2-1.0); Calcium 9.4 mg/dl (8.5-10.1); Creatinine Clr Calc Pharmacy 57.9 ml/min; Est GFR (African American) 76.8 ml/min; Est GFR (Non-African American) 66.3 ml/min; Globulin 2.6 gm/dl (2.5-4.0); Magnesium 1.8 mg/dl (1.7-2.4); Potassium 3.8 mmol/L (3.5-5.1); Total Protein 7.2 gm/dl (6.0-8.3)
[2021-12-23 22:32] LABS: Appearance Urine Clear (Clear); Bacteria Urine Automated Negative (Negative); Bilirubin Urine Negative (Negative); Blood Urine Trace (Negative); Cast Urine Automated 0 /lpf (0-5); Color Urine Yellow; Epithelial Cell Urine Auto 0-5 /lpf (0-5); Glucose Urine UA Negative (Negative); Ketones Urine Negative (Negative); Leukocyte Esterase Urine Negative (Negative); Nitrite Urine Negative (Negative); Protein Urine 1+ (Negative); Specific Gravity Urine 1.018 (1.000-1.030); Urobilinogen Urine Negative (Negative); pH Urine 6.5 (4.5-7.5)
[2021-12-23] MEDS ORDERED: LORazepam 0.5 MG TAB PO STA (22:32)
[2021-12-24] MEDS ORDERED: NITROGLYCERIN SL 0.4 MG/TAB TAB SL PRN (01:23)
[2021-12-24] MEDS ORDERED: ACETAMINOPHEN 325 MG TAB PO PRN (01:23)
[2021-12-24] MEDS ORDERED: ONDANSETRON INJ 2 MG/ML 2 ML VIAL IV PRN (01:23)
[2021-12-24] MEDS ORDERED: hydrALAZINE HCL 20 MG/ML VIAL IV PRN (01:23)
[2021-12-24] MEDS: traZODone HCL 100 MG TAB PO SCH ×2 (02:10→20:12)
[2021-12-24] MEDS: ENOXAPARIN INJ 40 MG/0.4 ML SYR SQ SCH ×2 (02:11→22:14)
--- NOTE | 2021-12-24 02:13 | History and Physical Report ---
DATE OF ADMISSION: 12/23/2021. CHIEF COMPLAINT: Weakness and anxiety. HISTORY OF PRESENT ILLNESS: This is an 81-year-old male with past medical history significant for hypertension, chronic kidney disease stage III, history of chronic hyponatremia, history of CVA, anxiety, depression, history of prostate cancer, history of sick sinus syndrome, status post pacemaker, irritable bowel syndrome, BPH, history of restless legs syndrome, history of ascending aortic dilatation, who lives at home with his , ambulates with a walker, comes because of weakness and ambulatory dysfunction going on for a couple of days and also is feeling anxious. In ER his blood pressure is running somewhat high. His sodium came back as 128. His sodium was 136 a few days back on 12/20/2021. He is on salt tablets 1 g daily. He says he is taking it for a long time. Actually in August, he was discharged with b.i.d. dose, but seems he is taking 1 tablet now. Denies any abdominal pain. He is somewhat nauseous, but no vomiting, no diarrhea or constipation. He has prostate issues and sometimes he has difficulty to pee. Today was having some difficulty to micturate. In the ER, on bladder scan there was no significant retained urine. He said appetite is somewhat down last few days. Denies any chest pain, no shortness of breath, no cough. He has some runny nose going on for a week. Denies any headache, no dizziness, no blurred visions, no earache, no sore throat, no difficulty swallowing. Currently, resting comfortably and hemodynamically stable. ALLERGIES: CLARITHROMYCIN, LISINOPRIL, METOCLOPRAMIDE, PROTONIX, PROCHLORPERAZINE. PAST MEDICAL HISTORY: As mentioned above. PAST SURGICAL HISTORY: Colonoscopy, colonoscopy with biopsy, cystoscopy, EGD, EGD with biopsy, punch needle biopsy of the prostate, partial removal of colon in 2006, appendectomy, tonsillectomy, small bowel endoscopy. MEDICATIONS: The patient is on aspirin 81 mg p.o. daily, Zyrtec 10 mg p.o. at bedtime, Plavix 75 mg p.o. a.m., famotidine 20 mg p.o. at bedtime, Ativan p.r.n. 0.5 mg, losartan 100 mg p.o. daily, metoprolol succinate 12.5 mg p.o. a.m., omeprazole 40 mg p.o. a.m., Zofran 8 mg p.o. q. 8 hours p.r.n., ropinirole 0.5 mg p.o. at bedtime, lovastatin 20 mg p.m., Senna 8.6 mg p.o. b.i.d., sodium chloride 1 g p.o. daily, trazodone 100 mg p.o. at bedtime. FAMILY HISTORY: Significant for daughter has allergies, asthma; brother has thrombosis; uncle has pancreatic cancer. SOCIAL HISTORY: . Quit smoking in 1971. Smoked 1 pack a day for 30 years. No alcohol use. No drug use. REVIEW OF SYSTEMS: As per HPI. Rest of the review of systems is negative. PHYSICAL EXAMINATION: GENERAL: The patient is of moderate build, not in acute distress. VITAL SIGNS: Temperature 36.4, pulse 61, respiratory rate 20, blood pressure 192/84, oxygen 94% on room air. HEENT: Pupils equal, round and reactive to light. Oral mucosa moist. NECK: No JVD, no neck masses. CARDIOVASCULAR: S1 and S2 heard. Regular rate and rhythm. No murmur, no gallop. RESPIRATORY SYSTEM: Normal AP diameter. No accessory muscle use. No wheezing, no crackles. ABDOMEN: Soft, bowel sounds present, nontender, no distention. CENTRAL NERVOUS SYSTEM: Alert and oriented. No facial droop. Speech is clear. Insight is okay. Obeys simple commands. Moves extremities. EXTREMITIES: No edema, no erythema. LABORATORY DATA: WBC 6.9, hemoglobin 16.2, hematocrit 45.1, platelets 134. Sodium 128, potassium 3.8, chloride 95, bicarbonate 26, BUN 15, creatinine 1.05. Serum glucose 120. Osmolality 269, calcium 9.4, magnesium 1.8, total bilirubin 0.9, AST 22, ALT 23, alkaline phosphatase 58. Troponin I high sensitivity 6.1. TSH is 2.8. Urinalysis negative. Urine osmolality 500. SARS-CoV-2 rapid test negative. IMAGING DATA: CT of the abdomen and pelvis without contrast, there is a nonobstructive 6 mm calculus on the mid right kidney. No hydronephrosis or ureterolithiasis are seen. Brachytherapy seeds in the prostate gland, diverticulosis of the left sigmoid colon. No acute findings. EKG: Atrial paced rhythm with a prolonged AV conduction at a rate of 71. ASSESSMENT AND PLAN: This 81-year-old male presents with weakness and anxiety and hyponatremia. 1. Weakness. Hyponatremia: Sodium of 128. He is on sodium tablets, which he is taking. Possible SIADH. We will place on fluid restriction of 1500 mL per day. Continue sodium tablets. His weakness could be from his low sodium. It was normal a few days back on 12/20/2021. Will consult Nephrology for further recommendations. Follow closely the labs. PT/OT when stable. 2. Anxiety: We will monitor for now. Continue his home Ativan as needed. 3. Hypertension: Blood pressure is elevated. Continue his home losartan, metoprolol succinate. We will monitor his blood pressure. Placed him on hydralazine p.r.n. for now. 4. History of sick sinus syndrome : Status post pacemaker. 5. Benign prostatic hyperplasia: On Flomax. Monitor for any urinary retention. 6. Chronic kidney disease stage III: Currently with creatinine of 1.05. Will follow the labs. 7. Restless legs syndrome: Continue ropinirole. 8. History of cerebrovascular accident: On aspirin, Plavix and statin. 9. Gastroesophageal reflux disease: On omeprazole and famotidine. 10. Deep venous thrombosis prophylaxis: Placed on Lovenox. DISPOSITION: Closely monitor in the med tele. PT/OT prior to discharge. Social service to help with discharge planning. Level 1 full code. Job ID: [id number] MTDD
[2021-12-24] MEDS: LORazepam 0.5 MG TAB PO PRN ×2 (04:25→22:14)
[2021-12-24 06:17] LABS: Basophils # (auto) 0.06 K/uL (0-0.2); Basophils % (auto) 0.7 %; Eosinophils # (auto) 0.26 K/uL (0-0.50); Eosinophils % (auto) 3.1 %; Hematocrit (blood only) 43.7 % (40.1-51.0); Hemoglobin 15.5 g/dl (14.0-18.0); Immature Granulocytes # (auto) 0.02 K/uL (0.00-0.02); Immature Granulocytes % (auto) 0.2 %; Lymphocytes # (auto) 1.97 K/uL (1.2-3.4); Lymphocytes % (auto) 23.2 %; Mean Corpuscular Hemoglobin 30.6 pg (25.0-34.0); Mean Corpuscular Hgb Conc 35.5 g/dL (32.0-36.0); Mean Corpuscular Volume 86.4 fL (80.0-100.0); Mean Platelet Volume 10.1 fL (9.4-12.4); Monocytes # (auto) 0.77 K/uL (0.24-0.82); Monocytes % (auto) 9.1 %; Neutrophils % (auto) 63.7 %; Platelet Count 145 K/uL (130-400); RDW Coefficient of Variation 11.9 % (11.5-14.5); RDW Standard Deviation 37.9 fL (36.4-46.3); Red Blood Count 5.06 M/uL (4.63-6.08); White Blood Count 8.48 K/ul (4.8-10.8)
[2021-12-24] MEDS ORDERED: rOPINIRole HCL 0.25 MG TABLET PO ONE (06:35)
[2021-12-24 06:45] LABS: BUN Creatinine Ratio 14.3 (10-20); Calcium 9.2 mg/dl (8.5-10.1); Creatinine Clr Calc Pharmacy 53.4 ml/min; Est GFR (African American) 76.8 ml/min; Est GFR (Non-African American) 66.3 ml/min; Magnesium 1.7 mg/dl (1.7-2.4); Potassium 3.6 mmol/L (3.5-5.1)
--- NOTE | 2021-12-24 08:09 | Electrocardiogram Report ---
Test Reason : Blood Pressure : / mmHG Vent. Rate : 071 BPM Atrial Rate : 071 BPM P-R Int : 248 ms QRS Dur : 088 ms QT Int : 408 ms P-R-T Axes : 024 -02 066 degrees QTc Int : 443 ms Atrial-paced rhythm with prolonged AV conduction Old Inferior infarct (cited on or before 15-AUG-2021) Abnormal ECG When compared with ECG of 15-AUG-2021 11:37, Electronic atrial pacemaker has replaced Sinus rhythm Confirmed by Mukesh Jay ([id number]) on 12/24/2021 8:09:04 AM Referred By: REFERRED SELF Confirmed By:Mukesh Jay
--- NOTE | 2021-12-24 08:09 | Electrocardiogram Report ---
Test Reason : Blood Pressure : / mmHG Vent. Rate : 064 BPM Atrial Rate : 064 BPM P-R Int : 204 ms QRS Dur : 088 ms QT Int : 446 ms P-R-T Axes : 046 -01 041 degrees QTc Int : 460 ms Normal sinus rhythm Normal ECG When compared with ECG of 23-DEC-2021 20:33, Sinus rhythm has replaced Electronic atrial pacemaker Criteria for Inferior infarct no longer present Confirmed by Mukesh Jay ([id number]) on 12/24/2021 8:09:34 AM Referred By: REFERRED SELF Confirmed By:Mukesh Jay
[2021-12-24] MEDS: LOSARTAN POTASSIUM 50 MG TAB PO SCH (08:29)
[2021-12-24] MEDS: CLOPIDOGREL BISULFATE 75 MG TAB PO SCH (08:29)
[2021-12-24] MEDS: METOPROLOL SUCC 25MG EXT REL TAB PO SCH (08:30)
[2021-12-24] MEDS: PANTOprazole 40 MG TAB PO SCH (08:30)
--- NOTE | 2021-12-24 08:30 | CT Scan Report ---
ABDOMEN AND PELVIS CT WITHOUT CONTRAST CT DOSE: 316.29 mGy.cm HISTORY: Acute pelvic pain with decreased urine output Decreased urine output, intermittent pain TECHNIQUE: Multiaxial CT images of the abdomen and pelvis were performed without contrast. A dose lo wering technique was utilized adhering to the principles of ALARA. COMPARISON STUDY: CT abdomen and pelvis 08/17/2021 FINDINGS: Coronary artery calcifications. Partially imaged pacer leads. Clear lung bases. Unremarkabl e spleen, mildly atrophic pancreas, gallbladder and adrenal glands. The liver is within normal limits . Nonobstructing 8 mm calculus of the interpolar right kidney. No ureteral calculi or hydronephrosis. Brachytherapy seeds within the prostate. Moderate bladder wall thickening with partial distention. 1 .3 cm diverticulum of the anterosuperior urinary bladder, possibly a urachal remnant. Low attenuating structure within the left inguinal canal is similar to prior. Atherosclerosis of the aorta. No lymph adenopathy. No bowel obstruction or bowel wall thickening. Colonic diverticulosis. Prior partial sigmoid colon re section. Prior appendectomy. Unremarkable soft tissues. No destructive bone lesion identified. No acu te fracture. IMPRESSION: 1. No bowel obstruction or bowel wall thickening. 2. Prior partial sigmoid colon resection. 3. Colonic diverticulosis without diverticulitis. 4. Additional findings as above. ACT 112: Negative or not required by law. The above report was generated using voice recognition software. It may contain grammatical, syntax o r spelling errors. Electronically signed by: Jose Manuel Andrade M.D. 12/24/2021 8:27 AM
[2021-12-24] MEDS: TAMSULOSIN HCL 0.4 MG CAP PO SCH (08:31)
[2021-12-24] MEDS: SENNA 8.6 MG TAB PO SCH ×2 (08:31→20:11)
[2021-12-24] MEDS: ROSUVASTATIN CALCIUM 20 MG TAB PO SCH (08:31)
[2021-12-24] MEDS: ASPIRIN 81 MG ECTAB PO SCH (08:32)
[2021-12-24] MEDS ORDERED: SODIUM CHLORIDE 1 GM TABLET PO SCH (09:00)
[2021-12-24] MEDS: UREA (UREA-NA) 15 GM PACK PO SCH ×2 (10:44→20:11)
--- NOTE | 2021-12-24 15:18 | Consultation Report ---
NEPHROLOGY CONSULTATION NOTE REASON FOR CONSULTATION: Hyponatremia. HISTORY OF PRESENT ILLNESS: The patient is an 81-year-old male who has known history of SIADH with c hronic hyponatremia of mild type at least for the last few months. His serum sodium is usually in th e 128-130 range. The patient came to the hospital yesterday because of significant weakness of uncle ar etiology. He is also somewhat nauseous and had one episode of vomiting earlier this morning. No diarrhea or constipation. Denies any shortness of breath, orthopnea, PND. The patient is a poor his laura and he was barely able to keep his eyes open. Appetite is somewhat down for the last few days . On admission, his serum sodium is 128. His sodium was 136 a few days back on 12/20/2021. At the time of admission, his blood pressure was quite high with readings as high as 211/85. Most recent bl ood pressure is still high at 173/91. The patient normally takes salt tablet 1 gram once daily. ALLERGIES: Reviewed. 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 Multiple scope with biopsy, cystoscopy , partial removal of colon, appendicectomy, tonsillectomy, and small bowel endoscopy. MEDICATIONS: At home was reviewed in detail and is as per the reconciliation list. Of special inter est, he is not on any diuretics. He does take sodium chloride tablet 1 g daily. FAMILY HISTORY: Not significant for renal disease or dialysis. SOCIAL HISTORY: , quit smoking in 1971 after smoking for 30 years. No alcohol, no drugs. REVIEW OF SYSTEMS: Very hard to obtain as the patient can barely keep his eyes open. History was co nstructed predominantly from the H and P and the records available. PHYSICAL EXAMINATION: GENERAL: Elderly white male who appears to be quite weak. He was not really able to give me any his tory as he could not even keep his eyes open. He is awake and alert and oriented when he is woken up . VITAL SIGNS: Blood pressure is high at 173/91, pulse rate 67, temperature 36.5, 93% on room air. HEENT: Mucous membranes are moist. NECK: Supple. No jugular venous distention. CHEST: Bilaterally clear to auscultation, but poor quality exam. CARDIOVASCULAR: S1 and S2, regular. ABDOMEN: Soft, nontender. EXTREMITIES: Show no edema. LABORATORY TESTS: Sodium this morning was 130, it was 128 yesterday at the time of admission. On th e day of discharge on 08/17/2021, it was still 128. As an outpatient, he had normal sodium few days ago. Potassium is 3.6, BUN 15, creatinine 1.05. Serum osmolality 270. Magnesium 1.7. Urine osmola lity is inappropriately high at 504. Urine sodium 85. CT abdomen and pelvis was unremarkable. ASSESSMENT AND PLAN: An 81-year-old male who is admitted with nonspecific weakness. He was found to have serum sodium of 128 for which I have been consulted. Hyponatremia: This is not a new problem for him. In fact, most of his blood work shows sodium in th e range of 128-130. He had hyponatremia during his previous hospitalization in August also and on the day of discharge, his sodium was 128. His urine osmolality is very high and is very inappropriate fo r the serum sodium he has with elevated urine sodium. 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 His sodium has gone up already to 130 by overnight fluid restriction. Given his very high blood pressur e at the time of admission and even now, I do want to stop the salt tablet. We will instead use urea 15 grams twice daily to help with the serum sodium. However, the mainstay of his treatment is fluid restriction. Given that sodium is now 130+, we can do daily labs. I do not believe that the cause of his weakness is actually hyponatremia. We will defer generalized weakness management to primary t eam. RECOMMENDATIONS: 1. Daily labs. 2. Free fluid restriction of 1500 mL, stop salt tablet. 3. Urea 15 grams twice daily, daily labs. Job ID: [id number]
--- NOTE | 2021-12-24 16:33 | Hospitalist Progress Note ---
Date of Service December 24, 2021 Assessment & Plan (1) Weakness: Plan: Recently seen in the clinic on 12/20 and his trazodone, singulair, gabapentin and hydroxyzine was discontinued by his PCP. He also reports some new feelings of incomplete voiding of urine. His UA outpatient revealed no infection. Will order bladder scan to monitor for retention. He also was recently on a course of prednisone (5 days) for seasonal allergies along with claritin and singulair. Multiple medication changes may be contributing here. He is also a poor historian who is hard of hearing. I question if there might be mild cognitive inhibition ongoing. PT/OT ordered and will continue to monitor. There are no focal deficits and no evidence of infection at this point. Cont to monitor for evidence of clear etiology of weakness which is not likely his hyponatremia. (2) Hyponatremia: Plan: Improved, notably one episode of vomiting this am. Unclear etiology. He is on salt tabs at home which were stopped by nephrology and urea was started. NA was 128 and is now 130 today. He is asymptomatic. Euvolemic to dry on exam. Per nephrology this appears consistent with SIADH. Cont fluid restriction at this time unless he starts vomiting again, in which case we might give some fluids. (3) Hypertension: Plan: uncontrolled despite home medications ongoing including losartan 100mg daily, Toprol XL 25mg PO daily. Will start nifedipine at this time for better control. Salt tab was stopped which wasn't helping. (4) Depression: Plan: chronic, controlled. Cont home medication. Noted issues with insomnia in the outpatient notes, which is going against him feeling well. (5) CKD (chronic kidney disease), stage III: Plan: chronic, at goal. Cont current medical therapy. (6) BPH (benign prostatic hyperplasia): Plan: chronic, some report of incomplete voiding. Will cont tamsulosin per home regimen and schedule bladder scans. (7) DVT prophylaxis: Plan: Lovenox Full Code Dispo-cont hospitalization, pending PT/OT evaluations. DO Edward Stack Hospitalist Admission and Anticipated Discharge Date Admission Date: December 23, 2021 Results & Data Results & Data ([facility]) Vital Signs (Past 12 Hours) Vital Signs Temp Pulse Pulse Resp BP Pulse Ox O2 Del Method 12/24/21 16:01 36.7 C 67 18 175/84 H 94 Room Air 12/24/21 14:48 66 12/24/21 14:18 76 12/24/21 11:35 36.5 C 67 18 173/91 H 93 Room Air 12/24/21 07:55 36.3 C L 65 18 148/71 H 95 Room Air 12/24/21 06:14 61 Laboratory Results Short CBC 12/23/21 12/24/21 Range/Units 20:56 05:20 WBC 6.94 8.48 (4.8-10.8) K/ul Hgb 16.2 15.5 (14.0-18.0) g/dl Hct 45.1 43.7 (40.1-51.0) % Plt Count 134 145 (130-400) K/uL BMP 12/23/21 12/24/21 20:56 05:20 Sodium 128 L 130 L Potassium 3.8 3.6 Chloride 95 L 96 L Carbon Dioxide 26 24 BUN 15 15 Creatinine 1.05 1.05 Glucose 120 H 95 Calcium 9.4 9.2 Liver Function 12/23/21 Range/Units 20:56 Total Bilirubin 0.9 (0.2-1.0) mg/dl AST 22 (13-39) U/L ALT 23 (7-52) U/L Alkaline Phosphatase 58 (34-104) U/L Albumin 4.6 (3.4-5.0) gm/dl Urine 12/23/21 Range/Units 21:59 Urine Color Yellow Urine Appearance Clear (Clear) Urine pH 6.5 (4.5-7.5) Ur Specific Kinney 1.018 (1.000-1.030) Urine Protein 1+ H (Negative) Urine Glucose (UA) Negative (Negative) Diagnostic Findings Abdomen/Pelvis CT 12/23/21 20:[address] WITHOUT CONTRAST CT DOSE: 316.29 mGy.cm HISTORY: Acute pelvic pain with decreased urine output Decreased urine output, intermittent pain TECHNIQUE: Multiaxial CT images of the abdomen and pelvis were performed without contrast. A dose lowering technique was utilized adhering to the principles of ALARA. COMPARISON STUDY: CT abdomen and pelvis 08/17/2021 FINDINGS: Coronary artery calcifications. Partially imaged pacer leads. Clear lung bases. Unremarkable spleen, mildly atrophic pancreas, gallbladder and adrenal glands. The liver is within normal limits. Nonobstructing 8 mm calculus of the interpolar right kidney. No ureteral calculi or hydronephrosis. Brachytherapy seeds within the prostate. Moderate bladder wall thickening with partial distention. 1.3 cm diverticulum of the anterosuperior urinary bladder, possibly a urachal remnant. Low attenuating structure within the left inguinal canal is similar to prior. Atherosclerosis of the aorta. No lymphadenopathy. No bowel obstruction or bowel wall thickening. Colonic diverticulosis. Prior partial sigmoid colon resection. Prior appendectomy. Unremarkable soft tissues. No destructive bone lesion identified. No acute fracture. IMPRESSION: 1. No bowel obstruction or bowel wall thickening. 2. Prior partial sigmoid colon resection. 3. Colonic diverticulosis without diverticulitis. 4. Additional findings as above. ACT 112: Negative or not required by law. The above report was generated using voice recognition software. It may contain grammatical, syntax or spelling errors. Electronically signed by: Jose Manuel Andrade M.D. 12/24/2021 8:27 AM Medications Administered Current Inpatient Medications Acetaminophen (Acetaminophen 325 Mg Tab) 650 mg PO Q4H PRN PRN Reason: Pain or Fever Stop: 01/23/22 01:22 Aspirin (Aspirin 81 Mg Ectab) [facility] [place] Stop: 01/23/22 08:59 Last Admin: 12/24/21 08:32 Dose: 81 mg Cetirizine HCl (Cetirizine Hcl 10 Mg Tablet) 10 mg PO [facility] Stop: 01/23/22 20:59 Clopidogrel Bisulfate (Clopidogrel Bisulfate 75 Mg Tab) [facility] [place] Stop: 01/23/22 08:59 Last Admin: 12/24/21 08:29 Dose: 75 mg Enoxaparin Sodium (Enoxaparin Inj 40 Mg/0.4 Ml Syr) 40 mg SQ [facility] Stop: 01/23/22 01:29 Last Admin: 12/24/21 02:11 Dose: 40 mg Famotidine (Famotidine 20 Mg Tab) 20 mg PO [facility] Stop: 01/23/22 20:59 Hydralazine HCl (Hydralazine Hcl 20 Mg/Ml Vial) 7.5 mg IV Q6H PRN PRN Reason: Hypertension Stop: 01/23/22 01:22 Last Admin: 12/24/21 02:10 Dose: 7.5 mg Lorazepam (Lorazepam 0.5 Mg Tab) 0.5 mg PO HS PRN PRN Reason: Insomnia Stop: 01/23/22 01:22 Last Admin: 12/24/21 04:25 Dose: 0.5 mg Losartan Potassium (Losartan Potassium 50 Mg Tab) [facility] [place] Stop: 01/23/22 08:59 Last Admin: 12/24/21 08:29 Dose: 100 mg Metoprolol Succinate (Metoprolol Succ 25mg Ext Rel Tab) 12.5 mg [facility] [place] Stop: 01/23/22 08:59 Last Admin: 12/24/21 08:30 Dose: 12.5 mg Nitroglycerin (Nitroglycerin Sl 0.4 Mg/Tab Tab) 0.4 mg SL UD PRN PRN Reason: Chest Pain Stop: 01/23/22 01:22 Ondansetron HCl (Ondansetron Inj 2 Mg/Ml 2 Ml Vial) 4 mg IV Q6H PRN PRN Reason: Nausea Stop: 01/23/22 01:22 Last Admin: 12/24/21 09:38 Dose: 4 mg Pantoprazole Sodium (Pantoprazole 40 Mg Tab) [facility] [place] Stop: 01/23/22 08:59 Last Admin: 12/24/21 08:30 Dose: 40 mg Ropinirole HCl (Ropinirole Hcl 0.25 Mg Tablet) 0.5 mg PO HS [facility] Stop: 01/23/22 20:59 Rosuvastatin Calcium (Rosuvastatin Calcium 20 Mg Tab) 20 [facility] [place] Stop: 01/23/22 08:59 Last Admin: 12/24/21 08:31 Dose: 20 mg Sennosides (Senna 8.6 Mg Tab) 8.6 mg PO BID [facility] Stop: 01/23/22 08:59 Last Admin: 12/24/21 08:31 Dose: 8.6 mg Tamsulosin HCl (Tamsulosin Hcl 0.4 Mg Cap) 0.4 mg PO DAILY [facility] Stop: 01/23/22 08:59 Last Admin: 12/24/21 08:31 Dose: 0.4 mg Trazodone HCl (Trazodone Hcl 100 Mg Tab) 100 mg PO HS [facility] Stop: 01/23/22 01:22 Last Admin: 12/24/21 02:10 Dose: 100 mg Urea (Urea (Urea-Na) 15 Gm Pack) 15 gm PO BID [facility] Stop: 01/23/22 10:14 Last Admin: 12/24/21 10:44 Dose: 15 gm
[2021-12-24] MEDS ORDERED: NIFEdipine EXTENDED REL 30 MG TABCR PO STA (16:45)
[2021-12-24] MEDS: CETIRIZINE HCL 10 MG TABLET PO SCH (20:11)
[2021-12-24] MEDS: FAMOTIDINE 20 MG TAB PO SCH (20:11)
[2021-12-24] MEDS: rOPINIRole HCL 0.25 MG TABLET PO SCH (20:12)
[2021-12-25] MEDS: NIFEdipine EXTENDED REL 30 MG TABCR PO SCH (08:30)
[2021-12-25] MEDS: METOPROLOL SUCC 25MG EXT REL TAB PO SCH (08:31)
[2021-12-25] MEDS: ASPIRIN 81 MG ECTAB PO SCH (08:31)
[2021-12-25] MEDS: SENNA 8.6 MG TAB PO SCH ×2 (08:31→19:54)
[2021-12-25] MEDS: PANTOprazole 40 MG TAB PO SCH (08:32)
[2021-12-25] MEDS: ROSUVASTATIN CALCIUM 20 MG TAB PO SCH (08:32)
[2021-12-25] MEDS: TAMSULOSIN HCL 0.4 MG CAP PO SCH (08:33)
[2021-12-25] MEDS: CLOPIDOGREL BISULFATE 75 MG TAB PO SCH (08:33)
[2021-12-25] MEDS: UREA (UREA-NA) 15 GM PACK PO SCH ×2 (08:33→19:51)
[2021-12-25] MEDS: LOSARTAN POTASSIUM 50 MG TAB PO SCH (08:33)
[2021-12-25 08:35] LABS: BUN Creatinine Ratio 31.9 (10-20); Calcium 9.5 mg/dl (8.5-10.1); Creatinine Clr Calc Pharmacy 49.6 ml/min; Est GFR (African American) 70.3 ml/min; Est GFR (Non-African American) 60.6 ml/min; Magnesium 1.8 mg/dl (1.7-2.4); Phosphorus 3.3 mg/dl (2.5-4.9); Potassium 4.2 mmol/L (3.5-5.1)
--- NOTE | 2021-12-25 09:35 | Nephrology Progress Note ---
Date of Service December 25, 2021 Assessment & Plan Admission and Anticipated Discharge Date Admission Date: December 23, 2021 Subjective S--still feels weak. Not very interactive. PHYSICAL EXAMINATION: GENERAL: Elderly white male who appears to be quite weak. He was not really able to give me any history as he could not even keep his eyes open. He is awake and alert and oriented when he is woken up. HEENT: Mucous membranes are moist. NECK: Supple. No jugular venous distention. CHEST: Bilaterally clear to auscultation, but poor quality exam. CARDIOVASCULAR: S1 and S2, regular. ABDOMEN: Soft, nontender. EXTREMITIES: Show no edema. LABORATORY TESTS: Sodium this morning was 130, it was 128 yesterday at the time of admission. On the day of discharge on 08/17/2021, it was still 128. As an outpatient, he had normal sodium few days ago. Potassium is 3.6, BUN 15, creatinine 1.05. Serum osmolality 270. Magnesium 1.7. Urine osmolality is inappropriately high at 504. Urine sodium 85. CT abdomen and pelvis was unremarkable. ASSESSMENT AND PLAN: An 81-year-old male who is admitted with nonspecific weakness. He was found to have serum sodium of 128 for which I have been consulted. Hyponatremia: This is not a new problem for him. In fact, most of his blood work shows sodium in the range of 128-132. He had hyponatremia during his previous hospitalization in August also and on the day of discharge, his sodium was 128. His urine osmolality is very high and is very inappropriate for the serum sodium he has with elevated urine sodium. 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 His sodium has gone up already to 130 by overnight fluid restriction. Given his very high blood pressure at the time of admission and even now, I do want to stop the salt tablet. However, the mainstay of his treatment is fluid restriction. I do not believe that the cause of his weakness is actually hyponatremia. We will defer generalized weakness management to primary team. RECOMMENDATIONS: 1. Daily labs. 2. Free fluid restriction of 1200 mL, stop salt tablet given high BP. 3. Urea 15 grams twice daily, but if BUN goes higher tomorrow will stop. 4 His na has been in the 128-132 range for a while and might not change much.. Results & Data ([facility]) Vital Signs (Past 12 Hours) Vital Signs Temp Pulse Pulse Resp BP BP Pulse Ox 12/25/21 06:15 75 12/25/21 07:34 36.6 C 80 18 150/75 H 92 12/25/21 04:00 36.9 C 75 18 149/79 H 96 12/24/21 22:13 70 12/24/21 23:53 36.9 C 71 18 176/82 H 93 O2 Del Method 12/25/21 06:15 12/25/21 07:34 Room Air 12/25/21 04:00 Room Air 12/24/21 22:13 12/24/21 23:53 Room Air
--- NOTE | 2021-12-25 12:28 | Hospitalist Progress Note ---
Date of Service December 25, 2021 Assessment & Plan (1) Weakness: Plan: Recently seen in the clinic on 12/20 and his trazodone, singulair, gabapentin and hydroxyzine was discontinued by his PCP. He also reports some new feelings of incomplete voiding of urine. His UA outpatient revealed no infection. Bladder scan reveals no issues with retention. Urine is described as dark yellow and concentrated and he has not been eating much recently, suggesting He also was recently on a course of prednisone (5 days) for seasonal allergies along with claritin and singulair. Multiple medication changes may be contributing here. He is also a poor historian who is hard of hearing. I question if there might be mild cognitive inhibition ongoing; clarified . PT/OT ordered and will continue to monitor. There are no focal deficits and no evidence of infection at this point. Cont to monitor for evidence of clear etiology of weakness which is not likely his hyponatremia. (2) Hyponatremia: Plan: Improved, notably one episode of vomiting this am. Unclear etiology. He is on salt tabs at home which were stopped by nephrology and urea was started. NA was 128 and is now 130 today. He is asymptomatic. Euvolemic to dry on exam. Trialing some IVF at this time to see if he perks up a bit. (3) Hypertension: Plan: uncontrolled despite home medications ongoing including losartan 100mg daily, Toprol XL 25mg PO daily. Will start nifedipine at this time for better control. Salt tab was stopped which wasn't helping. (4) Depression: Plan: history of this previously on sertraline. Denies issues wtih depression at this time. Defer to PCP for management. (5) CKD (chronic kidney disease), stage III: Plan: chronic, at goal. Cont current medical therapy. (6) BPH (benign prostatic hyperplasia): Plan: chronic, some report of incomplete voiding. Will cont tamsulosin per home regimen and schedule bladder scans. (7) DVT prophylaxis: Plan: Lovenox Full Code Dispo-cont hospitalization, pending PT/OT evaluations. Adia Cabrera DO [facility] Hospitalist Admission and Anticipated Discharge Date Admission Date: December 23, 2021 Subjective 81-year-old man presents with generalized weakness and low appetite over the last week. He also reports some difficulty urinating. This appears to be better today. He has had low output and no evidence of urinary retention on bladder scans overnight. Today he feels that he has had more time to rest which is improving his weakness, which is very generalized. He is waiting to work with therapy today. Sodium is around 129 but patient appears euvolemic to dry on clinical picture. Blood pressure still elevated, adding nifedipine today. Patient denies any other pain, shortness of breath or other issues at this time. Additionally, we did discuss if he could be depressed and he does not think so. SIGECAPS is negative. Notably stopped trazodone recently. Review of Systems Review of Systems: All systems were reviewed and negative except as indicated on subjective above. Physical Exam Physical Exam: CONSTITUTIONAL: WNWD, vitals as above, generally well- appearing, NAD EYES: normal conjunctivae, no scleral icterus ENT: external ear and nose normal, MMM NECK: trachea midline, RESPIRATORY: clear to auscultation bilaterally, no crackles, rales or wheezes, normal respiratory effort CARDIOVASCULAR: regular rate and rhythm, S1 and 2 heard without murmurs, gallops or rubs, no JVD, no peripheral edema, CHEST: +pacemaker GASTROINTESTINAL: soft, NTND no guarding MUSCULOSKELETAL: strength 5/5 throughout and he can sit up on his own, head is normocephalic and atraumatic SKIN: warm and dry NEUROLOGIC: CN 2-12 grossly intact, no sensory deficit, normal cognition, normal speech, no tremor. No gross focal deficit. PSYCHIATRIC: alert cooperative and oriented to person, place and time. Slow to respond but accurate in his answers. Results & Data Results & Data ([facility]) Vital Signs (Past 12 Hours) Vital Signs Temp Pulse Pulse Resp BP BP Pulse Ox 12/25/21 11:00 36.9 C 77 16 136/79 96 12/25/21 06:15 75 12/25/21 07:34 36.6 C 80 18 150/75 H 92 12/25/21 04:00 36.9 C 75 18 149/79 H 96 O2 Del Method 12/25/21 11:00 Room Air 12/25/21 06:15 12/25/21 07:34 Room Air 12/25/21 04:00 Room Air Laboratory Results [facility] 12/25/21 07:37 Sodium 129 L Potassium 4.2 Chloride 95 L Carbon Dioxide 27 BUN 36 H D Creatinine 1.13 Glucose 98 Calcium 9.5 Medications Administered Current Inpatient Medications Acetaminophen (Acetaminophen 325 Mg Tab) 650 mg PO Q4H PRN PRN Reason: Pain or Fever Stop: 01/23/22 01:22 Aspirin (Aspirin 81 Mg Ectab) 81 mg PO [facility] Stop: 01/23/22 08:59 Last Admin: 12/25/21 08:31 Dose: 81 mg Cetirizine HCl (Cetirizine Hcl 10 Mg Tablet) 10 mg PO [facility] Stop: 01/23/22 20:59 Last Admin: 12/24/21 20:11 Dose: 10 mg Clopidogrel Bisulfate (Clopidogrel Bisulfate 75 Mg Tab) 75 mg PO [facility] Stop: 01/23/22 08:59 Last Admin: 12/25/21 08:33 Dose: 75 mg Enoxaparin Sodium (Enoxaparin Inj 40 Mg/0.4 Ml Syr) 40 mg SQ [facility] Stop: 01/23/22 01:29 Last Admin: 12/24/21 22:14 Dose: 40 mg Famotidine (Famotidine 20 Mg Tab) 20 mg PO [facility] Stop: 01/23/22 20:59 Last Admin: 12/24/21 20:11 Dose: 20 mg Hydralazine HCl (Hydralazine Hcl 20 Mg/Ml Vial) 7.5 mg IV Q6H PRN PRN Reason: Hypertension Stop: 01/23/22 01:22 Last Admin: 12/24/21 02:10 Dose: 7.5 mg Sodium Chloride (Nss 1000ml) 1,000 mls @ 125 mls/hr IV .Q8H [facility] Stop: 12/26/21 04:29 Lorazepam (Lorazepam 0.5 Mg Tab) 0.5 mg PO HS PRN PRN Reason: Insomnia Stop: 01/23/22 01:22 Last Admin: 12/24/21 22:14 Dose: 0.5 mg Losartan Potassium (Losartan Potassium 50 Mg Tab) 100 mg PO [facility] Stop: 01/23/22 08:59 Last Admin: 12/25/21 08:33 Dose: 100 mg Metoprolol Succinate (Metoprolol Succ 25mg Ext Rel Tab) 12.5 mg PO [facility] Stop: 01/23/22 08:59 Last Admin: 12/25/21 08:31 Dose: 12.5 mg Nifedipine (Nifedipine Extended Rel 30 Mg Tabcr) 30 mg PO [facility] Stop: 01/24/22 08:59 Last Admin: 12/25/21 08:30 Dose: 30 mg Nitroglycerin (Nitroglycerin Sl 0.4 Mg/Tab Tab) 0.4 mg SL UD PRN PRN Reason: Chest Pain Stop: 01/23/22 01:22 Ondansetron HCl (Ondansetron Inj 2 Mg/Ml 2 Ml Vial) 4 mg IV Q6H PRN PRN Reason: Nausea Stop: 01/23/22 01:22 Last Admin: 12/24/21 09:38 Dose: 4 mg Pantoprazole Sodium (Pantoprazole 40 Mg Tab) 40 mg PO QAM [facility] Stop: 01/23/22 08:59 Last Admin: 12/25/21 08:32 Dose: 40 mg Ropinirole HCl (Ropinirole Hcl 0.25 Mg Tablet) 0.5 mg PO [facility] Stop: 01/23/22 20:59 Last Admin: 12/24/21 20:12 Dose: 0.5 mg Rosuvastatin Calcium (Rosuvastatin Calcium 20 Mg Tab) 20 mg PO QAM [facility] Stop: 01/23/22 08:59 Last Admin: 12/25/21 08:32 Dose: 20 mg Sennosides (Senna 8.6 Mg Tab) 8.6 mg PO BID [facility] Stop: 01/23/22 08:59 Last Admin: 12/25/21 08:31 Dose: 8.6 mg Tamsulosin HCl (Tamsulosin Hcl 0.4 Mg Cap) 0.4 mg PO DAILY [facility] Stop: 01/23/22 08:59 Last Admin: 12/25/21 08:33 Dose: 0.4 mg Trazodone HCl (Trazodone Hcl 100 Mg Tab) 100 mg PO HS [facility] Stop: 01/23/22 01:22 Last Admin: 12/24/21 20:12 Dose: 100 mg Urea (Urea (Urea-Na) 15 Gm Pack) 15 gm PO BID [facility] Stop: 01/23/22 10:14 Last Admin: 12/25/21 08:33 Dose: 15 gm
[2021-12-25] MEDS: SODIUM CHLORIDE 0.9% 1000ML 1,000 ML IV SCH ×2 (12:55→19:51)
[2021-12-25] MEDS ORDERED: POLYETHYLENE (MIRALAX) 17 GM PACK PO PRN (16:28)
[2021-12-25] MEDS ORDERED: MELATONIN 3 MG TAB PO PRN (19:36)
[2021-12-25] MEDS: LORazepam 0.5 MG TAB PO PRN (19:52)
[2021-12-25] MEDS: rOPINIRole HCL 0.25 MG TABLET PO SCH (19:53)
[2021-12-25] MEDS: FAMOTIDINE 20 MG TAB PO SCH (19:53)
[2021-12-25] MEDS: CETIRIZINE HCL 10 MG TABLET PO SCH (19:54)
[2021-12-25] MEDS: ENOXAPARIN INJ 40 MG/0.4 ML SYR SQ SCH (19:54)
[2021-12-25] MEDS ORDERED: traZODone HCL 50 MG TAB PO SCH (21:00)
[2021-12-26] MEDS: NIFEdipine EXTENDED REL 30 MG TABCR PO SCH (08:45)
[2021-12-26] MEDS: UREA (UREA-NA) 15 GM PACK PO SCH (08:45)
[2021-12-26] MEDS: METOPROLOL SUCC 25MG EXT REL TAB PO SCH (08:46)
[2021-12-26] MEDS: TAMSULOSIN HCL 0.4 MG CAP PO SCH (08:46)
[2021-12-26] MEDS: CLOPIDOGREL BISULFATE 75 MG TAB PO SCH (08:46)
[2021-12-26] MEDS: SENNA 8.6 MG TAB PO SCH (08:46)
[2021-12-26] MEDS: ROSUVASTATIN CALCIUM 20 MG TAB PO SCH (08:46)
[2021-12-26] MEDS: PANTOprazole 40 MG TAB PO SCH (08:47)
[2021-12-26] MEDS: LOSARTAN POTASSIUM 50 MG TAB PO SCH (08:47)
[2021-12-26] MEDS: ASPIRIN 81 MG ECTAB PO SCH (08:47)
[2021-12-26 10:25] LABS: BUN Creatinine Ratio 35.2 (10-20); Calcium 9.1 mg/dl (8.5-10.1); Creatinine Clr Calc Pharmacy 51.9 ml/min; Est GFR (African American) 74.2 ml/min; Potassium 4.3 mmol/L (3.5-5.1)
--- NOTE | 2021-12-26 12:11 | Nephrology Progress Note ---
Date of Service December 26, 2021 Assessment & Plan Admission and Anticipated Discharge Date Admission Date: December 23, 2021 Subjective Subjective S--still feels weak. Not very interactive. PHYSICAL EXAMINATION: GENERAL: Elderly white male who appears to be quite weak. He was not really able to give me any history as he could not even keep his eyes open. He is awake and alert and oriented when he is woken up. HEENT: Mucous membranes are moist. NECK: Supple. No jugular venous distention. CHEST: Bilaterally clear to auscultation, but poor quality exam. CARDIOVASCULAR: S1 and S2, regular. ABDOMEN: Soft, nontender. EXTREMITIES: Show no edema. LABORATORY TESTS: Sodium this morning was 130, Urine osmolality is inappropriately high at 504. Urine sodium 85. CT abdomen and pelvis was unremarkable. ASSESSMENT AND PLAN: An 81-year-old male who is admitted with nonspecific weakness. He was found to have serum sodium of 128 for which I have been consulted. Hyponatremia: This is not a new problem for him. In fact, most of his blood work shows sodium in the range of 128-132. He had hyponatremia during his previous hospitalization in August also and on the day of discharge, his sodium was 128. His urine osmolality is very high and is very inappropriate for the serum sodium he has with elevated urine sodium. 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 His sodium has gone up already to 130 by overnight fluid restriction. Given his very high blood pressure at the time of admission and even now, I do want to stop the salt tablet. However, the mainstay of his treatment is fluid restriction. I do not believe that the cause of his weakness is actually hyponatremia. We will defer generalized weakness management to primary team. RECOMMENDATIONS: 1. Daily labs. 2. Free fluid restriction of 1500 mL, stop salt tablet given high BP. 3. Urea 15 grams twice daily, but if BUN goes higher tomorrow will stop. 4 His na has been in the 128-132 range for a while and might not change much. Results & Data ([facility]) Vital Signs (Past 12 Hours) Vital Signs Temp Pulse Pulse Resp BP BP Pulse Ox 12/26/21 07:54 37.0 C 73 18 165/79 H 94 12/26/21 06:20 66 12/26/21 04:00 36.8 C 70 18 143/74 H 94 O2 Del Method 12/26/21 07:54 Room Air 12/26/21 06:20 12/26/21 04:00 Room Air
[2021-12-26] MEDS ORDERED: POLYETHYLENE (MIRALAX) 17 GM PACK PO ONE (12:40)
[2021-12-26] MEDS ORDERED: DOCUSATE SODIUM 100 MG CAP PO SCH (12:45)
--- NOTE | 2021-12-26 14:31 | Hospitalist Progress Note ---
Date of Service December 26, 2021 Assessment & Plan (1) Weakness: Plan: Recently seen in the clinic on 12/20 and his trazodone, singulair, gabapentin and hydroxyzine was discontinued by his PCP. He also reports some new feelings of incomplete voiding of urine. His UA outpatient revealed no infection. Bladder scan reveals no issues with retention. Urine is described as dark yellow and concentrated and he has not been eating much recently, suggesting He also was recently on a course of prednisone (5 days) for seasonal allergies along with claritin and singulair. Generalized weakness--no clear etiology Multiple medication changes may be contributing Trazodone withdrawal is taken into consideration--patient informs not taking the medication only for 1 day Since trazodone not helping with insomnia, patient refuses to be restarted on it PT OT recommends home with home health (2) Hyponatremia: Plan: Secondary to SIADH Continue fluid restriction Appreciate nephrology input Monitor sodium levels (3) Hypertension: Plan: Continue losartan, Metoprolol Started on Nifedipine (4) Depression: Plan: previously on sertraline Denies issues with depression currently Advised to follow-up with PCP as outpatient (5) CKD (chronic kidney disease), stage III: Plan: Chronic Monitor (6) BPH (benign prostatic hyperplasia): Plan: Bladder scan showed no retention Continue tamsulosin Constipation Continue bowel regimen Had bowel movement today (7) DVT prophylaxis: Plan: Lovenox SQ Code Status Full Code Disposition Home with Admission and Anticipated Discharge Date Admission Date: December 23, 2021 Subjective Patient is seen and examined at bedside States having constipation Offers no other complaints Denies any chest pain, shortness of breath, dizziness, nausea, abdominal pain Review of Systems Review of Systems: All systems reviewed & are unremarkable except as noted in Subjective Physical Exam Physical Exam: Physical Exam: Vitals signs as noted above General Appearance:Moderately built and nourished, no apparent distress Head: normocephalic, Atraumatic Eyes: normal inspection, EOMI Neck: supple, Trachea midline Respiratory/Chest: Normal breath sounds, CTA, No accessory muscle use Cardiovascular: S1, S2, No murmur Abdomen/GI:Soft, Non tender, Bowel sounds present Extremities/Musculoskeletal:normal inspection, no edema Neurologic/Psych:AAOX3, grossly no focal neurological deficits, +Hearing impairment Skin: normal color, warm Results & Data Results & Data ([facility]) Vital Signs (Past 12 Hours) Vital Signs Temp Pulse Pulse Resp BP BP Pulse Ox 12/26/21 07:54 37.0 C 73 18 165/79 H 94 12/26/21 06:20 66 12/26/21 04:00 36.8 C 70 18 143/74 H 94 O2 Del Method 12/26/21 07:54 Room Air 12/26/21 06:20 12/26/21 04:00 Room Air Laboratory Results [facility] 12/26/21 09:44 Sodium 130 L Potassium 4.3 Chloride 98 Carbon Dioxide 27 BUN 38 H Creatinine 1.08 Glucose 148 H Calcium 9.1
--- NOTE | 2021-12-26 20:01 | Discharge Summary ---
Date of Service December 26, 2021 Admission Exam Per Admitting Provider PHYSICAL EXAMINATION: GENERAL: The patient is of moderate build, not in acute distress. VITAL SIGNS: Temperature 36.4, pulse 61, respiratory rate 20, blood pressure 192/84, oxygen 94% on room air. HEENT: Pupils equal, round and reactive to light. Oral mucosa moist. NECK: No JVD, no neck masses. CARDIOVASCULAR: S1 and S2 heard. Regular rate and rhythm. No murmur, no gallop. RESPIRATORY SYSTEM: Normal AP diameter. No accessory muscle use. No wheezing, no crackles. ABDOMEN: Soft, bowel sounds present, nontender, no distention. CENTRAL NERVOUS SYSTEM: Alert and oriented. No facial droop. Speech is cl ear. Insight is okay. Obeys simple commands. Moves extremities. EXTREMITIES: No edema, no erythema. Principal Diagnosis Generalized weakness Chronic hyponatremia--SIADH Discharge Data Allergies Allergy/AdvReac Type Severity Reaction Status Date / Time clarithromycin Allergy Intermediate rash Verified 12/23/21 23:02 lisinopril Allergy Unknown Unknown Verified 12/23/21 23:02 metoclopramide AdvReac Intermediate NIGHTMARES Verified 12/23/21 23:02 pantoprazole [From Protonix] AdvReac Intermediate GI upset Verified 12/23/21 23:02 prochlorperazine AdvReac Intermediate HYPER Verified 12/23/21 23:02 UNABLE TO TOLERATE SIDE EFFEDTS Consultations 12/23/21 22:41 ED Decision to Admit Stat 12/24/21 08:00 Consult Nephrology Routine Procedures Performed Laboratory Results WBC 8.48 K/ul (4.8-10.8) 12/24/21 05:20 RBC 5.06 M/uL (4.63-6.08) 12/24/21 05:20 Hgb 15.5 g/dl (14.0-18.0) 12/24/21 05:20 Hct 43.7 % (40.1-51.0) 12/24/21 05:20 MCV 86.4 fL (80.0-100.0) 12/24/21 05:20 MCH 30.6 pg (25.0-34.0) 12/24/21 05:20 MCHC 35.5 g/dL (32.0-36.0) 12/24/21 05:20 RDW Std Deviation 37.9 fL (36.4-46.3) 12/24/21 05:20 RDW Coeff of Regine 11.9 % (11.5-14.5) 12/24/21 05:20 Plt Count 145 K/uL (130-400) 12/24/21 05:20 MPV 10.1 fL (9.4-12.4) 12/24/21 05:20 Immature Gran % (Auto) 0.2 % 12/24/21 05:20 Neut % (Auto) 63.7 % 12/24/21 05:20 Lymph % (Auto) 23.2 % 12/24/21 05:20 [place] % (Auto) 9.1 % 12/24/21 05:20 Eos % (Auto) 3.1 % 12/24/21 05:20 Baso % (Auto) 0.7 % 12/24/21 05:20 Neut # (Auto) 5.40 K/uL (1.4-6.5) 12/24/21 05:20 Lymph # (Auto) 1.97 K/uL (1.2-3.4) 12/24/21 05:20 Harrison # (Auto) 0.77 K/uL (0.24-0.82) 12/24/21 05:20 Eos # (Auto) 0.26 K/uL (0-0.50) 12/24/21 05:20 Baso # (Auto) 0.06 K/uL (0-0.2) 12/24/21 05:20 Immature Gran # (Auto) 0.02 K/uL (0.00-0.02) 12/24/21 05:20 Echinocytes 1+ 12/23/21 20:56 Sodium 130 mmol/L (136-145) L 12/26/21 09:44 Potassium 4.3 mmol/L (3.5-5.1) 12/26/21 09:44 Chloride 98 mmol/L (98-107) 12/26/21 09:44 Carbon Dioxide 27 mmol/L (21-32) 12/26/21 09:44 Anion Gap 5 (3-11) 12/26/21 09:44 BUN 38 mg/dl (6-23) H 12/26/21 09:44 Creatinine 1.08 mg/dl (0.6-1.4) 12/26/21 09:44 Est Cr Clr Drug Dosing 51.9 ml/min 12/26/21 09:44 Est GFR ( Amer) 74.2 ml/min 12/26/21 09:44 Est GFR (Non-Af Amer) 64.0 ml/min 12/26/21 09:44 BUN/Creatinine Ratio 35.2 (10-20) H 12/26/21 09:44 Glucose 148 mg/dl (70-99(Fasting)) H 12/26/21 09:44 Osmolality 270 mOsm/kg (280-300) L 12/24/21 05:20 Calcium 9.1 mg/dl (8.5-10.1) 12/26/21 09:44 Phosphorus 3.3 mg/dl (2.5-4.9) 12/25/21 07:37 Magnesium 1.8 mg/dl (1.7-2.4) 12/25/21 07:37 Total Bilirubin 0.9 mg/dl (0.2-1.0) 12/23/21 20:56 AST 22 U/L (13-39) 12/23/21 20:56 ALT 23 U/L (7-52) 12/23/21 20:56 Alkaline Phosphatase 58 U/L (34-104) 12/23/21 20:56 Troponin I High Sens 6.1 pg/ml (0-20) 12/23/21 20:56 Total Protein 7.2 gm/dl (6.0-8.3) 12/23/21 20:56 Albumin 4.6 gm/dl (3.4-5.0) 12/23/21 20:56 Globulin 2.6 gm/dl (2.5-4.0) 12/23/21 20:56 Albumin/Globulin Ratio 1.8 (0.9-2) 12/23/21 20:56 TSH 2.876 uIu/ml (0.300-4.500) 12/23/21 20:56 Urine Color Yellow 12/23/21 21:59 Urine Appearance Clear (Clear) 12/23/21 21:59 Urine pH 6.5 (4.5-7.5) 12/23/21 21:59 Ur Specific [place] 1.018 (1.000-1.030) 12/23/21 21:59 Urine Protein 1+ (Negative) H 12/23/21 21:59 Urine Glucose (UA) Negative (Negative) 12/23/21 21:59 Urine Ketones Negative (Negative) 12/23/21 21:59 Urine Blood Trace (Negative) H 12/23/21 21:59 Urine Nitrite Negative (Negative) 12/23/21 21:59 Urine Bilirubin Negative (Negative) 12/23/21 21:59 Urine Urobilinogen Negative (Negative) 12/23/21 21:59 Ur Leukocyte Esterase Negative (Negative) 12/23/21 21:59 Urine WBC (Auto) 1-5 /hpf (0-5) 12/23/21 21:59 Urine RBC (Auto) 5-10 /hpf (0-4) H 12/23/21 21:59 U Hyaline Cast (Auto) 0 /lpf (0-5) 12/23/21 21:59 U Epithel Cells (Auto) 0-5 /lpf (0-5) 12/23/21 21:59 Urine Bacteria (Auto) Negative (Negative) 12/23/21 21:59 Urine Osmolality 504 mOsm/kg (500-800) 12/23/21 21:59 Ur Random Creatinine 186.5 mg/dl 12/24/21 09:35 Ur Random Sodium 85 mmol/L 12/24/21 01:23 SARS-CoV-2, RNA, NAAT NEGATIVE (NEGATIVE) 12/23/21 20:43 Impressions Abdomen/Pelvis CT 12/23/21 20:[address] WITHOUT CONTRAST CT DOSE: 316.29 mGy.cm HISTORY: Acute pelvic pain with decreased urine output Decreased urine output, intermittent pain TECHNIQUE: Multiaxial CT images of the abdomen and pelvis were performed without contrast. A dose lowering technique was utilized adhering to the principles of ALARA. COMPARISON STUDY: CT abdomen and pelvis 08/17/2021 FINDINGS: Coronary artery calcifications. Partially imaged pacer leads. Clear lung bases. Unremarkable spleen, mildly atrophic pancreas, gallbladder and adrenal glands. The liver is within normal limits. Nonobstructing 8 mm calculus of the interpolar right kidney. No ureteral calculi or hydronephrosis. Brachy therapy seeds within the prostate. Moderate bladder wall thickening with partial distention. 1.3 cm diverticulum of the anterosuperior urinary bladder, possibly a urachal remnant. Low attenuating structure within the left inguinal canal is similar to prior. Atherosclerosis of the aorta. No lymphadenopathy. No bowel obstruction or bowel wall thickening. Colonic diverticulosis. Prior partial sigmoid colon resection. Prior appendectomy. Unremarkable soft tissues. No destructive bone lesion identified. No acute fracture. IMPRESSION: 1. No bowel obstruction or bowel wall thickening. 2. Prior partial sigmoid colon resection. 3. Colonic diverticulosis without diverticulitis. 4. Additional findings as above. ACT 112: Negative or not required by law. The above report was generated using voice recognition software. It may contain grammatical, syntax or spelling errors. Electronically signed by: Jose Manuel Andrade M.D. 12/24/2021 8:27 AM Ordered Studies 12/23/21 20:53 CT abd pelvis wo con Urgent Hospital Course (1) Weakness: Recently seen in the clinic on 12/20 and his trazodone, singulair, gabapentin and hydroxyzine was discontinued by his PCP. He also reports some new feelings of incomplete voiding of urine. His UA outpatient revealed no infection. Bladder scan reveals no issues with retention. Urine is described as dark yellow and concentrated and he has not been eating much recently, suggesting He also was recently on a course of prednisone (5 days) for seasonal allergies along with claritin and singulair. Generalized weakness--no clear etiology Multiple medication changes may be contributing Trazodone withdrawal is taken into consideration--patient informs not taking the medication only for 1 day Since trazodone not helping with insomnia, patient refuses to be restarted on it PT OT recommends home with home health (2) Hyponatremia: Secondary to SIADH Continue fluid restriction Appreciate nephrology input Monitor sodium levels (3) Hypertension: Continue losartan, Metoprolol Started on Nifedipine (4) Depression: previously on sertraline Denies issues with depression currently Advised to follow-up with PCP as outpatient (5) CKD (chronic kidney disease), stage III: Chronic Monitor (6) BPH (benign prostatic hyperplasia): Bladder scan showed no retention Continue tamsulosin Constipation Continue bowel regimen Had bowel movement today (7) DVT prophylaxis: Lovenox SQ Code Status Full Code Disposition Home with Total Time Total Time Spent Total Time Spent (In Minutes): 49 minutes Discharge Plan Discharge Items Patient Disposition: Home - Home Health Services Reason For Visit: WEAKNESS Discharge Diagnosis: Generalized weakness Chronic hyponatremia--SIADH Activity: Per Instructions section Exercise/Sports: Gradually increase as tolerated Non-emergency contact: Primary Care Provider and Charge Entry Specialist Call non-emergency contact if: you have any medication questions, your symptoms worsen, your pain is concerning for you and you have a fever Follow-up/Referrals: Devora Gallagher MD [Primary Care Provider] - (Date & Time 01/02/2022 11:20 AM Provider Devora Gallagher MD Department Family Medicine [facility] ) Diet: Heart Healthy Fluids: 1800ml (7 cups) Addtl Attending Provider Instructions: Follow-up with your primary care physician on 01/02/2022 11:20 AM as scheduled Follow up with your Charge Entry Specialist as needed Seek immediate medical attention if your symptoms reoccur or worsen Please take all medications as instructed on discharge list below. Please call if you have any questions or problems. You can reach a [facility] hospitalist on duty at [facility] 24 hours a day by calling [phone] Pending Studies at Discharge: No Stand-Alone Forms: My [facility], Smoking Cessation Medications and DC Order Prescriptions: New nifedipine [Procardia XL] 30 mg Tablet Extended Release 24hr 30 mg PO QAM Qty: 30 0RF polyethylene glycol 3350 [Miralax] 17 gram Powder In Packet 17 g PO DAILY PRN (Reason: constipation) Qty: 30 0RF melatonin 3 mg Tablet 3 mg PO HS PRN (Reason: sleep) Qty: 30 0RF Continued aspirin [Ecotrin Low Strength] 81 mg Tablet,Delayed Release (Dr/Ec) 81 mg PO QAM losartan [Cozaar] 100 mg tablet 100 mg PO QAM clopidogrel [Plavix] 75 mg tablet 75 mg PO QAM cetirizine [Zyrtec] 10 mg Tablet 10 mg PO HS omeprazole 40 mg capsule,delayed release(DR/EC) 40 mg PO QAM Rx Instructions: MUST BE NAME BRAND trazodone 100 mg tablet 100 mg PO HS ropinirole 0.5 mg tablet 0.5 mg PO HS rosuvastatin [Crestor] 20 mg tablet 20 mg PO QAM metoprolol succinate [Toprol XL] 25 mg tablet extended release 24 hr 12.5 mg PO QAM ondansetron HCl 4 mg tablet 8 mg PO Q8 PRN (Reason: Nausea) sennosides [senna] 8.6 mg Tablet 8.6 mg PO BID famotidine 20 mg tablet 20 mg PO HS lorazepam 0.5 mg tablet 0.5 mg PO .Q2D/UD PRN (Reason: Insomnia) Rx Instructions: take one tablet every other day at hs tamsulosin 0.4 mg capsule 0.4 mg PO DAILY Discontinued sodium chloride 1 gram tablet 1 g PO QAM Discharge Orders: Discharge Order (Routine); Ordered 12/26/21 Ordered By: Derrick Chung Admission Data Admit Date/Time: 12/23/21 23:56 Attending Provider: Derrick Chung Admit Provider: Sarath Tsai Primary Care Provider: Devora Gallagher Other Providers: Sarath Tsai ; Elisa Craig ; Zuhair Chatterjee [facility] Other Interventions: Discharge Summary Assessment (RN) Last Done: 12/26/21 14:56
== END 2021-12-26 17:03 | disposition home health service (06) | DRG 644 ==
LOC: ED 20:23 → 2N 23:56 → SUATTDRO 23:56 → 2N 12-24 00:57